=== PATIENT | male | born 1955 | race Caucasian/White ===

== ENCOUNTER → 2021-07-02 13:59 | Outpatient (CLI) | payer MEDICARE, OTHER, SELFPAY ==
[2021-07-02 14:41] LABS: Thyroid Stimulating Hormone 0.02 uIU/mL (0.465-4.68)
== END ==
PROVIDERS: Visit Provider Family Medicine
DX: E03.9 Hypothyroidism, unspecified (principal)
CPT/HCPCS: 84443

== ENCOUNTER → 2021-10-23 14:22 | Outpatient (CLI) | payer MEDICARE, OTHER, SELFPAY | PROVIDERS: Visit Provider Family Medicine | DX: Z89.412 Acquired absence of left great toe (principal); Z89.422 Acquired absence of other left toe(s) | CPT/HCPCS: 87070; 87077; 87186; 87205 ==

== ENCOUNTER → 2022-03-19 16:55 | Outpatient (CLI) | payer MEDICARE, OTHER, SELFPAY ==
[2022-03-19 15:14] LABS: Hemoglobin A1C 5.7 % (4.0-6.0)
== END ==
PROVIDERS: PCP Family Medicine; Visit Provider Family Medicine
DX: E11.9 Type 2 diabetes mellitus without complications (principal)
CPT/HCPCS: 83036

== ENCOUNTER → 2022-10-08 14:24 | Outpatient (CLI) | payer MEDICARE, SELFPAY ==
--- NOTE | 2022-10-08 14:43 | XR_ITS ---
FINAL REPORT CLINICAL HISTORY: hip pain COMPARISON: [place] FINDINGS: RIGHT HIP Two views of the right hip demonstrate no acute fracture or dislocation. Mild degenerative change of the right hip is present. Moderate degenerative change of the lower lumbar spine is seen as well. The visualized bony structures are well aligned. No soft tissue abnormality is seen. IMPRESSION: No acute bony abnormality. Reviewed, Interpreted and Dictated by Edward Cox III, MD Transcribed by Paulina Guardado Authenticated and [facility]
--- NOTE | 2022-10-08 14:43 | XR_ITS ---
FINAL REPORT CLINICAL HISTORY: dyspnea FINDINGS: 2 views of the chest were obtained. The heart size and pulmonary vascularity are within normal limits. There is a left subclavian pacer. No acute pulmonary abnormality is identified. The bony thorax is intact. IMPRESSION: No acute cardiopulmonary abnormality. Authenticated and [facility]
--- NOTE | 2022-10-08 14:43 | XR_ITS ---
FINAL REPORT CLINICAL HISTORY: hip pain COMPARISON: None FINDINGS: RIGHT HIP Two views of the right hip demonstrate no acute fracture or dislocation. Mild degenerative change of the right hip is identified. Moderate degenerative changes noted in the lower lumbar spine. The visualized bony structures are well aligned. No soft tissue abnormality is seen. IMPRESSION: No acute bony abnormality. Reviewed, Interpreted and Dictated by Edward Cox III, MD Transcribed by Paulina Guardado Authenticated and [facility]
[2022-10-08 15:22] LABS: Basophils # 0.2 K/mm3 (0-0.2); Basophils % 2.1 % (0.1-2.0); Eosinophils # 0.2 K/mm3 (0.0-0.4); Eosinophils % 2.3 % (0.1-12.0); Hematocrit 34.2 % (42.0-52.0); Lymphocytes # 1.1 K/mm3 (0.7-4.5); Lymphocytes % 12.6 % (10-50); Mean Corpuscular HGB Conc 32.2 g/dL (31.8-35.4); Mean Corpuscular Hemoglobin 30.4 pg (27.0-31.2); Mean Corpuscular Volume 94.6 fl (80-94); Mean Platelet Volume 8.9 fl (7.4-10.4); Monocytes # 0.5 K/mm3 (0.1-1.0); Monocytes % 5.8 % (1.7-9.3); Neutrophils # 6.6 K/mm3 (1.8-7.8); Neutrophils % 77.2 % (37.0-80.0); Platelet Count 302 K/mm3 (142-424); Red Blood Count 3.62 M/mm3 (4.60-6.20); Red Cell Distribution Width 20.1 % (11.5-17.5); White Blood Count 8.6 K/mm3 (4.8-10.8)
[2022-10-08 15:30] LABS: INR 2.76 (0.9-1.1); Prothrombin Time 28.1 seconds (10.1-12.5)
[2022-10-08 15:37] LABS: Hemoglobin A1C 5.6 % (4.0-6.0)
[2022-10-08 15:43] LABS: Alanine Aminotransferase 33 U/L (12-78); Albumin Level 4.2 g/dl (3.5-5.0); Albumin/Globulin Ratio 1.5 (1.1-1.8); Alkaline Phosphatase 126 U/L (38-126); Anion Gap 15.3 mEq/L (5-15); Aspartate Amino Transferase 35 U/L (17-59); Bilirubin,Total 0.4 mg/dl (0.2-1.3); Blood Urea Nitrogen 17 mg/dl (9-20); Calcium 8.9 mg/dl (8.4-10.2); Carbon Dioxide 26 mmol/L (22.0-30.0); Chloride 103 mmol/L (98-107); Chol/HDL Ratio 9.3 (1-3.5); Cholesterol 224 mg/dl (140-200); Estimated Glomerular Filt Rate 74 ml/min (>60); GFR (African American) 90 ML/MIN (>60); Globulin 2.8 g/dL (1.3-3.2); Glucose 111 mg/dl (74-100); HDL Cholesterol 24 mg/dl (40-60); Potassium 4.3 mmoL/L (3.5-5.1); Sodium 140 mmol/L (136-145)
[2022-10-08 15:52] LABS: Triglycerides 722 mg/dl (30-150)
[2022-10-08 15:54] LABS: Direct LDL Cholesterol 84.52 mg/dL (100-129)
[2022-10-08 16:14] LABS: Prostate Specific Ag Screen < 0.1 ng/ml (0.0-4.0)
[2022-10-08 16:16] LABS: Thyroid Stimulating Hormone 0.21 uIU/mL (0.465-4.68)
== END ==
PROVIDERS: PCP Family Medicine; Visit Provider Family Medicine
DX: R06.00 Dyspnea, unspecified (principal); E03.9 Hypothyroidism, unspecified; M25.551 Pain in right hip; M25.552 Pain in left hip; D45 Polycythemia vera; Z12.5 Encounter for screening for malignant neoplasm of prostate; Z51.81 Encounter for therapeutic drug level monitoring; Z79.01 Long term (current) use of anticoagulants; Z79.899 Other long term (current) drug therapy
CPT/HCPCS: 36415; 71046; 73502; 80053; 80061; 83036; 84443; 85025; 85610; G0103

== ENCOUNTER → 2023-02-28 23:41 | Outpatient (CLI) | payer MEDICARE, SELFPAY ==
[2023-02-28 18:27] LABS: Alanine Aminotransferase 36 U/L (12-78); Albumin Level 3.9 g/dl (3.5-5.0); Albumin/Globulin Ratio 1.4 (1.1-1.8); Alkaline Phosphatase 110 U/L (38-126); Anion Gap 12.2 mEq/L (5-15); Aspartate Amino Transferase 50 U/L (17-59); Bilirubin,Total 0.4 mg/dl (0.2-1.3); Blood Urea Nitrogen 15 mg/dl (9-20); Calcium 8.9 mg/dl (8.4-10.2); Carbon Dioxide 30 mmol/L (22.0-30.0); Chloride 99 mmol/L (98-107); Estimated Glomerular Filt Rate 96 ml/min (>60); GFR (African American) 116 ML/MIN (>60); Globulin 2.7 g/dL (1.3-3.2); Glucose 112 mg/dl (74-100); Potassium 4.2 mmoL/L (3.5-5.1); Sodium 137 mmol/L (136-145); Total Protein,Serum 6.6 g/dl (6.3-8.2)
[2023-02-28 18:39] LABS: Basophils # 0.2 K/mm3 (0-0.2); Basophils % 1.7 % (0.1-2.0); Eosinophils # 0.2 K/mm3 (0.0-0.4); Eosinophils % 2.5 % (0.1-12.0); Hematocrit 31.7 % (42.0-52.0); Hemoglobin 10.7 g/dL (14.1-18.0); Lymphocytes # 1.2 K/mm3 (0.7-4.5); Lymphocytes % 14.2 % (10-50); Mean Corpuscular HGB Conc 33.8 g/dL (31.8-35.4); Mean Corpuscular Hemoglobin 30.9 pg (27.0-31.2); Mean Corpuscular Volume 91.6 fl (80-94); Mean Platelet Volume 11.1 fl (7.4-10.4); Monocytes # 0.4 K/mm3 (0.1-1.0); Monocytes % 4.2 % (1.7-9.3); Neutrophils # 6.6 K/mm3 (1.8-7.8); Neutrophils % 77.3 % (37.0-80.0); Platelet Count 200 K/mm3 (142-424); Red Blood Count 3.46 M/mm3 (4.60-6.20); Red Cell Distribution Width 20.3 % (11.5-17.5); White Blood Count 8.6 K/mm3 (4.8-10.8)
[2023-02-28 18:57] LABS: Thyroid Stimulating Hormone 0.78 uIU/mL (0.465-4.68)
== END ==
PROVIDERS: PCP Family Medicine; Visit Provider Family Medicine
DX: D49.7 Neoplasm of unspecified behavior of endocrine glands and other parts of nervous system (principal); R53.83 Other fatigue
CPT/HCPCS: 80053; 84443; 85025

== ENCOUNTER 2023-06-24 16:20 | Outpatient (CLI) | payer MEDICARE, SELFPAY ==
[2023-06-24 17:29] LABS: Iron 76 ug/dL (49-181)
[2023-06-24 17:38] LABS: Total Iron Binding Capacity 299 ug/dL (261-462)
[2023-06-25 10:56] LABS: Testosterone,Total <3 ng/dL (264-916)
== END 2023-06-24 23:59 | disposition home or self-care (01) ==
LOC: LAB.DROPOF 16:21
PROVIDERS: PCP Family Medicine; Visit Provider Family Medicine
DX: R06.02 Shortness of breath (principal); D45 Polycythemia vera; R68.82 Decreased libido; R53.83 Other fatigue; E29.1 Testicular hypofunction; Z79.890 Hormone replacement therapy
CPT/HCPCS: 83540; 83550; 84403

== ENCOUNTER 2023-09-15 18:00 | Outpatient (CLI) | payer MEDICARE, SELFPAY ==
[2023-09-15 18:20] LABS: Anion Gap 12.5 mEq/L (5-15); Blood Urea Nitrogen 15 mg/dl (9-20); Calcium 9.2 mg/dl (8.4-10.2); Carbon Dioxide 25 mmol/L (22.0-30.0); Chloride 102 mmol/L (98-107); Chol/HDL Ratio 7.7 (1-3.5); Cholesterol 193 mg/dl (140-200); Estimated Glomerular Filt Rate 66 ml/min (>60); GFR (African American) 80 ML/MIN (>60); Glucose 126 mg/dl (74-100); HDL Cholesterol 25 mg/dl (40-60); Potassium 4.5 mmoL/L (3.5-5.1); Sodium 135 mmol/L (136-145); Triglycerides 394 mg/dl (30-150); VLDL Cholesterol 79 mg/dL (0-40)
[2023-09-15 18:31] LABS: Direct LDL Cholesterol 93.83 mg/dL (100-129)
[2023-09-17 08:16] LABS: Testosterone,Total 709 ng/dL (264-916)
== END 2023-09-15 23:59 | disposition home or self-care (01) ==
LOC: LAB.DROPOF 09-16 13:43
PROVIDERS: PCP Family Medicine; Visit Provider Family Medicine
DX: D47.1 Chronic myeloproliferative disease (principal); E78.5 Hyperlipidemia, unspecified; Z79.899 Other long term (current) drug therapy
CPT/HCPCS: 80048; 80061; 84403

== ENCOUNTER 2023-12-15 11:42 | Outpatient (CLI) | payer MEDICARE, SELFPAY ==
[2023-12-15 18:47] LABS: Anion Gap 12.7 mEq/L (5-15); Blood Urea Nitrogen 15 mg/dl (9-20); Calcium 8.4 mg/dl (8.4-10.2); Carbon Dioxide 26 mmol/L (22.0-30.0); Chloride 102 mmol/L (98-107); Estimated Glomerular Filt Rate 66 ml/min (>60); GFR (African American) 80 ML/MIN (>60); Glucose 114 mg/dl (74-100); Potassium 3.7 mmoL/L (3.5-5.1); Sodium 137 mmol/L (136-145)
[2023-12-15 19:19] LABS: Thyroid Stimulating Hormone 0.71 uIU/mL (0.465-4.68)
[2023-12-15 21:18] LABS: Microalbumin/Creatinine Ratio 44.5
[2023-12-15 21:24] LABS: Creatinine,Urine Random 131 mg/dL (Not Estab.)
[2023-12-17 12:12] LABS: Testosterone,Total 252 ng/dL (264-916)
== END 2023-12-15 23:59 | disposition home or self-care (01) ==
LOC: LAB.DROPOF 12-16 08:15
PROVIDERS: PCP Family Medicine; Visit Provider Family Medicine
DX: I10 Essential (primary) hypertension (principal); I25.10 Atherosclerotic heart disease of native coronary artery without angina pectoris; E03.9 Hypothyroidism, unspecified; G62.9 Polyneuropathy, unspecified; E07.9 Disorder of thyroid, unspecified; Z87.891 Personal history of nicotine dependence
CPT/HCPCS: 80048; 82043; 82570; 84403; 84443

== ENCOUNTER 2024-03-09 09:18 | Outpatient (CLI) | payer MEDICARE, SELFPAY ==
[2024-03-09 18:59] LABS: Prostate Specific Ag Screen 0.7 ng/ml (0.0-4.0)
[2024-03-11 08:22] LABS: Testosterone,Total 627 ng/dL (264-916)
== END 2024-03-09 23:59 | disposition home or self-care (01) ==
LOC: LAB.DROPOF 03-12 09:18
PROVIDERS: PCP Family Medicine; Visit Provider Family Medicine
DX: Z12.5 Encounter for screening for malignant neoplasm of prostate (principal); E03.9 Hypothyroidism, unspecified
CPT/HCPCS: 84403; G0103

== ENCOUNTER 2024-05-04 11:15 | Outpatient (CLI) | payer MEDICARE, SELFPAY ==
[2024-05-04 18:38] LABS: Albumin Level 4.1 g/dl (3.5-5.0); Chloride 107 mmol/L (98-107); Sodium 138 mmol/L (136-145)
[2024-05-04 18:41] LABS: Alanine Aminotransferase 22 U/L (12-78); Albumin/Globulin Ratio 1.4 (1.1-1.8); Alkaline Phosphatase 104 U/L (38-126); Aspartate Amino Transferase 39 U/L (17-59); Bilirubin,Total 0.9 mg/dl (0.2-1.3); Blood Urea Nitrogen 20 mg/dl (9-20); Calcium 8.4 mg/dl (8.4-10.2); Carbon Dioxide 28 mmol/L (22.0-30.0); Estimated Glomerular Filt Rate 37 ml/min (>60); GFR (African American) 45 ML/MIN (>60); Glucose 100 mg/dl (74-100); Total Protein,Serum 7.1 g/dl (6.3-8.2)
[2024-05-04 18:51] LABS: Basophils % 2.8 % (0.1-2.0); Eosinophils % 1.5 % (0.1-12.0); Hematocrit 31.4 % (42.0-52.0); Hemoglobin 9.9 g/dL (14.1-18.0); Lymphocytes # 1.5 K/mm3 (0.7-4.5); Lymphocytes % 11.8 % (10-50); Mean Corpuscular HGB Conc 31.5 g/dL (31.8-35.4); Mean Corpuscular Hemoglobin 29.6 pg (27.0-31.2); Mean Corpuscular Volume 93.7 fl (80-94); Mean Platelet Volume 11.1 fl (7.4-10.4); Neutrophils # 5.4 K/mm3 (1.8-7.8); Neutrophils % 43.2 % (37.0-80.0); Platelet Count 108 K/mm3 (142-424); Red Blood Count 3.35 M/mm3 (4.60-6.20); Red Cell Distribution Width 18.6 % (11.5-17.5); White Blood Count 12.5 K/mm3 (4.8-10.8)
[2024-05-04 18:52] LABS: Basophils # 0.4 K/mm3 (0-0.2); Eosinophils # 0.2 K/mm3 (0.0-0.4)
== END 2024-05-04 23:59 | disposition home or self-care (01) ==
LOC: LAB.DROPOF 05-07 12:03
PROVIDERS: PCP Family Medicine; Visit Provider Family Medicine
DX: E03.9 Hypothyroidism, unspecified (principal); N39.0 Urinary tract infection, site not specified
CPT/HCPCS: 80053; 85025; 87086

== ENCOUNTER 2024-07-27 10:10 | Outpatient (CLI) | payer MEDICARE, SELFPAY ==
[2024-07-27 20:35] LABS: Thyroid Stimulating Hormone 1.12 uIU/mL (0.465-4.68)
[2024-07-29 09:14] LABS: Testosterone,Total 485 ng/dL (264-916)
== END 2024-07-27 23:59 | disposition home or self-care (01) ==
LOC: LAB.DROPOF 07-30 12:15
PROVIDERS: PCP Family Medicine; Visit Provider Family Medicine
DX: R53.83 Other fatigue (principal); E03.9 Hypothyroidism, unspecified
CPT/HCPCS: 84403; 84443

== ENCOUNTER 2024-08-28 14:00 | Emergency (ER) | payer MEDICARE, SELFPAY ==
[2024-08-28 14:14] VITALS: BP 111/68; PULSE 84; RESP 16; TEMP 36.7; O2SAT 97; BMI 31.3
--- NOTE | 2024-08-28 14:21 | CT_ITS ---
FINAL REPORT TECHNIQUE: Thin section axial images were obtained from the thoracic inlet through the upper abdomen after intravenous contrast injection. Reconstruction images were obtained from the axial data. Exam was performed using dose reduction technique. CLINICAL HISTORY: Cough, shortness of air, hemoptysis hx of CA FINDINGS: There is no lymphadenopathy. Prominent coronary artery calcifications are seen. There is a small to moderate size hiatal hernia. Fluid is seen throughout the esophagus. There are several tiny, subpleural posterior right upper lobe nodules measuring less than 4 mm. Lungs are otherwise clear. There is no pleural or pericardial effusion. Limited imaging of the upper abdomen demonstrates fatty infiltration of the liver. Spleen is incompletely imaged but is enlarged up to 17.5 cm. The Lap-Band is noted near the GE junction. Diffuse increased density is seen throughout the bones which is nonspecific but can be seen with chronic renal disease. However, diffuse bone metastasis is not excluded. IMPRESSION: 1. Fluid in the esophagus with small hiatal hernia. 2. Fatty infiltration of the liver and splenomegaly. 3 increased density of the bones. Recommend clinical correlation. Reviewed, Interpreted and Dictated by Carlyn Roland MD Transcribed by Krystal Hannah Authenticated and [facility] [place] [place]
--- NOTE | 2024-08-28 14:22 | XR_ITS ---
PROCEDURE INFORMATION: Exam: XR Chest Exam date and time: 08/28/2024 2:43 PM Age: 69 years old Clinical indication: Cough and shortness of breath; Additional info: Shortness of air, cough TECHNIQUE: Imaging protocol: Radiologic exam of the chest. Views: 1 view. COMPARISON: CR XR CHEST 2V 10/08/2022 2:44 PM FINDINGS: Lungs: Lung volumes are significantly decreased likely due to poor inspiratory effort. No infiltrates or overt CHF. Pleural spaces: Unremarkable. No pleural effusion. No pneumothorax. Heart/Mediastinum: Cardiac silhouette not significantly enlarged. Pacemaker wires projecting within the right atrium and right ventricle. Bones/joints: No acute bony abnormalities detected. IMPRESSION: No active disease.
--- NOTE | 2024-08-28 14:23 | ED_ITS ---
<Statement entered by Giulia Camacho DO - 08/28/24 23:29> I was consulted by the LORI, and we discussed the complexity of the problems being addressed. I approved the treatment and management plan for this patient's care in the emergency department, thus performing a substantive portion of the medical decision making. Giulia Camacho DO Discharge Plan Disposition Patient Disposition: Home, Self-Care Condition: Good Prescriptions Prescriptions: New amoxicillin-pot clavulanate 875-125 mg tablet 1 tab PO BID 7 Days Qty: 14 0RF azithromycin [Zithromax Z-Phong] 250 mg tablet See Rx Instructions .ROUTE .COMPLEX Qty: 1 0RF Rx Instructions: For 250 mg dose pack: take 500 mg today (day 1), then 250 mg for 4 days (days 2-5) prednisone 20 mg tablet 20 mg PO DAILY Qty: 13 0RF Rx Instructions: Please take 60 mg (3 tablets) on the first day, then 40 mg (2 tablets) for days 2 through 5. No Action cholecalciferol (vitamin D3) 10 mcg (400 unit) capsule 10 mcg PO DAILY atenolol 25 mg tablet 25 mg PO DAILY saw palmetto 500 mg capsule 500 mg PO BID Rx Instructions: give with food (meal/snack) albuterol sulfate [ProAir HFA] 90 mcg/actuation HFA aerosol inhaler 2 puff inhalation QID PRN (Reason: shortness of breath or wheezing) 90 Days Qty: 8.5 3RF Eliquis 5 mg tablet 5 mg PO BID dabigatran etexilate 110 mg capsule PO BID hydrocortisone 5 mg tablet See Rx Instructions .ROUTE .COMPLEX Qty: 270 3RF Rx Instructions: 5 pills q am and 4 pills qpm or as directed Jakafi 5 mg tablet 5 mg PO DAILY ferrous sulfate [Fe-Brian] 15 mg iron (75 mg)/mL drops 1 ml PO DAILY mecobalamin (vitamin B12) 500 mcg tablet,chewable PO B-complex with vitamin C Tablet 1 tab PO DAILY oxycodone 5 mg tablet 5 mg PO Q4H PRN Patient Comments: TAKE ONE (1) -2 TABLETS EVERY FOUR (4) HOURS NEEDED FOR PAIN. Xyosted 100 mg/0.5 mL auto-injector 100 mg SQ WEEKLY Qty: 2 3RF sulfamethoxazole-trimethoprim [Bactrim DS] 800-160 mg tablet 1 tab PO BID Qty: 20 0RF levothyroxine [Synthroid] 125 mcg tablet 125 mcg PO DAILY Qty: 90 3RF gabapentin 800 mg tablet See Rx Instructions .ROUTE .COMPLEX Qty: 450 3RF Rx Instructions: two in am, one at noon, two in evening; tamsulosin [Flomax] 0.4 mg capsule 0.4 mg PO DAILY Qty: 90 3RF dapagliflozin propanediol [Farxiga] 10 mg tablet 10 mg PO DAILY Qty: 90 3RF testosterone cypionate [Depo-Testosterone] 200 mg/mL oil 200 mg IM WEEKLY Qty: 10 0RF duloxetine 60 mg capsule,delayed release(DR/EC) See Rx Instructions .ROUTE .COMPLEX Qty: 180 3RF Dose Instruction: TAKE 1 CAPSULE TWICE DAILY Rx Instructions: TAKE 1 CAPSULE TWICE DAILY pantoprazole 40 mg tablet,delayed release (DR/EC) 40 mg PO BID Qty: 60 1RF Referrals Follow up/Referrals: Etienne Evans MD [Primary Care Provider] - See instructions Activity Restrictions/Add. Instructions Additional Instructions/Restrictions: Please take all medications as prescribed, return to the emergency with any worsening signs or symptoms. Please follow-up with your other providers such as primary care doctor and hematology oncologist as directed. Clinical Impressions Clinical Impression: COPD exacerbation, Leukocytosis Instructions Patient Instructions: DI for Acute Bronchitis Print Language Print Language: [place]ican Discharge ED Provider: Giulia Camacho General Adult HPI General Chief complaint: Upper Respiratory Infection Stated complaint: Chest X-Ray, blood work Time Seen by Provider: 08/28/24 14:02 Mode of Arrival: Ambulatory Source of Information: Patient Description of Symptoms (Recalled from ER Triage Doc. by RN): Reports that he had a burning in his chest so he went to see Dr. Maloney. Dr. Maloney requested patient be sent to the ER for further evaluation. Patient states that he has been coughing up phelm that was streaked with blood. History of Present Illness HPI narrative: 69-year-old male presents emergency department requesting his primary care provider accompanied by his spouse. For cough, congestion, sore throat, subjective fever and chills that started last night, also endorses an episode of coughing up blood , admits to some shortness of breath, admits to pleuritic chest pain, denies any headache, lightheadedness dizziness, abdominal pain nausea vomiting constipation diarrhea, no urinary type symptomatology, no hematuria no melena, no hematemesis. With a past medical history consistent with COPD, peripheral vascular disease, atrial fibrillation on anticoagulation therapy with Eliquis, leukemia of the myeloproliferative type, currently on immune modulator therapy for this, sees hematology oncology in [facility], coronary artery disease status post 70 stent placements, unknown pituitary tumor, hypertension, polyneuropathy, patient denies any history of alcohol use, no drug use, is a former smoker, no distress vitals unremarkable. SpO2 within normal is, no tachycardia no tachypnea. Was sent from his primary care provider to obtain blood work and chest x-rays . Onset (ago): day(s) Related Data Home Medications ?Medication ?Instructions ?Recorded ?Confirmed atenolol 25 mg tablet 25 mg PO DAILY 07/02/21 08/28/24 cholecalciferol (vitamin D3) 10 10 mcg PO DAILY 07/02/21 08/28/24 mcg (400 unit) capsule saw palmetto 500 mg capsule 500 mg PO BID 07/22/22 08/28/24 apixaban 5 mg tablet (Eliquis) 5 mg PO BID 09/15/23 08/28/24 B-complex with vitamin C 1 tab PO DAILY 03/09/24 08/28/24 ferrous sulfate 15 mg iron (75 1 ml PO DAILY 03/09/24 08/28/24 mg)/mL oral drops (Fe-Brian) mecobalamin (vitamin B12) 500 mcg mcg PO 03/09/24 08/28/24 chewable tablet oxycodone 5 mg tablet 5 mg PO Q4H PRN 03/09/24 08/28/24 ruxolitinib 5 mg tablet (Jakafi) 5 mg PO DAILY 03/09/24 08/28/24 dabigatran etexilate 110 mg capsule mg PO BID 07/27/24 08/28/24 Previous Rx's ?Medication ?Instructions ?Recorded levothyroxine 125 mcg tablet 125 mcg PO DAILY #90 tabs 01/29/22 (Synthroid) hydrocortisone 5 mg tablet See Rx Instructions .Route 10/08/22 .COMPLEX #270 tabs albuterol sulfate 90 mcg/actuation 2 puff inhalation QID PRN 02/09/23 aerosol inhaler (ProAir HFA) shortness of breath or wheezing 90 days #8.5 grams gabapentin 800 mg tablet See Rx Instructions .Route 10/14/23 .COMPLEX #450 tabs testosterone enanthate 100 mg/0.5 100 mg (0.5 mL) SQ WEEKLY #2 mL 03/09/ mL subcutaneous auto-injector (Xyosted) tamsulosin 0.4 mg capsule (Flomax) 0.4 mg PO DAILY #90 caps 03/12/24 dapagliflozin propanediol 10 mg 10 mg PO DAILY #90 tabs 05/05/24 tablet (Farxiga) sulfamethoxazole 800 1 tab PO BID #20 tabs 05/05/24 mg-trimethoprim 160 mg tablet (Bactrim DS) testosterone cypionate 200 mg/mL 200 mg IM WEEKLY #10 mL 07/19/24 intramuscular oil (Depo-Testosterone) duloxetine 60 mg capsule,delayed See Rx Instructions .Route 07/30/24 release .COMPLEX #180 caps amoxicillin 875 mg-potassium 1 tab PO BID 7 days #14 tabs 08/28/24 clavulanate 125 mg tablet azithromycin 250 mg tablet See Rx Instructions PO .COMPLEX #1 08/28/24 (Zithromax Z-Phong) tab prednisone 20 mg tablet 20 mg PO DAILY #13 tabs 08/28/24 pantoprazole 40 mg tablet,delayed 40 mg PO BID #60 tabs 08/30/24 release Allergies Allergy/AdvReac Type Severity Reaction Status Date / Time hydromorphone (From Dilaudid) AdvReac Severe Confusion Verified 08/28/24 12:43 [facility] Disclaimer: The information contained in this section may have been updated after the patient was seen, as this information can be updated by other users. Medical History (Updated 08/28/24 @ 16:49 by SURESH Veronica) Pneumonia Amputation of one or more toes Amputation of right great toe Neuropathy Hypothyroidism Primary hypertension CAD (coronary artery disease), kiana coronary artery Pituitary tumor Myeloproliferative disease History of pacemaker Surgical History S/P ablation of atrial fibrillation History of surgery on lower extremity History of heart artery stent History of appendectomy Family History Other COPD (chronic obstructive pulmonary disease) Cancer Diabetes Heart attack Hypertension Stroke Social History Smoking Status: Never smoker alcohol intake: never current occupational status: retired Travel in the last 8 weeks: None household members: other housing: house Have you lived/traveled outside [place] in past 30 days?: No Contact w/someone who lives/traveled outside US past 30 days?: No Exposure to someone with infectious disease in past 14 days?: No Do you have a fever (greater than 100.4 F or 38 C)?: No Have you tested positive for COVID-19: No Exposed to someone with COVID-19 in past 14 days?: No Do you have a sore throat?: No Do you have a cough?: No Do you have any weakness?: No Do you have any diarrhea?: No Are you experiencing any unusual bleeding?: No Do you have any muscle aches/pain?: No Do you have any abdominal pain?: No Are you experiencing loss of taste or smell?: No Other Medical History Have you received the Pneumonia Vaccine: Yes ROS Obtained: Yes All systems reviewed & no additional complaints except as documented Physical Exam General General appearance: alert and in no apparent distress Head Head exam: atraumatic and normocephalic Eye Eye exam: Present PERRL and EOMI ENT ENT exam: Present mucous membranes moist Neck Neck exam: Present normal inspection Chest Chest inspection: Present normal inspection and symmetric chest wall rise Respiratory Respiratory exam: Present other (There are some mild crackles/Rales noted throughout the bilateral lung gilliam, negative for wheezing bilaterally, negative rhonchi negative stridor, no supracostal intercostal retractions, no tachypnea); Absent normal lung sounds bilaterally, respiratory distress or wheezes Cardiovascular Cardiovascular exam: Present regular rate and normal rhythm Abdominal Exam Abdominal exam: Present soft; Absent tenderness Extremities Exam Extremities exam: Present normal inspection Neurological Exam Neurological exam: Present alert and oriented X3 Psychiatric Psychiatric exam: Present normal affect Skin Skin exam: Present warm and dry Medical Decision Making Medical Records Medical records reviewed: Yes I reviewed the patient's medical records. Screening: Per USPSTF and CDC recommendations, given the prevalence of disease in our region, it is our hospital?s policy to screen for HIV and viral Hepatitis for all patients aged 18 and over and those with ongoing risk factors. Stephen Inquiry Pt receiving controlled substance: No Stephen was queried for this patient: No Vital Signs: 04/15/25 14:14 08/28/24 17:18 Temperature 98.0 F 98.0 F Temperature Source Oral Oral Pulse Rate 88 Pulse Rate [Radial] 84 Respiratory Rate 16 16 Blood Pressure 116/72 Blood Pressure [Right Arm] 111/68 Blood Pressure Mean [Right Arm] 82 Blood Pressure Source Automatic Cuff Blood Pressure Source [Right Arm] Automatic Cuff Blood Pressure Position Sitting Blood Pressure Position [Right Arm] Sitting 02 Sat by Pulse Oximetry 97 Oxygen Delivery Method Room Air Room Air Lab Data Lab results reviewed: Yes I reviewed the patient's lab results. Lab Results 08/28/24 14:30: WBC 24.7 H*, Corrected WBC 18.7 H, RBC 3.08 L, Hgb 9.6 L, Hct 29.6 L, MCV 96.1 H, MCH 31.2, MCHC 32.4, RDW 20.3 H, Plt Count 140 L, MPV 10.4, Neut % (Auto) 40.4, Lymph % (Auto) 13.9, Pepin % (Auto) 13.7 H, Eos % (Auto) 1.5, Baso % (Auto) 2.9 H, Neut # (Auto) 10.0 H, Lymph # (Auto) 3.4, Pepin # (Auto) 3.4 H, Eos # (Auto) 0.4, Baso # (Auto) 0.7 H, Total Counted 100, Neutrophils % (Manual) 54, Band Neutrophils % 4.0, Lymphocytes % (Manual) 11, Monocytes % (Manual) 15 H, Eosinophils % (Manual) 1, Basophils % (Manual) 1.0, M etamyelocytes % 5.0 H, Myelocytes % 4 H, Promyelocytes % 4, Blast Cells % 1.0, Nucleated RBCs 32, Platelet Estimate Normal, Polychromasia 1+, Poikilocytosis 1+, Anisocytosis 1+, Macrocytosis 1+, Ovalocytes 1+, PT 11.8, INR 1.06, Sodium 138, Potassium 3.8, Chloride 101, Carbon Dioxide 28, Anion Gap 12.8, BUN 13, C reatinine 1.40 H, Estimated Creat Clear 76, Estimated GFR 50 L, Est GFR ( Amer) 60, Glucose 93, Calcium 9.0, Magnesium 1.9, Total Bilirubin 1.1, AST 48, ALT 22, Alkaline Phosphatase 76, Troponin I < 0.01, NT-Pro-B Natriuret Pep 300 H , Total Protein 8.0, Albumin 4.4, Globulin 3.6 H, Albumin/Globulin Ratio 1.2, Chlamy pneumoniae PCR Not detected, Adenovirus (PCR) Not detected, B. pertussis DNA (PCR) Not detected, Coronavirus OC43 (PCR) Not detected, Coronavirus HKU1 (PCR) Not detected, Coronavirus 229E (PCR) Not detected, SARS-CoV-2 (PCR) Not detected, Coronavirus NL63 (PCR) Not detected, HCV Ab FLO w/Rflx PCR Qn Negative, HIV Ag/Ab Combo Qual Negative, Human Metapneumovir PCR Not detected, Influenza A (H1) PCR Not detected, Influ A (H1N1/09) PCR Not detected, Influenza A (H3) PCR Not detected, Influenza Type A (PCR) Not detected, Influenza Type B (PCR) Not detected, M. pneumoniae (PCR) Not detected, Parainfluenza 1 (PCR) Not detected, Parainfluenza 2 (PCR) Not detected, Parainfluenza 3 (PCR) Not detected, Parainfluenza 4 (PCR) Not detected, RSV (PCR) Not detected, Entero/Rhino (PCR) Not detected 08/28/24 14:30 08/28/24 14:30 Orders (Tests/Meds): ED MEDICATIONS Discontinued Medications Generic Name Dose Route Start Last Admin Trade Name Freq PRN Reason Stop Dose Admin Iopamidol 75 ml 08/28/24 15:48 08/28/24 15:49 Iopamidol-370 (76%);100ml Bottle IV 08/28/24 15:49 75 ml ONCE ONE Administration Sodium Chloride 10 ml 08/28/24 15:48 08/28/24 15:49 Sodium Chloride 0.9% 10ml Syr (Rad Only) IV 08/28/24 15:49 10 ml ONCE ONE Administration ORDERS Category Date Time Status CT chest w con Stat Cat Scan 08/28/24 14:21 Completed XR chest portable Stat Exams 08/28/24 14:22 Completed Complete Blood Count Auto Diff Stat Lab 08/28/24 14:30 Completed Comprehensive Metabolic Panel Stat Lab 08/28/24 14:30 Completed Full Resp Panel w/COVID ([facility]) Routine Lab 08/28/24 14:30 Completed HIV Combo Stat Lab 08/28/24 14:30 Completed Hepatitis C Ab Qual. W/ RFX Stat Lab 08/28/24 14:30 Completed Magnesium Stat Lab 08/28/24 14:30 Completed NT Pro Brain Natriuretic Pep. Stat Lab 08/28/24 14:30 Completed PT INR [Prothrombin Time INR] Stat Lab 08/28/24 14:30 Completed Peripheral Smear Review Stat Lab 08/28/24 14:30 Completed Troponin I Stat Lab 08/28/24 14:30 Completed Blood Culture Stat Micro 08/28/24 16:45 Results Medical Decision Narrative: 69-year-old male presents the emergency department with shortness of breath cough congestion, episode of hemoptysis last night, differential diagnosis includes but not limited to, acute bronchitis, viral URI, pulmonary fibrosis, pneumonia, opportunistic infection, cardiac arrhythmia, electrolyte disturbance, pneumothorax, pleural effusion, CHF saturation, COPD exacerbation. I discussed patient case with attending physician Will obtain basic laboratory studies, magnesium level PT/INR, troponin, full respiratory panel, proBNP, EKG, chest x-ray and CT chest with contrast, as patient is on anticoagulation therapy with Eliquis, thus PE is less likely, will obtain CT chest with contrast to better evaluate the lung parenchyma/tissue with the patient's history of myeloproliferative disease. CBC is notable for leukocytosis 24.7, erythrocyte pi?a at 3.08, hemoglobin and hematocrit decreased at 9.6/29.6, MCV is elevated at 96.6. As well as thrombocytopenia at 140, pancytopenia corresponds to patient's underlying myeloproliferative disease, however leukocytosis could be in the setting of viral/bacterial or ongoing infection. PT/INR within normal limits CMP is noted for elevated creatinine 1.4, troponin within normal limits. Reviewed and independently interpreted the patient's chest x-ray along with corresponding radiologic report, no active disease. proBNP is minimally elevated at 300. Obtain blood cultures. I reviewed the patient's CT chest with contrast on the corresponding radiologic report, fluid in esophagus with small hiatal hernia, fatty infiltration of the liver and splenomegaly, 3 increased density of the bones, recommend clinical correlation. I had a long discussion with the patient and family at the bedside, patient has remained hemodynamically stable at this time in the emergency department, SpO2 is remained within normal limits, will treat this as COPD exacerbation and send out blood cultures, will call the patient if blood cultures result and positive for any pathogen's, just out of the abundance of caution with the patient's history of myeloproliferative disease, will treat with Augmentin and azithromycin, patient will take these for 5 to 7 days, as well as prednisone taper. Patient family voiced understanding of the current treatment plan/discharge plan. This leukocytosis could be in relation to the patient's myeloproliferative disease or underlying viral versus bacterial infection that is arising. At this time, patient has no other vital sign abnormalities, patient not currently meeting sepsis or SIRS criteria. Strict ED return precaution given, patient will follow-up with PCP and hematology oncologist as directed. Critical Care Critical Care Time Critical Care Time: No
--- NOTE | 2024-08-28 14:35 | ECG_ITS ---
APPROVED REPORT Exam: Resting ECG HR:77 bpm ECG Measurements Heart Rate 77 AXES KS 338 P 115 QRSd 99 QRS 73 QT 385 T 45 QTc 417 Conclusion ELECTRONIC ATRIAL PACEMAKER LOW QRS VOLTAGE IN PRECORDIAL LEADS [QRS DEFLECTION < 1.0 mV IN CHEST LEADS] No STEMI Electronically signed by : NATASHA CARO, 08/29/2024 06:39:04
[2024-08-28 14:36] LABS: Adenovirus,PCR Not Detected (NotDetected); Bordetella Pertussis Not Detected (NotDetected); Chlamydophila Pneumoniae, PCR Not Detected (NotDetected); Coronavirus 19, PCR Not Detected (NotDetected); Coronavirus 229E Not Detected (NotDetected); Coronavirus NL63 Not Detected (NotDetected); Coronavirus OC43 Not Detected (NotDetected); Coronovirus HKU1,PCR Not Detected (NotDetected); Human Metapneumovirus Not Detected (NotDetected); Influenza A, PCR Not Detected (NotDetected); Influenza AH1, 2009 Not Detected (NotDetected); Influenza AH1, PCR Not Detected (NotDetected); Influenza AH3,PCR Not Detected (NotDetected); Influenza B, PCR Not Detected (NotDetected); Mycoplasma Pneumoniae, PCR Not Detected (NotDetected); Parainfluenza 1, PCR Not Detected (NotDetected); Parainfluenza 2, PCR Not Detected (NotDetected); Parainfluenza 3, PCR Not Detected (NotDetected); Parainfluenza 4, PCR Not Detected (NotDetected); Respiratory Syncytial Virus Not Detected (NotDetected); Rhinovirus/Enterovirus Not Detected (NotDetected)
[2024-08-28 14:43] LABS: Basophils # 0.7 K/mm3 (0-0.2); Basophils % 2.9 % (0.1-2.0); Eosinophils # 0.4 K/mm3 (0.0-0.4); Eosinophils % 1.5 % (0.1-12.0); Hematocrit 29.6 % (42.0-52.0); Hemoglobin 9.6 g/dL (14.1-18.0); Lymphocytes # 3.4 K/mm3 (0.7-4.5); Lymphocytes % 13.9 % (10-50); Mean Corpuscular HGB Conc 32.4 g/dL (31.8-35.4); Mean Corpuscular Hemoglobin 31.2 pg (27.0-31.2); Mean Corpuscular Volume 96.1 fl (80-94); Mean Platelet Volume 10.4 fl (7.4-10.4); Monocytes # 3.4 K/mm3 (0.1-1.0); Monocytes % 13.7 % (1.7-9.3); Neutrophils % 40.4 % (37.0-80.0); Nucleated Red Blood Cells % 37.3 %; Platelet Count 140 K/mm3 (142-424); Red Blood Count 3.08 M/mm3 (4.60-6.20); Red Cell Distribution Width 20.3 % (11.5-17.5); White Blood Count 24.7 K/mm3 (4.8-10.8)
[2024-08-28 14:46] LABS: MANUAL DIFFERENTIAL MANUAL DIFFERENTIAL (MANUAL DIFF)
[2024-08-28 14:47] LABS: INR 1.06 (0.9-1.1); Prothrombin Time 11.8 seconds (10.1-12.5)
[2024-08-28 14:50] LABS: Alanine Aminotransferase 22 U/L (12-78); Aspartate Amino Transferase 48 U/L (17-59); Blood Urea Nitrogen 13 mg/dl (9-20); Carbon Dioxide 28 mmol/L (22.0-30.0); Creatinine Clearance Estimated 76 mL/min (50-200); Estimated Glomerular Filt Rate 50 ml/min (>60); GFR (African American) 60 ML/MIN (>60); Glucose 93 mg/dl (74-100); Magnesium 1.9 mg/dl (1.6-2.3)
[2024-08-28 15:01] LABS: Corrected White Blood Count 18.7 K/mm3 (4.8-10.8); Eosinophils % 1 % (0-3); Lymphocytes % 11 % (10-50); Monocytes % 15 % (2-9); Myelocytes % 4 (0-1); Neutrophils % 54 % (42-76); Nucleated Red Blood Cells 32; Promyelocytes % 4 %; Total Cells Counted 100
[2024-08-28 15:02] LABS: Platelet Estimate Normal
[2024-08-28 15:04] LABS: Anisocytosis 1+; Macrocytosis 1+; Ovalocytes 1+; Poikilocytosis 1+; Polychromasia 1+
[2024-08-28 15:17] LABS: Troponin I < 0.01 ng/ml (0.00-0.034)
--- NOTE | 2024-08-28 15:17 | PC.NURSE ---
called Michelle in lab for status of chemistry
[2024-08-28 15:19] LABS: Anion Gap 12.8 mEq/L (5-15); Bilirubin,Total 1.1 mg/dl (0.2-1.3); Chloride 101 mmol/L (98-107); Potassium 3.8 mmoL/L (3.5-5.1); Sodium 138 mmol/L (136-145)
[2024-08-28 15:20] LABS: Albumin Level 4.4 g/dl (3.5-5.0); Albumin/Globulin Ratio 1.2 (1.1-1.8); Alkaline Phosphatase 76 U/L (38-126); Globulin 3.6 g/dL (1.3-3.2)
[2024-08-28 15:41] LABS: NT Pro Brain Natriuretic Pep. 300 pg/mL (0-125)
[2024-08-28] MEDS: SODIUM CHLORIDE 0.9% 10ML SYR (RAD ONLY) 10 ML IV (15:49)
[2024-08-28] MEDS: IOPAMIDOL-370 (76%);100ML BOTTLE 75 ML IV (15:49)
[2024-08-28 16:18] LABS: HIV Combo NEGATIVE (Negative)
[2024-08-28 16:25] LABS: Hepatitis C Ab Qual. W/ RFX NEGATIVE (Negative)
[2024-08-28 17:18] VITALS: BP 116/72; PULSE 88; RESP 16; TEMP 36.7; O2SAT 98
[2024-08-30 14:34] LABS: Peripheral Smear Review Scanned Result
== END 2024-08-28 17:19 | disposition home or self-care (01) ==
PROVIDERS: Emergency Medicine; Physician Assistant; Emergency Provider Emergency Medicine; PCP Family Medicine
DX: J44.1 Chronic obstructive pulmonary disease with (acute) exacerbation (principal); J44.0 Chronic obstructive pulmonary disease with (acute) lower respiratory infection; J20.9 Acute bronchitis, unspecified; D72.829 Elevated white blood cell count, unspecified; D47.1 Chronic myeloproliferative disease
CPT/HCPCS: 99285; 71045; 71260; 80053; 83735; 83880; 84484; 85007; 85025; 85027; 85060; 85610; 86803; 87040; 87389; 87633; 93005; Q9967

== ENCOUNTER 2024-12-06 12:58 | Outpatient (CLI) | payer MEDICARE, SELFPAY ==
--- OUTSIDE RECORDS SUMMARY | 2018-10-10 11:02 | XMS_ITS | Continuity of Care Document ---
Author Organization [facility] Address [address] [employer] [place] [address] Phone Care Team Providers Care Teacher Tutor Name Role Phone Douglas Perez MD Unavailable Unavailable Allergies, Adverse Reactions, Alerts Substance Reaction Status Criticality No Known allergies Medications Medication Instructions Dosage Effective Dates (start - stop) Status Comments Super B Complex-Vitamin C tablet - Active gabapentin 800 mg Tab take 1 tablet (800MG) by oral route 3 times every day 800 MG - Active simvastatin 40 mg Tab take 1 tablet (40MG) by oral route every day in the evening 40 MG - Active ramipril 1.25 mg Cap take 1 capsule (1.25MG) by oral route every day 1.25 MG - Active Norvasc 10 mg Tab take 1 tablet (10MG) by oral route every day 10 MG - Active Lexapro 20 mg Tab take 1 tablet (20MG) by oral route every day 20 MG - Active Chantix 1 mg Tab take 1 tablet (1MG) by oral route 2 times every day with a glass of water after meals 1 MG - Active Aspirin Low Dose 81 mg Tab, Delayed Release take 1 tablet (81MG) by oral route every day 81 MG - Active PLAVIX (unknown strength) take 1 tablet by oral route every day Not Available - Active LIPITOR (unknown strength) take 1 tablet by oral route every day Not Available - Active RANEXA (unknown strength) take 1 tablet by oral route 2 times every day Not Available - Active NITROSTAT (unknown strength) place 1 tablet by sublingual route at the 1st sign of attack; may repeat every 5 min until relief; if pain persists after 3 tablets in 15 min, prompt medical attention is recommended Not Available - Active PROTONIX IV (unknown strength) infuse by intravenous route every day Not Available - Active SYNTHROID (unknown strength) take 1 tablet by oral route every day Not Available - Active TYLENOL 8 HOUR (unknown strength) take 2 tablet by oral route every 8 hours as needed swallowing whole with water. Do not break, crush, dissolve and/or chew. Not Available - Active VITAMIN D3 (unknown strength) Not Available - Active FISH OIL (unknown strength) Not Available - Active Procedures Procedure Date OFFICE/OUTPATIENT VISIT, EST OFFICE/OUTPATIENT VISIT, EST Void Ticket OFFICE/OUTPATIENT VISIT, EST VISUAL FIELD EXAMINATION(S) OFFICE CONSULTATION VISUAL FIELD EXAMINATION(S) Advance Directives Directive Yes / No Effective Date File Name No Information Encounters Encounter Description Practice Location Reason(s) For Visit Diagnoses Date Provider Providers Copied on Encounter [facility], [address] [place], [address], [place] tel:[phone] [facility] No Information 9 Golnik Douglas. [address] [place], [place], [id number], [place]. tel:[phone] OFFICE/OUTPAT IENT VISIT, EST [facility], [address] [place], [address], [place] tel:[phone] [facility] No Information 4 Golnik Douglas. [facility] [place], [place], [id number], [place]. tel:[phone] OFFICE/OUTPAT IENT VISIT, EST [facility], [address] [place], [address], [place] tel:[phone] [employer] [facility] No Information 3 Golnik Douglas. [facility] [place], [place], [id number], [place]. tel:[phone] Other Provider: Etienne Evans, [address], [place], [address]. tel:[phone] [facility], [address] [place], [address], [place] tel:[phone] [facility] [employer] [facility] VOID OR NO SHOW 3 No Information OFFICE/OUTPAT IENT VISIT, EST [facility], [address] [place], [address], tel:[phone] [facility] No Information 2 Golnik Douglas. [address] [place], [place], [id number], . tel:[phone] Other Provider: Andres Burks, [address] [facility] [address], [place], [address]. tel:[phone] Provider: Etienne Evans [address], [place], [address]. tel:[phone] [facility], [address] [place], [address], tel:[phone] [facility] No Information 2 Golnik Douglas. [address] [place], [place], [id number], . tel:[phone] OFFICE CONSULTATION [facility], [address] [place], [address], tel:[phone] [facility] No Information 1 Golnik Douglas. [address] [place], [place], [id number], . tel:[phone] Referring Provider: Mingo Holliday V, [address] [facility] [address], [place], [address]. tel:[phone] Family History Family Member Type Diagnosis Age At Onset Problem (finding) Family history of HBP Problem (finding) Family history of Diabe gunnar mellitus Problem (finding) Family history of catar act Problem (finding) Family history of glauc timothy Payers Payer name Insurance type Covered alliance party ID Authoriza tion(s) [facility] [id number] Social History Type Description Quantity Date Captured Comments Sex Male Smoking Status No Information Chief Complaint And Reason For Visit No Information Reason For Referral Reason For Referral No Information History Of Present Illness Encounter Date Complaint History Of Prese nt Illness No Information Functional Status Date Functional Assessmen t No Information Instructions Date Instruction Additional Infor j luis - 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 will treat with prism 2 pd BD OS. Related to See impression: general plan - Return in PRN Related to See i mpression: general plan - BENIGN KELI PITUITA RY- DIPLOPIA - small nonspecific vertical misalignment causing symptoms. re-check pit kirk Related to See impression: general plan - Return in 6 week Related to Se e impression: general plan - Return in PRN Related to BENIG N KELI PITUITARY BENIGN KELI PITUITARY - resolved mild visual field defects. Related to BENIGN KELI PITUITARY Assessments Type Assessment Date No Information Patient Care Teams Name Effective Dates (start - stop) Status Members No Information
--- OUTSIDE RECORDS SUMMARY | 2024-10-15 08:58 | XMS_ITS | Encounter Summary ---
Author Organization [facility] [place] [address] Care Team Providers Care Fly Raiser Lockstitch Name Role Phone Etienne Evans MD Primary Care Provider Dallas Dominguez MD Unavailable [phone] Reason for Visit * Reason Comments Follow-up Myelofibrosis Encounter Details Date Type Department Care Team (Latest Contact Info) Description 10/15/2024 8:58 AM EDT - 10/15/2024 11:59 PM EDT Hospital Encounter [facility] [address] [place] [address] Dallas Dominguez MD [address] [place] [id number] Myelofibrosis (HCC) (Primary Dx); 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); Thrombocytopenia; Chemotherapy follow-up examination Discharge Disposition: Home or Self Care Social History Tobacco Use Types Packs/Day Years Used Date Smoking Tobacco: Former Cigarettes 1 40 0 05/16/1966 - 05/15/2000 Cigars Passive Smoke Exposure: Current Smokeless Tobacco: Never Tobacco Cessation:Counseling Given: Not Answered Alcohol Use Standard Drinks/Week Comments Not Currently 7 (1 standard drink = 0.6 oz pur e alcohol) [facility] Utilities Answer Date Recorded In the past 12 months has th e electric, gas, oil, or water company threatened to shut off services in your home? No 04/21/2024 Overall Financial Resource Strain (CARDIA) Answe r Date Recorded How hard is it for you to pa y for the very basics like food, housing, medical care, and heating? Somewhat hard 04/21/2024 PHQ-2 Answer Date Recorded PHQ-2 Total Score 2 04/21/2024 [facility] - Occupational Stress Questionnaire Answer Date Recorded Do you feel stress - tense, restless, nervous, or anxious, or unable to sleep at night because your mind is troubled all the time - these days? Only a little 04/21/2024 Exercise Vital Sign Answer Date Recorde d On average, how many days pe r week do you engage in moderate to strenuous exercise (like a brisk walk)? 0 days 04/21/2024 On average, how many minutes do you engage in exercise at this level? 0 min 04/21/2024 Hunger Vital Sign Answer Date Recorded Within the past 12 months, y ou worried that your food would run out before you got the money to buy more. Never true 04/21/20 24 Within the past 12 months, t he food you bought just didn't last and you didn't have money to get more. Never true 04/21/2024 PRAPARE - Transportation Answer Date Re corded In the past 12 months, has l ack of transportation kept you from medical appointments or from getting medications? No 02/13 In the past 12 months, has l ack of transportation kept you from meetings, work, or from getting things needed for daily living? No 02/24/2023 [facility] IP Transportation Answer D ate Recorded In the past 12 months, has l ack of reliable transportation kept you from medical appointments, meetings, work or from getting things needed for daily living? 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 Not on file Not on file Not o n file documented as of this encounter Last Filed Vital Signs Vital Sign Reading Time Taken Comments Blood Pressure 114/79 10/15/2024 9:11 AM EDT Pulse 91 10/15/2024 9:11 AM EDT Temperature 36.4 C (97.5 F) 10/15/2024 9:11 AM EDT Respiratory Rate 18 10/15/2024 9:11 AM EDT Oxygen Saturation 100% 10/15/2024 9:11 AM EDT Inhaled Oxygen Concentration - - Weight 109.3 kg (241 lb) 10/15/2024 9:11 AM EDT Height 188 cm (6' 2 ) 10/15/2024 9:11 AM EDT Body Mass Index 30.94 10/15/2024 9:11 AM EDT documented in this encounter Functional Status * Is the person deaf or does he/she have serious difficulty hearing? Answer Date of Assessment Author No 05/02/2024 12:25 PM Genoveva Jimenez RN * Is the person blind or does he/she have serious difficulty seeing even when wearing glasses? Answer Date of Assessment Author No 05/02/2024 12:25 PM Genoveva Jimenez RN * Does this person have serious difficulty walking or climbing stairs? Answer Date of Assessment Author No 05/02/2024 12:25 PM Genoveva Jimenez RN * Does this person have difficulty dressing or bathing? Answer Date of Assessment Author No 05/02/2024 12:25 PM Genoveva Jimenez RN * Because of a physical, mental or emotional condition, does this person have difficulty doing errands alone such as visiting a doctor's office or shopping? Answer Date of Assessment Author No 05/02/2024 12:25 PM Genoveva Jimenez RN documented as of this encounter Mental Status * Because of a physical, mental or emotional condition, does this person have serious difficulty concentrating, remembering or making decisions? Answer Entry Date Author No 05/02/2024 12:25 PM Genoveva Jimenez RN documented in this encounter Medications at Time of Discharge acetaminophen (TYLENOL) 500 mg Oral Tablet Take 500 mg by mouth 2 times daily. atenolol (TENORMIN) 25 mg Oral Tablet Take 25 mg by mouth nightly. B-complex with vitamin C (VITAMIN B COMPLEX-C ORAL) Take by mouth. Take one tab daily BD LUER-AISHA SYRINGE 3 mL 23 gauge x 1 1/2 Misc Syringe 10/12/2023 cholecalciferol, vitamin D3, 1,000 unit Oral Tablet Take 1 Tab by mouth daily. docusate sodium (COLACE) 100 mg Oral Capsule 100 mg. DULoxetine (CYMBALTA) 60 mg Oral Capsule, Delayed Release(E.C.) Take by mouth 2 times daily. FARXIGA 10 mg Oral Tablet Take 10 mg by mouth daily. 10/01/2024 ferrous sulfate 325 mg (65 mg iron) Oral Tablet Take 325 mg by mouth daily. [employer] fish oil omega-3 fatty acids 300-1,000 mg Oral Capsule Take 1,200 mg by mouth daily. gabapentin (NEURONTIN) 300 mg Oral Capsule Take 2 Capsules by mouth 2 times daily. 6 Capsule 05/02/2024 ketoconazole (NIZORAL) 2 % Top Cream 10/24/2023 ketoconazole (NIZORAL) 2 % Top Shampoo 10/24/2023 pantoprazole (PROTONIX) 40 mg Oral Tablet, Delayed Release (E.C.) TAKE 1 TABLET TWICE DAILY 30 MINUTES PRIOR TO EATING 180 Tablet 1 02/10/2023 Saccharomyces boulardii (FLORASTOR) 250 mg Oral Capsule Take 1 Capsule by mouth 2 times daily. 180 Capsule 02/25/2023 tamsulosin (FLOMAX) 0.4 mg Oral Capsule Take by mouth daily. testosterone cypionate (DEPOTESTOTERONE CYPIONATE) 200 mg/mL IM Oil 400 mg once a week. 09/20/2023 turmeric, bulk, 100 % Misc Powder Take by mouth daily. apixaban (ELIQUIS) 5 mg Oral Tablet Take 1 Tablet by mouth 2 times daily. 60 Tablet 05/02/2024 diphenhydrAMINE (BENADRYL) 50 mg Oral Capsule Take 50 mg by mouth nightly. hydrocortisone (CORTEF) 5 mg Oral TabletIndication s:Postsurgical hypothyroidism,H /O: pituitary tumor,Thyroid-re lated proptosis,Neurop athy associated with thyroid disease,Pituitar y adenoma (HCC) TAKE 3 TABLETS WITH BREAKFAST AND 2 TABLETS WITH DINNER. 450 Tablet 08/06/2024 5 documented as of this encounter Discharge Disposition Disposition Code Departure Means Destination Home or Self Care documented in this encounter Progress Notes * Dallas Dominguez MD - 10/15/2024 10:30 AM EDT Images from the original note were not included. 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, no increased blasts Also has CAD on plavix (now stopped plavix) Afib s/p PPM (now off apixaban) Pituitary tumor s/p radiation and surgery and on arimidex, testosterone, hydrocortisone VINI on CPAP CURRENT TREATMENT: Hydrea 06/20/23, stopped hydrea IV iron with venofer 1000mg, completed 08/26/23 Supportive Transfusion for the myelofibrosis Transfuse for hgb <8.0, given symptoms and vascular disease history Ruxolitinib 5mg BID (dose reduced due to thrombocytopenia) Started around mid-January Increase to 5mg morning 10mg nightly on 04/02/24 Decreased back to 5mg BID due to 2 admissions with weakness INTERVAL HISTORY: Luis Simmons is here for follow up. He is feeling okay. No recent fevers or infections. No bleeding issues at all. Energy is okay. Taking Jakafi as directed. MEDICATIONS: Current Outpatient Medications Medication acetaminophen (TYLENOL) 500 mg Oral Tablet apixaban (ELIQUIS) 5 mg Oral Tablet atenolol (TENORMIN) 25 mg Oral Tablet B-complex with vitamin C (VITAMIN B COMPLEX-C ORAL) BD LUER-AISHA SYRINGE 3 mL 23 gauge x 1 1/2 Misc Syringe cholecalciferol, vitamin D3, 1,000 unit Oral Tablet docusate sodium (COLACE) 100 mg Oral Capsule DULoxetine (CYMBALTA) 60 mg Oral Capsule, Delayed Release(E.C.) ferrous sulfate 325 mg (65 mg iron) Oral Tablet fish oil omega-3 fatty acids 300-1,000 mg Oral Capsule gabapentin (NEURONTIN) 300 mg Oral Capsule hydrocortisone (CORTEF) 5 mg Oral Tablet ketoconazole (NIZORAL) 2 % Top Cream ketoconazole (NIZORAL) 2 % Top Shampoo LEVOthyroxine (SYNTHROID) 125 mcg Oral Tablet oxyCODONE (ROXICODONE) 5 mg Oral Tablet pantoprazole (PROTONIX) 40 mg Oral Tablet, Delayed Release (E.C.) ruxolitinib (JAKAFI) 5 mg Oral Tablet Saccharomyces boulardii (FLORASTOR) 250 mg Oral Capsule tamsulosin (FLOMAX) 0.4 mg Oral Capsule testosterone cypionate (DEPOTESTOTERONE CYPIONATE) 200 mg/mL IM Oil turmeric, bulk, 100 % Misc Powder diphenhydrAMINE (BENADRYL) 50 mg Oral Capsule No current facility-administered medications for this encounter. PHYSICAL EXAM: ECOG Performance status: ~2 Vitals: 10/15/24 0911 BP: 114/79 Pulse: 91 Resp: 18 Temp: 97.5 ??F (36.4 ??C) SpO2: 100% Wt Readings from Last 3 Encounters: 10/15/24 241 lb (109.3 kg) 08/30/24 234 lb (106.1 kg) 08/20/24 234 lb 12.8 oz (106.5 kg) Physical Exam Constitutional: General: He is not in acute distress. Appearance: He is not toxic-appearing. HENT: Head: Normocephalic and atraumatic. Eyes: General: No scleral icterus. Right eye: No discharge. Left eye: No discharge. Cardiovascular: Comments: Irregularly irregular, rate controlled Pulmonary: Effort: Pulmonary effort is normal. No respiratory distress. Breath sounds: No wheezing. Skin: General: Skin is dry. Coloration: Skin is not jaundiced or pale. Neurological: Mental Status: He is alert. Psychiatric: Mood and Affect: Mood normal. Behavior: Behavior normal. LABS: Lab Results Component Value Date WBC 17.1 (H) 10/15/2024 HGB 11.0 (L) 10/15/2024 HCT 34.8 (L) 10/15/2024 MCV 98.6 10/15/2024 PLT 91 (L) 10/15/2024 , Lab Results Component Value Date NEUTROABS 11.3 (H) 09/17/2024 Lab Results Component Value Date ALT 16 08/20/2024 AST 27 08/20/2024 ALKPHOS 92 08/20/2024 BILITOT 0.5 01/05/2023 Lab Results Component Value Date CREATININE 1.29 08/20/2024 BUN 15 08/20/2024 NA 139 08/20/2024 K 3.7 08/20/2024 CL 102 08/20/2024 CO2 25 08/20/2024 GFRAFRAM 73 03/09/2021 GFRNONAFRAM 63 03/09/2021 Lab Results Component Value Date IRON 186 (H) 02/08/2024 TIBC 322 02/08/2024 FERRITIN 971 (H) 02/08/2024 Lab Results Component Value Date [id number] >1,600 (H) 07/29/2023 Lab Results Component Value Date FOLATE >16.00 07/29/2023 IMAGING: XR R foot, 02/23/23 IMPRESSION: Postoperative changes of transmetatarsal amputation of the right forefoot without radiographic evidence of complication. PATHOLOGY: BMBx, 08/31/23 Bone marrow, left iliac crest, touch imprint, and core biopsy: - Myelofibrotic marrow with osteosclerosis (MF-3) with atypical megakaryocytic proliferation and minimal residual trilineage hematopoietic elements present; see note. - No increase in blasts. - Results of cytogenetics studies will follow by addendum. Note: The patient has a reported JAK2 mutation. CBCs dating back several years show isolated thrombocytosis without significant leukocytosis or polycythemia and until recently no significant cytopenias. Given this history and the current biopsy findings, the differential diagnosis mainly includes fibrotic-stage primary myelofibrosis (fibrotic-stage PMF) and post-essential thrombocytopenia myelofibrosis(post-EF MF). The distribution and morphology of the atypical megakaryocytes favors fibrotic-stage PMF. 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 Established with Dr. Boswell [phone]. 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 - He established with [facility] in 2020, still elevated Hct but with recent finding then of new retinal hemorrhages. Phlebotomized that day, and hydrea was increased to 1000mg/500mg alternating dose. However, he forgot to do this after the first week, and went back to 1 pill daily. --Now, he has newly developed worsening anemia. Stopped hydrea in Jun 2023. Suspected some iron defwith low retic hgb and gave venofer --BMBx done 08/31/23 shows MF-3 grade myelofibrosis. No increased blasts. Not sure if primary or secondary, pathology favoring primary, but his clinical history would favor secondary -->He initially preferred supportive care with transfusion support, but ultimately opted to start Stacy therapy. Tried for pacritinib but not approved as plts were still a little over 50, so started Ruxolitinib (Jakafi) 5mg BID in mid-January -->he felt slightly better overall since starting Jakafi. Tried to increase to 5mg morning and 10mg nightly in March, but he then had 2 hospitalizations with weakness. -->went back to 5mg Bid ruxolitibinib. He feels pretty well still, CBC today shows still elevated WBC but lower than before at 17, hgb improved from last check up to 11, plts pretty stable 90s. Hehasn't needed transfusion for hgb <8 since May 2024. -->Cont Jakafi, RTC in 2mo with repeat labs ane exam #Chronic Leg Pain -has chronic pain in legs, likely related to PAD, but myelofibrosis may contribute some -have started him on oxycodone now, he had reported taking it on average 1-2x per day, total of 2-4pills (takes 2 pills at a time usually) -can continue this as needed Other co-morbidities #PAD with prior partial amputations from bilateral feet #CAD #Afib - resumed anticoagulation in Apr 2024 with plts remaining over 50 #VINI #Obesity RTC: Return in about 2 months (around 12/15/2024) for MD RAE, LAB APT - CBC, CMP, type and screen, possible transfusion. Dallas Dominguez MD Hematology/Oncology documented in this encounter Plan of Treatment Upcoming Encounters Date Type Department Care Team (Late st Contact Info) Description 12/14/2024 11:15 AM EDT Office Visit [facility] [address] [place], [place] [id number] Flaco Hamilton MD [address] [place] [address] 12/27/2024 2:00 PM EDT Office Visit [facility] [address] [place] [address] Flaco Daniel, DPM [address] [place] [address] 01/07/2025 9:30 AM EDT Appointment [facility] [address] [place] [id number] 01/07/2025 9:45 AM EDT Appointment [facility] [address] [place] [address] Destiny Flores, SHAFT MECHANIC [address] [place], [place] [id number] 05/21/2025 2:00 PM EST Office Visit [facility] [address] [place] [address] Pedrito Bray MD [address] [facility] [address] [place] [address] 06/07/2025 1:30 PM EST Office Visit [facility] [address] [facility] [address] [place] [address] 06/07/2025 2:00 PM EST Office Visit [facility] [address] [facility] [address] [place] [address] Imelda Albarado, SHAFT MECHANIC [address] [place], [place] [id number] 12/04/2025 1:45 PM EDT Office Visit [facility] [address] [place] [address] Edita Alford MD [address] [facility] [address], [place] [address] documented as of this encounter Visit Diagnoses Diagnosis Myelofibrosis (HCC)- Primary Myelofibrosis 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) Thrombocytopenia Thrombocytopenia, unspecified Chemotherapy follow-up examination documented in this encounter Additional Health Concerns Assessment Noted Time PHQ-9 Depression Total Score: 2 04/21/20 24 2:41 PM EST A fall risk assessment has been complete d for the patient 06/06/2024 2:03 PM EST PHQ-2 Depression Total Score: 2 04/21/20 24 2:41 PM EST documented as of this encounter Care Teams Fly Raiser Lockstitch Relationship Specialty Start Date End Date Etienne Evans MD PCP - General 12/08/10 Dallas Dominguez MD [address] [facility] [place] [address] Medical Oncologist Internal Medicine-Hematology and Oncology 07/09/21 documented as of this encounter
--- OUTSIDE RECORDS SUMMARY | 2024-10-15 08:58 | XMS_ITS | Encounter Summary ---
Author Organization [place] [address] Care Team Providers Care Gum Remover Name Role Phone Etienne Evans MD Primary Care Provider [phone] Dallas Dominguez MD Unavailable [phone] Encounter Details Date Type Department Care Team (Latest Contact Info) Description 10/15/2024 8:58 AM EDT - 10/15/2024 11:59 PM EDT Hospital Encounter [facility] [address] [place] [id number] Erythrocytosis (Primary Dx); Iron deficiency anemia due to chronic blood loss; Malabsorption in the elderly; MPN (myeloproliferative neoplasm) (HCC) Discharge Disposition: Home or Self Care Social History Tobacco Use Types Packs/Day Years Used Date Smoking Tobacco: Former Cigarettes 1 40 0 05/16/1966 - 05/15/2000 Cigars Passive Smoke Exposure: Current Smokeless Tobacco: Never Alcohol Use Standard Drinks/Week Comments Not Currently 7 (1 standard drink = 0.6 oz pur e alcohol) [facility] Utilities Answer Date Recorded In the past 12 months has [employer] gas, oil, or water [employer] threatened to shut off services in your home? No 04/21/2024 Overall Financial Resource Strain (CARDIA) Answe r Date Recorded How hard is it for you to pa y for the very basics like food, housing, medical care, and heating? Somewhat hard 04/21/2024 PHQ-2 Answer Date Recorded PHQ-2 Total Score 2 04/21/2024 [facility] [place] [facility] - Occupational Stress Questionnaire Answer Date [...] things needed for daily living? 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 60 Tablet 05/02/2024 5 diphenhydrAMINE (BENADRYL) 50 mg Oral Capsule Take 50 mg by mouth nightly. 5 hydrocortisone (CORTEF) 5 mg Oral TabletIndication s:Postsurgical hypothyroidism,H /O: pituitary tumor,Thyroid-re lated proptosis,Neurop athy associated with thyroid disease,Pituitar y adenoma (HCC) TAKE 3 TABLETS WITH BREAKFAST AND 2 TABLETS WITH DINNER. 450 Tablet 08/06/2024 5 documented as of this encounter Discharge Disposition Disposition Code Departure Means Destination Home or Self Care documented in this encounter Plan of Treatment Upcoming Encounters Date Type Department Care Team (Late st Contact Info) Description 12/14/2024 11:15 AM EDT Office Visit [facility] [address] [place] [address] Elmer Hamilton MD [address] [place] [address] 12/27/2024 2:00 PM EDT Office Visit [facility] [address] [address] Elmer Daniel, DPM [address] [place] [address] 01/07/2025 9:30 AM EDT Appointment [facility] [address] [facility] [place] [phone] 01/07/2025 9:45 AM EDT Appointment [facility] [address] [facility] [address] [place] [address] Destiny Flores, [employer] [address] [facility] [facility] [place], [place] [id number] 05/21/2025 2:00 PM EST Office Visit [facility] [address] [place] [address] Pedrito Bray MD [address] [facility] [address] [place] [phone] 06/07/2025 1:30 PM EST Office Visit [facility] [address] [facility] [address] [place] [phone] 06/07/2025 2:00 PM EST Office Visit [facility] [address] [facility] [address] [facility] [address] [place] [address] Imelda Albarado APRN [address] [place], [place] [id number] 12/04/2025 1:45 PM EDT Office Visit [facility] Neph[facility] [address] [facility] [address] [place], [place] [id number] Edita Alford MD [address] [facility] [address] [address] documented as of this encounter Procedures Procedure Name Priority Date/Time Associated Diagnosis Comments BLOOD BANK SPECIMEN HOLD KIM 10/15/2024 9:06 AM EDT Erythrocytosis Iron deficiency anemia due to chronic blood loss Malabsorption in the elderly MPN (myeloproliferative neoplasm) (HCC) PERIPHERAL SMEAR/PATH REVIEW STAT 10/15/2024 9:06 AM EDT Erythrocytosis Iron deficiency anemia due to chronic blood loss Malabsorption in the elderly MPN (myeloproliferative neoplasm) (HCC) CBC WITH DIFF STAT 10/15/2024 9:06 AM EDT Erythrocytosis Iron deficiency anemia due to chronic blood loss Malabsorption in the elderly MPN (myeloproliferative neoplasm) (HCC) documented in this encounter Results * PERIPHERAL SMEAR/PATH REVIEW (10/15/2024 9:06 AM EDT) Pathologist Review The peripheral blood smear is reviewed as requested. Numerous red blood cells are present. The red cells are normocytic and normochromic and decreased in number. There is moderate polychromasia and no significant schistocytes. The leukocytes are increased in number with a left shift including rare possible blast like cells. There are no lymphoma cells or dysplastic cells are seen. The platelets are decreased in number, and appear unremarkable. There is no clumping or satellitosis. Leukocytosis with left shift and rare possible blast and numerous nucleated red blood cells in a patient with known myeloproliferative neoplasm. Clinical correlation is recommended. Hermila Cota MD 10/15/2024 11:28 AM EDT [facility] Blood VENOUS BLOOD / Unknown Venipuncture / Unknown 10/15/2024 9:06 AM EDT 10/15/2024 9:08 AM EDT us Dallas Dominguez MD HEMATOLOGY ORDERABLES Final Res ult [facility] [address] [place] [address] * BLOOD BANK SPECIMEN HOLD (10/15/2024 9:06 AM EDT) Blood Bank Hold Specimen Received 10/15/2024 11:00 AM EDT [facility] Blood VENOUS BLOOD / Unknown Venipuncture / Unknown 10/15/2024 9:06 AM EDT 10/15/2024 9:08 AM EDT us Dallas Dominguez MD BLOOD BANK ORDERABLES Final Res ult [facility] [address] [facility] [place] [id number] * (ABNORMAL) CBC WITH DIFF (10/15/2024 9:06 AM EDT) WBC 17.1(H) 3.7 - 10.3 x10(3)/mc L 10/15/2024 11:51 AM EDT [facility] RBC 3.53(L) 4.60 - 6.10 x10(6)/mc L 10/15/2024 11:51 AM EDT [facility] Hgb 11.0(L) 13.7 - 17.5 g/dL 10/15/2024 11:51 AM EDT [facility] Hct 34.8(L) 40.0 - 51.0 % 10/15/2024 11:51 AM EDT [facility] MCV 98.6 80.0 - 100.0 fL 10/15/2024 11:51 AM EDT [facility] MCH 31.2 26.0 - 34.0 pg 10/15/2024 11:51 AM EDT [facility] MCHC 31.6 30.7 - 35.5 g/dL 10/15/2024 11:51 AM EDT [facility] RDW 20.2(H) <=14.9 % 10/15/2024 11:51 AM EDT [facility] Platelet 91(L) 155 - 369 x10(3)/mc L 10/15/2024 11:51 AM EDT [facility] MPV 10.4 8.8 - 12.5 fL 10/15/2024 11:51 AM EDT [facility] NRBC Auto % 48.2(H) <=0.0 % 10/15/2024 11:51 AM EDT [facility] NRBC# 8.2 x10(3)/mc L 10/15/2024 11:51 AM EDT [facility] Segs 54 % 10/15/2024 11:51 AM EDT [facility] Lymphs 9 % 10/15/2024 11:51 AM EDT [facility] Monos 14 % 10/15/2024 11:51 AM EDT [facility] Eos 2 % 10/15/2024 11:51 AM EDT [facility] Baso 1 % 10/15/2024 11:51 AM EDT [facility] Metamyelocyte 11 % 10/15/2024 11:51 AM EDT [facility] Myelo 8 % 10/15/2024 11:51 AM EDT [facility] Blast 1(H) <=0 % 10/15/2024 11:51 AM EDT [facility] Neut # 9.2(H) 1.6 - 6.1 x10(3)/mc L 10/15/2024 11:51 AM EDT [facility] Lymph # 1.5 1.2 - 3.9 x10(3)/mc L 10/15/2024 11:51 AM EDT [facility] Emery # 2.4(H) 0.3 - 0.9 x10(3)/mc L 10/15/2024 11:51 AM EDT [facility] Eos # Manual 0.3 0.0 - 0.5 x10(3)/mc L 10/15/2024 11:51 AM EDT [facility] Baso # Manual 0.2(H) 0.0 - 0.1 x10(3)/mc L 10/15/2024 11:51 AM EDT [facility] Metamyelo # 1.9 x10(3)/mc L 10/15/2024 11:51 AM EDT [facility] Myelo # 1.4 x10(3)/mc L 10/15/2024 11:51 AM EDT [facility] Blast # 0.2 x10(3)/mc L 10/15/2024 11:51 AM EDT [facility] Aniso Slight 10/15/2024 11:51 AM EDT [facility] Polychrom Slight 10/15/2024 11:51 AM EDT [facility] Ovalocyte Occasional 10/15/2024 11:51 AM EDT [facility] Stippled RBC Occasional 10/15/2024 11:51 AM EDT [facility] Giant PLTS Present 10/15/2024 11:51 AM EDT [facility] Blood VENOUS BLOOD / Unknown Venipuncture / Unknown 10/15/2024 9:06 AM EDT 10/15/2024 9:08 AM EDT us Dallas Dominguez MD HEMATOLOGY ORDERABLES Final Res ult 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
--- OUTSIDE RECORDS SUMMARY | 2024-11-01 10:45 | XMS_ITS | Encounter Summary ---
Author Organization [place] [address] Care Team Providers Care Department Editor Name Role Phone Etienne Evans MD Primary Care Provider [phone] Dallas Dominguez MD Unavailable [phone] Reason for Visit * Reason Comments Fall pt fell hurting both wrists and right elbow. denies hitting head. Encounter Details Date Type Department Care Team (Late st Contact Info) Description 11/01/2024 10:45 AM EDT - 11/01/2024 1:17 PM EDT Emergency [facility] Emergency [address] [place] [address] Debbie Self MD [address] [place] [address] Closed nondisplaced fracture of head of right radius, initial encounter (Primary Dx); Closed nondisplaced fracture of triquetrum, unspecified laterality, initial encounter Discharge Disposition: Home or Self Care Social History Tobacco Use Types Packs/Day Years Used Date Smoking Tobacco: Former Cigarettes 1 40 0 05/16/1966 - 05/15/2000 Cigars Passive Smoke Exposure: Current Smokeless Tobacco: Never Alcohol Use Standard Drinks/Week Comments Not Currently 7 (1 standard drink = 0.6 oz pur e alcohol) [facility] Utilities Answer Date Recorded In the [...] Date Recorded PHQ-2 Total Score 2 04/21/2024 [facility] [place] [facility] Occupat ional Health - Occupational Stress [...] things needed for daily living? 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 Not on file Not on file Not o n file documented as of this encounter Last Filed Vital Signs Vital Sign Reading Time Taken Comments Blood Pressure 136/80 11/01/2024 1:08 PM EDT Pulse 76 11/01/2024 10:39 AM EDT Temperature 36.7 C (98 F) 11/01/2024 10:40 AM EDT Respiratory Rate 16 11/01/2024 10:39 AM EDT Oxygen Saturation 99% 11/01/2024 10:39 AM EDT Inhaled Oxygen Concentration - - Weight 108.9 kg (240 lb) 11/01/2024 10:40 AM EDT Height 185.4 cm (6' 1 ) 11/01/2024 10:40 AM EDT Body Mass Index 31.66 11/01/2024 10:40 AM EDT documented in this encounter Functional [...] 05/02/2024 12:25 PM Genoveva Jimenez RN * Suicide Severity Rating Answer Date of Assessment Author No Risk 11/01/2024 10:37 AM EDT Camden Castro RN * [place]ake Suicide Severity Rating Scale (Q shift for moderate and high) Question Answer Date of Assessment Author 1. In the past month, have y ou wished you were or wished you could go to sleep and not wake up? 0 11/01/2024 10:37 AM EDT Félix Castro RN 2. In the past month, have y ou actually had any thoughts of killing yourself? (If no, skip to question 6) 0 11/01/2024 10:37 AM ED T Camden Castro, SRIDHAR 6. Have you ever done anythi ng, started to do anything, or prepared to do anything to end your life? 0 11/01/2024 10:37 AM EDT Camden Evans RN documented as of this encounter Mental Status * Because of a physical, mental or emotional condition, does this person have serious difficulty concentrating, remembering or making decisions? Answer Entry Date Author No 05/02/2024 12:25 PM Genoveva Jimenez RN documented in this encounter Discharge Instructions * Discharge Instructions* Griselda Varela PA - 11/01/2024 1:02 PM EDT Call orthopedics as soon as possible. Take your oxycodone for pain. Return to the emergency department with inability to care for yourself at home or worsening pain documented in this encounter Medications at Time of Discharge acetaminophen (TYLENOL) 500 mg Oral Tablet Take 500 mg by mouth 2 times daily. atenolol (TENORMIN) 25 mg Oral Tablet Take 25 mg by mouth nightly. B-complex with vitamin C (VITAMIN B COMPLEX-C ORAL) Take by mouth. Take one tab daily BD LUER-AISHA SYRINGE 3 mL 23 gauge x 1 /2 Misc Syringe 10/12/2023 cholecalciferol, vitamin D3, 1,000 [...] mouth 2 times daily. 6 Capsule 05/02/2024 hydrocortisone (CORTEF) 5 mg Oral TabletIndication s:Postsurgical hypothyroidism,H /O: pituitary tumor,Thyroid-re lated proptosis,Neurop athy associated with thyroid disease,Pituitar y adenoma (HCC) TAKE 3 TABLETS WITH BREAKFAST AND 2 TABLETS WITH DINNER. 450 Tablet 3 10/18/2024 ketoconazole (NIZORAL) 2 % Top Cream 10/24/2023 [...] Take 50 mg by mouth nightly. 5 documented as of this encounter Discharge Disposition Disposition Code Departure Means Destination Comment s Home or Self [facility]dc documented in this encounter ED Notes * Griselda Varela PA - 11/01/2024 10:36 AM EDT Chief Complaint Patient presents with Fall pt fell hurting both wrists and right elbow. denies hitting head. 69-year-old male with history of hypertension and diabetes presenting with fall. Patient states he tripped and fell last night catching himself on his bilateral outstretched hands. He is endorsing bilateral wrist pain and right elbow pain. He did not hit his head. No loss of consciousness. No headache, neck pain or back pain. He is not on blood thinners. He has been ambulatory since the fall. He took oxycodone prior to arrival for his pain. Fall Associated symptoms: no abdominal pain, no chest pain, no cough, no diarrhea, no fever, no nausea, no rash, no shortness of breath and no vomiting Patient History Allergies Allergen Reactions Hydromorphone Other (See Comments) Confusion, hallucinations Home Medications: Prior to Admission medications Medication Sig Start Date End Date Last Dose Authorizing Provider acetaminophen (TYLENOL) 500 mg Oral Tablet Take 500 mg by mouth 2 times daily. Provider, Historical apixaban (ELIQUIS) 5 mg Oral Tablet Take 1 Tablet by mouth 2 times daily. 05/02/24 Mira Whalen APRN atenolol (TENORMIN) 25 mg Oral Tablet Take 25 mg by mouth nightly. Provider, Historical B-complex with vitamin C (VITAMIN B COMPLEX-C ORAL) Take by mouth. Take one tab daily Provider, Historical BD LUER-AISHA SYRINGE 3 mL 23 gauge x 1 1/2 Misc Syringe 10/12/23 Provider, Historical cholecalciferol, vitamin D3, 1,000 unit Oral Tablet Take 1 Tab by mouth daily. Provider, Historical diphenhydrAMINE (BENADRYL) 50 mg Oral Capsule Take 50 mg by mouth nightly. Patient not taking: Reported on 10/15/2024 Provider, Historical docusate sodium (COLACE) 100 mg Oral Capsule 100 mg. Provider, Historical DULoxetine (CYMBALTA) 60 mg Oral Capsule, Delayed Release(E.C.) Take by mouth 2 times daily. Provider, Historical ferrous sulfate 325 mg (65 mg iron) Oral Tablet Take 325 mg by mouth daily. [employer] Provider, Historical fish oil omega-3 fatty acids 300-1,000 mg Oral Capsule Take 1,200 mg by mouth daily. Provider, Historical gabapentin (NEURONTIN) 300 mg Oral Capsule Take 2 Capsules by mouth 2 times daily. 05/02/24 Mira Whalen APRN hydrocortisone (CORTEF) 5 mg Oral Tablet TAKE 3 TABLETS WITH BREAKFAST AND 2 TABLETS WITH DINNER. 10/18/24 Pedrito Bray MD ketoconazole (NIZORAL) 2 % Top Cream 10/24/23 Provider, Historical ketoconazole (NIZORAL) 2 % Top Shampoo 10/24/23 Provider, Historical LEVOthyroxine (SYNTHROID) 125 mcg Oral Tablet Take one tab daily 02/06/24 Pedrito Bray MD oxyCODONE (ROXICODONE) 5 mg Oral Tablet Take 1-2 Tablets by mouth every 4 hours as needed for Chronic Pain (G89.29). 10/10/24 Dallas Dominguez MD pantoprazole (PROTONIX) 40 mg Oral Tablet, Delayed Release (E.C.) TAKE 1 TABLET TWICE DAILY 30 MINUTES PRIOR TO EATING 02/10/23 Alverto Acosta MD ruxolitinib (JAKAFI) 5 mg Oral Tablet Take 1 Tablet by mouth 2 times daily. 09/26/24 Dallas Dominguez MD Saccharomyces boulardii (FLORASTOR) 250 mg Oral Capsule Take 1 Capsule by mouth 2 times daily. 02/25/23 Mukesh Mckinley MD tamsulosin (FLOMAX) 0.4 mg Oral Capsule Take by mouth daily. Provider, Historical testosterone cypionate (DEPOTESTOTERONE CYPIONATE) 200 mg/mL IM Oil 400 mg once a week. 09/20/23 Provider, Historical turmeric, bulk, 100 % Misc Powder Take by mouth daily. Provider, Historical Past Medical History: Past Medical History: Diagnosis Date ACTH deficiency Arthritis hips CAD (coronary artery disease) MULTIPLE STENTS Cancer (HCC) PITUITARY TUMOR-TREATED WITH RADIATION & SURGERY benign neoplasm of pituitary gland and craniopharygeal duct Cardiac dysrhythmia Afib, 7 stents, ablation Diabetes mellitus (HCC) no meds Diverticulitis PARSONS (dyspnea on exertion) Encounter for blood transfusion 12/07/23 Heartburn Hiatal hernia SMALL, ABOVE GASTRIC BANDING Hypercholesteremia Hypertension Hypothyroidism Irritable bowel syndrome Melanoma (HCC) 2016 LEFT UPPER ARM Motion sickness MPN (myeloproliferative neoplasm) (HCC) GET[facility] Neuromuscular disorder (HCC) Pacemaker SICK SINUS SYNDROME Seizures (HCC) 2015 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 His smoking use included cigarettes and cigars. He started smoking about 58 years ago. He has a 40 pack-year smoking history. He has been exposed to tobacco smoke. He has never used smokeless tobacco. He reports that he does not currently use alcohol after a past usage of about 4.2 oz of alcohol per week. He reports that he is not cu rrently sexually active and has had partner(s) who are female. He reports using the following method of control/protection: Abstinence. He reports that he does not use drugs. E-Cigarettes (such as Vapes or Juul) E-Cigarette Use Never User Family History: Family History Problem Relation Age of Onset Kidney Disease Mother Kidney removed due to cancer Heart Disease Mother Diabetes Mother Hypertension Mother Kidney Cancer Mother Coronary Art Dis Mother Heart Attack Mother Stroke Mother Cancer Mother High Blood Pressure Mother Coronary Art Dis Father Heart Disease Father Prostate Cancer Father High Blood Pressure Father Breast Cancer Sister Heart Disease Brother Prostate Cancer Brother Coronary Art Dis Maternal Grandfather Heart Disease Maternal Grandfather Anesth Problems Neg Hx Surgical History: Past Surgical History: Procedure Laterality Date AMPUTATION APPENDECTOMY ARM SURGERY L. ARM ATRERY SEVERED WITH TOBACCO STICK WHEN YOUNGER CARDIAC CATHETERIZATION CARDIAC PACEMAKER PLACEMENT CARDIAC SURGERY MULTIPLE STENTS COLONOSCOPY N/A 10/28/2020 .Colonoscopy with biopsy ; Surgeon: Alverto Acosta MD; Location: ED ENDOSCOPY; Service: Endoscopy CT NEEDLE BIOPSY BONE 08/15/2023 CT NEEDLE BIOPSY BONE 08/15/2023 Augustus Chow MD FTT CT CT NEEDLE BIOPSY BONE 08/31/2023 CT NEEDLE BIOPSY BONE 08/31/2023 Hugo Mathew MD FTT CT FL MYELOGRAM LUMBAR 01/16/2021 FL MYELOGRAM LUMBAR 01/16/2021 Davida Willams, RT EDG XRAY FOOT OSTEOTOMY Left 09/07/2021 Left foot, osteotomy of left great toe with wound closure. ; Surgeon: Elmer Daniel DPM; Location: [facility] MAIN OR; Service: Podiatry FOOT SURGERY 05/30/2018 Surgeon: Elmer Daniel DPM; Location: [facility] MAIN OR; Service: Orthopedics FOOT SURGERY Left 05/31/2022 Left foot transmetatarsal amputation, ; Surgeon: Elmer Daniel DPM; Location: [facility] MAIN OR; Service: Orthopedics FOOT SURGERY Right 02/23/2023 Right foot transmetatarsal amputation.; Surgeon: Elmer Daniel DPM; Location: [facility] MAIN OR; Service: Orthopedics FOOT SURGERY Left 12/12/2023 .; Surgeon: Elmer Daniel DPM; Location: [facility] MA[facility] OR; Service: Podiatry GASTRIC RESTRICTION SURGERY 07/13/1997 Approximate date IR ABDOMINAL AORTOGRAM SERIALOGRAM 10/21/2021 IR ABDOMINAL AORTOGRAM SERIALOGRAM 10/21/2021 Wilber Peña MD EDG IR IR ANGIOGRAM EXTREMITY BILATERAL 10/21/2021 IR ANGIOGRAM EXTREMITY BILATERAL 10/21/2021 Wilber Peña MD [facility] IR IR ARTHROCENTESIS ASPIRATION LARGE JOINT 07/18/2024 IR ARTHROCENTESIS ASPIRATION LARGE JOINT 07/18/2024 Ross Wright MD [facility] IR ARTHROCENTESIS ASPIRATION LARGE JOINT 09/19/2024 IR ARTHROCENTESIS ASPIRATION LARGE JOINT 09/19/2024 Ross Wright MD [facility] IR ULTRASOUND GUIDED VASCULAR ACCESS 10/21/2021 IR ULTRASOUND GUIDED VASCULAR ACCESS 10/21/2021 Wilber Peña MD EDG IR LAYER WOUND CLOSURE Right 04/04/2023 Right foot wound closure; Surgeon: Elmer Daniel DPM; Location: [facility] MAIN OR; Service: Podiatry PACEMAKER PLACEMENT 4-5 years ago at [facility] PITUITARY SURGERY PARTIAL TUMOR REMOVED at [facility] -Radiation SKIN GRAFT Left 09/07/2021 .; Surgeon: Elmer Daniel DPM; Location: [facility] MA[facility] OR; Service: Podiatry SKIN GRAFT Left 12/12/2023 .; Surgeon: Elmer Daniel DPM; Location: [facility] MA[facility] OR; Service: Podiatry STOMACH SURGERY 2007 LAPAROSCOPIC GASTRIC BANDING THYROID SURGERY biopsy TOE AMPUTATION Right 05/30/2018 Amputation of great toe right foot and sesamoidectomy; Surgeon: Elmer Daniel DPM; [facility]; Service: Orthopedics TOE AMPUTATION Left 07/13/2021 Left Partial great toe amputation; Surgeon: Elmer Daniel DPM; Location: [facility]; Service: Orthopedics TOE SURGERY Left 12/12/2023 Left foot osteotomy of fifth metatarsal bone.Left foot wound debridement with application of skin graft substitute.; Surgeon: Elmer Daniel DPM; Location: [facility] MA[facility] OR; Service: Podiatry UPPER GASTROINTESTINAL ENDOSCOPY N/A 10/28/2020 Esophagogastroduodenoscopy with biopsy and colonoscopy with biopsy; Surgeon: Alverto Acosta MD; Location: [facility] ENDOSCOPY; Service: Endoscopy Review of Systems Review of Systems Constitutional: Negative for chills and fever. HENT: Negative. Eyes: Negative. Respiratory: Negative for cough and shortness of breath. Cardiovascular: Negative for chest pain, palpitations and leg swelling. Gastrointestinal: Negative for abdominal pain, diarrhea, nausea and vomiting. Genitourinary: Negative for dysuria and frequency. Musculoskeletal: Negative. Skin: Negative for rash. Neurological: Negative. Psychiatric/Behavioral: Negative. All other systems reviewed and are negative. Physical Exam Pulse 76, temperature 98 ??F (36.7 ??C), resp. rate 16, height 6' 1 (1.854 m), weight 240 lb (108.9 kg), SpO2 99%. Physical Exam Vitals and nursing note reviewed. Constitutional: General: He is not in acute distress. Appearance: He is well-developed. HENT: Head: Normocephalic and atraumatic. Eyes: Conjunctiva/sclera: Conjunctivae normal. Pupils: Pupils are equal, round, and reactive to light. Cardiovascular: Rate and Rhythm: Normal rate and regular rhythm. Heart sounds: No murmur heard. No friction rub. No gallop. Pulmonary: Effort: Pulmonary effort is normal. Breath sounds: Normal breath sounds. Musculoskeletal: Right elbow: Decreased range of motion. Tenderness present in radial head. Right wrist: No bony tenderness or snuff box tenderness. Decreased range of motion. Normal pulse. Left wrist: No bony tenderness or snuff box tenderness. Decreased range of motion. Normal pulse. Right hand: No bony tenderness. Normal range of motion. Left hand: Bony tenderness present. Normal range of motion. Cervical back: Normal range of motion and neck supple. No spinous process tenderness. Normal range of motion. Lymphadenopathy: Cervical: No cervical adenopathy. Skin: General: Skin is warm and dry. Findings: No rash. Neurological: Mental Status: He is alert and oriented to person, place, and time. Radiology/EKG/Labs: Results for orders placed or performed during the hospital encounter of 11/01/24 XR ELBOW RIGHT AP LATERAL AND OBLIQUES Narrative XR ELBOW RIGHT AP LATERAL AND OBLIQUES, 11/01/2024 11:15 AM CLINICAL HISTORY: -fall COMPARISON: None. PROCEDURE COMMENTS: XR ELBOW RIGHT AP LATERAL AND OBLIQUES FINDINGS: Joint effusion noted. Displacement of the anterior fat pad and visualization of the posterior fat pad noted. This likely is secondary to a radial head fracture which is present. The ulna is intact. Humerus intact. Joint spaces overall well-maintained for age. No periostitis. Impression Radial head fracture with hemarthrosis. - Note: Radiology results need to be interpreted within a comprehensive clinical context. If you have questions about the radiology report, please contact the office of the ordering clinician. XR WRIST BILATERAL PA AND LATERAL Narrative XR WRIST BILATERAL PA AND LATERAL, 11/01/2024 11:15 AM CLINICAL HISTORY: -fall COMPARISON: None. PROCEDURE COMMENTS: Bilateral imaging per the ordered protocol. FINDINGS: Right: A fracture of dorsal mid compartment or proximal row carpal bone noted probably the triquetrum. Associated soft tissue swelling. Radius and ulna are normal. Left: Fracture of a carpal bone noted probably triquetrum and best identified on the lateral radiograph positioned dorsally with associated soft tissue swelling. Some fragmentation noted. The scaphoid appears to be intact as does the lunate. CT could add further information. There is associated soft tissue swelling. Radius and ulna are normal. Impression Bilateral carpal fractures most likely triquetrum. Intact radius and normal. Maintained joint spaces. - Note: Radiology results need to be interpreted within a comprehensive clinical context. If you have questions about the radiology report, please contact the office of the ordering clinician. XR HAND LEFT PA LATERAL AND OBLIQUE Narrative XR HAND LEFT PA LATERAL AND OBLIQUE, 11/01/2024 11:16 AM CLINICAL HISTORY: -fall COMPARISON: None. PROCEDURE COMMENTS: XR HAND LEFT PA LATERAL AND OBLIQUE FINDINGS: Fracture of a carpal bone noted evident dorsally on the lateral radiograph. Findings compatible with a carpal fracture with comminution likely the triquetrum. Joint spaces overall well-maintained for age. No periostitis. Impression Fracture of a carpal bone, likely the triquetrum with comminution. - Note: Radiology results need to be interpreted within a comprehensive clinical context. If you have questions about the radiology report, please contact the office of the ordering clinician. ED Course: Appropriate laboratory and radiology studies reviewed ED Clinical Impression: Right radial head fracture. Bilateral triquetral fracture MDM Medical Decision Making 69-year-old male presenting with fall. Patient is endorsing pain in his bilateral wrist and right elbow. X-rays reveal a bilateral triquetrum fracture and fracture of his right radial head. Patient was placed in a right sugar-tong splint for a radial head fracture and a left volar splint. After splint placement, the splints are appropriately placed and he is neurovascularly intact. Patient is adamant he did not hit his head. I did offer a CT scan of his head but he declined. He is neurologically intact without a headache. I did offer placement for rehab given patient is in bilateral wrist splints but he declined stating his can help care for him at home. Recommend he follow-up with orthopedics as soon as possible. He should take his home oxycodone for pain. Return precautions were discussed. Condition at Discharge/Transfer from Department: Stable This chart was completed using voice recognition technology and may contain unintended errors Griselda Varela PA 11/01/24 1333 Cosigned by Debbie Self MD at 11/03/2024 6:13 PM EDT Associated attestation - Debbie Self MD - 11/03/2024 6:13 PM EDT I reviewed the HPI, exam, workup for this patient. I personally made/approved the management plan for this patient and take responsibility for the patient management. No orders to display This chart was completed using voice recognition technology and may contain unintended errors documented in this encounter Plan of Treatment Upcoming Encounters Date Type Department Care Team (Late st Contact Info) Description 12/14/2024 11:15 AM EDT [facility] [place] [address] Elmer Hamilton MD [address] [place] [address] 12/27/2024 2:00 PM EDT Office Visit [facility] Podiatry [address] [address] Elmer Daniel, DPSakina [address] [facility] [address] [place] [address] 01/07/2025 9:30 AM EDT Appointment [facility] [address] [facility] [place] [phone] 01/07/2025 9:45 AM EDT Appointment [facility] [address] [place] [address] [address] [place] [address] Destiny Flores, CASTING TESTER [address] [facility] [address] [place] [address] 05/21/2025 2:00 PM EST Office Visit [facility] [address] [facility] [address] [place] [phone] Pedrito Bray MD [address] [facility] [address] [place] [address] 06/07/2025 1:30 PM EST Office Visit [facility] [address] [facility] [address] [place] [phone] 06/07/2025 2:00 PM EST Office Visit [facility] [address] [facility] [address] [place] [address] Imelda Albarado APRN [address] [place], [place] [id number] 12/04/2025 1:45 PM EDT Office Visit [facility] Nephrology [facility] [address] [facility] [address] [place] [address] Edita Alford MD [address] [facility] [address] [address] documented as of this encounter Procedures Procedure Name Priority Date/Time Associated Diagnosis Comments XR HAND LEFT PA LATERAL AND OBLIQUE KIM 11/01/2024 11:16 AM EDT XR WRIST BILATERAL PA AND LATERAL KIM 11/01/2024 11:15 AM EDT XR ELBOW RIGHT AP LATERAL AND OBLIQUES KIM 11/01/2024 11:15 AM EDT documented in this encounter Results * XR HAND LEFT PA LATERAL AND OBLIQUE (11/01/2024 11:16 AM EDT) Anatomical Region Laterality Modality Hand Radiographic Renetta ging 11/01/2024 11:1 6 AM EDT Impressions 11/01/2024 12:15 PM EDT Fracture of a carpal bone, likely the triquetrum with comminution. - Note: Radiology results need to be interpreted within a comprehensive clinical context. If you have questions about the radiology report, please contact the office of the ordering clinician. Narrative 11/01/2024 12:15 PM EDT XR HAND LEFT PA LATERAL AND OBLIQUE, 11/01/2024 11:16 AM CLINICAL HISTORY: -fall COMPARISON: None. PROCEDURE COMMENTS: XR HAND LEFT PA LATERAL AND OBLIQUE FINDINGS: Fracture of a carpal bone noted evident dorsally on the lateral radiograph. Findings compatible with a carpal fracture with comminution likely the triquetrum. Joint spaces overall well-maintained for age. No periostitis. Procedure Note Yoav Henriquez MD - 11/01/2024 XR HAND LEFT PA LATERAL AND OBLIQUE, 11/01/2024 11:16 AM CLINICAL HISTORY: -fall COMPARISON: None. PROCEDURE COMMENTS: XR HAND LEFT PA LATERAL AND OBLIQUE FINDINGS: Fracture of a carpal bone noted evident dorsally on thelateral radiograph. Findings compatible with a carpal fracture with comminutionlikely the triquetrum. Joint spaces overall well-maintained for age. No periostitis. IMPRESSION: Fracture of a carpal bone, likely the triquetrum with comminution. - Note: Radiology results need to be interpreted within a comprehensiveclinical context. If you have questions about the radiology report, please contactthe office of the ordering clinician. us Griselda [facility] ORDERAB LES Final Result * XR WRIST BILATERAL PA AND LATERAL (11/01/2024 11:15 AM EDT) Anatomical Region Laterality Modality Wrist Radiographic Renetta ging 11/01/2024 11:1 5 AM EDT Impressions 11/01/2024 12:04 PM EDT Bilateral carpal fractures most likely triquetrum. Intact radius and normal. Maintained joint spaces. - Note: Radiology results need to be interpreted within a comprehensive clinical context. If you have questions about the radiology report, please contact the office of the ordering clinician. Narrative 11/01/2024 12:04 PM EDT XR WRIST BILATERAL PA AND LATERAL, 11/01/2024 11:15 AM CLINICAL HISTORY: -fall COMPARISON: None. PROCEDURE COMMENTS: Bilateral imaging per the ordered protocol. FINDINGS: Right: A fracture of dorsal mid compartment or proximal row carpal bone noted probably the triquetrum. Associated soft tissue swelling. Radius and ulna are normal. Left: Fracture of a carpal bone noted probably triquetrum and best identified on the lateral radiograph positioned dorsally with associated soft tissue swelling. Some fragmentation noted. The scaphoid appears to be intact as does the lunate. CT could add further information. There is associated soft tissue swelling. Radius and ulna are normal. Procedure Note Yoav Henriquez MD - 11/01/2024 XR WRIST BILATERAL PA AND LATERAL, 11/01/2024 11:15 AM CLINICAL HISTORY: -fall COMPARISON: None. PROCEDURE COMMENTS: Bilateral imaging per the ordered protocol. FINDINGS: Right: A fracture of dorsal mid compartment or proximal row carpal bonenoted probably the triquetrum. Associated soft tissue swelling. Radius and ulna are normal. Left: Fracture of a carpal bone noted probably triquetrum and bestidentified on the lateral radiograph positioned dorsally with associated soft tissueswelling. Some fragmentation noted. The scaphoid appears to be intact as does thelunate. CT could add further information. There is associated soft tissue swelling. Radius and ulna are normal. IMPRESSION: Bilateral carpal fractures most likely triquetrum. Intact radius and normal. Maintained joint spaces. - Note: Radiology results need to be interpreted within a comprehensiveclinical context. If you have questions about the radiology report, please contactthe office of the ordering clinician. Griselda [facility] DIAGNOSTIC IMAGING ORDERAB LES Final Result * XR ELBOW RIGHT AP LATERAL AND OBLIQUES (11/01/2024 11:15 AM EDT) Anatomical Region Laterality Modality Elbow Radiographic Renetta ging 11/01/2024 11:1 5 AM EDT Impressions 11/01/2024 12:18 PM EDT Radial head fracture with hemarthrosis. - Note: Radiology results need to be interpreted within a comprehensive clinical context. If you have questions about the radiology report, please contact the office of the ordering clinician. Narrative 11/01/2024 12:18 PM EDT XR ELBOW RIGHT AP LATERAL AND OBLIQUES, 11/01/2024 11:15 AM CLINICAL HISTORY: -fall COMPARISON: None. PROCEDURE COMMENTS: XR ELBOW RIGHT AP LATERAL AND OBLIQUES FINDINGS: Joint effusion noted. Displacement of the anterior fat pad and visualization of the posterior fat pad noted. This likely is secondary to a radial head fracture which is present. The ulna is intact. Humerus intact. Joint spaces overall well-maintained for age. No periostitis. Procedure Note Yoav Henriquez MD - 11/01/2024 XR ELBOW RIGHT AP LATERAL AND OBLIQUES, 11/01/2024 11:15 AM CLINICAL HISTORY: -fall COMPARISON: None. PROCEDURE COMMENTS: XR ELBOW RIGHT AP LATERAL AND OBLIQUES FINDINGS: Joint effusion noted. Displacement of the anterior fat pad and visualization of the posterior fat pad noted. This likely is secondary toa radial head fracture which is present. The ulna is intact. Humerusintact. Joint spaces overall well-maintained for age. No periostitis. IMPRESSION: Radial head fracture with hemarthrosis. - Note: Radiology results need to be interpreted within a comprehensiveclinical context. If you have questions about the radiology report, please contactthe office of the ordering clinician. Griselda [facility] DIAGNOSTIC IMAGING ORDERAB LES Final Result documented in this encounter Visit Diagnoses Diagnosis Closed nondisplaced fracture of head of right radius, initial encounter- Primary Closed nondisplaced fracture of triquetrum, unspecified laterality, initial encounter documented in this encounter Administered Medications Inactive Administered Medications - up to 1 most recent administrations Medication Order MAR Action Action Date Dose Rate Site HYDROcodone-acetaminophen (NORCO) 5-325 mg per tablet 1 Tablet 1 Tablet, Oral, ONCE, 1 dose, On Margarita 11/01/24 at 1100, Maximum adult dose of acetaminophen is 4000 mg from all sources in 24 hours. Given 11/01/2024 11:28 AM EDT 1 Tablet documented in this encounter Active and Recently Administered Medications Times are shown in EDT. Scheduled Medication Order 10/30/2024 10/31/2024 11/01/2024 HYDROcodone-acetaminophen (NORCO) 5-325 mg per tablet 1 Tablet (COMPLETED) 1 Tablet, Oral, ONCE, 1 dose, On Margarita 11/01/24 at 1100, Maximum adult dose of acetaminophen is 4000 mg from all sources in 24 hours. 1128 (Given - Provid er: Kourtney Payne RN) documented in this encounter Orders Medications Ordered That Yossi ht Not Have Been Administered Count Last Ordered Date First Ordered Date HYDROcodone-acetaminophen (N ORCO) 5-325 mg per tablet 1 Tablet 1 11/01/2024 Nursing Count Last Ordered Date First Orde red Date ED [facility] 1 11/01/2024 SPLINT, CUSTOM 1 11/01/2024 documented in this encounter Additional Health Concerns Assessment Noted Time PHQ-9 Depression Total Score: 2 04/21/20 24 2:41 PM EST A fall risk assessment has been complete d for the patient 06/06/2024 2:03 PM EST PHQ-2 Depression Total Score: 2 04/21/20 24 2:41 PM EST documented as of this encounter Care Teams Department Editor Relationship Specialty Start Date End Date Etienne Evans MD PCP - General 12/08/10 Dallas Dominguez MD [address] [place] [address] [place] [address] Medical Oncologist Internal Medicine-Hematology and Oncology 07/09/21 documented as of this encounter
--- OUTSIDE RECORDS SUMMARY | 2024-11-05 09:00 | XMS_ITS | Encounter Summary ---
Author Organization [facility] Address [address] [place] [address] Care Team Providers Care Spray I Painter Name Role Phone Etienne Evans MD Primary Care Provider [phone] Dallas Dominguez MD Unavailable [phone] Reason for Referral * MRI/CAT Scan (Routine) - Closed Specialty Diagnoses / Procedures Referred By Contac t Referred To Contact Radiology Diagnoses Bilateral hand pain Procedures CT UPPER EXTREMITY LEFT WO CONTRAST Flaco Hamilton MD [address] [place] [phone] Phone: tel: fax: [facility] [address] [place] [address] Phone: tel: Referral ID Status Reason Start Date Expiration Date Visits Re quested Visits Authorized [id number] Closed 11/05/2024 11/05/2025 1 1 Reason for Visit * Reason Comments Injury Injury Encounter Details Date Type Department Care Team (Late st Contact Info) Description 11/05/2024 9:00 AM EDT Office Visit [address] [place] [address] Flaco Hamilton MD [address] [place] [address] Bilateral hand pain (Primary Dx); Closed nondisplaced fracture of neck of right radius, initial encounter Social History Tobacco Use Types Packs/Day Years Used Date Smoking Tobacco: Former Cigarettes 1 40 0 05/16/1966 - 05/15/2000 Cigars Passive Smoke Exposure: Current Smokeless Tobacco: Never Alcohol Use Standard Drinks/Week Comments Not Currently 7 (1 standard drink = 0.6 oz pur e alcohol) [facility] Utilities Answer Date Recorded In the [...] Date Recorded PHQ-2 Total Score 2 04/21/2024 [facility] of Occupat ional Health - Occupational Stress [...] things needed for daily living? No 02/24/[address] 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 10 Tablet 11/05/2024 documented in this encounter Progress Notes * Flaco Hamilton MD - 11/05/2024 9:00 AM EDT Images from the original note were not included. Chief complaint/diagnosis: painful right elbow, bilateral wrist pain History: 69 y.o. male presents with pain and swelling of the elbow. Patient localizes the pain to the lateral aspect, worse with range of motion with distal radiation. Denies numbness and tingling. Denies anyother pain associated with this injury. Date of Injury: 10/31/2024 Mechanism of Injury: fell up concrete step, missed step Previous Injury: None Previous Treatment: Seen in the ER/Urgent Care, XR taken and splinted. Tobacco/Nicotine use: reports that he quit smoking about 24 years ago. His smoking use included cigarettes and cigars. He started smoking about 58 years ago. He has a 40 pack-year smoking history. Hehas been exposed to tobacco smoke. He has never used smokeless tobacco. right Upper Extremity Physical Exam: Elbow Tender to palpation over the radial head and neck Nontender to palpation over the MCL, LCL, midforearm and DRUJ No gross instability of DRUJ noted Elbow range of motion limited and associated with pain. No gross crepitus or mechanical block to pronation/supination Neurologically intact distally motor & sensory to median, radial and ulnar nerves. Capillary refill brisk throughout, no lymphadenopathy Wrist, Hand and Shoulder are unremarkable with full painless active range of motion, no deformity, tenderness or edema. Wrist Point tender overlying triquetrum Nontender overlying the remaining proximal row Minimal overlying edema Moving all digits freely Neurologically intact to gross motor and sensory to median, radial, and ulnar nerves Left Upper Extremity Physical Exam: Wrist Significant diffuse edema Significant diffuse tenderness about the dorsal aspect of the wrist including the entire proximal row Range of motion extremely guarded Neurologically intact to gross motor and sensory to median, radial, and ulnar nerves Radiology: Right ELBOW, 3V AP, Lateral, Radial Head:[facility] on 11/01/2024 Radial neck fracture, nondisplaced right wrist, 3V AP, Lateral, Oblique; [facility] on 11/01/2024 dorsal avulsion consistent with triquetral avulsion left wrist, 3V AP, Lateral, Oblique; [facility] on 11/01/2024 dorsal avulsion large and extensive more so than typically seen with triquetral avulsion Impression: right Radial neck fracture, nondisplaced right wrist dorsal avulsion fracture, origin unknown left wrist probable triquetral fracture Date of Injury: 10/31/2024 Plan: Reviewed the x-rays and discussed the above diagnosis, natural history and treatment plan - closed treatment without manipulation. Placed into bilateral velcro braces CT scan to evaluate Left wrist Called in Oxcodone Follow up after above test complete documented in this encounter Plan of Treatment Upcoming Encounters Date Type Department Care Team (Late st Contact Info) Description 12/14/2024 11:15 AM EDT Office Visit [facility] [address] [place] [address] Flaco Hamilton MD [address] [place] [address] 12/27/2024 2:00 PM EDT Office Visit [facility] [place] [address] [place] [address] Flaco Daniel, DPM [address] [facility] [address] [place], [place] [id number] 01/07/2025 9:30 AM EDT Appointment [facility] [address] [facility] [place] [phone] 01/07/2025 9:45 AM EDT Appointment [facility] [address] [facility] [place] [address] Destiny Flores, ENGINEER OF SYSTEM DEVELOPMENT [address] [facility] [address] [place], [place] [id number] 05/21/2025 2:00 PM EST Office Visit [facility] [address] [place] [phone] Pedrito Bray MD [address] [facility] [address] [place] [address] 06/07/2025 1:30 PM EST Office Visit [facility] [address] [facility] [address] [place] [address] 06/07/2025 2:00 PM EST Office Visit [facility] [address] [facility] [address] [place] [address] Imelda Albarado, ENGINEER OF SYSTEM DEVELOPMENT [address] [place] [address] 12/04/2025 1:45 PM EDT Office Visit [facility] Nephrology [address] [address] Edita Alford MD [address] [facility] [address], [place] [id number] Scheduled Orders Name Type Priority Associated Diagnoses Orde r Schedule AZ WHO WRIST EXTENSION CONTROL NON MOLDED AZ Charge Routine Bilateral hand pain Ordered: 11/05/2024 AZ CLOSED TX RADIAL HEAD/NECK FX W/O MANIPULATION AZ Charge Routine Closed nondisplaced fracture of neck of right radius, initial encounter Ordered: 11/05/2024 documented as of this encounter Results * CT UPPER EXTREMITY LEFT WO CONTRAST (11/12/2024 5:38 PM EDT) Anatomical Region Laterality Modality Arm Computed Tomogra phy 11/12/2024 5:38 PM EDT Impressions 11/13/2024 7:55 AM EDT Acute mildly displaced fracture of the dorsal margin of the triquetrum. Narrative 11/13/2024 7:[address] UPPER EXTREMITY LEFT WO CONTRAST, 11/12/2024 5:38 PM CLINICAL HISTORY: M79.641-Pain in right [id number]-HBD-04-CM M79.642-Pain in left [id number]-ILA-93-CM COMPARISON: Left hand and wrist radiographs 11/01/2024. PROCEDURE COMMENTS: Multidetector noncontrast left wrist CT performed with multiplanar reconstructions. Dose 1 : CT DLP Total : 135.45 mGycm DLP Spiral Max : 133.59 mGycm Maximum CTDI Vol : 7.15 mGy FINDINGS: BONES/JOINTS: There is an acute comminuted mildly displaced fracture involving the dorsal margin of the triquetrum. Maximal dorsal displacement measures 2 mm of the most distal fragment. The remaining bones are intact. Carpal alignment is maintained. There is minimal degenerative spurring of the thumb carpometacarpal joint. SOFT TISSUES: No soft tissue mass or fluid collection. Procedure Note Rakan Lewis MD - 11/13/2024 CT UPPER EXTREMITY LEFT WO CONTRAST, 11/12/2024 5:38 PM CLINICAL HISTORY: M79.641-Pain in right atni-HFS-11-CM M79.642-Pain in left [id number]-CFR-33-CM COMPARISON: Left hand and wrist radiographs 11/01/2024. PROCEDURE COMMENTS: Multidetector noncontrast left wrist CT performedwith multiplanar reconstructions. Dose 1 : CT DLP Total : 135.45 mGycm DLP Spiral Max : 133.59 mGycm Maximum CTDI Vol : 7.15 mGy FINDINGS: BONES/JOINTS: There is an acute comminuted mildly displaced fractureinvolving the dorsal margin of the triquetrum. Maximal dorsal displacement measures2 mm of the most distal fragment. The remaining bones are intact. Carpalalignment is maintained. There is minimal degenerative spurring of the thumbcarpometacarpal joint. SOFT TISSUES: No soft tissue mass or fluid collection. IMPRESSION: Acute mildly displaced fracture of the dorsal margin of the triquetrum. Flaco Hamilton MD IMG CT ORDERABLES Final Result documented in this encounter Visit Diagnoses Diagnosis Bilateral hand pain- Primary Pain in limb Closed nondisplaced fracture of neck of right radius, initial encounter Bilateral hand pain Pain in limb documented in this encounter Historical Medications * This list may reflect changes made after this encounter. dabigatran etexilate (PRADAXA) 75 mg Oral Capsule Take 110 mg by mouth 2 times daily. added in this encounter Additional Health Concerns Assessment Noted Time PHQ-9 Depression Total Score: 2 04/21/20 2:41 PM EST A fall risk assessment has been complete d for the patient 06/06/2024 2:03 PM EST PHQ-2 Depression Total Score: 2 04/21/20 24 2:41 PM EST documented as of this encounter Care Teams Spray I Painter Relationship Specialty Start Date End Date Etienne Evans MD PCP - General 12/08/10 Dallas Dominguez MD [address] [place] [address] Medical Oncologist Internal Medicine-Hematology and Oncology 07/09/21 documented as of this encounter
--- OUTSIDE RECORDS SUMMARY | 2024-11-12 17:14 | XMS_ITS | Encounter Summary ---
Author Organization [place] [address] Care Team Providers Care Manager Business Management Name Role Phone Etienne Evans MD Primary Care Provider [phone] Dallas Dominguez MD Unavailable [phone] Reason for Referral * MRI/CAT Scan (Routine) - Closed Specialty Diagnoses / Procedures Referred By Contac t Referred To Contact Radiology Diagnoses Bilateral hand pain Procedures CT UPPER EXTREMITY LEFT WO CONTRAST Elmer Hamilton MD [address] [place] [address] Phone: tel: fax: [facility] [address] [place] [address] Phone: tel: Referral ID Status Reason Start Date Expiration Date Visits Re quested Visits Authorized [id number] Closed 11/05/2024 11/05/2025 1 1 Reason for Visit * MRI/CAT Scan (Routine) - Closed Specialty Diagnoses / Procedures Referred By Contac t Referred To Contact Radiology Diagnoses Bilateral hand pain Procedures CT UPPER EXTREMITY LEFT WO CONTRAST Elmer Hamilton MD [address] [place] [address] Phone: tel: fax: [facility] [address] [place] [address] Phone: tel: Referral ID Status Reason Start Date Expiration Date Visits Re quested Visits Authorized [id number] Closed 11/05/2024 11/05/2025 1 1 Encounter Details Date Type Department Care Team (Latest Contact Info) Description 11/12/2024 5:14 PM EDT - 11/12/2024 11:59 PM EDT Hospital Encounter [facility] [address] [place] [address] Elmer Hamilton MD [address] [place] [address] Bilateral hand pain Discharge Disposition: Home or Self Care Social History Tobacco Use Types Packs/Day Years Used Date Smoking Tobacco: Former Cigarettes 1 40 0 05/16/1966 - 05/15/2000 Cigars Passive Smoke Exposure: Current Smokeless Tobacco: Never Alcohol Use Standard Drinks/Week Comments Not Currently 7 (1 standard drink = 0.6 oz pur e alcohol) [facility] Utilities Answer Date Recorded In the past 12 months has e electric, gas, oil, or water sofatronic threatened to shut off services in your home? No 04/21/2024 Overall Financial Resource Strain (CARDIA) Answe r Date Recorded How hard is it for you to pa y for the very basics like food, housing, medical care, and heating? Somewhat hard 04/21/2024 PHQ-2 Answer Date Recorded PHQ-2 Total Score 2 04/21/2024 [facility] [place] of Occupat ional Health - Occupational Stress [...] things needed for daily living? 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 dabigatran etexilate (PRADAXA) 75 mg Oral Capsule Take 110 mg by mouth 2 times daily. docusate sodium (COLACE) 100 mg Oral [...] % Misc Powder Take by mouth daily. oxyCODONE (ROXICODONE) 5 mg Oral TabletIndication s:Bilateral hand pain Take 1 Tablet by mouth every 6 hours as needed for Acute Pain (R52) for up to 30 days. 10 Tablet 11/05/2024 apixaban (ELIQUIS) 5 mg Oral Tablet Take [...] Description 12/14/2024 11:15 AM EDT Office Visit [facility] [address] [place] [address] Elmer Hamilton MD [address] [place] [address] 12/27/2024 2:00 PM EDT Office Visit [facility] Podiatry [address] [address] Elmer Daniel, CHARLY [address] [place] [address] 01/07/2025 9:30 AM EDT Appointment [facility] [address] [facility] [place] [address] 01/07/2025 9:45 AM EDT Appointment [facility] [address] [place] [address] Destiny Flores, DIRECTOR OF NURSES REGISTRY [address] [facility] [address] [place] [address] 05/21/2025 2:00 PM EST Office Visit [facility] [address] [facility] [address] [place] [phone] Pedrito Bray MD [address] [facility] [address] [place] [address] 06/07/2025 1:30 PM EST Office Visit [facility] [address] [facility] [address] [place] [phone] 06/07/2025 2:00 PM EST Office Visit [facility] [address] [facility] [address] [place] [phone] Imelda Albarado, JOHANN [address] [place] [address] 12/04/2025 1:45 PM EDT Office Visit [facility] Nephrology [address] [place], [place] [id number] Edita Alford MD [address] [address] documented as of this encounter Procedures Procedure Name Priority Date/Time Associated Diagnosis Comments CT UPPER EXTREMITY LEFT WO CONTRAST Routine 11/12/2024 5:38 PM EDT Bilateral hand pain documented in this encounter Results * CT UPPER EXTREMITY LEFT WO CONTRAST (11/12/2024 5:38 PM EDT) Anatomical Region Laterality Modality Arm Computed Tomogra phy 11/12/2024 5:38 PM EDT Impressions 11/13/2024 7:55 AM EDT Acute mildly displaced fracture of the dorsal margin of the triquetrum. Narrative 11/13/2024 7:[address] UPPER EXTREMITY LEFT WO CONTRAST, 11/12/2024 5:38 PM CLINICAL HISTORY: M79.641-Pain in right [id number]-WUU-88-CM M79.642-Pain in left [id number]-TKP-98-CM COMPARISON: Left hand and wrist radiographs 11/01/2024. [...] 5:38 PM CLINICAL HISTORY: M79.641-Pain in right kisc-OVN-51-CM M79.642-Pain in left qzec-FCW-03-CM COMPARISON: Left hand and wrist radiographs 11/01/2024. [...] of the dorsal margin of the triquetrum. Elmer Hamilton MD IMG CT ORDERABLES Final Result documented in this encounter Visit Diagnoses Diagnosis Bilateral hand pain Pain in limb documented in this encounter Additional Health Concerns Assessment Noted Time PHQ-9 Depression Total Score: 2 04/21/20 2:41 PM EST A fall risk assessment has been complete d for the patient 06/06/2024 2:03 PM EST PHQ-2 Depression Total Score: 2 04/21/20 2:41 PM EST documented as of this encounter Care Teams Manager Business Management Relationship Specialty Start Date End Date Etienne Evans MD PCP - General 12/08/10 Dallas Dominguez MD [address] [facility] [place] [address] Medical Oncologist Internal Medicine-Hematology and Oncology 07/09/21 documented as of this encounter
--- OUTSIDE RECORDS SUMMARY | 2024-11-13 09:02 | XMS_ITS | Encounter Summary ---
Author Organization [place] [address] Care Team Providers Care Leather Dresser Name Role Phone Etienne Evans MD Primary Care Provider [phone] Dallas Dominguez MD Unavailable [phone] Encounter Details Date Type Department Care Team (Latest Contact Info) Description 11/13/2024 9:02 AM EDT - 11/13/2024 11:59 PM EDT Hospital Encounter [facility] [address] [phone] Postsurgical hypothyroidism Discharge Disposition: Home or Self Care Social History Tobacco Use Types Packs/Day Years Used Date Smoking Tobacco: Former Cigarettes 1 40 0 05/16/1966 - 05/15/2000 Passive Smoke Exposure: Current Smokeless Tobacco: Never Comments:I no longer smoke. Alcohol Use Standard Drinks/Week Comments Not Currently 7 (1 standard drink = 0.6 oz pur e alcohol) [facility] Utilities Answer Date Recorded In the [...] Date Recorded PHQ-2 Total Score 2 04/21/2024 [facility] [place] of Occupat ional Health - Occupational Stress [...] things needed for daily living? 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 [address] [place] [address] 01/07/2025 9:30 AM EDT Appointment [facility] [address] [facility] [place] [address] 01/07/2025 9:45 AM EDT Appointment [facility] [address] [facility] [address] [place] [address] Destiny Flores, RECYCLE DRIVER [address] [facility] [address] [place], [place] [id number] 05/21/2025 2:00 PM EST Office Visit [facility] [address] [facility] [address] [place] [phone] Pedrito Bray MD [address] [facility] [address] [place] [phone] 06/07/2025 1:30 PM EST Office Visit [facility] [address] [facility] [address] [place] [address] 06/07/2025 2:00 PM EST Office Visit [facility] [address] [facility] [address] [place] [address] Imelda Albarado, RECYCLE DRIVER [address] [place], [place] [phone] 12/04/2025 1:45 PM EDT Office Visit [facility] [address] [place] [address] Edita Alford MD [address] [address] documented as of this encounter Procedures Procedure Name Priority Date/Time Associated Diagnosis Comments T4, FREE (THYROXINE) Routine 11/13/2024 9:07 AM EDT Postsurgical hypothyroidism COMPREHENSIVE METABOLIC PANEL Routine 11/13/2024 9:07 AM EDT Postsurgical hypothyroidism documented in this encounter Results * (ABNORMAL) T4, FREE (THYROXINE) (11/13/2024 9:07 AM EDT) Free T4 0.76(L) 0.80 - 1.80 ng/dL 11/13/2024 4:57 PM EDT [facility] Blood VENOUS BLOOD / Unknown Venipuncture / Unknown 11/13/2024 9:07 AM EDT 11/13/2024 9:07 AM EDT Narrative [facility] - 11/13/2024 4:57 PM EDT Ingestion of maico doses of biotin (>5 mg/day) taken within 8 hours of drawing blood sample can interfere with this immunoassay test. Pedrito Bray MD CHEMISTRY ORDERABLES [facility] al Result [facility] [address] [facility] , [place] [address] * (ABNORMAL) COMPREHENSIVE METABOLIC PANEL (11/13/2024 9:07 AM EDT) Sodium 141 136 - 145 mmol/L 11/13/2024 4:57 PM EDT [facility] Potassium 3.5 3.5 - 5.0 mmol/L 11/13/2024 4:57 PM EDT [facility] Chloride 102 98 - 107 mmol/L 11/13/2024 4:57 PM EDT [facility] Total CO2 25 22 - 29 mmol/L 11/13/2024 4:57 PM EDT [facility] Anion Gap 14 7 - 16 mmol/L 11/13/2024 4:57 PM EDT [facility] Calcium 9.5 8.8 - 10.4 mg/dL 11/13/2024 4:57 PM EDT [facility] Glucose Lvl 71 70 - 99 mg/dL 11/13/2024 4:57 PM EDT [facility] BUN 11 8 - 23 mg/dL 11/13/2024 4:57 PM EDT [facility] Creatinine 1.33(H) 0.67 - 1.30 mg/dL 11/13/2024 4:57 PM EDT [facility] Albumin 4.3 3.2 - 4.6 gm/dL 11/13/2024 4:57 PM EDT [facility] Total Protein 7.4 6.4 - 8.3 gm/dL 11/13/2024 4:57 PM EDT [facility] Bili Total 0.6 0.2 - 1.4 mg/dL 11/13/2024 4:57 PM EDT [facility] ALT 21 <=41 U/L 11/13/2024 4:57 PM EDT [facility] AST 42(H) <=40 U/L 11/13/2024 4:57 PM EDT [facility] Alk Phos 88 40 - 129 U/L 11/13/2024 4:57 PM EDT [facility] eGFR (CKD-EPIcr 2020) 57(L) >=60 mL/min/1.7 3 m2 11/13/2024 4:57 PM EDT [facility] Comment:Estimated GFR was ca lculated using the CKD-EPIcr (2020) equation refit without race. The equation is recommended by the National Kidney Foundation - [place] [employer] of Nephrology Task Force. Blood VENOUS BLOOD / Unknown Venipuncture / Unknown 11/13/2024 9:07 AM EDT 11/13/2024 9:07 AM EDT Pedrito Bray MD CHEMISTRY ORDERABLES Fin al Result [facility] [address] [facility] , [address] [place] [address] documented in this encounter Visit Diagnoses Diagnosis Postsurgical hypothyroidism documented in this encounter Additional Health Concerns Assessment Noted Time PHQ-9 Depression Total Score: 2 12/07/20 24 2:41 PM EST A fall risk assessment has been complete d for the patient 06/06/2024 2:03 PM EST PHQ-2 Depression Total Score: 2 04/21/20 2:41 PM EST documented as of this encounter Care Teams Leather Dresser Relationship Specialty Start Date End Date Etienne Evans MD PCP - General 12/08/10 Dallas Dominguez MD [address] [facility] [place] [address] Medical Oncologist Internal Medicine-Hematology and Oncology 07/09/21 documented as of this encounter
--- OUTSIDE RECORDS SUMMARY | 2024-11-13 10:40 | XMS_ITS | Encounter Summary ---
Author Organization [place] [address] Care Team Providers Care Local Driver Name Role Phone Etienne Evans MD Primary Care Provider [phone] Dallas Dominguez MD Unavailable [phone] Reason for Referral * DEXA (Routine) - Pending Review Specialty Diagnoses / Procedures Referred By Contac t Referred To Contact Radiology Diagnoses Panhypopituitarism Procedures DX BONE DENSITY AXIAL SKELETON Pedrito Bray MD [address] [address] Phone: tel: fax: Referral ID Status Reason Start Date Expiration Date V isits Requested Visits Authorized [id number] Pending Review 11/13/2024 11/13/2025 1 1 Reason for Visit * Reason Comments Other Encounter Details Date Type Department Care Team (Late st Contact Info) Description 11/13/2024 10:40 AM EDT Office Visit [facility] [address] [facility] [address] [place] [phone] Pedrito Bray MD [address] [address] Postsurgical hypothyroidism (Primary Dx); Pituitary adenoma (HCC); Panhypopituitarism Social History Tobacco Use Types Packs/Day Years Used Date Smoking Tobacco: Former Cigarettes 1 40 0 05/16/1966 - 05/15/2000 Passive Smoke Exposure: Current Smokeless Tobacco: Never Tobacco Cessation:Counseling Given: Not Answered Comments:I no longer smoke. Alcohol Use Standard Drinks/Week Comments Not Currently 7 (1 standard drink = 0.6 oz pur e alcohol) [facility] Utilities Answer Date Recorded In the [...] Date Recorded PHQ-2 Total Score 2 04/21/2024 [facility] [place] of Occupat ional Health - Occupational Stress [...] things needed for daily living? 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 on file Not o n file documented as of this encounter Last Filed Vital Signs Vital Sign Reading Time Taken Comments Blood Pressure 99/66 11/13/2024 10:33 AM EDT Pulse 68 11/13/2024 10:33 AM EDT Temperature - - Respiratory Rate 18 11/13/2024 10:33 AM EDT Oxygen Saturation - - Inhaled Oxygen Concentration - - Weight 109.8 kg (242 lb) 11/13/2024 10:33 AM EDT Height 185.4 cm (6' 1 ) 11/13/2024 10:33 AM EDT Body Mass Index 31.93 11/13/2024 10:33 AM EDT documented in this encounter Functional [...] Refills Last Filled Start Date End Date LEVOthyroxine (SYNTHROID) 125 mcg Oral Tablet Take one tab daily 90 Tablet 3 11/13/2024 11/20/2024 documented in this encounter Progress Notes * Pedrito Bray MD - 11/13/2024 10:40 AM EDT Subjective Endocrinology Note Subjective: Patient ID: Luis Simmons is a 69 y.o. male. Other Associated symptoms include arthralgias, fatigue and weakness. Luis Simmons is a 69 y.o. male who is here for management of pituitary adenoma s/p surgery andRadiation treatment. Reports he was found to have pituitary adenoma as a work up of feeling hot and passing out episode.Pathology reports 12/02/2010 showed pituitary Adenoma, [id number]. 07/2023 CT scan did show stable parasellar mass. Denies any headache, nausea or vomiting. Sees ophthalmology regularly. Recently had a fall and had fracture of the arm. Activity is restricted. Since the pituitary surgery he has been on Hydrocortisone and is taking 20 mg at breakfast- 10 mg with dinner and Levothyroxine 125 mcg daily. He is diagnosed with Myeloproliferative neoplasm and following with Heme-oncology. He has had bilateral transmetatarsal amputations of both feet. Follows with Podiatry Patients past medical, family and social histories were reviewed and updated. There were no changesexcept as noted. Review of Systems Constitutional: Positive for activity change and fatigue. HENT: Positive for dental problem. Respiratory: Positive for apnea and shortness of breath. Musculoskeletal: Positive for arthralgias. Neurological: Positive for weakness. Hematological: Bruises/bleeds easily. All other systems reviewed and are negative. Wt Readings from Last 3 Encounters: 11/13/24 242 lb (109.8 kg) 11/01/24 240 lb (108.9 kg) 10/15/24 241 lb (109.3 kg) Temp Readings from Last 3 Encounters: 11/01/24 98 ??F (36.7 ??C) 10/15/24 97.5 ??F (36.4 ??C) (Oral) 09/19/24 97 ??F (36.1 ??C) (Forehead) BP Readings from Last 3 Encounters: 11/13/24 99/66 11/01/24 136/80 10/15/24 114/79 Pulse Readings from Last 3 Encounters: 11/13/24 68 11/01/24 76 10/15/24 91 Body mass index is 31.93 kg/m??. Objective Objective: Physical Exam HENT: Head: Normocephalic and atraumatic. Neck: Thyroid: No thyromegaly. Vascular: No JVD. Trachea: No tracheal deviation. Cardiovascular: Rate and Rhythm: Normal rate and regular rhythm. Heart sounds: Normal heart sounds. Pulmonary: Effort: Pulmonary effort is normal. No respiratory distress. Breath sounds: Normal breath sounds. No wheezing. Skin: General: Skin is warm and dry. Neurological: Mental Status: He is alert and oriented to person, place, and time. Psychiatric: Behavior: Behavior normal. Thought Content: Thought content normal. Judgment: Judgment normal. Pathology Report Pituitary tumor. Note: The tumor consists of monotonous, endocrine cells with round nuclei and moderate cytoplasm. No mitoses are seen, and nuclear pleomorphism is not prominent. Immunostain for synaptophysin confirms the diagnosis; immunostain for FSH is positive. Immunostains for ACTH, LH, TSH, prolactin and GH are all negative.Immunostains for keratin cam5.2 is positive. There is no evidence of malignancy. Correlation with laboratory data is recommended. Assessment and Plan: Luis was seen today for pituitary adenoma The primary encounter diagnosis was Postsurgical hypothyroidism. A diagnosis of Pituitary adenoma (HCC) was also pertinent to this visit. Pituitary adenoma (HCC) s/p surgery 11/2010, Radiation: Currently on replacement with hydrocortisone, levothyroxine. Testosterone was discontinued when he was diagnosed with Myeloproliferative Neoplasm. Plan - Hydrocortisone to 15 mg with breakfast and 10 mg at 4 pm. Reports he is not having any dizziness episodes - Continue levothyroxine, FT4 good in . CT scan of the pituitary 08/05 showed stable findings Had fracture recently Plan DXA scan Follow up in 6 months documented in this encounter Plan of Treatment Upcoming Encounters Date Type Department Care Team (Late st Contact Info) Description 12/14/2024 11:15 AM EDT Office Visit [facility] [address] [place], [place] [phone] Flaco Hamilton MD [address] [place] [phone] 12/27/2024 2:00 PM EDT Office Visit [facility] [place] [address] [place] [address] Flaco Daniel, DPM [address] [facility] [address] [place], [place] [phone] 01/07/2025 9:30 AM EDT Appointment [facility] [address] [facility] [place] [address] 01/07/2025 9:45 AM EDT Appointment [facility] [address] [facility] [address] [place], [place] [phone] Destiny Flores, ELECTRONIC SECURITY SPECIALIST [address] [facility] [address] [place], [place] [phone] 05/21/2025 2:00 PM EST Office Visit [facility] [address] [facility] [address] [place] [address] Pedrito Bray MD [address] [facility] [address] [place] [address] 06/07/2025 1:30 PM EST Office Visit [facility] [address] [facility] [address] [place] [address] 06/07/2025 2:00 PM EST Office Visit [facility] [address] [facility] [address] [place] [address] Imelda Albarado APRN [address] [place] [address] 12/04/2025 1:45 PM EDT Office Visit [facility] Nephrology [address] [place] [address] Edita Alford MD [address] [facility] [address], [place] [address] Scheduled Orders Name Type Priority Associated Diagnoses Orde r Schedule DX BONE DENSITY AXIAL SKELETON Imaging Routine Panhypopituitarism 1 Occurrences starting 11/13/2024 until 11/13/2025 documented as of this encounter Visit Diagnoses Diagnosis Postsurgical hypothyroidism- Primary Pituitary adenoma (HCC) Benign neoplasm of pituitary gland and craniopharyngeal duct (pouch) Panhypopituitarism documented in this encounter Discontinued Medications Medication Sig Discontinue Reason Start Date End Da te LEVOthyroxine (SYNTHROID) 125 mcg Oral Tablet Take one tab daily Reorder 02/06/2024 documented as of this encounter Historical Medications * This list may reflect changes made after this encounter. FARXIGA 10 mg Oral Tablet Take 10 mg by mouth daily. 10/01/2024 added in this encounter Additional Health Concerns Assessment Noted Time PHQ-9 Depression Total Score: 2 04/21/20 2:41 PM EST A fall risk assessment has been complete d for the patient 06/06/2024 2:03 PM EST PHQ-2 Depression Total Score: 2 04/21/20 24 2:41 PM EST documented as of this encounter Care Teams Local Driver Relationship Specialty Start Date End Date Etienne Evans MD PCP - General 12/08/10 Dallas Dominguez MD [address] [place] [place] [address] [place] [address] Medical Oncologist Internal Medicine-Hematology and Oncology 07/09/21 documented as of this encounter
--- OUTSIDE RECORDS SUMMARY | 2024-12-03 11:24 | XMS_ITS | Encounter Summary ---
Author Organization [place] [address] Care Team Providers Care Pan Helper Name Role Phone Etienne Evans MD Primary Care Provider [phone] Dallas Dominguez MD Unavailable [phone] Encounter Details Date Type Department Care Team (Latest Contact Info) Description 12/03/2024 11:24 AM EDT - 12/03/2024 11:59 PM EDT [facility] [address] [place] [address] Stage 3a chronic kidney disease (HCC) Discharge Disposition: Home or Self Care Social History Tobacco Use Types Packs/Day Years Used Date Smoking Tobacco: Former Cigarettes 1 40 0 05/16/1966 - 05/15/2000 Passive Smoke Exposure: Current Smokeless Tobacco: Never Comments:I no longer smoke. Alcohol Use Standard Drinks/Week Comments Not Currently 7 (1 standard drink = 0.6 oz pur e alcohol) [facility] Utilities Answer Date Recorded In the past 12 months has [employer] electric, gas, oil, or water company threatened to shut off services in your home? No 04/21/2024 Overall Financial Resource Strain (CARDIA) Answe r Date Recorded How hard is it for you to pa y for the very basics like food, housing, medical care, and heating? Somewhat hard 04/21/2024 PHQ-2 Answer Date Recorded PHQ-2 Total Score 2 04/21/2024 [facility] Occupat ional Health - Occupational Stress [...] things needed for daily living? 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 [employer] fish oil omega-3 fatty acids [...] ketoconazole (NIZORAL) 2 % Top Shampoo 10/24/2023 LEVOthyroxine (SYNTHROID) 137 mcg Oral Tablet Take 1 Tablet by mouth daily. 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 60 Tablet 2 11/30/2024 Saccharomyces boulardii (FLORASTOR) 250 mg Oral Capsule [...] Description 12/14/2024 11:15 AM EDT Office Visit [facility] [address] [place], [place] [id number] Flaco Hamilton MD [address] [place] [address] 12/27/2024 2:00 PM EDT Office Visit [facility] [place] [address] [place] [address] Flaco Daniel, DPM [address] [place] [address] 01/07/2025 9:30 AM EDT Appointment [facility] [address] [place] [address]. [address] [place] [phone] 01/07/2025 9:45 AM EDT Appointment [facility] [address] [place] [address] [address] [place] [address] Destiny Flores, CURATOR OF MANUSCRIPTS [address] [facility] [address] [place], [place] [id number] 05/21/2025 2:00 PM EST [facility] [address] [facility] [address] [place] [address] Pedrito Bray MD [address] [facility] [address] [place] [phone] 06/07/2025 1:30 PM EST Office Visit [facility] [address] [facility] [address] [place] [address] 06/07/2025 2:00 PM EST Office Visit [facility] [address] [facility] [address] [place] [address] Imelda Albarado APRN [address] [place], [place] [id number] 12/04/2025 1:45 PM EDT Office Visit [facility] Nephrology FT [address] [place] [address] Edita Alford MD [address] [facility] [address], [place] [address] documented as of this encounter Procedures Procedure Name Priority Date/Time Associated Diagnosis Comments PROTEIN/CREATININE RATIO URINE Routine 12/03/2024 11:23 AM EDT Stage 3a chronic kidney disease (HCC) CBC Routine 12/03/2024 11:23 AM EDT Stage 3a chronic kidney disease (HCC) VITAMIN D 25 HYDROXY Routine 12/03/2024 11:23 AM EDT Stage 3a chronic kidney disease (HCC) PARATHYROID HORMONE INTACT Routine 12/03/2024 11:23 AM EDT Stage 3a chronic kidney disease (HCC) RENAL FUNCTION PANEL Routine 12/03/2024 11:23 AM EDT Stage 3a chronic kidney disease (HCC) documented in this encounter Results * PROTEIN/CREATININE RATIO URINE (12/03/2024 11:23 AM EDT) Urine Protein 23.8 mg/dL 12/03/2024 4:07 PM EDT [facility] Urine Creatinine 110.0 mg/dL 12/03/2024 4:07 PM EDT [facility] Ur Protein/Creat 0.22 mg/mg 12/03/2024 4:07 PM EDT [facility] Urine STRUCTURE OF URINARY TRACT PROPER / Unknown 12/03/2024 11:23 AM EDT 12/03/2024 11:23 AM EDT us Edita Alford MD URINE ORDERABLES Final Result [facility] [address] [facility] [address], [place] [address] [facility] [address] [place] [id number] * VITAMIN D 25 HYDROXY (12/03/2024 11:23 AM EDT) Pathologist [facility] Vit D 25 OH 47.8 30.0 - 150.0 ng/mL 12/03/2024 5:57 PM EDT [facility] Comment: Preferred: >= 30 ng/mL Insufficient: 21-29 ng/mL Deficient <= 20 ng/mL Possible Toxicity: >150 ng/mL Samples should not be taken from patients receiving therapy with high biotin doses (i.e. > 5 mg/day) until at least 8 hours following the last biotin administration. Blood VENOUS BLOOD / Unknown Venipuncture / Unknown 12/03/2024 11:23 AM EDT 12/03/2024 11:23 AM EDT Edita Alford MD CHEMISTRY ORDERABLES nal Result [facility], [address] , [place] [address] * (ABNORMAL) RENAL FUNCTION PANEL (12/03/2024 11:23 AM EDT) [facility] Sodium 140 136 - 145 mmol/L 12/03/2024 5:40 PM EDT [facility] Potassium 4.8 3.5 - 5.0 mmol/L 12/03/2024 5:40 PM EDT [facility] Chloride 101 98 - 107 mmol/L 12/03/2024 5:40 PM EDT [facility] Total CO2 26 22 - 29 mmol/L 12/03/2024 5:40 PM EDT [facility] Anion Gap 13 7 - 16 mmol/L 12/03/2024 5:40 PM EDT [facility] Calcium 10.2 8.8 - 10.4 mg/dL 12/03/2024 5:40 PM EDT [facility] Glucose Lvl 97 70 - 99 mg/dL 12/03/2024 5:40 PM EDT [facility] BUN 15 8 - 23 mg/dL 12/03/2024 5:40 PM EDT [facility] Creatinine 1.36(H) 0.67 - 1.30 mg/dL 12/03/2024 5:40 PM EDT [facility] Albumin 4.5 3.2 - 4.6 gm/dL 12/03/2024 5:40 PM EDT [facility] Phosphorus 3.6 2.5 - 4.5 mg/dL 12/03/2024 5:40 PM EDT [facility] eGFR (CKD-EPIcr 2020) 56(L) >=60 mL/min/1.7 3 m2 12/03/2024 5:40 PM EDT [facility] Comment:Estimated GFR was ca lculated using the CKD-EPIcr (2020) equation refit without race. The equation is recommended by the National Kidney Foundation - [place] Society of Nephrology Task Force. Blood VENOUS BLOOD / Unknown Venipuncture / Unknown 12/03/2024 11:23 AM EDT 12/03/2024 11:23 AM EDT us Edita Alford MD CHEMISTRY ORDERABLES nal Result [facility] [address] [facility] , [place] [address] * PARATHYROID HORMONE INTACT (12/03/2024 11:23 AM EDT) Pathologist [facility] PTH Intact 47.00 15.00 - 65.00 pg/mL 12/03/2024 4:28 PM EDT [facility] Blood VENOUS BLOOD / Unknown Venipuncture / Unknown 12/03/2024 11:23 AM EDT 12/03/2024 11:23 AM EDT Narrative [facility] - 12/03/2024 4:28 PM EDT Intact PTH Calcium Interpretation ------- 15 - 65 8.6 - 10.2 Normal > 65 > 10.2 Primary Hyperparathyroidism < 20 > 10.2 Non-Parathyroid hypercalcemia < 15 < 8.6 Hypoparathyroidism Consider the above as guidelines only. PTH results should be interpreted in conjunction with the total or ionized calcium level. The finding of a persistently high-normal calcium accompanied by a high-normal PTH (or a low-normal calcium accompanied by a low-normal PTH) warrants further investigation. Although the PTH may itself be within normal limits, it may be inappropriately high (or low) relative to the circulating calcium level. Ingestion of caty doses of biotin (>5 mg/day) taken within 8 hours of drawing blood sample can interfere with this immunoassay test. us dEita Alford MD CHEMISTRY ORDERABLES nal Result [facility] [address] [facility], [place] [address] * (ABNORMAL) CBC (12/03/2024 11:23 AM EDT) WBC 30.5(H) 3.7 - 10.3 x10(3)/mcL 12/03/2024 4:26 PM EDT [facility] RBC 4.60 4.60 - 6.10 x10(6)/mcL 12/03/2024 4:26 PM EDT [facility] Hgb 13.7 13.7 - 17.5 g/dL 12/03/2024 4:26 PM EDT [facility] Hct 46.3 40.0 - 51.0 % 12/03/2024 4:26 PM EDT [facility] MCV 100.7(H) 80.0 - 100.0 fL 12/03/2024 4:26 PM EDT [facility] MCH 29.8 26.0 - 34.0 pg 12/03/2024 4:26 PM EDT [facility] MCHC 29.6(L) 30.7 - 35.5 g/dL 12/03/2024 4:26 PM EDT [facility] RDW 20.0(H) <=14.9 % 12/03/2024 4:26 PM EDT [facility] Platelet 108(L) 155 - 369 x10(3)/mcL 12/03/2024 4:26 PM EDT [facility] MPV 11.9 8.8 - 12.5 fL 12/03/2024 4:26 PM EDT [facility] NRBC Auto % 30.8(H) <=0.0 % 12/03/2024 4:26 PM EDT [facility] NRBC# 9.4 x10(3)/mcL 12/03/2024 4:26 PM EDT [facility] Blood VENOUS BLOOD / Unknown Venipuncture / Unknown 12/03/2024 11:23 AM EDT 12/03/2024 11:23 AM EDT us Edita Alford MD HEMATOLOGY ORDERABLES F inal Result [facility] [address] [facility] , [place] [address] documented in this encounter Visit Diagnoses Diagnosis Stage 3a chronic kidney disease (HCC) documented in this encounter Additional Health Concerns Assessment Noted Time PHQ-9 Depression Total Score: 2 04/21/20 24 2:41 PM EST A fall risk assessment has been complete d for the patient 06/06/2024 2:03 PM EST PHQ-2 Depression Total Score: 2 04/21/20 24 2:41 PM EST documented as of this encounter Care Teams Pan Helper Relationship Specialty Start Date End Date Etienne Evans MD PCP - General 12/08/10 Dallas Dominguez MD [address] [facility] [place] [address] Medical Oncologist Internal Medicine-Hematology and Oncology 07/09/21 documented as of this encounter
--- OUTSIDE RECORDS SUMMARY | 2024-12-05 14:15 | XMS_ITS | Encounter Summary ---
Author Organization [facility] Address [address] [facility] [address] [place] [address] Care Team Providers Care Bootmaker Name Role Phone Etienne Evans MD Primary Care Provider [phone] Dallas Dominguez MD Unavailable [phone] Reason for Visit * Reason Comments Acute Kidney Injury Encounter Details Date Type Department Care Team (Late st Contact Info) Description 12/05/2024 2:15 PM EDT Office Visit [facility] Nephrology [address] [place] [address] Edita Alford MD [address] [facility] [address], [place] [address] Stage 3a chronic kidney disease (HCC) (Primary Dx); Renal osteodystrophy Social History Tobacco Use Types Packs/Day Years Used Date Smoking Tobacco: Former Cigarettes 1 40 0 05/16/1966 - 05/15/2000 Passive Smoke Exposure: Current Smokeless Tobacco: Never Tobacco Cessation:Counseling Given: Yes Comments:I no longer smoke. Alcohol Use Standard Drinks/Week Comments Not Currently 7 (1 standard drink = 0.6 oz pur e alcohol) [facility] Utilities Answer Date Recorded In the [...] Date Recorded PHQ-2 Total Score 2 04/21/2024 [employer] [facility]at ional Health - Occupational Stress [...] things needed for daily living? 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 Not on file Not o n file documented as of this encounter Last Filed Vital Signs Vital Sign Reading Time Taken Comments Blood Pressure 113/64 12/05/2024 2:41 PM EDT Pulse 69 12/05/2024 2:41 PM EDT Temperature - - Respiratory Rate - - Oxygen Saturation - - Inhaled Oxygen Concentration - - Weight 109.8 kg (242 lb) 12/05/2024 2:41 PM EDT Height 185.4 cm (6' 1 ) 12/05/2024 2:41 PM EDT Body Mass Index 31.93 12/05/2024 2:41 PM EDT documented in this encounter Functional Status [...] Genoveva Jimenez RN documented in this encounter Progress Notes * Edita Alford MD - 12/05/2024 2:15 PM EDT Images from the original note were not included. Subjective: Patient ID: Luis Simmons is a 69 y.o. male. HPI: Here for follow up of CKD. Fell and broke his wrists. Back on SGLT2i but no episode of UTI since. Background Story: PMHx of MDS. Admitted in the hospital on 04/25-05/02/24 for PARADISE and UTI. Peak serum creatinine of 1.84mg/dL. Patients past medical, family and social histories were reviewed and updated. There were no changesexcept as noted. Review of Systems Constitutional: Negative. HENT: Negative. Respiratory: Negative. Cardiovascular: Negative. Gastrointestinal: Negative. Genitourinary: Negative. Musculoskeletal: Negative. Neurological: Negative. Psychiatric/Behavioral: Negative. Objective: There were no vitals filed for this visit. There is no height or weight on file to calculate BMI. Physical Exam Vitals reviewed. Constitutional: General: He is not in acute distress. Appearance: Normal appearance. HENT: Head: Normocephalic and atraumatic. Eyes: General: No scleral icterus. Conjunctiva/sclera: Conjunctivae normal. Cardiovascular: Rate and Rhythm: Normal rate and regular rhythm. Heart sounds: No friction rub. Pulmonary: Effort: Pulmonary effort is normal. No respiratory distress. Breath sounds: No wheezing or rales. Abdominal: General: Bowel sounds are normal. There is no distension. Tenderness: There is no abdominal tenderness. Musculoskeletal: Right lower leg: No edema. Left lower leg: No edema. Neurological: Mental Status: He is alert. Assessment and Plan: CKD stage 3a. - Baseline serum creatnine of 1.3-1.4mg/dL with hx of PARADISE from [facility]N. - UA with no blood or protein. - Renal US on 04/27/24 showed no evidence of obstruction. There is a 1 cm left renal cortical lesion stable in size with out internal vascularity, radiology did not recommend further evaluation - K/L ratio 2.38, SPEP with IF with small peak in the gamma region. - On SGLT2i. Monitor for UTI episodes. - Advised to avoid NSAIDs. MDS. - On Jakafi. Needs recurrent PRBC transfusions CKD-MBD. - iPTH 47 pg/mL, at goal for his level of kidney function. - Sufficient vitamin D. - Calcium and phos ok. Please do not hesitate to call me at [phone] if with questions or concerns. Thank you! Edita Alford MD [facility] Nephrology [facility] documented in this encounter Plan of Treatment Upcoming Encounters Date Type Department Care Team (Late st Contact Info) Description 12/14/2024 11:15 AM EDT Office Visit [facility] [address] [place], [place] [id number] Flaco Hamilton MD [address] [place] [address] 12/27/2024 2:00 PM EDT Office Visit [facility] [place] [address] [place] [address] Flaco Daniel, DPM [address] [place] [address] 01/07/2025 9:30 AM EDT Appointment [facility] [address] [facility] [place] [address] 01/07/2025 9:45 AM EDT Appointment [facility] [address] [facility] [address] [place] [address] Destiny Flores, UNDERWRITING ASSISTANT [address] [facility] [address] [place], [place] [id number] 05/21/2025 2:00 PM EST Office Visit [facility] [address] [facility] [address] [place] [address] Pedrito Bray MD [address] [facility] [address] [place] [address] 06/07/2025 1:30 PM EST Office Visit [facility] [address] [facility] [address] [place] [address] 06/07/2025 2:00 PM EST Office Visit [facility] [address] [facility] [address] [place] [address] AlvinImelda thompson UNDERWRITING ASSISTANT [address] [place] [address] 12/04/2025 1:45 PM EDT Office Visit [facility] Nephrology [address] [place] [address] Edita Alford MD [address] [facility] [address], [place] [id number] Scheduled Orders Name Type Priority Associated Diagnoses Orde r Schedule PARATHYROID HORMONE INTACT Lab Routine Stage 3a chronic kidney disease (HCC) 1 Occurrences starting 12/05/2024 until 12/05/2025 RENAL FUNCTION PANEL Lab Routine Stage 3a chronic kidney disease (HCC) 1 Occurrences starting 12/05/2024 until 12/05/2025 VITAMIN D 25 HYDROXY Lab Routine Stage 3a chronic kidney disease (HCC) 1 Occurrences starting 12/05/2024 until 12/05/2025 PROTEIN/CREATININE RATIO URINE Lab Routine Stage 3a chronic kidney disease (HCC) 1 Occurrences starting 12/05/2024 until 12/05/2025 documented as of this encounter Visit Diagnoses Diagnosis Stage 3a chronic kidney disease (HCC)- Primary Renal osteodystrophy documented in this encounter Discontinued Medications Medication Sig Discontinue Reason Start Date End Da te diphenhydrAMINE (BENADRYL) 50 mg Oral Capsule Take 50 mg by mouth nightly. Patient Reported not taking medication 12/05/2024 apixaban (ELIQUIS) 5 mg Oral Tablet Take 1 Tablet by mouth 2 times daily. Patient Reported not taking medication 05/02/2024 12/05/2024 documented as of this encounter Additional Health Concerns Assessment Noted Time PHQ-9 Depression Total Score: 2 04/21/20 2:41 PM EST A fall risk assessment has been complete d for the patient 06/06/2024 2:03 PM EST PHQ-2 Depression Total Score: 2 04/21/20 2:41 PM EST documented as of this encounter Care Teams Bootmaker Relationship Specialty Start Date End Date Etienne Evans MD PCP - General 12/08/10 Dallas Dominguez MD [address] [facility] [address] [place], [place] [address] Medical Oncologist Internal Medicine-Hematology and Oncology 07/09/21 documented as of this encounter
[2024-12-06 16:02] LABS: Chloride 101 mmol/L (98-107)
[2024-12-06 16:03] LABS: Albumin Level 4.5 g/dl (3.5-5.0); Potassium 3.7 mmoL/L (3.5-5.1); Sodium 137 mmol/L (136-145)
[2024-12-06 16:05] LABS: Blood Urea Nitrogen 15 mg/dl (9-20); Creatinine,Serum 1.20 mg/dl (0.66-1.25); Estimated Glomerular Filt Rate 60 ml/min (>60); GFR (African American) 72 ML/MIN (>60)
[2024-12-06 16:06] LABS: Alanine Aminotransferase 23 U/L (12-78); Albumin/Globulin Ratio 1.6 (1.1-1.8); Alkaline Phosphatase 82 U/L (38-126); Anion Gap 12.7 mEq/L (5-15); Aspartate Amino Transferase 41 U/L (17-59); Bilirubin,Total 0.9 mg/dl (0.2-1.3); Calcium 9.3 mg/dl (8.4-10.2); Carbon Dioxide 27 mmol/L (22.0-30.0); Globulin 2.9 g/dL (1.3-3.2); Glucose 99 mg/dl (74-100); Total Protein,Serum 7.4 g/dl (6.3-8.2)
[2024-12-07 08:14] LABS: Testosterone,Total 887 ng/dL (264-916)
--- OUTSIDE RECORDS SUMMARY | 2024-12-10 09:45 | XMS_ITS | Encounter Summary ---
Author Organization [place] [address] Care Team Providers Care Steamboat Pilot Name Role Phone Etienne Evans MD Primary Care Provider [phone] Dallas Dominguez MD Unavailable [phone] Encounter Details Date Type Department Care Team (Latest Contact Info) Description 12/10/2024 9:45 AM EDT Hospital Encounter [facility] [address] [place] [address] Erythrocytosis (Primary Dx); Iron deficiency anemia due to chronic blood loss; Malabsorption in the elderly; MPN (myeloproliferative neoplasm) (HCC) Social History Tobacco Use Types Packs/Day Years Used Date Smoking Tobacco: Former Cigarettes 1 40 0 05/16/1966 - 05/15/2000 Passive Smoke Exposure: Current Smokeless Tobacco: Never Comments:I no longer smoke. Alcohol Use Standard Drinks/Week Comments Not Currently 7 (1 standard drink = 0.6 oz pur e alcohol) [facility] Utilities Answer Date Recorded In the past 12 months has [employer] electric, gas, oil, or water company threatened to shut off services in your home? No 04/21/2024 Overall Financial Resource Strain (CARDIA) Answe r Date Recorded How hard is it for you to pa y for the very basics like food, housing, medical care, and heating? Somewhat hard 04/21/2024 PHQ-2 Answer Date Recorded PHQ-2 Total Score 2 04/21/2024 [facility] [place] of Occupat ional Health - Occupational Stress [...] things needed for daily living? 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 on file Not [...] Genoveva Jimenez RN documented in this encounter Plan of Treatment Upcoming Encounters Date Type Department Care Team (Late st Contact Info) Description 12/14/2024 11:15 AM EDT Office Visit [facility] Machine [facility]eder [facility] [place] [address] Elmer Hamilton MD [address] [place] [address] 12/27/2024 2:00 PM EDT Office Visit [facility] Podiatry [address] [address] Elmer Daniel, DPM [address] [facility] [address] [place] [address] 01/07/2025 9:30 AM EDT Appointment [facility] [address] [facility] [place] [address] 01/07/2025 9:45 AM EDT Appointment [facility] [address] [place] [address] Destiny Flores, DIRT SHOVELER [address] [facility] [address] [place], [place] [id number] 05/21/2025 2:00 PM EST Office Visit [facility] [address] [facility] [address] [place] [address] Pedrito Bray MD [address] [facility] [address] [place] [address] 06/07/2025 1:30 PM EST Office Visit [facility] [address] [facility] [address] [place] [address] 06/07/2025 2:00 PM EST Office Visit [facility] [address] [facility] [address] [place] [address] Imelda Albarado, JOHANN [address] [place], [place] [id number] 12/04/2025 1:45 PM EDT Office Visit [facility] Nephrology [address] [place] [address] Edita Alford MD [address] [address] documented as of this encounter Procedures Procedure Name Priority Date/Time Associated Diagnosis Comments BLOOD BANK SPECIMEN HOLD KIM 12/10/2024 10:00 AM EDT Erythrocytosis Iron deficiency anemia due to chronic blood loss Malabsorption in the elderly MPN (myeloproliferative neoplasm) (HCC) CBC WITH DIFF STAT 12/10/2024 10:00 AM EDT Erythrocytosis Iron deficiency anemia due to chronic blood loss 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 Blood VENOUS BLOOD / Unknown Venipuncture / Unknown 12/10/2024 10:00 AM EDT 12/10/2024 10:03 AM EDT Dallas Dominguez MD BLOOD BANK ORDERABLES Final Res ult [facility] [address] [place] [address] * (ABNORMAL) CBC WITH DIFF (12/10/2024 10:00 AM EDT) [facility] WBC 28.8(H) 3.7 - 10.3 x10(3)/mcL 12/10/2024 11:09 AM EDT [facility] RBC 4.39(L) 4.60 - 6.10 x10(6)/mcL 12/10/2024 11:09 AM EDT [facility] Hgb 13.3(L) 13.7 - 17.5 g/dL 12/10/2024 11:09 AM EDT [facility] Hct 42.3 40.0 - 51.0 % 12/10/2024 11:09 AM EDT [facility] MCV 96.4 80.0 - 100.0 fL 12/10/2024 11:09 AM EDT [facility] MCH 30.3 26.0 - 34.0 pg 12/10/2024 11:09 AM EDT [facility] MCHC 31.4 30.7 - 35.5 g/dL 12/10/2024 11:09 AM EDT [facility] RDW 19.8(H) <=14.9 % 12/10/2024 11:09 AM EDT [facility] Platelet 123(L) 155 - 369 x10(3)/mcL 12/10/2024 11:09 AM EDT [facility] MPV 10.7 8.8 - 12.5 fL 12/10/2024 11:[address] [facility] NRBC Auto % 38.2(H) <=0.0 % 12/10/2024 11:[address] [facility] NRBC# 11.0 x10(3)/mcL 12/10/2024 11:[address] [facility] Segs 55 % 12/10/2024 11:[address] [facility] Lymphs 10 % 12/10/2024 11:[address] [facility] Monos 8 % 12/10/2024 11:[address] [facility] Eos 3 % 12/10/2024 11:[address] [facility] Baso 3 % 12/10/2024 11:[address] [facility] Metamyelocyte 7 % 12/10/2024 11:[address] [facility] Myelo 14 % 12/10/2024 11:[address] [facility] Neut # 15.8(H) 1.6 - 6.1 x10(3)/[facility] 12/10/2024 11:[address] [facility] Lymph # 2.9 1.2 - 3.9 x10(3)/[facility] 12/10/2024 11:[address] [facility] Lyman # 2.3(H) 0.3 - 0.9 x10(3)/[facility] 12/10/2024 11:[address] [facility] Eos # Manual 0.9(H) 0.0 - 0.5 x10(3)/[facility] 12/10/2024 11:[address] [facility] Baso # Manual 0.9(H) 0.0 - 0.1 x10(3)/[facility] 12/10/2024 11:[address] [facility] Metamyelo # 2.0 x10(3)/[facility] 12/10/2024 11:[address] [facility] Myelo # 4.0 x10(3)/[facility] 12/10/2024 11:[address] [facility] Aniso Marked 12/10/2024 11:09 AM EDT [facility] Polychrom Marked 12/10/2024 11:09 AM EDT [facility] Blood VENOUS BLOOD / Unknown Venipuncture / Unknown 12/10/2024 10:00 AM EDT 12/10/2024 10:03 AM EDT Dallas Dominguez MD HEMATOLOGY ORDERABLES Final Res ult [facility] [address] [facility] [place] [address] documented in this encounter Visit Diagnoses [...] documented as of this encounter Care Teams Steamboat Pilot Relationship Specialty Start Date End Date Etienne Evans MD PCP - General 12/08/10 Dallas Dominguez MD [address] [place] [address] [place], [place] [id number] Medical Oncologist Internal Medicine-Hematology and Oncology 07/09/21 documented as of this encounter
--- OUTSIDE RECORDS SUMMARY | 2024-12-10 09:55 | XMS_ITS | Encounter Summary ---
Author Organization [place] [address] Care Team Providers Care Labor Economist Name Role Phone Etienne Evans MD Primary Care Provider [phone] Dallas Dominguez MD Unavailable [phone] Reason for Visit * Reason Comments Follow-up Erythrocytosis, iron deficiency due to chronic blood loss Encounter Details Date Type Department Care Team (Latest Contact Info) Description 12/10/2024 9:55 AM EDT Hospital Encounter [facility] [address] [facility] [address] [place] [address] Destiny Flores, INDEPENDENT LIVING SPECIALIST [address] [facility] [address] [place] [address] 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 Alcohol Use Standard Drinks/Week Comments Not Currently 7 (1 standard drink = 0.6 oz pur e alcohol) [place] Utilities Answer Date Recorded In the past [...] Date Recorded PHQ-2 Total Score 2 04/21/2024 [facility] of Occupat ional Health - Occupational Stress [...] things needed for daily living? 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 on file Not o n file documented as of this encounter Last Filed Vital Signs Vital Sign Reading Time Taken Comments Blood Pressure 119/72 12/10/2024 10:05 AM EDT Pulse 87 12/10/2024 10:05 AM EDT Temperature 36.4 C (97.5 F) 12/10/2024 10:05 AM EDT Respiratory Rate 16 12/10/2024 10:05 AM EDT Oxygen Saturation 99% 12/10/2024 10:05 AM EDT Inhaled Oxygen Concentration - - Weight 110 kg (242 lb 8 oz) 12/10/2024 10:05 AM EDT Height 185.4 cm (6' 1 ) 12/10/2024 10:05 AM EDT Body Mass Index 31.99 12/10/2024 10:05 AM EDT documented in this encounter Functional [...] documented in this encounter Progress Notes * Destiny Flores, JOHANN - 12/10/2024 10:00 AM EDT Images from the original note [...] Energy is okay. Taking Jakafi as directed. He did trip and fracture bilateral wrists. MEDICATIONS: Current Outpatient Medications Medication acetaminophen (TYLENOL) 500 mg Oral Tablet atenolol (TENORMIN) 25 mg Oral Tablet B-complex with vitamin C (VITAMIN B COMPLEX-C ORAL) BD LUER-AISHA SYRINGE 3 mL 23 gauge x 1 1/2 Misc Syringe cholecalciferol, vitamin D3, 1,000 unit Oral Tablet dabigatran etexilate (PRADAXA) 75 mg Oral Capsule docusate sodium (COLACE) 100 mg Oral Capsule DULoxetine (CYMBALTA) 60 mg Oral Capsule, Delayed Release(E.C.) FARXIGA 10 mg Oral Tablet ferrous sulfate 325 mg (65 mg iron) Oral Tablet fish oil omega-3 fatty acids 300-1,000 mg Oral Capsule gabapentin (NEURONTIN) 300 mg Oral Capsule hydrocortisone (CORTEF) 5 mg Oral Tablet ketoconazole (NIZORAL) 2 % Top Cream ketoconazole (NIZORAL) 2 % Top Shampoo LEVOthyroxine (SYNTHROID) 137 mcg Oral Tablet oxyCODONE (ROXICODONE) 5 mg Oral Tablet pantoprazole (PROTONIX) 40 mg Oral Tablet, Delayed Release (E.C.) ruxolitinib (JAKAFI) 5 mg Oral Tablet Saccharomyces boulardii (FLORASTOR) 250 mg Oral Capsule tamsulosin (FLOMAX) 0.4 mg Oral Capsule testosterone cypionate (DEPOTESTOTERONE CYPIONATE) 200 mg/mL IM Oil turmeric, bulk, 100 % Misc Powder No current facility-administered medications for this encounter. PHYSICAL EXAM: ECOG Performance status: ~2 There were no vitals filed for this visit. Wt Readings from Last 3 Encounters: 12/05/24 242 lb (109.8 kg) 11/13/24 242 lb (109.8 kg) 11/01/24 240 lb (108.9 kg) Physical Exam Constitutional: General: He is not in acute distress. Appearance: He is not toxic-appearing. HENT: Head: Normocephalic and atraumatic. Eyes: General: No scleral icterus. Right eye: No discharge. Left eye: No discharge. Cardiovascular: Comments: Irregularly irregular, rate controlled Pulmonary: Effort: Pulmonary effort is normal. No respiratory distress. Breath sounds: No wheezing. Musculoskeletal: Comments: Splints on bilateral wrists. Skin: General: Skin is dry. Coloration: Skin is not jaundiced or pale. Neurological: Mental Status: He is alert. Psychiatric: Mood and Affect: Mood normal. Behavior: Behavior normal. LABS: Lab Results Component Value Date WBC 30.5 (H) 12/03/2024 HGB 13.7 12/03/2024 HCT 46.3 12/03/2024 MCV 100.7 (H) 12/03/2024 PLT 108 (L) 12/03/2024 , Lab Results Component Value Date NEUTROABS 9.2 (H) 10/15/2024 Lab Results Component Value Date ALT 21 11/13/2024 AST 42 (H) 11/13/2024 ALKPHOS 88 11/13/2024 BILITOT 0.5 01/05/2023 Lab Results Component Value Date CREATININE 1.36 (H) 12/03/2024 BUN 15 12/03/2024 NA 140 12/03/2024 K 4.8 12/03/2024 CL 101 12/03/2024 CO2 26 12/03/2024 GFRAFRAM 73 03/09/2021 GFRNONAFRAM 63 03/09/2021 Lab Results Component Value Date IRON 186 (H) 02/08/2024 TIBC 322 02/08/2024 FERRITIN 971 (H) 02/08/2024 Lab Results Component Value Date GTUOGQPS77 >1,600 (H) 07/29/2023 Lab Results Component Value [...] up - Has had elevated Hct since 2014, and elevated plts since 2018. Established with Dr. Boswell [id number]. 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 - He established with [facility] in 2020, still elevated Hct but with [...] elevated WBC but lower than before at 23, hgb stable at 13.3, plts stable at 123. He hasn't needed transfusion for hgb <8 since May [...] plts remaining over 50 #VINI #Obesity RTC: No follow-ups on file. Destiny Flores APRN Hematology/Oncology documented in this encounter Plan of Treatment Upcoming Encounters Date Type Department Care Team (Late st Contact Info) Description 12/14/2024 11:15 AM EDT Office Visit [facility] [address] [place] [address] Elmer Hamilton MD [address] [place] [address] 12/27/2024 2:00 PM EDT Office Visit [facility] [place] [address] [place] [address] Elmer Daniel, DPM [address] [facility] [address] [place] [address] 01/07/2025 9:30 AM EDT Appointment [facility] [address] [facility] [place] [address] 01/07/2025 9:45 AM EDT Appointment [facility] [address] [facility] [address] [place], [place] [phone] Destiny Flores, INDEPENDENT LIVING SPECIALIST [address] [facility] [address] [place], [place] [id number] 05/21/2025 2:00 PM EST Office Visit [facility] [address] [facility] [address] [place] [address] Pedrito Bray MD [address] [facility] [address] [place] [address] 06/07/2025 1:30 PM EST Office Visit [facility] [address] [facility] [address] [place] [address] 06/07/2025 2:00 PM EST Office Visit [facility] [address] [facility] [address] [place] [address] Imelda Albarado, INDEPENDENT LIVING SPECIALIST [address] [place], [place] [id number] 12/04/2025 1:45 PM EDT Office Visit [facility] Nephrology [facility] [address] [facility] [address] [place] [address] Edita Alford MD [address] [facility] [address], [place] [address] documented as of this encounter Visit Diagnoses Diagnosis Benign neoplasm of pituitary gland and craniopharyngeal duct (pouch) (HCC)- Primary Benign neoplasm of pituitary gland and craniopharyngeal duct (pouch) documented in this encounter Additional Health Concerns Assessment Noted Time PHQ-9 Depression Total Score: 2 04/21/20 2:41 PM EST A fall risk assessment has been complete d for the patient 06/06/2024 2:03 PM EST PHQ-2 Depression Total Score: 2 04/21/20 2:41 PM EST documented as of this encounter Care Teams Labor Economist Relationship Specialty Start Date End Date Etienne Evans MD PCP - General 12/08/10 Dallas Dominguez MD [address] [place] [address] [place] [address] Medical Oncologist Internal Medicine-Hematology and Oncology 07/09/21 documented as of this encounter
--- OUTSIDE RECORDS SUMMARY | 2024-12-10 10:30 | XMS_ITS | Encounter Summary ---
Author Organization [place] [address] Care Team Providers Care Certified Financial Planner Name Role Phone Etienne Evans MD Primary Care Provider [phone] Dallas Dominguez MD Unavailable [phone] Encounter Details Date Type Department Care Team (Late st Contact Info) Description 12/10/2024 10:30 AM EDT Hospital Encounter [facility] [address] [facility] [place] [address] Social History Tobacco Use Types Packs/Day Years Used Date Smoking Tobacco: Former Cigarettes 1 40 0 05/16/1966 - 05/15/2000 Passive Smoke Exposure: Current Smokeless Tobacco: Never Comments:I no longer smoke. Alcohol Use Standard Drinks/Week Comments Not Currently 7 (1 standard drink = 0.6 oz pur e alcohol) [facility] Utilities Answer Date Recorded In the [...] Date Recorded PHQ-2 Total Score 2 04/21/2024 [facility] of Occupat ional Health - Occupational Stress [...] things needed for daily living? 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 [address] [place] [address] 01/07/2025 9:30 AM EDT Appointment [facility] [address] [facility] [place] [address] 01/07/2025 9:45 AM EDT Appointment [facility] [address] [facility] [address] [place] [address] Destiny Flores, STERILE TECHNICIAN [address] [facility] [address] [place], [place] [id number] 05/21/2025 2:00 PM EST Office Visit [facility] [address] [facility] [address] [place] [address] Pedrito Bray MD [address] [facility] [address] [place] [address] 06/07/2025 1:30 PM EST Office Visit [facility] [address] [facility] [address] [place] [address] 06/07/2025 2:00 PM EST Office Visit [facility] [address] [facility] [address] [place] [address] Imelda Albarado APRN [address] [place], [place] [phone] 12/04/2025 1:45 PM EDT Office Visit [facility] Nephrology [address] [address] Edita Alford MD [address] [address] documented as of this encounter Visit Diagnoses Not on filedocumented in this encounter Additional Health Concerns Assessment Noted Time PHQ-9 Depression Total Score: 2 04/21/20 24 2:41 PM EST A fall risk assessment has been complete d for the patient 06/06/2024 2:03 PM EST PHQ-2 Depression Total Score: 2 04/21/20 24 2:41 PM EST documented as of this encounter Care Teams Certified Financial Planner Relationship Specialty Start Date End Date Etienne Evans MD PCP - General 12/08/10 Dallas Dominguez MD [address] [facility] [place] [address] Medical Oncologist Internal Medicine-Hematology and Oncology 07/09/21 documented as of this encounter
--- OUTSIDE RECORDS SUMMARY | 2024-12-10 13:05 | XMS_ITS | Clinical Summary ---
Author Organization [facility] Address [address] [place] [address] Phone Care Team Providers Care Color Tester Name Role Phone Elana Chicas MA [phone] Conditions or Problems Problem Name Problem Code Onset Date Status Entry Date Provider Comment Standard Description Annotate SLEEP APNEA, CHRONIC 78157419 (SNOMED CT) 05/30 Active 05/30 Virginia Hesham Sleep apnea OVERWEIGHT 189308570 (SNOMED CT) 05/30 Active 05/30 Virginia Hesham Overweight Take Note of SLEEP APNEA 94377891 (SNOMED CT) 09/02 Resolved 09/14 Maile Conner MA Sleep apnea PITUITARY ADENOMA D35.2 (ICD-10-CM ) 11/18 Active 09/02 Maile Conner MA Benign neoplasm of pituitary gland Take Note of DECREASED HEARING 88801715 (SNOMED CT) 09/02 Resolved 09/14 Maile Conner MA Hearing loss CORONARY ARTERY DISEASE I25.10 (ICD-10-CM ) 11/18 Active 09/14 Maile Conner MA Atherosclerotic heart disease of [place] coronary artery without angina pectoris (Take note of) HYPERCHOLEST EROLEMIA E78.0 (ICD-10-CM ) 11/18 Active 09/14 Maile Conner MA Pure hypercholestero lemia (Take note of) HYPERTENSION I10 (ICD-10-CM ) 11/18 Active 09/14 Maile Conner MA Essential (primary) hypertension (Take note of) Take Note of MILD COGNITIVE IMPAIRMENT SO STATED G31.84 (ICD-10-CM ) 11/08 Resolved 11/10 Maile Conner MA Mild cognitive impairment of uncertain or unknown etiology Take Note of MILD COGNITIVE IMPAIRMENT SO STATED G31.84 (ICD-10-CM ) 11/08 Removed 11/10 Mary Maritza Mild cognitive impairment of uncertain or unknown etiology PITUITARY ADENOMA 232477872 (SNOMED CT) 11/09 Inactive 09/02 Maile Conner NINOSKA Pituitary adenoma Take Note of TOBACCO USER 467127057 (SNOMED CT) 09/02 Resolved 09/14 Maile Conner MA Tobacco user Take Note of ANXIETY 302502045 (SNOMED CT) 09/02 Resolved 09/14 Maile Conner MA Anxiety disorder Take Note of TINNITUS 41981815 (SNOMED CT) 09/02 Resolved 09/14 Maile Conner MA Tinnitus Take Note of VISUAL ACUITY, DECREASED 17571254 (SNOMED CT) 09/02 Resolved 09/14 Maile Conner MA Reduced visual acuity Take Note of DEPRESSION 36407287 (SNOMED CT) 09/02 Resolved 09/14 Maile Conner MA Depressive disorder Take Note of SEIZURES, HX OF 746098398 (SNOMED CT) 09/02 Resolved 09/14 Maile Conner MA H/O: epilepsy Take Note of VERTIGO 260179540 (SNOMED CT) 09/02 Resolved 09/14 Maile Conner MA Vertigo Take Note of NUMBNESS 84473670 (SNOMED CT) 09/02 Resolved 09/14 Maile Conner MA Numbness Take Note of NAUSEA 518258855 (SNOMED CT) 09/02 Resolved 09/14 Maile Conner MA Nausea Take Note of VOMITING 701012835 (SNOMED CT) 09/02 Resolved 09/14 Maile Conner MA Vomiting Take Note of HEADACHE 48932462 (SNOMED CT) 09/02 Resolved 09/14 Maile Conner MA Headache Take Note of SLEEP APNEA 24317761 (SNOMED CT) 09/02 Removed 09/14 Mary Salas Sleep apnea Take Note of HYPERTENSION 18080659 (SNOMED CT) 09/02 Inactive 09/14 Mary Salas Hypertensive disorder Take Note of HYPERCHOLEST EROLEMIA 56232072 (SNOMED CT) 09/02 Inactive 09/14 Mary Ramona Hypercholestero lemia Take Note of CORONARY ARTERY DISEASE 13647233 (SNOMED CT) 09/02 Inactive 09/14 Mary Ramona Coronary arteriosclerosi s Take Note of TOBACCO USER 438348140 (SNOMED CT) 09/02 Removed 09/14 Mary Maritza Tobacco user Take Note of ANXIETY 088806807 (SNOMED CT) 09/02 Removed 09/14 Mary Ramona Anxiety disorder Take Note of VOMITING 345088388 (SNOMED CT) 09/02 Removed 09/14 Mary Ramona Vomiting Take Note of NAUSEA 386920806 (SNOMED CT) 09/02 Removed 09/14 Mary Maritza Nausea Take Note of NUMBNESS 20050167 (SNOMED CT) 09/02 Removed 09/14 Mary Maritza Numbness Take Note of VERTIGO 914774572 (SNOMED CT) 09/02 Removed 09/14 Mary Maritza Vertigo Take Note of SEIZURES, HX OF 981201451 (SNOMED CT) 09/02 Removed 09/14 Mary Ramona H/O: epilepsy Take Note of DEPRESSION 53033337 (SNOMED CT) 09/02 Removed 09/14 Mary Maritza Depressive disorder Take Note of DECREASED HEARING 61557359 (SNOMED CT) 09/02 Removed 09/14 Mary Maritza Hearing loss Take Note of VISUAL ACUITY, DECREASED 51922924 (SNOMED CT) 09/02 Removed 09/14 Mary Maritza Reduced visual acuity Take Note of HEADACHE 21770429 (SNOMED CT) 09/02 Removed 09/14 Mary Ramona Headache Take Note of TINNITUS 25611832 (SNOMED CT) 09/02 Removed 09/14 Mary Ramona Tinnitus PITUITARY ADENOMA 702852792 (SNOMED CT) 09/02 Correction 09/02 Mary Maritza Pituitary adenoma Medications Medication Instructions Start Date Stop Date Generic Name NDC Provider ATORVASTATIN CALCIUM [address] [facility] ATORVASTATIN CALCIUM 14524845537 Virginia Bruce XARELTO 20 MG TABS Mg RIVAROXABAN 12648736229 Virginia Bruce LYRICA 100 MG CAPS Mg PREGABALIN 30507070973 Virginia Hesham PROTONIX TBEC Historical Medication po daily 05/30 PANTOPRAZOLE SODIUM TBEC 31205153400 Virginia Bruce [facility] LEVOTHYROXINE SODIUM 48990066502 Virginia Bruce TYLENOL PM EXTRA STRENGTH 500-25 MG TABS 1 tab daily 05/30 DIPHENHYDRAMINE- APAP (SLEEP) 94365679609 Virginia Bruce ADULT ASPIRIN EC LOW STRENGTH 81 MG ORAL TABLET DELAYED RELE 1 tab daily 05/30 ASPIRIN 96927196037 Virginia Hesham LEXAPRO [facility] ESCITALOPRAM OXALATE 15383685102 Virginia Bruce SYNTHROID 125 MCG [facility]S [facility] 05/[facility] LEVOTHYROXINE SODIUM 37620412688 Maile Conner MA VITAMIN E TABLET Historical Medication po daily 03/10 VITAMIN E TABS 76382363454 Maile Conner MA XARELTO TABLET Historical Medication po daily 03/10 RIVAROXABAN TABS 60887774537 Maile Conner MA LIPITOR 40 MG TABS Historical Medication po daily 03/10 ATORVASTATIN CALCIUM 50957640505 Maile Conner MA ALTACE 10 MG CAPS 1 cap daily 03/10 RAMIPRIL 09064401999 Maile Conner MA PROTONIX TBEC Historical Medication po daily 05/30 PANTOPRAZOLE SODIUM TBEC 38036309673 Maile Conner MA B-12 TABLET Historical Medication po daily CYANOCOBALAMIN TABS 71520412017 Maile Conner MA VITAMIN E TABLET Historical Medication po daily 03/10 VITAMIN E TABS 42840265041 Maile Conner MA VITAMIN D3 25 MCG (1000 UT) CAPS Historical Medication po daily CHOLECALCIFEROL 15380476939 Maile Ubaldo XIAO FISH OIL 1000 MG CAPS Historical Medication po daily OMEGA-3 FATTY ACIDS 09197787848 Maile Ubaldo XIAO XARELTO TABLET Historical Medication po daily 03/10 RIVAROXABAN TABS 52551770601 Maile Conner NINOSKA LIPITOR 40 MG TABS Historical Medication po daily 03/10 ATORVASTATIN CALCIUM 61222021882 Maile Conner NINOSKA SYNTHROID 137 MCG TABS Historical Medication every other day 03/10 LEVOTHYROXINE SODIUM 92204148858 Mailehannah Conner MA TYLENOL PM EXTRA STRENGTH 500-25 MG TABS 1 tab daily 05/30 DIPHENHYDRAMINE- APAP (SLEEP) 54283819129 Mailehannah Conner MA GABAPENTIN 800 MG TABS 1 tab three times daily GABAPENTIN 79576331175 Maile Conner MA ADULT ASPIRIN EC LOW STRENGTH 81 MG ORAL TABLET DELAYED RELEASE 1 tab daily 05/30 ASPIRIN 49198480850 Maile Conner NINOSKA LEXAPRO 20 MG TABS 1 tab daily 05/30 ESCITALOPRAM OXALATE 67429278647 Maile Conner MA ALTACE 10 MG CAPS 1 cap daily 03/10 RAMIPRIL 41847432064 Maile Conner NINOSKA TESTIM 50 MG/5GM (1%) GEL once weekly 11/18 TESTOSTERONE 19464990258 Maile Conner MA RITALIN 5 MG TABS 1 tab daily 11/18 METHYLPHENIDATE HCL 67887019987 Maile Conner MA SIMVASTATIN 40 MG TABS 1 tab daily 11/18 SIMVASTATIN 80843994902 Maile Conner MA PLAVIX 75 MG TABS 1 tab daily 11/18 CLOPIDOGREL BISULFATE 41916440474 Maile Conner MA TESTIM 50 MG/5GM (1%) GEL once weekly 11/18 TESTOSTERONE 53240062754 Mingo Hloliday MD RITALIN 5 MG TABS 1 tab daily 11/18 METHYLPHENIDATE HCL 10911815257 Mingo Holliday MD TYLENOL PM EXTRA STRENGTH 500-25 MG TABS 1 tab daily 03/26 DIPHENHYDRAMINE- APAP (SLEEP) 47957324812 Mingo Holliday MD GABAPENTIN 800 MG TABS 1 tab three times daily 11/18 GABAPENTIN 50015967521 Mingo Holliday MD ADULT ASPIRIN EC LOW STRENGTH 81 MG ORAL TABLET DELAYED RELEASE 1 tab daily 11/18 ASPIRIN 34659767611 Mingo Holliday MD LEXAPRO 20 MG TABS 1 tab daily 11/18 ESCITALOPRAM OXALATE 25098603099 Mingo Holliday MD ALTACE 10 MG CAPS 1 cap daily 11/18 RAMIPRIL 91068112978 Mingo Holliday MD SIMVASTATIN 40 MG TABS 1 tab daily 04/30 SIMVASTATIN 19168263923 Mingo Holliday MD PLAVIX 75 MG TABS 1 tab daily 11/18 CLOPIDOGREL BISULFATE 95108462214 Mingo Holliday MD TESTIM 50 MG/5GM (1%) GEL Non[place] weekly 05/25 TESTOSTERONE 67278327202 Mingo Holliday MD RITALIN 5 MG TABS Non[place] qd 11/08 METHYLPHENIDATE HCL 61889616799 Mingo Holliday MD TYLENOL PM EXTRA STRENGTH 500-25 MG TABS Non[place] qhs 03/26 DIPHENHYDRAMINE- APAP (SLEEP) 93264711555 Mingo Holliday MD GABAPENTIN 800 MG TABS Non[place] tid 11/08 GABAPENTIN 35674343872 Mingo Holliday MD HYDROCORTISONE 5 MG TABS 1 daily 11/09 HYDROCORTISONE 55023265288 Mingo Holliday MD ADULT ASPIRIN EC LOW STRENGTH 81 MG ORAL TABLET DELAYED RELEASE Non[place] qd 11/08 ASPIRIN 65967009453 Mingo Holliday MD LEXAPRO 20 MG TABS Non[place] qd 11/08 ESCITALOPRAM OXALATE 63796586779 Mingo Holliday MD ALTACE 10 MG CAPS Non[place] qd 05/25 RAMIPRIL 41906449595 Mingo Holliday MD NORVASC TABS 1 daily 11/09 AMLODIPINE BESYLATE TABS 09412148152 Mingo Holliday MD SIMVASTATIN 40 MG TABS Non[place] qd 04/30 SIMVASTATIN 10846951484 Mingo Holliday MD PLAVIX 75 MG TABS Non[place] qd 11/08 CLOPIDOGREL BISULFATE 03113318994 Mingo Holliday MD TYLENOL PM EXTRA STRENGTH 500-25 MG TABS Non[place] qhs 03/26 DIPHENHYDRAMINE- APAP (SLEEP) 52694723764 Maile Conner MA PLAVIX 75 MG TABS 1 daily 11/09 CLOPIDOGREL BISULFATE 51843442240 Yin Chicas MA ADULT ASPIRIN EC LOW STRENGTH 81 MG ORAL TABLET DELAYED RELEASE 1 daily 11/09 ASPIRIN 51891995498 Yin Chicas MA GABAPENTIN 800 MG TABS 3 tabs daily 11/09 GABAPENTIN 88713404017 Yin Chicas MA KEPPRA 500 MG TABS bid 06/15 LEVETIRACETAM 96516411753 Yin Chicas MA GABAPENTIN 800 MG TABS 2 tabs daily 06/15 GABAPENTIN 42671979634 Mary Salas HYDROCORTISONE 5 MG TABS 1 daily 02/14 HYDROCORTISONE 55909853130 Mary Ramona NORVASC TABS 1 daily 11/09 AMLODIPINE BESYLATE TABS 01932759085 Mary Ramona KEPPRA 500 MG TABS bid 06/15 LEVETIRACETAM 59146794743 Mary Salas ADULT ASPIRIN EC LOW STRENGTH 81 MG ORAL TABLET DELAYED RELEASE 1 daily 06/15 ASPIRIN 62700395156 Mary Salas LEXAPRO 20 MG TABS 1 daily 11/09 Escitalopram Oxalate 59051156378 Mary Salas ALTACE 10 MG CAPS 1 daily 05/25 RAMIPRIL 77925460884 Mary Salas COREG TABS bid 02/17 CARVEDILOL TABS 97875315368 Mary Salas SIMVASTATIN 40 MG TABS 1 daily 04/30 Simvastatin 98134852738 Mary Salas PLAVIX 75 MG TABS 1 daily 06/15 Clopidogrel Bisulfate 47094056361 Mary Salas Medications Administered No information available. Allergies, Adverse Reactions, Alerts Observed No Known Drug Allergies at Results Date Name Value Unit Range Flag Description Clinical Lists Update: DI dwyer GFR 56 mL/min Glomerular filtration rate/1.73 sq M.predicted among non-blacks [Volume Rate/Area] in Serum, Plasma or Blood by Creatinine-based formula (MDRD) Lab Report: Renal Panel (10) , Raj Collins RP10 Default ALBUMIN 4.4 g/dL 3.6-4.8 Albumin [Mass/volume] in Serum or Plasma CO2 TOTAL 22 mmol/L 18-29 carbon diox breonna, serum, total CHLORIDE 102 mmol/L 97-108 Chloride [Moles/volume] in Serum or Plasma POTASSIUM 4.7 mmol/L 3.5-5.2 Potassium [Moles/volume] in Serum or Plasma SODIUM 140 mmol/L 134-144 Sodium [Moles/volume] in Serum or Plasma BUN/CREAT 12 10-22 Urea nitrogen/Creatinine [Mass Ratio] in Serum or Plasma EGFR IF AFA 105 mL/min/1.73m2 >59 [place] merular filtration rate/1.73 sq M.predicted among blacks [Volume Rate/Area] in Serum, Plasma or Blood by Creatinine-based formula (MDRD) EGFR NOT AFA 91 mL/min/1.73m2 >59 Gl omerular filtration rate/1.73 sq M.predicted among non-blacks [Volume Rate/Area] in Serum, Plasma or Blood by Creatinine-based formula (MDRD) CREATININE 0.91 mg/dL 0.76-1.27 Creatini ne [Mass/volume] in Serum or Plasma BUN 11 mg/dL 8-27 Urea nitrogen [Mass/volume] in Serum or Plasma GLUCOSE SER 80 mg/dL 65-99 Glucose [Mass/volume] in Serum or Plasma Plan of Care Type Date Detail Referral Neuropsych Evalu ation Referral Neuropsych Evalu ation Referral Radiation Oncolo gy Referral Radiation Oncolo gy Referral Neurology Consul t Referral Ophthalmology Co erik Perez MD, [address], [address], [place], [address] Referral Ophthalmology Co erik Perez MD, [address], [address], [place], [address] Head with and without Contrast Pending order CT Head with and without Contrast Pending order Testosterone Pending order Growth Hormone Pending order TSH Free T4 Pending order TSH Free T3 Pending order Prolactin Pending order IGF-1 Pending order ACTH Pending order LH Pending order Cortisol 8AM Pending order FSH Pending order CT Head with and without Contrast Pending order CT Head with and without Contrast Pending order CT Head w & w/o contrast Pending order CT Head w & w/o contrast Pending order Visual Field Shanna ting Pending order BUN/Creatinine Pending order CT Head w & w/o contrast Pending order CT Head w & w/o contrast Pending Order exclud ed from report: Pending order CT Head w & w/o contrast Pending order CT Head w & w/o contrast Pending order Renal Panel Pending order Renal Panel Pending Order exclud ed from report: Pending order BUN/Creatinine Pending order CT Head w & w/o contrast Pending order BUN/Creatinine Pending order BUN/Creatinine Pending order CT Head w & w/o contrast Pending order CT Head w & w/o contrast Pending order CT Head w & w/o contrast Pending order BUN/Creatinine Pending order CT Head w & w/o contrast Pending order CT Head w & w/o contrast Pending order Renal Pending order Renal Pending order CT Head w & w/o contrast Pending order Renal Pending order Renal Pending order CT Head w & w/o contrast Pending order MRI Pituitary Pr otocol w/ & w/o Contrast Pending order MRI Pituitary Pr otocol w/ & w/o Contrast Pending order MRI Pituitary Pr otocol w/ & w/o Contrast Pending order MRI Pituitary Pr otocol w/ & w/o Contrast Pending order MRI Pituitary Pr otocol w/ & w/o Contrast Pending order MRI Pituitary Pr otocol w/ & w/o Contrast Pending order MRI Pituitary Pr otocol w/ & w/o Contrast Pending order MRI Pituitary Pr otocol w/ & w/o Contrast Pending order LH Pending order MRI Pituitary Pr otocol w/ & w/o Contrast Pending order MRI Pituitary Pr otocol w/ & w/o Contrast Pending order ACTH Pending order IGF-1 Pending order Prolactin level Pending order Cortisol 8 AM Pending order FSH Pending order Testosterone, fr ee & total Pending order TSH Pending order Growth Hormone Pending order Free T4 Patient education pituitary%20ad [place] Patient education pituitary%20ad [place] Patient education pituitary%20ad [place] Patient education pituitary%20[place] Patient education pituitary%20[place] Patient education pituitary%20ad [place] Patient education pituitary%20ad [place] Patient education pituitary%20ad [place] Patient education pituitary%20ad [place] Procedures Code Procedure Name Date Entry Date 26[address] CT Head w & w/o contrast 201 12/14/14 39136 Renal Panel [id number] Medications Documented G8427 Medication Reconcili ation Completed CPT-G8427 G8731 Pain assessment negative 201 10/23/25 G8417 BMI above normal, f/u plan documented 201 10/23/25 1036F No tobacco use currently 201 10/23/25 7533L2E No pneumococcal vaccine received; no reas on G8483 No flu shot received; allergy etc. 1123F ACP/POA documented 6 [id number] Tobacco Cessation Counseling Performed 2 G8427 Medication Reconcili ation Completed CPT-G8427 G8730 Pain Assessment posi tive with follow up plan G8417 BMI above normal, f/u plan documented 201 09/19/05 1036F No tobacco use currently 201 09/19/05 8039O5R No pneumococcal vaccine received; no reas on G8483 No flu shot received; allergy etc. 11/18 1123F ACP/POA documented 6 [facility]-[id number] Medications Documented 42546 MRI Brain (with and without) A9585 [facility] 01863 MRI Brain (with and without) A9585 [facility] Vital Signs Date Name Value Unit Description BMI (Body Mass Index) 32.98 kg/m2 Bod y Mass Index (Ratio) BP Diastolic 78 mm[Hg] blood pressu re, diastolic BP Systolic 143 mm[Hg] blood pressur e, systolic Heart Rate 81 /min pulse rate Height 73 [in_us] height E&M Weight Measured 250 [lb_av] weight E& M Weight Measured 250 [lb_av] weight E& M Body Temperature 97.5 [degF] temperat ure E&M Immunizations No information available. Advance Directives No information available.
--- OUTSIDE RECORDS SUMMARY | 2024-12-10 13:05 | XMS_ITS | Clinical Summary ---
Author Organization [facility] Address [address] [place] [address] Care Team Providers Care Natural Resources Professor Name Role Phone Etienne Evans MD Primary Care Provider [phone] Octavio Smith RN Unavailable Jamaal Chow MD Unavailable Jamil Krause LEGUILLON DEBEADER Unavailable Isabelle Vines NP Unavailable Wilber Delaney MD Unavailable Allergies No known active allergies Medications nitroglycerin (NITROSTAT) 0.[address] under tongue every 5 minutes as needed. Active pantoprazole (PROTONIX) 40 mg Tablet, Delayed Release (E.C.) Take 40 mg by mouth daily. Active gabapentin (NEURONTIN) 800 mg tablet Take 800 mg by mouth 3 times daily. Active levothyroxine (SYNTHROID) 125 mcg tablet Take by mouth daily. Active Diphenhydramine -Acetaminophen 25-500 mg Tablet Take by mouth nightly at bedtime. Active ACETAMINOPHEN PO Take 500 mg by mouth 2 times daily. Active DULoxetine (Cymbalta) 60 mg Capsule, Delayed Release(E.C.) Take 20 mg by mouth 2 times daily. Active atenolol (TENORMIN) 25 mg tablet Take 1 Tab by mouth daily. 30 Tab 11 8 Active Additional Information Patient taking differently:25 mg Oral DAILY,Pt, Reported on 12/23/2017 clopidogrel (PLAVIX) 75 mg tablet Take 75 mg by mouth daily. Active cyanocobalamin 100 mcg Tablet Take 100 mcg by mouth daily. Active docosahexaenoic acid/epa (FISH OIL PO) Take by mouth daily. Active TURMERIC PO Take by mouth daily. Active saw palmetto 160 mg Capsule Take 160 mg by mouth daily. Active hydrocortisone (CORTEF) 5 mg Tablet Take 1 Tab (5 mg total) by mouth every evening. 60 Tab 1 Active Cholecalciferol , Vitamin D3, 25 mcg (1,000 unit) Tablet Take 1 Tablet by mouth. Active omega-3 fatty acids/fish oil (Fish Oil-[place]-3 Fatty Acids) 300-1,000 mg Capsule Take 1,200 mg by mouth. Active Eliquis 5 mg Tablet Take 5 mg by mouth in the morning and at bedtime. Active apixaban (ELIQUIS) 5 mg Tablet Take 1 Tablet (5 mg) by mouth 2 times daily. 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 Nunez 2015 Overview (12/31/2015): Dual-chamber, [employer] pacemaker implanted by Dr. Sean Nunez on March 28, 2014 for sick sinus syndrome Coronary artery disease invo lving chilkoot coronary artery of chilkoot heart with angina pectoris 12/31/2015 Stented coronary artery 12/31/2015 Obstructive sleep apnea 12/31/2015 Family History Medical History Relation Name Comments Cancer Brother prostate Heart Disease Brother Cancer Father prostate Heart Disease Father Pacemaker Father Heart Attack Maternal Grandfather Heart Disease Mother Breast Cancer Sister Relation Name Status Comments Brother Father Alive Maternal Grandfather Mother Sister Social History Tobacco Use Types Packs/Day Years Used Date Smoking Tobacco: Former Cigarettes 1 3 Smokeless Tobacco: Former Tobacco Cessation:Counseling Given: Yes Comments:quit 4 years ago Alcohol Use Standard Drinks/Week Comments No 0 (1 standard drink = 0.6 oz pur e alcohol) Sex and Gender Information Value Date Recorded Sex Assigned at Male 08/23/2023 8:50 AM EDT Legal Sex Male 9:41 AM EDT Gender Identity Male 08/23/2023 8:50 AM EDT Sexual Orientation Straight 08/23/2023 8: 50 AM EDT Last Filed Vital Signs Vital Sign Reading Time Taken Comments Blood Pressure 140/90 09/07/2022 10:56 AM EDT Pulse 81 09/07/2022 10:56 AM EDT Temperature 36.4 C (97.6 F) 09/02/2020 9:30 AM EDT Respiratory Rate 16 09/02/2020 8:25 AM EDT Oxygen Saturation 99% 09/02/2020 8:25 AM EDT Inhaled Oxygen Concentration - - Weight 115.2 kg (254 lb) 09/09/2023 10:07 AM EDT Height 185.4 cm (6' 1 ) 09/09/2023 10:07 AM EDT Body Mass Index 33.51 09/09/2023 10:07 AM EDT Plan of Treatment Health Maintenance Due Date Last Done Comments Cologuard 1955 Colonoscopy 1953 Colorectal Cancer Screening 1953 FIT 1953 Lipid Monitoring 1970 Hepatitis C Virus (HCV) Screening 1974 Pneumococcal Vaccine: 50+ Ye ars (1 of 1 - PCV) 2003 Zoster-RZV(Shingrix) (1 of 2) 2003 Tetanus Vaccination (Every 10 Years) 07/20/200611/1996 Fall Risk Assessment 2018 COVID-19 Vaccine ( - 2023- season) 2024, 02/06/2021 Advance Care Planning 05/16/2024 Depression Screening 05/16/2024 Influenza Vaccination (#1) 2025 RSV Vaccines (1 - 1-dose 75+ series) 2028 Insurance Advance Directives For more information, please contact: [phone] * Full Code (Latest Code Status on File) Date Activated Date Inactivated Comments 08/30/2020 7:14 PM No automated c hest compression devices for VAD Patients * Full Code Date Activated Date Inactivated Comments 01/22/2016 3:22 PM 01/23/2016 4:09 PM * Full Code Date Activated Date Inactivated Comments 01/22/2016 9:32 AM 01/22/2016 3:22 PM Care Teams Natural Resources Professor Relationship Specialty Start Date End Date Etienne Evans MD PCP - General Family Medicine 12/29/15 Octavio Smith RN [address] [place] [address] Registered Nurse 07/13/20 Jamaal Chow MD [address] [place] [address]. Room 6162 [place] [address] Internal Medicine 08/30/20 Jamil Krause NP [address] [place] [address] [address] [place] [address] Nurse Practitioner Cardiology 02/26/21 Isabelle Vines NP [address] [place] [address] [address] [place] [address] Nurse Practitioner Cardiology 09/07/22 Wilber Delaney MD [address] [place] [address] [place] [address] Oncologist Hematology and Oncology 09/20/23
--- OUTSIDE RECORDS SUMMARY | 2024-12-10 13:05 | XMS_ITS | Clinical Summary ---
Author Organization [facility] Address [address] [place] [address] Care Team Providers Care [employer] Weaver Name Role Phone Etienne Evans MD Primary Care Provider [phone] Allergies No known active allergies Medications aspirin 81 MG EC tablet Take 81 mg by mouth daily. Active [place]-3 Fatty Acids (FISH OIL) 1000 MG capsule capsule Take by mouth daily with breakfast. Active levothyroxine (SYNTHROID, LEVOTHROID) 125 MCG tablet Take 125 mcg by mouth daily. Active escitalopram (LEXAPRO) 20 MG tablet Take 20 mg by mouth daily. Active atorvastatin (LIPITOR) 40 MG tablet Take 40 mg by mouth daily. Active gabapentin (NEURONTIN) 800 MG tablet Take 800 mg by mouth 3 (three) times a day. Active pantoprazole (PROTONIX) 40 MG EC tablet Take 40 mg by mouth daily. Active apixaban (ELIQUIS) 5 MG tablet tablet Take 5 mg by mouth 2 (two) times a day. Active sotalol (BETAPACE) 120 MG tablet Take 180 mg by mouth 2 (two) times a day. 1 and 1/2 tablets BID Active Active Problems Problem Noted Date Diagnosed Date Tachy-loan syndrome 10/23/2015 Overview (10/23/2015): 1. Atrial fibrillation, tachybrady syndrome. a. Paroxysmal atrial fibrillation, long standing. b. Holter monitor, 03/19/2014 with paroxysmal atrial fibrillation and bradycardia as low as 37 beats per minute and as high as 200 beats per minute. c. Recurrent episodes of atrial fibrillation with RVR, 03/26/2014, converted to normal sinus rhythm after IV Diltiazem and Digoxin. d. Implantation of dual-chamber permanent pacemaker, 03/28/2014 ([employer] device). e. Initiation of sotalol therapy. CAD (coronary artery disease) 10/23/2015 Overview (10/23/2015): 1. Coronary artery disease. a. PTCA and stentings in the past. b. Left heart catheterization, 10/30/2012 showing 20% to 30% LAD, 20% to 30% proximal left circumflex, 30% to 40% mid left circumflex stenosis, 100% RCA occluded with [id number] collaterals, ejection fraction normal HLD (hyperlipidemia) 10/23/2015 HTN (hypertension) 10/23/2015 Hypothyroid 10/23/2015 Social History Tobacco Use Types Packs/Day Years Used Date Smoking Tobacco: Former Alcohol Use Standard Drinks/Week Comments Defer 0 (1 standard drink = 0.6 oz pur e alcohol) Abuse Screen Answer Date Recorded Unsafe at Home or Work/School Not on file Feels Threatened by Someone? Not on file 02/2023 Does Anyone Keep You from Co ntacting Others or Doint Things Outside the Home? Not on file 02/22/2023 Physical Sign of Abuse Present Not on file 1 Housing Stability Answer Date Recorded Current Living Arrangements Not on file 02/13 Potentially Unsafe Housing Conditions Not on karan e 02/22/2023 Family and Community Support Answer Domo e Recorded Help with Day-to-Day Activities Not on file 02/22/2023 Lonely or Isolated Not on file 02/22/2023 Employment Answer Date Recorded Do you want help finding or keeping work or a mignon b? Not on file 02/22/2023 Disabilities Answer Date Recorded Concentrating, Remembering, or Making Decisions Difficulty Not on file 02/22/2023 Doing Errands Independently Difficulty Not on fi le 02/22/2023 Education Answer Date Recorded Help with school or training? Not on file Preferred Language Not on file 02/22/2023 Sex and Gender Information Value Date Recorded Sex Assigned at Not on file Legal Sex Male 1:46 PM EDT Gender Identity Not on file Sexual Orientation Not on file Last Filed Vital Signs Vital Sign Reading Time Taken Comments Blood Pressure 122/64 10/30/2015 10:42 AM EDT Pulse 60 10/30/2015 10:42 AM EDT Temperature - - Respiratory Rate - - Oxygen Saturation - - Inhaled Oxygen Concentration - - Weight 118 kg (260 lb) 10/30/2015 10:42 AM EDT Height 185.4 cm (6' 1 ) 10/30/2015 10:42 AM EDT Body Mass Index 34.3 10/30/2015 10:42 AM EDT Plan of Treatment Health Maintenance Due Date Last Done Comments ANNUAL PHYSICAL 1955 HEPATITIS C SCREENING 1955 LIPID PANEL 1953 TDAP/TD VACCINES (1 - Tdap) 1972 COLOGUARD 1998 COLON CANCER SCREENING 5 YEAR SIGMOIDOSCOPY 1998 COLONOSCOPY 1998 [address] CANCER SCREENING 1998 CT COLONOGRAPHY 1998 FECAL OCCULT BLOOD TEST 1998 FIT Testing (1 year) 1998 Pneumococcal Vaccine 50+ (1 of 1 - PCV) 2003 ZOSTER VACCINE (1 of 2) 2003 AAA SCREEN ONCE 2018 COVID-19 Vaccine ( - 2023- season) 2024 INFLUENZA VACCINE 02/13/2025 Medical Devices Implanted Type Area Pipe Covering Molder Device Identifier Shelf Expiration Date Model / Serial / Lot Pacemaker Pacemaker [employer] [facility] Insurance MEDICARE A & B [facility] Care Teams Indian [employer] Weaver Relationship Specialty Start Date End Date Etienne Evans MD [address] [place] [id number] PCP - General 01/01/15
--- OUTSIDE RECORDS SUMMARY | 2024-12-10 13:06 | XMS_ITS | Clinical Summary ---
Author Organization [facility] Address [address] [place] [address] Care Team Providers Care Folding Machine Feeder Name Role Phone Etienne Evans MD Primary Care Provider [phone] Dallas Dominguez MD Unavailable [phone] Allergies Active Allergy Reactions Criticality Noted Date Comments Hydromorphone Other (See Comments) High 02/21/2023 Confusion, hallucinations Medications cholecalciferol , vitamin D3, 1,000 unit Oral Tablet Take 1 Tab by mouth daily. Active fish oil omega-3 fatty acids 300-1,000 mg Oral Capsule Take 1,200 mg by mouth daily. Active DULoxetine (CYMBALTA) 60 mg Oral Capsule, Delayed Release(E.C.) Take by mouth 2 times daily. Active atenolol (TENORMIN) 25 mg Oral Tablet Take 25 mg by mouth nightly. Active turmeric, bulk, 100 % Misc Powder Take by mouth daily. Active B-complex with vitamin C (VITAMIN B COMPLEX-C ORAL) Take by mouth. Take one tab daily Active acetaminophen (TYLENOL) 500 mg Oral Tablet Take 500 mg by mouth 2 times daily. Active pantoprazole (PROTONIX) 40 mg Oral Tablet, Delayed Release (E.C.) TAKE 1 TABLET TWICE DAILY 30 MINUTES PRIOR TO EATING 180 Tablet 1 3 Active ferrous sulfate 325 mg (65 mg iron) Oral Tablet Take 325 mg by mouth daily. [employer] Food Builder Active Saccharomyces boulardii (FLORASTOR) 250 mg Oral Capsule Take 1 Capsule by mouth 2 times daily. 180 Capsule 3 Active docusate sodium (COLACE) 100 mg Oral Capsule 100 mg. Active testosterone cypionate (DEPOTESTOTERON E CYPIONATE) 200 mg/mL IM Oil 400 mg once a week. 4 Active ketoconazole (NIZORAL) 2 % Top Shampoo 4 Active ketoconazole (NIZORAL) 2 % Top Cream 4 Active BD LUER-AISHA SYRINGE 3 mL 23 gauge x 1 1/2 Misc Syringe 4 Active tamsulosin (FLOMAX) 0.4 mg Oral Capsule Take by mouth daily. Active gabapentin (NEURONTIN) 300 mg Oral Capsule Take 2 Capsules by mouth 2 times daily. 6 Capsule 4 Active hydrocortisone (CORTEF) 5 mg Oral TabletIndicatio ns:Postsurgical hypothyroidism, H/O: pituitary tumor,Thyroid-r elated proptosis,Neuro priscilla associated with thyroid disease,Pituita ry adenoma (HCC) TAKE 3 TABLETS WITH BREAKFAST AND 2 TABLETS WITH DINNER. 450 Tablet 3 5 Active dabigatran etexilate (PRADAXA) 75 mg Oral Capsule Take 110 mg by mouth 2 times daily. Active oxyCODONE (ROXICODONE) 5 mg Oral TabletIndicatio ns:Bilateral hand pain Take 1 Tablet by mouth every 6 hours as needed for Acute Pain (R52) for up to 30 days. 10 Tablet 5 Active FARXIGA 10 mg Oral Tablet Take 10 mg by mouth daily. 5 Active LEVOthyroxine (SYNTHROID) 137 mcg Oral Tablet Take 1 Tablet by mouth daily. 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 60 Tablet 2 5 Active oxyCODONE (ROXICODONE) 5 mg Oral TabletIndicatio ns:Pain in both lower extremities Take 1-2 Tablets by mouth every 4 hours as needed for Chronic Pain (G89.29). 60 Tablet 5 Active diphenhydrAMINE (BENADRYL) 50 mg Oral Capsule Take 50 mg by mouth nightly. 025 Discontinue d(Patient Reported not taking medication) apixaban (ELIQUIS) 5 mg Oral Tablet Take 1 Tablet by mouth 2 times daily. 60 Tablet 4 025 Discontinue d(Patient Reported not taking medication) Active Problems Patient Care Coordination No te Formatting of this note migh t be different from the original. 09/29/21 [facility] #[id number] (as expected) Wilber Peña MD Problem Noted Date Diagnosed Date Bilateral hand pain 11/05/2024 Amputation of right great toe 06/06/2024 LAP-BAND surgery status 06/06/2024 Pituitary tumor 06/06/2024 Polycythemia vera 06/06/2024 Anticoagulation adequate with anticoagulant ther apy 06/06/2024 Pacemaker battery depletion 06/06/2024 Diplopia 05/31/2024 Assessment & Plan (06/12/2024 11:57 AM EST): pt s/p resection of ? pit adenoma >10 yrs ago, recent CT reviewed(pt has stents and pacemaker, cannot obtain mri) with R parasellar mass likely etiology of V pattern pt with recent dx of Myelofibrosis and guarded prognosis can consider NS consult, but with recent medical hx would refrain pt will obtain the new Rx with prisms return if any change in diplopia/vision Assessment & Plan (05/31/2024 3:07 PM EST): Patient noticed diplopia that is worse at distance after doing near tasks. I was able to observe diplopia at D and N in office today. He liked 2 BD OS (more than 1 BD OS or 3 BD OS) when testing over his habitual glasses he obtained last year. Also accepted 2 BU OD as well. 2 BD OS was evaluated at distance and near- pt was happy with result in office. Checked refraction but was overall pretty stable. Per Dr. Abad's last note, if diplopia continue to progress/need more prism power Dr. Abad and Dr. Kyle recommended oculoplastics evaluation due result of previous CT scan. Due to more prism power required today and Dr. Abad's recommendation, I recommended referral/consult w/Dr. Kyle. RTC if new glasses are not working/helping. Acute kidney injury superimposed on CKD 05/01/20 24 Assessment & Plan (05/01/2024 1:48 PM EST): Creatinine up to 1.82. Did not improve with IVF. FENa 1.3%. No obstruction per US. - Follow BMP - Repeat UA - SFLC and SPEP with IF - Maintain normotension - Nephrology consult Generalized weakness 04/25/2024 Assessment & Plan (05/01/2024 1:48 PM EST): Multifactorial. Improving. Treated for UTI. - PT SSS (sick sinus syndrome) 04/25/2024 Assessment & Plan (05/01/2024 1:48 PM EST): - Atenolol Thrombocytopenia 04/25/2024 Assessment & Plan (05/01/2024 1:48 PM EST): - Monitor CBC CKD (chronic kidney disease) stage 3, GFR 30-59 ml/min 04/25/2024 BPH (benign prostatic hyperplasia) 04/25/2024 Assessment & Plan (05/01/2024 1:48 PM EST): - Flomax Acute blood loss anemia (ABLA) 04/22/2024 Urinary tract infection with hematuria, site uns pecified 04/21/2024 Assessment & Plan (05/01/2024 1:48 PM EST): Culture 04/20 grew Klebsiella oxytoca which was resistent to cefazolin. Sensitive to cefoxitin. Repeat culture 04/25 no growth. Still with some urgency. Completed antibiotics. - Repeat UA Pacemaker at end of battery life 03/27/2024 Prominent metatarsal head, left 12/07/2023 History of transmetatarsal amputation of left fo ot 09/19/2023 Iron deficiency anemia due to chronic blood loss 07/22/2023 Malabsorption in the elderly 07/22/2023 Angina pectoris 07/20/2023 Former heavy tobacco smoker 06/14/2023 Heavy tobacco smoker 04/19/2023 Aortic valve regurgitation 04/14/2023 Chronic obstructive pulmonary disease 04/14/2023 Dyspnea 04/14/2023 Foot ulceration, right, with fat layer exposed 1 05/28/2022 Dehiscence of wound 03/28/2023 Acquired absence of right foot 02/23/2023 Assessment & Plan (05/01/2024 1:48 PM EST): Stable H/O: pituitary tumor 02/23/2023 Peripheral neuropathy 02/23/2023 Coronary artery disease invo lving wrangell coronary artery of wrangell heart without angina pectoris 02/23/2023 Assessment & Plan (05/01/2024 1:48 PM EST): No angina Primary hypertension 02/23/2023 Normocytic anemia 02/23/2023 Hammer toe of right foot 10/20/2022 Overview (10/20/2022): Added automatically from request for surgery [id number] Carotid artery stenosis 07/29/2022 Tobacco dependence syndrome 07/29/2022 Diaphragmatic hernia without obstruction or gang marguerite 06/08/2022 Dependence on other enabling machines and device s 06/08/2022 Diverticulitis of intestine, part unspecified, without perforation or abscess without bleeding 06/08/2022 Encounter for orthopedic aft ercare following surgical amputation 06/08/2022 Irritable bowel syndrome, unspecified 06/08/2022 Other specified injuries of right ankle, subsequent encounter 06/08/2022 Other transient cerebral isc hemic attacks and related syndromes 06/08/2022 Pure hypercholesterolemia, unspecified Other seizures 06/08/2022 Type 2 diabetes mellitus without complications 0 06/08/2022 Foot ulceration, left, with fat layer exposed Overview (05/28/2022): Added automatically from request for surgery [id number] Hyperglycemia 04/27/2022 Intermittent claudication 04/12/2022 Atherosclerosis of wrangell ar boaz of both lower extremities with intermittent claudication 09/29/2021 Small vessel coronary artery disease 09/29/2021 Diabetic polyneuropathy asso ciated with type 2 diabetes mellitus 09/04/2021 Overview (09/04/2021): Added automatically from request for surgery [id number] Skin ulcer of left great toe, limited to breakdo wn of skin 07/08/2021 Overview (07/08/2021): Added automatically from request for surgery [id number] Raynaud's disease with gangrene 07/08/2021 Overview (07/08/2021): Added automatically from request for surgery [id number] Olson's esophagus without dysplasia 10/02/2020 Overview (10/02/2020): Added automatically from request for surgery [id number] Dysphagia 10/02/2020 Overview (10/02/2020): Added automatically from request for surgery [id number] Gastroesophageal reflux disease 10/02/2020 Overview (10/02/2020): Added automatically from request for surgery [id number] Assessment & Plan (05/01/2024 1:48 PM EST): - PPI Personal history of colonic polyps 10/02/2020 Overview (10/02/2020): Added automatically from request for surgery [id number] Medication management 06/20/2019 MPN (myeloproliferative neoplasm) 05/02/2019 Assessment & Plan (05/01/2024 1:48 PM EST): - Continue Jakafi. Dose increased per heme/onc. - Transfuse to maintain hgb >7 Iron deficiency 05/02/2019 Encounter to discuss test results 05/02/2019 RBC microcytosis 04/16/2019 Erythrocytosis 04/16/2019 Thrombocytosis 04/16/2019 Leukocytosis 04/16/2019 History of transient ischemic attack 12/22/2018 Acquired absence of right great toe 06/22/2018 Pain in toes of both feet 05/23/2018 Overview (05/23/2018): Added automatically from request for surgery [id number] Gangrene of toe of right foot 05/23/2018 Overview (05/23/2018): Added automatically from request for surgery [id number] Raynaud's phenomenon without gangrene 04/05/2018 Ischemic toe 04/03/2018 PAD (peripheral artery disease) 04/03/2018 Assessment & Plan (05/01/2024 1:48 PM EST): No AC or antiplatelets EEO OFFICER due to hematological disorder Small vessel disease 04/03/2018 S/P ablation of atrial fibrillation 04/12/2016 Pacemaker 12/31/2015 Overview (06/25/2024): MDT Dual Chamber PPM generator change 06/22/[address] Davis Tweetwall Dual PPM implanted by Dr. Sean Nunez on March 28, 2014 Presence of stent in coronary artery 12/31/2015 Vitamin B12 deficiency 10/14/2015 Vitamin D deficiency 10/14/2015 Obesity, Class I, BMI 30-34.9 04/18/2015 Assessment & Plan (05/01/2024 1:48 PM EST): Body mass index is 31.33 kg/m . Snoring 01/22/2015 Chronic fatigue 01/22/2015 A-fib 01/22/2015 Assessment & Plan (05/01/2024 1:48 PM EST): Rate controlled. Ok for eliquis if platelets >50k per hematology. - Resume eliquis - Continue atenolol VINI (obstructive sleep apnea) 01/22/2015 Overview (04/18/2015): 2015 , RDI 39 cpap 12. 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 03/04/2011 Overview (06/06/2024): ICD-10 Transition Glucocorticoid deficiency 12/18/2010 Hyperlipidemia 12/07/2010 Status post bariatric surgery 12/07/2010 Benign neoplasm of pituitary gland and craniopharyngeal duct (pouch) 10/13/2010 Neuropathy associated with thyroid disease Paresthesia of skin Pituitary adenoma Assessment & Plan (05/01/2024 1:48 PM EST): - EEO OFFICER cortef Pain in right foot Open wound of left foot Atherosclerosis of artery of extremity with ulce ration Pain in left toe(s) Resolved Problems Problem Noted Date Diagnosed Date Resolved Date Cardiac arrhythmia, unspecified 06/08/2022 06/25/2024 Atrial premature complexes 11/30/2017 0 06/25/2024 Encounters Date Type Department Care Team Description 12/10/2024 10:30 AM EDT Hospital Encounter [facility] [address] [place] [phone] 12/10/2024 9:55 AM EDT Hospital Encounter [facility] [address] [place] [address] Destiny Flores, JOHANN Benign neoplasm of pituitary gland and craniopharyngeal duct (pouch) (HCC) (Primary Dx) 12/10/2024 9:45 AM EDT Hospital Encounter [facility] [address] [place] [phone] Erythrocytosis (Primary Dx); Iron deficiency anemia due to chronic blood loss; Malabsorption in the elderly; MPN (myeloproliferative neoplasm) (HCC) 12/10/2024 Travel 12/06/2024 Refill [facility] [address] [place] [address] Dallas Dominguez MD Medication Refill 12/05/2024 2:15 PM EDT Office Visit [facility] Nephrology [facility] [address] [place] [address] Edita Alford MD Stage 3a chronic kidney disease (HCC) (Primary Dx); Renal osteodystrophy 12/03/2024 11:24 AM EDT - 12/03/2024 11:59 PM EDT Hospital Encounter [facility] [address] [place] [address] Stage 3a chronic kidney disease (HCC) Discharge Disposition: Home or Self Care 12/03/2024 Specialty [facility]acy [facility] [address] [place], [place] [id number] Anju Escamilla, [facility] Oncology Management (Ruxolitinib) 11/30/2024 Orders Only [facility] Cancer Care [facility] [place], [place] [id number] Doris Garcia, [facility] Myelofibrosis (HCC); Thrombocytopenia; 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) 11/30/2024 Specialty Pharmacy [facility] [address] [place], [place] [id number] Maile Kaiser, [facility] Oncology Management (Ruxolitinib) 11/28/2024 Specialty Pharmacy [facility] [address] [place], [place] [id number] Ning Weinberg, [facility] Oncology Management (Ruxolitinib) 11/20/2024 Telephone [facility] [address] [place], [place] [id number] Corrina Louis ATC Follow-up 11/19/2024 Refill [facility] [address] [facility] [address] [place] [address] Dallas Dominguez MD Medication Refill 11/15/2024 Results Follow-Up [facility] [address] [phone] Pedrito Bray MD COMPREHENSIVE METABOLIC PANEL, T4, FREE (THYROXINE) 11/13/2024 10:40 AM EDT Office Visit [facility] [address] [facility] [facility] [address] [place] [phone] Pedrito Bray MD Postsurgical hypothyroidism (Primary Dx); Pituitary adenoma (HCC); Panhypopituitarism 11/13/2024 9:02 AM EDT - 11/13/2024 11:59 PM EDT Hospital Encounter [facility] [address] [place] [phone] Postsurgical hypothyroidism Discharge Disposition: Home or Self Care 11/13/2024 Telephone [place] [phone] Elmer Hamilton MD Other 11/12/2024 5:14 PM EDT - 11/12/2024 11:59 PM EDT Hospital Encounter [facility] [address] [place] [address] Elmer Hamilton MD Bilateral hand pain Discharge Disposition: Home or Self Care 11/09/2024 Refill [facility] [address] [place] [phone] Dallas Dominguez MD Medication Refill 11/08/2024 Travel 11/06/2024 Telephone [facility] [address] [facility] [address] [place] [phone] Pedrito Bray MD Other (Lab reminder) 11/05/2024 9:00 AM EDT Office Visit [address] [address] Elmer Hamilton MD Bilateral hand pain (Primary Dx); Closed nondisplaced fracture of neck of right radius, initial encounter 11/05/2024 Orders Only [facility] [address] [phone] Pedrito Bray MD Postsurgical hypothyroidism (Primary Dx) 11/02/2024 Refill [facility] [address] [place] [address] Dallas Dominguez MD Medication Refill 11/01/2024 10:45 AM EDT - 11/01/2024 1:17 PM EDT Emergency [facility] [address] [place] [address] Debbie Self MD Closed nondisplaced fracture of head of right radius, initial encounter (Primary Dx); Closed nondisplaced fracture of triquetrum, unspecified laterality, initial encounter Discharge Disposition: Home or Self Care 10/31/2024 Travel 10/26/2024 Specialty Pharmacy [facility] [address] [place] [address] Maile Kaiser CPhT Pharmacy Oncology Management (Ruxolitinib) 10/18/2024 Refill [facility] [address] [phone] Pedrito Bray MD Medication Refill 10/15/2024 8:58 AM EDT - 10/15/2024 11:59 PM EDT Hospital Encounter [facility] [address] [facility] [address] [place] [address] Dallas Dominguez MD Myelofibrosis (HCC) (Primary Dx); 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 [facility] [address] [place] [phone] Erythrocytosis (Primary Dx); Iron deficiency anemia due to chronic blood loss; Malabsorption in the elderly; MPN (myeloproliferative neoplasm) (HCC) Discharge Disposition: Home or Self Care 10/10/2024 Refill [facility] [address] [facility] [address] [place] [address] Dallas Dominguez MD Medication Refill 09/26/2024 Refill [facility] [address] [facility] [address] [place] [address] Dallas Dominguez MD Medication Refill 09/26/2024 Specialty Pharmacy [facility] [address] [place] [address] Ning Devries time broker Pharmacy Oncology Management (Ruxolitinib) 09/21/2024 Orders Only [facility] [address] [place] [address] Alyson Davis MD [employer] 09/19/2024 11:05 AM EDT - 09/19/2024 11:59 PM EDT Hospital Encounter [facility] [address] [place] [address] Nancy Marie APRN Greater trochanteric bursitis of both hips Discharge Disposition: Home or Self Care 09/17/2024 9:57 AM EDT - 09/17/2024 11:59 PM EDT Hospital Encounter [facility] [address] [place] [address] Discharge Disposition: Home or Self Care 09/17/2024 9:45 AM EDT - 09/17/2024 9:56 AM EDT Hospital Encounter [facility] [address] [place] [address] Erythrocytosis (Primary Dx); Iron deficiency anemia due to chronic blood loss; Malabsorption in the elderly; MPN (myeloproliferative neoplasm) (HCC) Discharge Disposition: Home or Self Care 09/12/2024 Refill [facility] [address] [place] [address] Dallas Dominguez MD Medication Refill from Last 3 Months Immunizations Immunization Administration Dates Next Due Pneumococcal Polysaccharide 23 Valent 04/03/2018 Surgical History Surgery Date Site/Laterality Comments APPENDECTOMY CARDIAC SURGERY MULTIPLE STENTS PITUITARY SURGERY PARTIAL TUMOR REMOVED at [facility] -Radiation ARM SURGERY L. ARM ATRERY SEVERED WITH TOBACCO STICK WHEN YOUNGER CARDIAC PACEMAKER PLACEMENT CARDIAC CATHETERIZATION TOE AMPUTATION 05/30/2018 Right Amputation of great toe right foot and sesamoidectomy; Surgeon: Elmer Daniel DPM; Location: [facility]; Service: Orthopedics FOOT SURGERY 05/30/2018 Surgeon: Elmer Daniel DPM; Location: [facility]; Service: Orthopedics AMPUTATION UPPER GASTROINTESTINAL ENDOSCOPY 10/28/2020 N/A Esophagogastroduodenos copy with biopsy and colonoscopy with biopsy; Surgeon: Alverto Acosta MD; Location: [facility]; Service: Endoscopy COLONOSCOPY 10/28/2020 N/A .Colonoscopy with biopsy ; Surgeon: Alverto Acosta MD; Location: [facility]; Service: Endoscopy FL MYELOGRAM LUMBAR 01/16/2021 FL MYELOGRAM LUMBAR 01/16/2021 Екатерина Davida Christine, RT [facility] XRAY STOMACH SURGERY 05/16/2007 - 05/15/2008 LAPAROSCOPIC GASTRIC BANDING TOE AMPUTATION 07/13/2021 Toe/Left Left Partial great toe amputation; Surgeon: Elmer Daniel DPM; Location: [facility]; Service: Orthopedics FOOT OSTEOTOMY 09/07/2021 Foot/Ankle/Left Left foot, osteotomy of left great toe with wound closure. ; Surgeon: Elmer Daniel DPM; Location: [facility]; Service: Podiatry SKIN GRAFT 09/07/2021 Left .; Surgeon: Elmer Daniel DPM; Location: [facility]; Service: Podiatry IR ABDOMINAL AORTOGRAM SERIALOGRAM 10/21/2021 IR ABDOMINAL AORTOGRAM SERIALOGRAM 10/21/2021 Wilber Peña MD [facility] IR ANGIOGRAM EXTREMITY BILATERAL 10/21/2021 IR ANGIOGRAM EXTREMITY BILATERAL 10/21/2021 Wilber Peña MD [facility] IR ULTRASOUND GUIDED VASCULA R ACCESS 10/21/2021 IR ULTRASOUND GUIDED VASCULAR ACCESS 10/21/2021 Wilber Peña MD [facility] FOOT SURGERY 05/31/2022 Foot/Ankle/Left Left foot transmetatarsal amputation, ; Surgeon: Elmer Daniel DPM; Location: [facility]; Service: Orthopedics PACEMAKER PLACEMENT 4-5 years ago at [facility] GASTRIC RESTRICTION SURGERY 07/13/1997 Approximate date THYROID SURGERY biopsy FOOT SURGERY 02/23/2023 Foot/Ankle/Right Right foot transmetatarsal amputation.; Surgeon: Elmer Danile DPM; Location: [facility]; Service: Orthopedics LAYER WOUND CLOSURE 04/04/2023 Right Right foot wound closure; Surgeon: Elmer Daniel DPM; Location: [facility]; Service: Podiatry CT NEEDLE BIOPSY BONE 08/15/2023 CT NEEDLE BIOPSY BONE 08/15/2023 Augustus Chow MD [facility] CT NEEDLE BIOPSY BONE 08/31/2023 CT NEEDLE BIOPSY BONE 08/31/2023 Hugo Mathew MD [facility] CT TOE SURGERY 12/12/2023 Foot/Ankle/Left Left foot osteotomy of fifth metatarsal bone.Left foot wound debridement with application of skin graft substitute.; Surgeon: Elmer Daniel DPM; Location: [facility]; Service: Podiatry Medical devices from this surgery are in the Medical Devices section. FOOT SURGERY 12/12/2023 Foot/Ankle/Left .; Surgeon: Elmer Daniel DPM; Location: [facility]; Service: Podiatry Medical devices from this surgery are in the Medical Devices section. SKIN GRAFT 12/12/2023 Left .; Surgeon: Elmer Daniel DPM; Location: [facility]; Service: Podiatry Medical devices from this surgery are in the Medical Devices section. IR ARTHROCENTESIS ASPIRATION LARGE JOINT 07/18/2024 IR ARTHROCENTESIS ASPIRATION LARGE JOINT 07/18/2024 Ross Wright MD [facility] IR ARTHROCENTESIS ASPIRATION LARGE JOINT 09/19/2024 IR ARTHROCENTESIS ASPIRATION LARGE JOINT 09/19/2024 Ross Wright MD [facility] UVULOPALATOPHARYGOPLASTY SPINE SURGERY 1999 Pituitary tumor CORONARY ANGIOPLASTY ABDOMEN SURGERY 2011 Lap band placement SINUS SURGERY CHOLECYSTECTOMY CORONARY ANGIOPLASTY WITH ST ENT PLACEMENT Various 7 stents ANGIOPLASTY Various Medical History Medical History Date Comments Irritable bowel syndrome Thyroid disease Neuromuscular disorder (HCC) ACTH deficiency Diverticulitis Hiatal hernia SMALL, ABOVE GAS TRIC BANDING Hypertension Hypercholesteremia Pacemaker SICK SINUS SYNDR OME Cardiac dysrhythmia Afib, 7 sten ts, ablation CAD (coronary artery disease) MU LTIPLE STENTS Subclavian steal syndrome MPN (myeloproliferative neoplasm) (HCC) GETS THEREPEUTIC PHLEBOTMIES IN CTC Sleep apnea USES CPAP @ HS s etting is 12 Heartburn Diabetes mellitus (HCC) no meds Cancer (HCC) PITUITARY TUMOR- TREATED WITH RADIATION & SURGERY benign neoplasm of pituitary gland and craniopharygeal duct Melanoma (HCC) 2016 LEFT UPPER ARM Motion sickness Seizures (HCC) 2015 LOCALIZATIO-RELA LILIANA FOCAL EPILEPSY WITH SIMPLE PARTIAL SEIZURES- Related to Pituitary tumor Hypothyroidism PARSONS (dyspnea on exertion) Arthritis hips Encounter for blood transfusion 12/07/23 Blood circulation, collateral Arrhythmia Hammer toe Disease of blood and blood forming organ Ingrown toenail Skin cancer Hormone replacement therapy, postmenopausal High arches Afib (HCC) Irregular heart beat Difficulty walking Foot ulcer (HCC) High cholesterol Anemia GERD (gastroesophageal reflux disease) Family History Medical History Relation Name Comments Cancer Brother Andres Simmons Coronary Art Dis Brother Andres Simmons d Heart Disease Brother Andres Simmons High Blood Pressure Brother Andres Simmons Kidney Disease Brother Andres Simmons Prostate Cancer Brother Andres Simmons Cancer Father audra simmons Coronary Art Dis Father audra simmons Hearing Loss Father audra simmons Heart Disease Father audra simmons High Blood Pressure Father audra simmons High Cholesterol Father audra simmons Prostate Cancer Father audra simmons Vision Loss Father audra simmons Coronary Art Dis Maternal Grandfather Elmer Ness De ceased to Heart Disease Maternal Grandfather Elmer Ness Arthritis Maternal Grandmother Lisseth Ness Blindness Mother jesus simmons Nearly blind ed Cancer Mother jesus simmons Coronary Art Dis Mother jesus simmons Diabetes Mother jesus simmons Heart Attack Mother jesus simmons Heart Disease Mother jesus simmons High Blood Pressure Mother jesus simmons High Cholesterol Mother jesus simmons Hypertension Mother jesus simmons Kidney Cancer Mother jesus simmons Kidney Disease Mother jesus simmons Kidney rem nehal due to cancer Pacemaker Mother jesus simmons Stroke Mother jesus simmons Had several mini strokes Vision Loss Mother jesus simmons Rectal Cancer Paternal Grandmother Tatianna Porras(daught er) Breast Cancer Sister 1 Lucia [place] Cancer Sister 1 Lucia [place] Ovarian Cancer Sister 1 Lucia [place] Cancer Sister 2 Lucia depressed Breast Cancer Sister 3 Lucia [place] Marcelo Cancer Sister 3 Lucia [place] Marcelo High Blood Pressure Sister 3 Lucia [place] High Cholesterol Sister 3 Lucia [place] Marcelo Cancer Sister 4 Mirta [place] High Blood Pressure Sister 4 Mirta [place] High Cholesterol Sister 4 Mirta [place]aga Anesth Problems Neg Hx Relation Name Status Comments Brother Andres Simmons Father audra simmons Alive Maternal Grandfather Elmer Ness Maternal Grandmother Lisseth Ness Alive Mother jesus simmons Paternal Grandfather None Alive Paternal Grandmother Tatianna Porras(daughter) Alive Sister 1 Lucia Ull[place] Alive Sister 2 Lucia depressed Alive Sister 3 Lucia Ulloa [place] Alive Sister 4 Mirta Lizarraga Alive Social History Tobacco Use Types Packs/Day Years Used Date Smoking Tobacco: Former Cigarettes 1 40 0 05/16/1966 - 05/15/2000 Passive Smoke Exposure: Current Smokeless Tobacco: Never Tobacco Cessation:Counseling Given: Not Answered Comments:I no longer smoke. Alcohol Use Standard Drinks/Week Comments Not Currently 7 (1 standard drink = 0.6 oz pur e alcohol) [facility] Utilities Answer Date Recorded In the past [...] Date Recorded PHQ-2 Total Score 2 04/21/2024 [facility] - Occupational Stress [...] things needed for daily living? 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 Not on file Not on file Not o n file Obstetrics History Last Filed Vital Signs Vital Sign Reading [...] Mass Index 31.99 12/10/2024 10:05 AM EDT Plan of Treatment Upcoming Encounters Date Type Department Care Team (Late st Contact Info) Description 12/14/2024 11:15 AM EDT Office Visit [facility] Geothermal System Installer [facility] [place] [address] Elmer Hamilton MD [address] [place] [address] 12/27/2024 2:00 PM EDT Office Visit [facility] [address] [place] [address] Elmer Daniel DPM [address] [place] [address] 01/07/2025 9:30 AM EDT Appointment [facility] [address] [place] [id number] 01/07/2025 9:45 AM EDT Appointment [facility] [address] [place] [address] Destiny Flores, TEA TREE FARMER [address] [facility] [address] [place] [address] 05/21/2025 2:00 PM EST Office Visit [facility] [address] [place] [id number] Pedrito Bray MD [address] [facility] [address] [place] [address] 06/07/2025 1:30 PM EST Office Visit [facility] [address] [facility] [address] [place] [address] 06/07/2025 2:00 PM EST Office Visit [facility] [address] [facility] [address] [place] [address] Imelda Albarado, TEA TREE FARMER [address] [place], [place] [id number] 12/04/2025 1:45 PM EDT Office Visit [facility] Ne[facility] [address] [facility] [address] [place] [address] Edita Alford MD [address] [address] Health Maintenance Due Date Last Done Comments Wellness Exam Medicare 1958 Hepatitis C Screening 1971 DTaP/TDaP/Td (1 - Tdap) 07/21/1996 07/20/1996 Cologuard 1998 FIT 1998 Sigmoidoscopy 1998 Virtual Colonography 1998 Zoster (1 of 2) 2003 RSV or 60+ (1 - Risk 60-74 years 1-dose series) 2013 Lipids 04/03/2016 04/03/2015 AAA Screening 2018 Pneumococcal Vaccine 50+ (2 of 2 - PCV) 04/03/2019 04/03/2018 Kidney Health: uACR 06/03/2023 06/03/2022 COVID-19 Vaccine (3 - season) 2024 03/06/2021, 02/06/2021 Hemoglobin A1c 01/19/2024 07/19/2023, 05/16, 08/30/2020, Additional history exists Influenza Vaccine (#1) 2025 02/18/2015 (Postpo mary ann) Diabetic Eye Exam 09/01/2025 09/02/2023 Colon Cancer Screening 10/28/2025 Colonoscopy 10/28/2025 10/28/2020 Kidney Health: eGFR 12/03/2025 12/03/2024, 11/13/2024, 08/20/2024, Additional history exists Hepatitis B Vaccine Aged Out No longe r eligible based on patient's age to complete this topic Meningococcal B Vaccine Aged Out No l onger eligible based on patient's age to complete this topic Medical Devices Implanted Type Area Senior Technical Manager Device Identifier Shelf Expiration Date Model / Serial / Lot Pacemaker [place] Overlook Xt Dr Thu Forte 2chmbr 46.6x50.8x7.4 mm - [id number] Implanted:Qty : 1 on 06/22/2024 by Alyson Davis MD at [facility] Pacemaker [employer]:PACIN Damon SYS [id number] 10/10/2025 [id number] / [id number] / 7 Cardiac Stents Lap Band Graft Tissue Myriad Thin 5 X 5cm - [id number] Implanted:Qty : 1 on 12/12/2023 by Elmer Daniel DPM at [facility] Left: Foot [employer] [id number] 08/13/2025 [id number] / / [id number] Graft Ovine Tissue 500mg Ekaterina Stark - [id number] Implanted:Qty : 1 on 12/12/2023 by Elemr Daniel DPM at [facility] Left: Foot [employer] [id number] 12/13/2024 [id number] / / [id number] Explanted Type Area Senior Technical Manager Device Identifier Shelf Expiration Date Model / Serial / Lot Pacemaker Explanted:Qty: 1 on 06/22/2024 by Alyson Davis MD at [facility] Procedures Procedure Name Priority Date/Time Associated Diagnosis Comments BLOOD BANK SPECIMEN HOLD KIM 12/10/2024 10:00 AM EDT Erythrocytosis Iron deficiency anemia due to chronic blood loss Malabsorption in the elderly MPN (myeloproliferative neoplasm) (HCC) CBC WITH DIFF STAT 12/10/2024 10:00 AM EDT Erythrocytosis Iron deficiency anemia due to chronic blood loss Malabsorption in the elderly MPN (myeloproliferative neoplasm) (HCC) PROTEIN/CREATININE RATIO URINE Routine 12/03/2024 11:23 AM [...] EDT Stage 3a chronic kidney disease (HCC) T4, FREE (THYROXINE) Routine 11/13/2024 9:07 AM EDT Postsurgical hypothyroidism COMPREHENSIVE METABOLIC PANEL Routine 11/13/2024 9:07 AM EDT Postsurgical hypothyroidism CT UPPER EXTREMITY LEFT WO CONTRAST Routine 11/12/2024 5:38 PM EDT Bilateral hand pain XR HAND LEFT PA LATERAL AND OBLIQUE KIM 11/01/2024 11:16 AM EDT XR WRIST BILATERAL PA AND LATERAL KIM 11/01/2024 11:15 AM EDT XR ELBOW RIGHT AP LATERAL AND OBLIQUES KIM 11/01/2024 11:15 AM EDT BLOOD BANK SPECIMEN HOLD [facility] 10/15/2024 9:06 AM EDT Erythrocytosis Iron deficiency [...] in the elderly MPN (myeloproliferative neoplasm) (HCC) NE REM INTERROG PM/LDLS PM <90 D PHYS/QHP Routine 09/21/2024 12:00 AM EDT Vector Remote Device IR ARTHROCENTESIS ASPIRATION LARGE JOINT Routine 09/19/2024 11:30 AM EDT Greater trochanteric bursitis of both hips BLOOD BANK SPECIMEN HOLD [facility] 09/17/2024 10:08 AM EDT Erythrocytosis Iron deficiency anemia due to chronic blood loss Malabsorption in the elderly MPN (myeloproliferative neoplasm) (HCC) CBC WITH DIFF STAT 09/17/2024 10:08 AM EDT Erythrocytosis Iron deficiency anemia due to chronic blood loss Malabsorption in the elderly MPN (myeloproliferative neoplasm) (HCC) HEMOGLOBIN A1C Routine 07/19/2023 12:04 PM EST MPN (myeloproliferative neoplasm) (HCC) Encounter for monitoring of hydroxyurea therapy Normocytic anemia Abnormal finding of blood chemistry, unspecified MICROALBUMIN/CREATININ E RATIO URINE Routine 06/03/2022 5:07 AM EST GMED EGD-COLONOSCOPY Routine 10/28/2020 2:15 PM EDT from Last 3 Months or Most Recently Relevant to Health Maintenance Results * BLOOD BANK SPECIMEN HOLD (12/10/2024 10:00 AM EDT) Only the most recent of3 resultswithin the time period is included. [facility] Blood Bank Hold Specimen Received 12/10/2024 12:00 PM EDT [facility] Blood VENOUS BLOOD / Unknown Venipuncture / Unknown 12/10/2024 10:00 AM EDT 12/10/2024 10:03 AM EDT us Dallas Dominguez MD BLOOD BANK ORDERABLES Final Res ult [facility] [address] [place] [address] * (ABNORMAL) CBC WITH DIFF (12/10/2024 10:00 AM EDT) Only the most recent of3 resultswithin the time period is included. [facility] WBC 28.8(H) 3.7 - 10.3 x10(3)/mcL 12/10/2024 11:09 AM EDT [facility] RBC 4.39(L) 4.60 - 6.10 x10(6)/mcL 12/10/2024 11:09 AM EDT [facility] Hgb 13.3(L) 13.7 - 17.5 g/dL 12/10/2024 11:09 AM EDT [facility] Hct 42.3 40.0 - 51.0 % 12/10/2024 11:09 AM EDT [facility] MCV 96.4 80.0 - 100.0 fL 12/10/2024 11:09 AM EDT [facility] MCH 30.3 26.0 - 34.0 pg 12/10/2024 11:09 AM EDT [facility] MCHC 31.4 30.7 - 35.5 g/dL 12/10/2024 11:09 AM EDT [facility] RDW 19.8(H) <=14.9 % 12/10/2024 11:09 AM EDT [facility] Platelet 123(L) 155 - 369 x10(3)/[facility] 12/10/2024 11:09 AM EDT [facility] MPV 10.7 8.8 - 12.5 fL 12/10/2024 11:09 AM EDT [facility] NRBC Auto % 38.2(H) <=0.0 % 12/10/2024 11:09 AM EDT [facility] NRBC# 11.0 x10(3)/[facility] 12/10/2024 11:09 AM EDT [facility] Segs 55 % 12/10/2024 11:09 AM EDT [facility] Lymphs 10 % 12/10/2024 11:09 AM EDT [facility] Monos 8 % 12/10/2024 11:09 AM EDT [facility] Eos 3 % 12/10/2024 11:09 AM EDT [facility] Baso 3 % 12/10/2024 11:09 AM EDT [facility] Metamyelocyte 7 % 12/10/2024 11:09 AM EDT [facility] Myelo 14 % 12/10/2024 11:09 AM EDT [facility] Neut # 15.8(H) 1.6 - 6.1 x10(3)/[facility] 12/10/2024 11:09 AM EDT [facility] Lymph # 2.9 1.2 - 3.9 x10(3)/[facility] 12/10/2024 11:09 AM EDT [facility] [place] # 2.3(H) 0.3 - 0.9 x10(3)/mcL 12/10/2024 11:09 AM EDT [facility] Eos # Manual 0.9(H) 0.0 - 0.5 x10(3)/mcL 12/10/2024 11:09 AM EDT [facility] Baso # Manual 0.9(H) 0.0 - 0.1 x10(3)/mcL 12/10/2024 11:09 AM EDT [facility] Metamyelo # 2.0 x10(3)/mcL 12/10/2024 11:09 AM EDT [facility] Myelo # 4.0 x10(3)/mcL 12/10/2024 11:09 AM EDT [facility] Aniso Marked 12/10/2024 11:09 AM EDT [facility] Polychrom Marked 12/10/2024 11:09 AM EDT [facility] Blood VENOUS BLOOD / Unknown Venipuncture / Unknown 12/10/2024 10:00 AM EDT 12/10/2024 10:03 AM EDT us Dallas Dominguez MD HEMATOLOGY ORDERABLES Final Res ult Performing Organization Address City/[facility] [address]/ZIP Co de Phone Number [address] [address] * PROTEIN/CREATININE RATIO URINE (12/03/2024 11:23 AM EDT) Urine Protein 23.8 mg/dL 12/03/2024 4:07 PM EDT [facility] Urine Creatinine 110.0 mg/dL 12/03/2024 4:07 PM EDT [facility] Ur Protein/Creat 0.22 mg/mg 12/03/2024 4:07 PM EDT [facility] Urine STRUCTURE OF URINARY TRACT PROPER / Unknown 12/03/2024 11:23 AM EDT 12/03/2024 11:23 AM EDT us Edita Alford MD URINE ORDERABLES Final Result Performing Organization Address City/[facility] [address]/ZIP Co de Phone Number [facility] [employer], [address], [place] [address] [facility] [address] [place] [address] * (ABNORMAL) CBC (12/03/2024 11:23 AM EDT) [facility] Signature WBC 30.5(H) 3.7 - 10.3 x10(3)/[facility] 12/03/2024 4:26 PM EDT [facility] RBC 4.60 4.60 - 6.10 x10(6)/[facility] 12/03/2024 4:26 PM EDT [facility] Hgb 13.7 13.7 - 17.5 g/dL 12/03/2024 4:26 PM EDT [facility] Hct 46.3 40.0 - 51.0 % 12/03/2024 4:26 PM EDT [facility] MCV 100.7(H) 80.0 - 100.0 fL 12/03/2024 4:26 PM EDT [facility] MCH 29.8 26.0 - 34.0 pg 12/03/2024 4:26 PM EDT [facility] MCHC 29.6(L) 30.7 - 35.5 g/dL 12/03/2024 4:26 PM EDT [facility] RDW 20.0(H) <=14.9 % 12/03/2024 4:26 PM EDT [facility] Platelet 108(L) 155 - 369 x10(3)/[facility] 12/03/2024 4:26 PM EDT [facility] MPV 11.9 8.8 - 12.5 fL 12/03/2024 4:26 PM EDT [facility] NRBC Auto % 30.8(H) <=0.0 % 12/03/2024 4:26 PM EDT [facility] NRBC# 9.4 x10(3)/[facility] 12/03/2024 4:26 PM EDT [facility] Blood VENOUS BLOOD / Unknown Venipuncture / Unknown 12/03/2024 11:23 AM EDT 12/03/2024 11:23 AM EDT us Edita Alford MD HEMATOLOGY ORDERABLES F inal Result [facility], [address] , [place] [address] * VITAMIN D 25 HYDROXY (12/03/2024 11:23 AM EDT) Pathologist [facility] Vit D 25 OH 47.8 30.0 - 150.0 ng/mL 12/03/2024 5:57 PM EDT [facility] [employer] [facility] Comment: Preferred: >= 30 ng/mL Insufficient: 21-29 [...] EDT us Edita Alford MD CHEMISTRY ORDERABLES [facility] Result [facility] [employer] [address] , [address] [place], [place] [id number] * PARATHYROID HORMONE INTACT (12/03/2024 11:23 AM EDT) Pathologist [facility] PTH Intact 47.00 15.00 - 65.00 pg/mL 12/03/2024 4:28 PM EDT [facility] [employer] [facility] Blood VENOUS BLOOD / Unknown Venipuncture / Unknown 12/03/2024 11:23 AM EDT 12/03/2024 11:23 AM EDT Narrative [facility] [employer] [facility] - 12/03/2024 4:28 PM EDT Intact PTH [...] to the circulating calcium level. Ingestion of maico doses of biotin (>5 mg/day) taken within 8 hours of drawing blood sample can interfere with this immunoassay test. us Edita Alford MD CHEMISTRY ORDERABLES nal Result [facility] [address] [facility] , [address] [place] [id number] * (ABNORMAL) RENAL FUNCTION PANEL (12/03/2024 11:23 AM EDT) Sodium 140 136 - 145 mmol/L 12/03/2024 [...] - 99 mg/dL 12/03/2024 5:40 PM EDT [facility] BUN 15 8 - 23 mg/dL 12/03/2024 5:40 PM EDT [facility] Creatinine 1.36(H) 0.67 - 1.30 mg/dL 12/03/2024 5:40 PM EDT [facility] Albumin 4.5 3.2 - 4.6 gm/dL 12/03/2024 5:40 PM EDT [facility] Phosphorus 3.6 2.5 - 4.5 mg/dL 12/03/2024 5:40 PM EDT [facility] eGFR (CKD-EPIcr 2020) 56(L) >=60 mL/min/1.7 3 m2 12/03/2024 5:40 PM EDT [employer] Comment:Estimated GFR was ca lculated using the CKD-EPIcr (2020) equation refit without race. The equation is recommended by the National Kidney Foundation - [place] [employer] of Nephrology Task Force. Blood VENOUS BLOOD / Unknown Venipuncture / Unknown 12/03/2024 11:23 AM EDT 12/03/2024 11:23 AM EDT Edita Alford MD CHEMISTRY ORDERABLES Fi nal Result Performing Organization Address [facility]/ZIP Co de Phone Number [facility] [employer] [address] [place] [address] , [place] [address] * (ABNORMAL) T4, FREE (THYROXINE) (11/13/2024 9:07 AM EDT) Free T4 0.76(L) 0.80 - 1.80 ng/dL 11/13/2024 4:57 PM EDT [facility] [employer] Blood VENOUS BLOOD / Unknown Venipuncture / Unknown 11/13/2024 9:07 AM EDT 11/13/2024 9:07 AM EDT Narrative [facility] [employer] - 11/13/2024 4:57 PM EDT Ingestion of maico doses of biotin (>5 mg/day) taken within 8 hours of drawing blood sample can interfere with this immunoassay test. Pedrito Bray MD CHEMISTRY ORDERABLES Fin al Result Performing Organization Address City/[facility] [address] [facility]/ZIP Co de Phone Number [employer] [address] , [place] [address] * (ABNORMAL) COMPREHENSIVE METABOLIC PANEL (11/13/2024 9:07 AM EDT) Sodium 141 136 - 145 mmol/L 11/13/2024 4:57 PM EDT [employer] Potassium 3.5 3.5 - 5.0 mmol/L 11/13/2024 4:57 PM EDT [facility] Chloride 102 98 - [...] recommended by the National Kidney Foundation - [place] [employer] of Nephrology Task Force. Blood VENOUS BLOOD / Unknown Venipuncture / Unknown 11/13/2024 9:07 AM EDT 11/13/2024 9:07 AM EDT Pedrito Bray MD CHEMISTRY ORDERABLES Fin al Result [facility] [employer] [address] [place] [address], [place] [address] * CT UPPER EXTREMITY LEFT WO CONTRAST (11/12/2024 5:38 PM EDT) Anatomical Region Laterality Modality Arm Computed Tomogra phy 11/12/2024 5:38 PM EDT Impressions 11/13/2024 7:55 AM EDT Acute mildly displaced fracture of the dorsal margin of the triquetrum. Narrative 11/13/2024 7:[address] UPPER EXTREMITY LEFT WO CONTRAST, 11/12/2024 5:38 PM CLINICAL HISTORY: M79.641-Pain in right [id number] M79.642-Pain in left [id number] COMPARISON: Left hand and wrist radiographs 11/01/2024. [...] 5:38 PM CLINICAL HISTORY: M79.641-Pain in right [id number]-CM M79.642-Pain in left [id number] COMPARISON: Left hand and wrist radiographs 11/01/2024. [...] of the dorsal margin of the triquetrum. us Elmer Hamilton MD IMG CT ORDERABLES Final Result * XR HAND LEFT PA LATERAL AND [...] office of the ordering clinician. us Griselda Spencer Varela [facility] DIAGNOSTIC IMAGING ORDERAB LES Final Result [...] office of the ordering clinician. Griselda [facility] DIAGNOSTIC IMAGING ORDERAB LES Final Result * XR ELBOW RIGHT AP LATERAL AND OBLIQUES (11/01/2024 11:15 AM EDT) Anatomical Region Laterality Modality Elbow Radiographic Reentta ging 11/01/2024 11:1 5 AM EDT Impressions [...] office of the ordering clinician. Griselda [facility] DIAGNOSTIC IMAGING ORDERAB LES Final Result * PERIPHERAL SMEAR/PATH REVIEW (10/15/2024 9:06 AM [...] Hermila Cota MD 10/15/2024 11:28 AM EDT [facility] Blood VENOUS BLOOD / Unknown Venipuncture / Unknown 10/15/2024 9:06 AM EDT 10/15/2024 9:08 AM EDT Dallas Dominguez MD HEMATOLOGY ORDERABLES Final Res ult Performing Organization Address [facility]/ZIP Co de Phone Number [facility] [address] [place] [address] * VECTOR REMOTE DEVICE (09/21/2024 12:00 AM EDT) 09/21/2024 Narrative [facility] - 09/21/2024 12:00 AM EDT No episodes. Patient on AC. Mode: AAIR<=>DDDR. AP: 62%. STRAIGHTEDGE MAN: 1%. Normal device function. Alyson Davis MD [facility] CARDIAC CATH ORDERAB LES Final Result Performing Organization Address [facility]/ZIP Co de Phone Number [facility] [address] [place] [address] * IR ARTHROCENTESIS ASPIRATION LARGE JOINT (09/19/2024 11:30 AM EDT) Anatomical Region Laterality Modality Radio Fluoroscop y Narrative 09/19/2024 11:35 AM EDT Table formatting from the original result was not included. [facility] PROCEDURE NOTE Luis Simmons September 19, 2024 SURGEON(S): Ross Wright MD PRE-OP DIAGNOSIS: 1. Greater trochanteric bursitis of both hips POST-OP DIAGNOSIS: 1. Greater trochanteric bursitis of both hips IMAGING: Fluoroscopy PROCEDURE: bilateral Greater Trochanteric Bursa injection under fluoro This patient was seen earlier for a comprehensive evaluation of their painful condition. After discussing treatment options, the patient elected to proceed with a greater trochanter bursa injection. Written, informed consent was obtained before the start of the procedure. The patient s history of present illness, past medical history (including current medications and allergies), and physical examination were reviewed with the patient immediately before the procedure, and it was confirmed directly with the patient that they desired to proceed. The patient ambulated to the operating room and was placed in the supine position with pressure points padded. A time out was performed, confirming the patient s identification, allergy status, the side(s) of the procedure, and the procedure(s) to be performed. All operators were wearing hats, masks and sterile gloves. The patient underwent ChloraPrep skin prep followed by sterile drape. The needle insertion site for the greater trochanter bursa injection was identified by fluoroscopy and marked. The patient received 1% lidocaine for local anesthesia. Under fluoroscopic guidance, a 22 gauge 3.5 inch was advanced until the needle tip was immediately adjacent to the greater trochanter. Appropriate positioning of the needle tip was confirmed by fluoroscopy in the anterior-posterior view. After negative aspiration, under live fluoroscopy in the anterior-posterior view, 0.5 mL of contrast solution was injected. This demonstrated appropriate bursal flow without evidence of intravascular uptake. After confirming appropriate placement of the needle and proper spread of the contrast solution, 80 mg of Triamcinolone was injected with 3 mL of 0.25% bupivacaine. The stylette was replaced and the needle was removed. Sterile bandage was applied over the puncture site. Following completion of the procedure, the patient was transported to the PACU, then was later discharged in stable condition. EBL: approx 0-1cc Images of procedure found under images tab dated: 09/19/2024 DISPOSITION/POST PROC COURSE: The patient was monitored for any adverse hemodynamic, allergic, or neurological symptoms. The patient tolerated the procedure well with no apparent complications. Vital signs remained stable throughout the procedure. The patient was taken to the recovery area where written discharge instructions for the procedure were given. The patient was discharged home. @VITALS@ Ross Wright MD Interventional Pain Management [facility] Date: 09/19/2024 Nancy Monserrat sybil [employer] IMG IR ORDERABLES Final Result * HEMOGLOBIN A1C (07/19/2023 12:04 PM EST) Pathologist [facility] Hgb A1C 5.0 4.2 - 5.6 % 07/19/2023 5:02 PM EST [facility] [employer] Est. Avg Glucose 97 mg/dL 07/19/2023 5:02 PM EST PREFERRED [employer] [facility] VENOUS BLOOD / Unknown Venipuncture / Unknown 07/19/2023 12:04 PM EST 07/19/2023 12:46 PM EST Narrative PREFERRED [employer] [facility] - 07/19/2023 5:02 PM EST REFERENCE RANGE: Normal: 4.0-5.6% Pre-diabetes: 5.7-6.4% Provisional diagnosis of diabetes: >6.4% Hgb F>10% and anything which shortens red cell survival, such as hemolytic anemia, or unstable hemoglobin variants such as HbSS, HbSC, or HbCC, will lower the HbA1c value associated with a given level of glycemic control. Destiny Flores TEA TREE FARMER CHEMISTRY ORDERABLES Final Result [facility]REFERRED [facility] [employer] [address] [facility] , [place] [address] * (ABNORMAL) MICROALBUMIN/CREATININE RATIO URINE (06/03/2022 5:07 AM EST) Urine Microalb 114.5 mg/L 06/03/2022 6:34 AM EST [facility] Creatinine 157.2 mg/dL 06/03/2022 6:34 AM EST [facility] Ur Microalb/Creat 73(H) 0 - 30 mg/g 06/03/2022 6:34 AM EST [facility]rine URINE SPECIMEN COLLECTION / Unknown 06/03/2022 5:07 AM EST 06/03/2022 5:13 AM EST Mary Ann Daniel MD URINE ORDERABLES Final Result Performing Organization Address [facility] Co de Phone Number [facility] [employer] [facility] [address] [facility], [place] [address] * GMED EGD-COLONOSCOPY (10/28/2020 2:15 PM EDT) 10/28/2020 2:15 PM EDT Impressions [facility] - 10/28/2020 2:57 PM EDT Plan: 1) f/u with biopsies, if no results received in 4 weeks, please call office, 2) repeat EGD in 3 years, 3) continue lowest effective dose of PPI, 4) recall colonoscopy 5 yrs. This section is an excerpt of the full report. Alverto Acosta MD GI PROCEDURE ORDERABLES Fin al Result Performing Organization Address [facility] de Phone Number [facility] 1 [place] [address] from Last 3 Months or Most Recently Relevant to Health Maintenance Insurance [facility] MEDICARE PPO MR [employer] MEDICARE PPO MR [employer] MEDICARE PPO MR [employer] MEDICARE PPO MR Advance Directives For more information, please contact: [phone] * Full Code (Latest Code Status on File) Date Activated Date Inactivated Comments 04/25/2024 9:44 PM 05/02/2024 6:28 PM * Full Code Date Activated Date Inactivated Comments 04/22/2024 7:02 AM 04/24/2024 7:16 PM * Full Code Date Activated Date Inactivated Comments 02/23/2023 2:40 PM 02/25/2023 3:37 PM * Full Code Date Activated Date Inactivated Comments 05/31/2022 4:24 PM 06/08/2022 8:28 PM * Full Code Date Activated Date Inactivated Comments 04/04/2018 12:33 PM 04/05/2018 4:47 PM Care Teams Folding Machine Feeder Relationship Specialty Start Date End Date Etienne Evans MD PCP - General 12/08/10 Dallas Dominguez MD [address] [place] [address] [place] [address] Medical Oncologist Internal Medicine-Hematology and Oncology 07/09/21
--- OUTSIDE RECORDS SUMMARY | 2024-12-10 13:06 | XMS_ITS | Encounter Summary ---
Author Organization [place] [address] Care Team Providers Care Chorus Dancer Name Role Phone Etienne Evans MD Primary Care Provider Dallas Dominguez MD Unavailable [phone] Reason for Visit * Reason Onset Date Comments Medication Refill 11/26/2024 Encounter Details Date Type Department Care Team (Late st Contact Info) Description 11/02/2024 Refill [facility] [address] [facility] [address] [place] [address] Dallas Dominguez MD 1 [place] [address] Medication Refill Social History Tobacco Use Types Packs/Day Years Used Date Smoking Tobacco: Former Cigarettes 1 40 0 05/16/1966 - 05/15/2000 Cigars Passive Smoke Exposure: Current Smokeless Tobacco: Never Alcohol Use Standard Drinks/Week Comments Not Currently 7 (1 standard drink = 0.6 oz pur e alcohol) [facility] Utilities Answer Date Recorded In the past 12 months has [employer], gas, oil, or water company threatened to shut off services in your home? No 04/21/2024 Overall Financial Resource Strain (CARDIA) Answe r Date Recorded How hard is it for you to pa y for the very basics like food, housing, medical care, and heating? Somewhat hard 04/21/2024 PHQ-2 Answer Date Recorded PHQ-2 Total Score 2 04/21/2024 [facility] of Occupat ional Health - Occupational Stress [...] things needed for daily living? 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 60 Tablet 11/02/2024 documented in this encounter Miscellaneous Notes * Telephone Encounter - Michaela Raza RN - 11/02/2024 10:34 AM EDT Refill for Roxicodone noted, last filled 10/10/2024. Reviewed chart, last appt with Dr. Dominguez 10/15/2024, next appt with Destiny COHEN 12/10/2024 . Refill appropriate. * Telephone Encounter - Aga Mullen, Clerical Staff - 11/02/2024 10:21 AM EDT Luis fell and broke several bones in his hands. He was in the ER and was not given any more pain pills. He is going to need more. His pharmacy, [facility], is not open on the weekends. So he will need a refill today. documented in this encounter Plan of Treatment Upcoming Encounters Date Type Department Care Team (Late st Contact Info) Description 12/14/2024 11:15 AM EDT Office Visit [facility] [address] [place] [address] Flaco Hamilton MD [address] [place] [address] 12/27/2024 2:00 PM EDT Office Visit [facility] [address] [address] Flaco Daniel, DPM [address] [facility] [address] [place] [address] 01/07/2025 9:30 AM EDT Appointment [facility] [address] [place] [address]. [address] [place] [address] 01/07/2025 9:45 AM EDT Appointment [facility] [address] [place] [address] [address] [place] [address] Destiny Flores, GRINDER GEAR [address] [place] [address] [address] [place], [place] [id number] 05/21/2025 2:00 PM EST [facility] [address] [place] [address] Pedrito Bray MD [address] [place] [address] 06/07/2025 1:30 PM EST Office Visit [facility] [address] [facility] [address] [place] [address] 06/07/2025 2:00 PM EST Office Visit [facility] [address] [facility] [address] [place] [address] Imelda Albarado, GRINDER GEAR [address] [place] [address] 12/04/2025 1:45 PM EDT Office Visit [facility] Nephrology [address] [place] [address] Edita Alford MD [address] [facility] [address], [place] [address] documented as of this encounter Visit Diagnoses Diagnosis Pain in both lower extremities documented in this encounter Discontinued Medications Medication Sig Discontinue Reason Start Date End Da te oxyCODONE (ROXICODONE) 5 mg Oral TabletIndications:Pain in both lower extremities Take 1-2 Tablets by mouth every 4 hours as needed for Chronic Pain (G89.29). Reorder 10/10/2024 11/02/2024 documented as of this encounter Additional Health Concerns Assessment Noted Time PHQ-9 Depression Total Score: 2 04/21/20 24 2:41 PM EST A fall risk assessment has been complete d for the patient 06/06/2024 2:03 PM EST PHQ-2 Depression Total Score: 2 04/21/20 24 2:41 PM EST documented as of this encounter Care Teams Chorus Dancer Relationship Specialty Start Date End Date Etienne Evans MD PCP - General 12/08/10 Dallas Dominguez MD [address] [place], [place] [id number] Medical Oncologist Internal Medicine-Hematology and Oncology 07/09/21 documented as of this encounter
--- OUTSIDE RECORDS SUMMARY | 2024-12-10 13:06 | XMS_ITS ---
Author Organization [place] Care Team Providers Care Pillow Filler Name Role Phone Rehana Garcias Unavailable Unavailable Allergies and adverse reactions No Known Allergies Care Team Name Role Address Phone Organization Dates Rehana Garcias PCP [address] [place] [address], [facility] (Office): [place] 06/08/2022 - 06/15/2022 Goals Section Goals Description Status Target Date Advanced Directives will be honored. Active 09/07/2022 Maintain stable weight. Active 09/08/19 23 Medication benefits with no adverse effects. Act ambrose 09/07/2022 Needs will be communicated/met. Active 09/07/2022 Optimal cognition will be maintained with no martha idable decline. Active 09/07/2022 Pain will be managed with goal range. Active 09/07/2022 Prevent/heal wounds and prevent avoidable skin b reakdown. Active 09/07/2022 Resident will be clean warm and odor free through adequate toileting and Perineal Care Active 09/07/2022 Resident will have adequate bowel elimination AEB: r egular bowel movements at least every 3rd day Active 09/08/19 Surgical incision to left fo ot will be well approximated by next review. Active 09/07/2022 The resident will be able to return to the commu nity. Active 09/07/2022 The resident will be free fr om s/sx of hypothyroidism through the review date. Active 09/07/2022 The resident will be free of any discomfort or adverse side effects of hypnotic use through the review date. Active 09/07 The resident will have no in dications of psychosocial well being problem by/through review date. Active 09/07/2022 Will achieve/maintain maximum functional mobilit y. Active 09/07/2022 Will attend/participate in activities of choice. Active 09/07/2022 Will continue to remain free from falls. Active 09/07/2022 Will have decreased signs an d/or symptoms of pain and discomfort as evidence by:[specify]. Active 09/07/2022 Will have needs met by assistance of staff as ne eded. Active 09/07/2022 Will have no cardiac complications. Active 09/07/2022 Will have reduction of behavioral episodes. Acti ve 09/07/2022 Immunizations Immunization Status Vaccine Details Vaccine Code CodeSystem Date Notes Tetanus completed Td(adult) unspecified formulation 139 CVX created date: 06/10/2022 administere d date: 07/20/1996 Pneumococcal PPSV23 completed pneumococcal polysaccharide vaccine, 23 valent 33 CVX created date: 06/10/2022 administere d date: 04/03/2018 SARS-COV-2 (COVID-19) completed SARS-COV-2 (COVID-19) vaccine, mRNA, spike protein, LNP, preservative free, 100 mcg/0.5mL dose or 50 mcg/0.25mL dose Step 2 of Multi-step with next step required 207 CVX created date: 06/10/2022 administere d date: 03/06/2021 SARS-COV-2 (COVID-19) completed SARS-COV-2 (COVID-19) vaccine, mRNA, spike protein, LNP, preservative free, 100 mcg/0.5mL dose or 50 mcg/0.25mL dose Step 1 of Multi-step with next step required 207 CVX created date: 06/10/2022 administere d date: 02/06/2021 Mental Status Section Date Assessment Total Score Description 06/15/2022 BIMS 15 cognitively int act CAM 0 No delirium ind icated PHQ-9 10 moderate depres fady 06/10/2022 BIMS 15 cognitively int act CAM 0 No delirium ind icated PHQ-9 10 moderate depres fady Problems Problem # Description Date of onset Resolved Date Code CodeSystem Concern Status 1 PERIPHERAL VASCULAR DISEASE, UNSPECIFIED 06/09/[address] active 2 ACQUIRED ABSENCE OF OTHER LEFT TOE(S) 06/08/[address] active 3 ANEMIA, UNSPECIFIED 06/08/[address] active 4 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 OF OTHER PART OF LOWER LEG 06/08/[address] active 5 ATHEROSCLEROTIC HEAR T DISEASE OF [place] CORONARY ARTERY WITHOUT ANGINA PECTORIS 06/08/[address] active 6 MAKI'S ESOPHAGUS WITHOUT DYSPLASIA 06/08/[address] active 7 BENIGN NEOPLASM OF PITUITARY GLAND 06/08/[address] active 8 CARDIAC ARRHYTHMIA, UNSPECIFIED 06/08/[address] active 9 CHRONIC MYELOPROLIFERATIVE DISEASE 06/08/[address] active 10 DEPENDENCE ON OTHER ENABLING MACHINES AND DEVICES 06/08/[address] active 11 DIAPHRAGMATIC HERNIA WITHOUT OBSTRUCTION OR GANGRENE 06/08/[address] active 12 DIVERTICULITIS OF INTESTINE, PART UNSPECIFIED, WITHOUT PERFORATION OR ABSCESS WITHOUT BLEEDING 06/08/[address] active 13 DYSPHAGIA, UNSPECIFIED 06/08/[address] active 14 ENCOUNTER FOR ORTHOPEDIC AFTERCARE FOLLOWING SURGICAL AMPUTATION 06/08/[address] active 15 ESSENTIAL (PRIMARY) HYPERTENSION 06/08/[address] active 16 GASTRO-ESOPHAGEAL REFLUX DISEASE WITHOUT ESOPHAGITIS 06/08/[address] active 17 HYPERLIPIDEMIA, UNSPECIFIED 06/08/[address] active 18 HYPOTHYROIDISM, UNSPECIFIED 06/08/[address] active 19 IRRITABLE BOWEL SYNDROME, UNSPECIFIED 06/08/[address] active 20 LOCALIZATION-RELATED (FOCAL) (PARTIAL) SYMPTOMATIC EPILEPSY AND EPILEPTIC SYNDROMES WITH SIMPLE PARTIAL SEIZURES, NOT INTRACTABLE, WITHOUT STATUS EPILEPTICUS 06/08/[address] active 21 MYONEURAL DISORDER, UNSPECIFIED 06/08/[address] active 22 OBESITY, UNSPECIFIED 06/08/[address] active 23 OBSTRUCTIVE SLEEP APNEA (ADULT) (PEDIATRIC) 06/08/[address] active 24 OTHER SEIZURES 06/08/[address] active 25 OTHER SPECIFIED INJURIES OF RIGHT ANKLE, SUBSEQUENT ENCOUNTER 06/08/[address] active 26 OTHER TRANSIENT CEREBRAL ISCHEMIC ATTACKS AND RELATED SYNDROMES 06/08/[address] active 27 POLYNEUROPATHY, UNSPECIFIED 06/08/[address] active 28 PRESENCE OF CARDIAC PACEMAKER 06/08/[address] active 29 PRESENCE OF CORONARY ANGIOPLASTY IMPLANT AND GRAFT 06/08/[address] active 30 PRIMARY ADRENOCORTICAL INSUFFICIENCY 06/08/[address] active 31 PURE HYPERCHOLESTEROLEMIA, UNSPECIFIED 06/08/[address] active 32 TYPE 2 DIABETES MELLITUS WITHOUT COMPLICATIONS 06/08/[address] active 33 UNSPECIFIED ATHEROSCLEROSIS OF [place] ARTERIES OF EXTREMITIES, BILATERAL LEGS 06/08/[address] active 34 UNSPECIFIED ATRIAL FIBRILLATION 06/08/[address] active Reason for Referral No Reasons for Referral Entered Social History Social History Observation Description Start Date End Date Code Code System Current Smoking Status Tobacco smoking consumption unknown 965028267 SNOMED CT Sex Assigned At Male 1955 30097-[address] [facility] Gender Identity Vital Signs Code Code System Vitals Name Values and Units Timing Information 41139-[address] [facility] Pain Level Value=0.0 06/15/2022 45195-5 [facility] Weight Volui=574.2 Units=Lbs 9279-1 INC Respiratory Rate Value=18.0 Units=/m in 06/12/2022 8462-[address] [facility] Blood Pressure-Diastolic Value=78 Un its=mmHg 06/12/2022 8480-6 [facility] Blood Pressure-Systolic [place]=917 Un its=mmHg 06/12/2022 8310-[address] [facility] Body Temperature Value=97.9 Units= F 06/12/2022 8867-4 [facility] Heart rate Value=70.0 Units=/min 90383-[address] [facility] O2 % BldC Oximetry Value=98.0 Units= % 06/12/2022 8302-2 [facility] Height Value=74.0 Units=Inches 06/09/2022
--- OUTSIDE RECORDS SUMMARY | 2024-12-10 13:06 | XMS_ITS | Encounter Summary ---
Author Organization [facility] [place] [address] Care Team Providers Care Factory Assembler Name Role Phone Etienne Evans MD Primary Care Provider [phone] Dallas Dominguez MD Unavailable [phone] Encounter Details Date Type Department Care Team (Latest Contact Info) Description 11/08/2024 Travel Social History Tobacco Use Types Packs/Day Years Used Date Smoking Tobacco: Former Cigarettes 1 40 0 05/16/1966 - 05/15/2000 Cigars Passive Smoke Exposure: Current Smokeless Tobacco: Never Alcohol Use Standard Drinks/Week Comments Not Currently 7 (1 standard drink = 0.6 oz pur e alcohol) [facility] Utilities Answer Date Recorded In the past 12 months has e electric, gas, oil, or water company threatened to shut off services in your home? No 04/21/2024 Overall Financial Resource Strain (CARDIA) Answe r Date Recorded How hard is it for you to pa y for the very basics like food, housing, medical care, and heating? Somewhat hard 04/21/2024 PHQ-2 Answer Date Recorded PHQ-2 Total Score 2 04/21/2024 [facility] [place] of Occupat ional Health - Occupational Stress [...] things needed for daily living? 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 Answer Date of Assessment Author No 05/02/2024 12:25 PM Genoveva Jimenez, SRIDHAR * Is the person blind or does he/she have serious difficulty seeing even when wearing glasses? Answer Date of Assessment Author No 05/02/2024 12:25 PM Genoveva Jimenez, SRIDHAR * Does this person have serious difficulty [...] Description 12/14/2024 11:15 AM EDT Office Visit [facility] [place] [address] [place] [address] Flaco Hamilton MD [address] [place] [address] 12/27/2024 2:00 PM EDT Office Visit [facility] Podiatry [place] [address] [place] [address] Flaco Daniel, DPSakina [address] [facility] [address] [place] [address] 01/07/2025 9:30 AM EDT Appointment [facility] [address] [facility] [place] [address] 01/07/2025 9:45 AM EDT Appointment [facility] [address] [facility] [address] [place] [address] Destiny Flores, PROGRAM DIRECTOR SCOUTING [address] [facility] [address] [place] [address] 05/21/2025 2:00 PM EST Office Visit [facility] [address] [facility] [address] [place] [address] Pedrito Bray MD [address] [facility] [address] [place] [address] 06/07/2025 1:30 PM EST Office Visit [facility] [address] [facility] [address] [place] [address] 06/07/2025 2:00 PM EST Office Visit [facility] [address] [facility] [address] [place] [address] Imelda Albarado, JOHANN [address] [place] [address] 12/04/2025 1:45 PM EDT Office Visit [facility] Nephrology [address] [place] [address] Edita Alford MD [address] [facility] [address], [place] [address] documented as of this encounter Visit Diagnoses Not on filedocumented in this encounter Additional Health Concerns Assessment Noted Time PHQ-9 Depression Total Score: 2 04/21/20 24 2:41 PM EST A fall risk assessment has been complete d for the patient 06/06/2024 2:03 PM EST PHQ-2 Depression Total Score: 2 04/21/20 24 2:41 PM EST documented as of this encounter Care Teams Factory Assembler Relationship Specialty Start Date End Date Etienne Evans MD PCP - General 12/08/10 Dallas Dominguez MD 1 [place], [place] [id number] Medical Oncologist Internal Medicine-Hematology and Oncology 07/09/21 documented as of this encounter
--- OUTSIDE RECORDS SUMMARY | 2024-12-10 13:06 | XMS_ITS | Encounter Summary ---
Author Organization [place] [address] Care Team Providers Care Auto Self Service Station Attendant Name Role Phone Etienne Evans MD Primary Care Provider Dallas Dominguez MD Unavailable [phone] Reason for Visit * Reason Onset Date Comments Other 11/06/2024 Lab reminder Encounter Details Date Type Department Care Team (Late st Contact Info) Description 11/06/2024 Telephone [facility] [address] [facility] [address] [place] [address] Pedrito Bray MD [address] [facility] [address] [place] [address] Other (Lab reminder) Social History Tobacco Use Types Packs/Day Years Used Date Smoking Tobacco: Former Cigarettes 1 40 0 05/16/1966 - 05/15/2000 Cigars Passive Smoke Exposure: Current Smokeless Tobacco: Never Alcohol Use Standard Drinks/Week Comments Not Currently 7 (1 standard drink = 0.6 oz pur e alcohol) [facility] Utilities Answer Date Recorded In the past [...] Date Recorded PHQ-2 Total Score 2 04/21/2024 [facility] of Occupat ional [facility] - Occupational Stress Questionnaire Answer Date Recorded [...] things needed for daily living? 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 documented in this encounter Plan of Treatment Upcoming Encounters Date Type Department Care Team (Late st Contact Info) Description 12/14/2024 11:15 AM EDT Office Visit [facility] Agency Service Representative [facility] [place] [address] Flaco Hamilton MD [address] [place] [address] 12/27/2024 2:00 PM EDT Office Visit [facility] Podiatry [address] [address] Flaco Daniel, DPSakina [address] [facility] [address] [place] [address] 01/07/2025 9:30 AM EDT Appointment [facility] [address] [facility] [place] [address] 01/07/2025 9:45 AM EDT Appointment [facility] [address] [place] [address] [address] [place] [address] Destiny Flores, SOFA COVER INSPECTOR [address] [facility] [address] [place] [address] 05/21/2025 2:00 PM EST Office Visit [facility] [address] [facility] [address] [place] [address] Pedrito Bray MD [address] [facility] [address] [place] [address] 06/07/2025 1:30 PM EST Office Visit [facility] [address] [facility] [address] [place] [address] 06/07/2025 2:00 PM EST Office Visit [facility] [address] [facility] [address] [place] [address] Imelda Albarado SOFA COVER INSPECTOR [address] [place] [address] 12/04/2025 1:45 PM EDT Office [facility] Nephrology [facility] [address] [facility] [address] [place], [place] [phone] Edita Alford MD [address] [facility] [address], [place] [address] documented as of this encounter Visit Diagnoses Not on filedocumented in this encounter Additional Health Concerns Assessment Noted Time PHQ-9 Depression Total Score: 2 04/21/20 2:41 PM EST A fall risk assessment has been complete d for the patient 06/06/2024 2:03 PM EST PHQ-2 Depression Total Score: 2 04/21/20 2:41 PM EST documented as of this encounter Care Teams Auto Self Service Station Attendant Relationship Specialty Start Date End Date Etienne Evans MD PCP - General 12/08/10 Dallas Dominguez MD [address] [place] [address] Medical Oncologist Internal Medicine-Hematology and Oncology 07/09/21 documented as of this encounter
--- OUTSIDE RECORDS SUMMARY | 2024-12-10 13:06 | XMS_ITS | Clinical Summary ---
Author Organization [facility] Address [address] [place] [address] Care Team Providers Care Python Django Developer Name Role Phone Etienne Evans MD Primary Care Provider [phone] Source Comments This information has been disclosed to you from confidential records protectedfrom disclosure by state law. You shall make no further disclosure of thisinformation without the specific, written, and informed release of theindividual to whom it pertains, or as otherwise permitted by law. A generalauthorization for the release of medical or other information is not sufficientfor the purposes of therelease of HIV test results or diagnoses. [id number] Allergies Active Allergy Reactions Criticality Noted Date Comments No Known Allergies Medications escitalopram (LEXAPRO) 20 MG tablet daily. Active ramipril (ALTACE) 10 MG capsule daily. Active simvastatin (ZOCOR) 20 MG tablet daily. Active clopidogrel (PLAVIX) 75 mg tablet daily. Active aspirin (ASPIRIN LOW-STRENGTH) 81 MG chewable tablet Chew by mouth daily. Active levothyroxine (SYNTHROID, LEVOTHROID) 100 MCG tablet Take 100 mcg by mouth daily. Active diphenhydramine -acetaminophen (TYLENOL PM EXTRA STRENGTH) 25-500 mg Tab Take 1 tablet by mouth daily. Active gabapentin (NEURONTIN) 800 MG tablet Take 800 mg by mouth 2 (two) times daily. 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 03/04/2011 Overview (02/13/2015): ICD-10 Transition Acute osteomyelitis, other specified site 2010 Disturbances of sensation of smell and taste 09/2010 Other diseases of nasal cavity and sinuses(478.1 9) 12/23/2010 Glucocorticoid deficiency 12/18/2010 Other and unspecified hyperlipidemia 12/07/2010 Other anterior pituitary disorders 12/07/2010 Bariatric surgery status 12/07/2010 Benign neoplasm of pituitary gland and craniopharyngeal duct (pouch) 10/13/2010 Family History Medical History Relation Comments Heart disease Brother CABG in his mid 50s Coronary artery disease Father Cancer Mother kidney Coronary artery disease Mother since he r 50s Diabetes Mother beverly 2 Hypertension Mother Deep vein thrombosis Neg Hx or Pituitar y Tumor Relation Status Comments Brother Father Alive 94 y/o Mother Alive 87 y/o Social History Tobacco Use Types Packs/Day Years Used Date Smoking Tobacco: Former Cigarettes Q uit: 06/20/2010 Comments:prior smoker, 11/18;cigarette use, 1, 11/18/2010;#years smoking, 40, 11/18/2010 Alcohol Use Standard Drinks/Week Comments No 0 (1 standard drink = 0.6 oz pur e alcohol) 11/18/2010 Sex and Gender Information Value Date Recorded Sex Assigned at Not on file Legal Sex Male 4:14 PM EST Gender Identity Not on file Sexual Orientation Not on file Last Filed Vital Signs Vital Sign Reading Time Taken Comments Blood Pressure 166/87 03/20/2012 5:24 PM EST Pulse 63 03/20/2012 5:24 PM EST Temperature 36.6 C (97.8 F) 03/20/2012 5:24 PM EST Respiratory Rate 18 03/20/2012 5:24 PM EST Oxygen Saturation 93% 03/20/2012 5:24 PM EST Inhaled Oxygen Concentration 93% 03/20/2012 5 :24 PM EST Weight 119.3 kg (262 lb 15.8 oz) 09/15/2011 5:59 PM EDT Height 188 cm (6' 2 ) 11/18/2010 5:58 PM EDT Body Mass Index 33.77 11/18/2010 5:58 PM EDT Plan of Treatment Not on file Insurance [employer] [employer] Care Teams Python Django Developer Relationship Specialty Start Date End Date Etienne Evans MD [address] [place] [address] PCP - General 11/24/10
--- OUTSIDE RECORDS SUMMARY | 2024-12-10 13:06 | XMS_ITS | Encounter Summary ---
Author Organization [facility] [place] [address] Care Team Providers Care Police Communications Operator Name Role Phone Etienne Evans MD Primary Care Provider [phone] Dallas Dominguez MD Unavailable [phone] Encounter Details Date Type Department Care Team (Latest Contact Info) Description 10/31/2024 Travel Social History Tobacco Use Types Packs/Day Years Used Date Smoking Tobacco: Former Cigarettes 1 40 0 05/16/1966 - 05/15/2000 Cigars Passive Smoke Exposure: Current Smokeless Tobacco: Never Alcohol Use Standard Drinks/Week Comments Not Currently 7 (1 standard drink = 0.6 oz pur e alcohol) [facility] Utilities Answer Date Recorded In the [...] Date Recorded PHQ-2 Total Score 2 04/21/2024 [facility] [place] of Occupat ional Health - Occupational Stress [...] things needed for daily living? 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 [facility] [place] [address] 01/07/2025 9:45 AM EDT Appointment [facility] [address] [facility] [address] [place] [address] Destiny Flores, SADDLE TREE STITCHER [address] [facility] [address] [place] [address] 05/21/2025 2:00 PM EST Office Visit [facility] [address] [facility] [address] [place] [phone] Pedrito Bray MD [address] [facility] [address] [place] [address] 06/07/2025 1:30 PM EST Office Visit [facility] [address] [facility] [address] [place] [address] 06/07/2025 2:00 PM EST Office Visit [facility] [address] [facility] [address] [place] [address] Imelda Albarado, JOHANN [address] [place] [address] 12/04/2025 1:45 PM EDT Office Visit [facility] Nephrology [address] [place] [address] Edita Alford MD [address] [facility] [address], [place] [address] documented as of this encounter Visit Diagnoses Not on filedocumented in this encounter Additional Health Concerns Assessment Noted Time PHQ-9 Depression Total Score: 2 04/21/20 24 2:41 PM EST A fall risk assessment has been complete d for the patient 06/06/2024 2:03 PM EST PHQ-2 Depression Total Score: 2 04/21/20 24 2:41 PM EST documented as of this encounter Care Teams Police Communications Operator Relationship Specialty Start Date End Date Etienne Evans MD PCP - General 12/08/10 Dallas Dominguez MD 1 [place], [place] [id number] Medical Oncologist Internal Medicine-Hematology and Oncology 07/09/21 documented as of this encounter
--- OUTSIDE RECORDS SUMMARY | 2024-12-10 13:06 | XMS_ITS | Encounter Summary ---
Author Organization [facility] [place] [address] Care Team Providers Care Power Plant Technician Name Role Phone Etienne Evans MD Primary Care Provider [phone] Dallas Dominguez MD Unavailable [phone] Reason for Visit * Reason Comments Pharmacy Oncology Management Ruxolitinib Encounter Details Date Type Department Care Team (Latest Contact Info) Description 10/26/2024 Specialty Pharmacy [facility] [address] [place], [place] [id number] Maile Kaiser, paint sprayer sandblaster Pharmacy Oncology Management (Ruxolitinib) Social History Tobacco Use Types Packs/Day Years Used Date Smoking Tobacco: Former Cigarettes 1 40 0 05/16/1966 - 05/15/2000 Cigars Passive Smoke Exposure: Current Smokeless Tobacco: Never Alcohol Use Standard Drinks/Week Comments Not Currently 7 (1 standard drink = 0.6 oz pur e alcohol) [facility] Utilities Answer Date Recorded In the [...] Recorded PHQ-2 Total Score 2 04/21/2024 [facility] of Occupat ional [facility] - Occupational Stress Questionnaire Answer Date [...] things needed for daily living? 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 In the past month, have y ou wished you were or wished you could go to sleep and not wake up? 0 11/01/2024 10:37 AM Félix Landrum RN 2. In the past month, have y ou actually had any thoughts of killing yourself? (If no, skip to question 6) 0 11/01/2024 10:37 AM Camden Rangel RN 6. Have you ever done anythi ng, started to do anything, or prepared to do anything to end your life? 0 11/01/2024 10:37 AM Camden Earl RN documented as of this encounter Mental Status * Because of a physical, mental or emotional condition, does this person have serious difficulty concentrating, remembering or making decisions? Answer Entry Date Author No 05/02/2024 12:25 PM Genoveva Jimenez RN documented in this encounter Progress Notes * Maile Kaiser [place] - 10/26/2024 11:05 AM EDT Specialty Pharmacy Refill Coordination Note Contacted Luis Simmons today regarding refills of Ruxolitinib. Copay amount: $0 No answer, left voicemail to call [phone], option 4. * Ning Weinberg CPhT - 10/26/2024 11:05 AM EDT Specialty Pharmacy Refill Coordination Note Contacted Luis Simmons today regarding refills of Ruxolitinib. Copay amount: $0.00 No answer, unable to leave voicemail. Mailbox full Patient informed of copay. * Ning Weinberg CPhT - 10/26/2024 11:05 AM EDT Specialty Pharmacy Refill Coordination Note Contacted Luis Simmons today regarding refills of Ruxolitinib. Copay amount: $0.00 Sent I Had Cancer message. Patient informed of copay. * Braeden Rivera RPH - 10/26/2024 11:05 AM EDT [facility] - Care Plan and Refill Review Refill questions and refill history verified. Last assessment 04/16/24. No reassessment needed at this time. Braeden Rivera PharmD Specialty Pharmacist documented in this encounter Plan of Treatment Upcoming Encounters Date Type Department Care Team (Late st Contact Info) Description 12/14/2024 11:15 AM EDT Office Visit [facility] Skiver Uppers Or Linings [facility] [place] [address] Elmer Hamilton MD [address] [place] [address] 12/27/2024 2:00 PM EDT Office Visit [facility] [address] [phone] Elmer Daniel, DPM [address] [facility] [address] [place] [address] 01/07/2025 9:30 AM EDT Appointment [facility] [address] [facility] [place] [address] 01/07/2025 9:45 AM EDT Appointment [facility] [address] [facility] [address] [place], [place] [phone] Destiny Flores, DRUG SAFETY SPECIALIST [address] [facility] [address] [place], [place] [address] 05/21/2025 2:00 PM EST Office Visit [facility] [address] [facility] [address] [place] [phone] Pedrito Bray MD 1500 [facility] [address] [place] [phone] 06/07/2025 1:30 PM EST Office Visit [facility] [address] [facility] [address] [place] [phone] 06/07/2025 2:00 PM EST Office Visit [facility] [address] [facility] [address] [place] [address] Imelda Albarado, DRUG SAFETY SPECIALIST [address] [place], [place] [phone] 12/04/2025 1:45 PM EDT Office Visit [facility] Nephrology [facility] [address] [facility] [address] [place] [address] Edita Alford MD [address] [facility] [address], [place] [address] documented as of this encounter Visit Diagnoses Not on filedocumented in this encounter Additional Health Concerns Assessment Noted Time PHQ-9 Depression Total Score: 2 04/21/20 24 2:41 PM EST A fall risk assessment has been complete d for the patient 06/06/2024 2:03 PM EST PHQ-2 Depression Total Score: 2 04/21/20 24 2:41 PM EST documented as of this encounter Care Teams Power Plant Technician Relationship Specialty Start Date End Date Etienne Evans MD PCP - General 12/08/10 Dallas Dominguez MD [address] [place] [address] Medical Oncologist Internal Medicine-Hematology and Oncology 07/09/21 documented as of this encounter
--- OUTSIDE RECORDS SUMMARY | 2024-12-10 13:06 | XMS_ITS | Encounter Summary ---
Author Organization [facility] [place] [address] Care Team Providers Care Customer Support Representative Name Role Phone Etienne Evans MD Primary Care Provider Dallas Dominguez MD Unavailable [phone] Encounter Details Date Type Department Care Team (Late st Contact Info) Description 11/05/2024 Orders Only [facility] [address] [address] Pedrito Bray MD [address] [address] Postsurgical hypothyroidism (Primary Dx) Social History Tobacco Use Types Packs/Day Years Used Date Smoking Tobacco: Former Cigarettes 1 40 0 05/16/1966 - 05/15/2000 Cigars Passive Smoke Exposure: Current Smokeless Tobacco: Never Alcohol Use Standard Drinks/Week Comments Not Currently 7 (1 standard drink = 0.6 oz pur e alcohol) [facility] Utilities Answer Date Recorded In the past 12 months has [employer], gas, oil, or water company threatened to shut off services in your home? No 04/21/2024 Overall Financial Resource Strain (CARDIA) Answe r Date Recorded How hard is it for you to pa y for the very basics like food, housing, medical care, and heating? Somewhat hard 04/21/2024 PHQ-2 Answer Date Recorded PHQ-2 Total Score 2 04/21/2024 [facility] [place] of Occupat ional Health - Occupational Stress [...] things needed for daily living? No 02/24/2023 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 [place] [address] [place] [address] Elmer Daniel DPM [address] [facility] [address] [place] [address] 01/07/2025 9:30 AM EDT Appointment [facility] [address] [place] [address] 01/07/2025 9:45 AM EDT Appointment [facility] [address] [facility] [address] [place] [address] Destiny Flores, TEST MAN [address] [facility] [address] [place], [place] [phone] 05/21/2025 2:00 PM EST [facility] [address] [facility] [address] [place] [phone] Pedrito Bray MD [address] [facility] [address] [place] [address] 06/07/2025 1:30 PM EST Office Visit [facility] [address] [facility] [address] [place] [phone] 06/07/2025 2:00 PM EST Office Visit [facility] [address] [facility] [address] [place] [phone] Imelda Albarado APRN [address] [place], [place] [phone] 12/04/2025 1:45 PM EDT Office Visit [facility] Nephrology [facility] [address] [facility] 204 [place] [address] Edita Alford MD [address] [address] documented as of this encounter Results * (ABNORMAL) T4, FREE (THYROXINE) (11/13/2024 9:07 AM EDT) Free T4 0.76(L) 0.80 - 1.80 ng/dL 11/13/2024 4:57 PM EDT [facility] Blood VENOUS BLOOD / Unknown Venipuncture / Unknown 11/13/2024 9:07 AM EDT 11/13/2024 9:07 AM EDT Narrative [facility] - 11/13/2024 4:57 PM EDT Ingestion of caty doses of biotin (>5 mg/day) taken within 8 hours of drawing blood sample can interfere with this immunoassay test. Pedrito Bray MD CHEMISTRY ORDERABLES [facility] Result [facility] 1 [facility] , [place] [address] * (ABNORMAL) COMPREHENSIVE METABOLIC PANEL (11/13/2024 9:07 [...] 21 <=41 U/L 11/13/2024 4:57 PM EDT [facility], [facility] AST 42(H) <=40 U/L 11/13/2024 4:57 PM EDT [facility] Alk Phos 88 40 - 129 U/L 11/13/2024 4:57 PM EDT [facility] eGFR (CKD-EPIcr 2020) 57(L) >=60 mL/min/1.7 3 m2 11/13/2024 4:57 PM EDT [facility] Comment:Estimated GFR was ca lculated using the CKD-EPIcr (2020) equation refit without race. The equation is recommended by the National Kidney Foundation - [place] [employer] of Nephrology Task Force. Blood VENOUS BLOOD / Unknown Venipuncture / Unknown 11/13/2024 9:07 AM EDT 11/13/2024 9:07 AM EDT Pedrito Bray MD CHEMISTRY ORDERABLES Fin al Result [facility] 1 [facility] , [place] [address] documented in this encounter Visit Diagnoses Diagnosis Postsurgical hypothyroidism- Primary documented in this encounter Additional Health Concerns Assessment Noted Time PHQ-9 Depression Total Score: 2 04/21/20 24 2:41 PM EST A fall risk assessment has been complete d for the patient 06/06/2024 2:03 PM EST PHQ-2 Depression Total Score: 2 04/21/20 24 2:41 PM EST documented as of this encounter Care Teams Customer Support Representative Relationship Specialty Start Date End Date Etienne Evans MD PCP - General 12/08/10 Dallas Dominguez MD 1 [facility] [place] [address] Medical Oncologist Internal Medicine-Hematology and Oncology 07/09/21 documented as of this encounter
--- OUTSIDE RECORDS SUMMARY | 2024-12-10 13:06 | XMS_ITS | Encounter Summary ---
Author Organization [place] [address] Care Team Providers Care It Operations Specialist Name Role Phone Etienne Evans MD Primary Care Provider [phone] Dallas Dominguez MD Unavailable [phone] Reason for Visit * Reason Comments Medication Refill Encounter Details Date Type Department Care Team (Late st Contact Info) Description 10/18/2024 Refill [facility] [address] [address] Pedrito Bray MD [address] [address] Medication Refill Social History Tobacco Use Types Packs/Day Years Used Date Smoking Tobacco: Former Cigarettes 1 40 0 05/16/1966 - 05/15/2000 Cigars Passive Smoke Exposure: Current Smokeless Tobacco: Never Alcohol Use Standard Drinks/Week Comments Not Currently 7 (1 standard drink = 0.6 oz pur e alcohol) [facility] Utilities Answer Date Recorded In the past 12 months has [employer], gas, oil, or water company threatened to shut off services in your home? No 04/21/2024 Overall Financial Resource Strain (CARDIA) Answe r Date Recorded How hard is it for you to pa y for the very basics like food, housing, medical care, and heating? Somewhat hard 04/21/2024 PHQ-2 Answer Date Recorded PHQ-2 Total Score 2 04/21/2024 [facility] of Occupat ional [facility] - Occupational Stress Questionnaire Answer Date [...] things needed for daily living? 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 450 Tablet 3 10/18/2024 documented in this encounter Plan of Treatment Upcoming Encounters Date Type Department Care Team (Late st Contact Info) Description 12/14/2024 11:15 AM EDT Office Visit [facility] Traffic Recorder [address] [place] [address] Elmer Hamilton MD [address] [place] [address] 12/27/2024 2:00 PM EDT Office Visit [facility] [address] [address] Elmer Daniel, DPSakina [address] [facility] [address] [place] [address] 01/07/2025 9:30 AM EDT Appointment [facility] [address] [facility] [place] [address] 01/07/2025 9:45 AM EDT Appointment [facility] [address] [facility] [address] [place] [address] Destiny Flores, SUPERVISOR DUMPING 20 [facility] [address] [place] [address] 05/21/2025 2:00 PM EST Office Visit [facility] [address] [facility] [address] [place] [address] Pedrito Bray MD 1500 [facility] [address] [place] [phone] 06/07/2025 1:30 PM EST Office Visit [facility] [address] [facility] [address] [place] [phone] 06/07/2025 2:00 PM EST Office Visit [facility] [address] [facility] [address] [place] [address] Imelda Albarado, SUPERVISOR DUMPING [address] [place] [address] 12/04/2025 1:45 PM EDT Office Visit [facility] Nephrology [facility] 40 [facility] 204 [place] [address] Edita Alford MD [address] [address] documented as of this encounter Visit Diagnoses Diagnosis Postsurgical hypothyroidism H/O: pituitary tumor Personal history of other endocrine, metabolic, and immunity disorders 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 08/06/2024 10/18/2024 documented as of this encounter Additional Health Concerns Assessment Noted Time PHQ-9 Depression Total Score: 2 04/21/20 2:41 PM EST A fall risk assessment has been complete d for the patient 06/06/2024 2:03 PM EST PHQ-2 Depression Total Score: 2 04/21/20 2:41 PM EST documented as of this encounter Care Teams It Operations Specialist Relationship Specialty Start Date End Date Etienne Evans MD PCP - General 12/08/10 [place] Dominguez MD [address] [facility] [place] [address] Medical Oncologist Internal Medicine-Hematology and Oncology 07/09/21 documented as of this encounter
--- OUTSIDE RECORDS SUMMARY | 2024-12-10 13:06 | XMS_ITS | Encounter Summary ---
Author [place] [address] Care Team Providers Care Fine Arts Teacher Name Role Phone Etienne Evans MD Primary Care Provider [phone] Dallas Dominguez MD Unavailable [phone] Encounter Details Date Type Department Care Team (Late st Contact Info) Description 08/31/2023 Orders Only [facility] One [facility] [place] [address] Dipika Day MD 1 [facility] [place] [address] Social History Tobacco Use Types Packs/Day Years Used Date Smoking Tobacco: Former Cigarettes 1 40 0 05/16/1966 - 05/15/2000 Cigars Passive Smoke Exposure: Current Smokeless Tobacco: Never Alcohol Use Standard Drinks/Week Comments Not Currently 0 (1 standard drink = 0.6 oz pur e alcohol) rare Overall Financial Resource Strain (CARDIA) Answe r Date Recorded How hard is it for you to pa y for the very basics like food, housing, medical care, and heating? Not hard at all 02/24/2023 PHQ-2 Answer Date Recorded PHQ-2 Total Score 0 02/24/2023 Exercise Vital Sign Answer Date Recorde d On average, how many days pe r week do you engage in moderate to strenuous exercise (like a brisk walk)? 0 days 02/24/2023 On average, how many minutes do you engage in exercise at this level? 0 min 02/24/2023 Hunger Vital Sign Answer Date Recorded Within the past 12 months, y ou worried that your food would run out before you got the money to buy more. Never true 02/25/20 23 Within the past 12 months, t he food you bought just didn't last and you didn't have money to get more. Never true 02/24/2023 PRAPARE - Transportation Answer Date Re corded In the past 12 months, has l ack of transportation kept you from medical appointments or from getting medications? No 02/13 In the past 12 months, has l ack of transportation kept you from meetings, work, or from getting things needed for daily living? 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 Not on file Not o n file documented as of this encounter Plan of Treatment Upcoming Encounters Date Type Department Care Team (Late st Contact Info) Description 12/14/2024 11:15 AM EDT Office Visit [id number] [place] [address] Elmer Hamilton MD [address] [place] [address] 12/27/2024 2:00 PM EDT Office Visit [facility] Podiatry [place] [address] [place] [address] Elmer Daniel, DPSakina [address] [facility] [address] [place] [address] 01/07/2025 9:30 AM EDT Appointment [facility] [address] [facility] [place] [address] 01/07/2025 9:45 AM EDT Appointment [facility] 85 [facility] [address] [place] [address] Destiny Flores, NURSING HOME PHYSICIAN 20 [facility] [address] [place], [place] [address] 05/21/2025 2:00 PM EST Office Visit [facility] 1500 [facility] [address] [place] [address] Pedrito Bray MD 1500 [facility] [address] [place] [address] 06/07/2025 1:30 PM EST Office Visit [facility] [address] [facility] [address] [place] [address] 06/07/2025 2:00 PM EST Office Visit [facility] [address] [facility] [address] [place] [address] Imelda Albarado, JOHANN 711 [place], [place] [address] 12/04/2025 1:45 PM EDT Office Visit [facility] Nephrology [facility] 40 [facility] 204 [place] [address] Edita Alford MD [address] [address] documented as of this encounter Procedures Procedure Name Priority Date/Time Associated Diagnosis Comments NEOGENOMICS ONCOLOGY CHROMOSOME ANALYSIS Routine 08/31/2023 10:15 AM EDT documented in this encounter Results * NEOGENOMICS ONCOLOGY CHROMOSOME ANALYSIS (08/31/2023 10:15 AM EDT) 08/31/2023 10:1 5 AM EDT Narrative [facility] - 09/07/2023 6:12 PM EDT Requesting Provider: DALLAS Ayon Specimen = [id number] us Dipika Day MD PATHOLOGY ORDERABLES Final Res ult [facility] 1 [place] [address] documented in this encounter Visit Diagnoses Not on filedocumented in this encounter Additional Health Concerns Infection Onset Date Last Indicated Resolved Time R/O COVID-19 04/21/2024 04/21/2024 04/21/2024 8:06 AM EST Assessment Noted Time A fall risk assessment has been complete d for the patient 03/08/2023 3:00 PM EDT documented as of this encounter Care Teams Fine Arts Teacher Relationship Specialty Start Date End Date Etienne Evans MD PCP - General 12/08/10 Dallas Dominguez MD 1 [place] [address] Medical Oncologist Internal Medicine-Hematology and Oncology 07/09/21 documented as of this encounter
--- OUTSIDE RECORDS SUMMARY | 2024-12-10 13:06 | XMS_ITS | Encounter Summary ---
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 [place] [address] 01/07/2025 9:45 AM EDT Appointment [facility] [address] [facility] [address] [place] [address] Destiny Flores, LEATHER BELT LOOP CUTTER 20 [facility] [address] [place], [place] [address] 05/21/2025 2:00 PM EST Office Visit [facility] [address] [facility] [address] [place] [address] Pedrito Bray MD 1500 [facility] [address] [place] [address] 06/07/2025 1:30 PM EST Office Visit [facility] [address] [facility] [address] [place] [address] 06/07/2025 2:00 PM EST Office Visit [facility] 711 [facility] [address] [place] [address] Imelda Albarado, JOHANN 711 [place], [place] [address] 12/04/2025 1:45 PM EDT Office Visit [facility] Nephrology [facility] 40 [facility] 204 [place] [address] Edita Alford MD [address] [address] documented as of this encounter Procedures Procedure Name Priority Date/Time Associated Diagnosis Comments NEOGENOMICS CD13 Routine 08/31/2023 10:1 5 AM EDT documented in this encounter Results * NEOGENOMICS CD13 (08/31/2023 10:15 AM EDT) 08/31/2023 10:1 5 AM EDT Narrative [facility] - 09/01/2023 5:12 PM EDT Requesting Provider: DALLAS Ayon Specimen = [id number] us Dipika Day MD PATHOLOGY ORDERABLES Final Res ult [facility] 1 [place] [address] documented in this encounter Visit Diagnoses Not on filedocumented in this encounter Additional Health Concerns Infection Onset Date Last Indicated Resolved Time R/O COVID-19 04/21/2024 04/21/2024 04/21/2024 8:06 AM EST Assessment Noted Time A fall risk assessment has been complete d for the patient 03/08/2023 3:00 PM EDT documented as of this encounter Care Teams Defect Repairer Glassware Relationship Specialty Start Date End Date Etienne Evans MD PCP - General 12/08/10 Dallas Dominguez MD 1 [place] [address] Medical Oncologist Internal Medicine-Hematology and Oncology 07/09/21 documented as of this encounter
--- OUTSIDE RECORDS SUMMARY | 2024-12-10 13:07 | XMS_ITS | Encounter Summary ---
Author Organization [place] [address] Care Team Providers Care Vocational Trainer Name Role Phone Etienne Evans MD Primary Care Provider [phone] Dallas Dominguez MD Unavailable [phone] Encounter Details Date Type Department Care Team (Late st Contact Info) Description 08/15/2023 Orders Only [facility] One [facility] 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 [place] [address] 01/07/2025 9:45 AM EDT Appointment [facility] [address] [place] [address] Esther lFores, POULTRY SEXER 20 [facility] [address] [place], [place] [id number] 05/21/2025 2:00 PM EST Office Visit [facility] 1500 [facility] [address] [place] [address] Pedrito Bray MD [address] [facility] [address] [place] [address] 06/07/2025 1:30 PM EST Office Visit [facility] [address] [facility] [address] [place] [address] 06/07/2025 2:00 PM EST Office Visit [facility] [address] [facility] [address] [place] [address] Imelda Albarado, POULTRY SEXER 711 [place], [place] [address] 12/04/2025 1:45 PM EDT Office Visit [facility] Nephrology [facility] 40 [facility] 204 [place] [address] Edita Alford MD 4435 [facility] [address], [place] [address] documented as of this encounter Procedures Procedure Name Priority Date/Time Associated Diagnosis Comments NEOGENOMICS ONCOLOGY CHROMOSOME ANALYSIS Routine 08/15/2023 9:52 AM EDT documented in this encounter Results * NEOGENOMICS ONCOLOGY CHROMOSOME ANALYSIS (08/15/2023 9:52 AM EDT) 08/15/2023 9:52 AM EDT Narrative [facility] - 08/24/2023 9:02 AM EDT Requesting Provider: ESTHER Ayon Specimen = [id number] us Tatianna Siegel MD PATHOLOGY ORDERABLES Final Result [facility] 1 [place] [address] documented in this encounter Visit Diagnoses Not on filedocumented in this encounter Additional Health Concerns Infection Onset Date Last Indicated Resolved Time R/O COVID-19 04/21/2024 04/21/2024 04/21/2024 8:06 AM EST Assessment Noted Time A fall risk assessment has been complete d for the patient 03/08/2023 3:00 PM EDT documented as of this encounter Care Teams Vocational Trainer Relationship Specialty Start Date End Date Etienne Evans MD PCP - General 12/08/10 Dallas Dominguez MD 1 [place] [address] Medical Oncologist Internal Medicine-Hematology and Oncology 07/09/21 documented as of this encounter
--- OUTSIDE RECORDS SUMMARY | 2024-12-10 13:07 | XMS_ITS | Encounter Summary ---
Author Organization [place] [address] Care Team Providers Care Drapery And Upholstery Measurer Name Role Phone Etienne Evans MD Primary Care Provider [phone] Dallas Dominguez MD Unavailable [phone] Reason for Visit * Reason Onset Date Comments Results 11/15/2024 Encounter Details Date Type Department Care Team (Late st Contact Info) Description 11/15/2024 Results Follow-Up [facility] [address] [address] Pedrito Bray MD [address] [address] COMPREHENSIVE METABOLIC PANEL, T4, FREE (THYROXINE) Social History Tobacco Use Types Packs/Day Years Used Date Smoking Tobacco: Former Cigarettes 1 40 0 05/16/1966 - 05/15/2000 Passive Smoke Exposure: Current Smokeless Tobacco: Never Comments:I no longer smoke. Alcohol Use Standard Drinks/Week Comments Not Currently 7 (1 standard drink = 0.6 oz pur e alcohol) [facility] Utilities Answer Date Recorded In [...] Date Recorded PHQ-2 Total Score 2 04/21/2024 [facility] of Occupat ional Health - [...] things needed for daily living? No 02/24/2023 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 90 Tablet 3 11/20/2024 documented in this encounter Miscellaneous Notes * Telephone Encounter - Pippa Perry RN - 11/20/2024 8:47 AM EDT Spoke to patient regarding results and recommendations. Patient verbalized that he has not missed any doses. Updated script sent to [facility], 90 day supply per patient request * Telephone Encounter - Pippa Perry RN - 11/20/2024 8:43 AM EDT ----- Message from Pedrito Bray MD sent at 11/15/2024 12:43 PM EDT ----- Free t4 is lower than normal. Please ask patient if he has missed any levothyroxine recently. If not increase levothyroxine to 137 mcg a day. Creatinine is slightly higher than normal range. Advise to keep hydrated ----- Message ----- From: Lab, Background User Sent: 11/13/2024 4:57 PM EDT To: Pedrito Bray MD documented in this encounter Plan of Treatment Upcoming Encounters Date Type Department Care Team (Late st Contact Info) Description 12/14/2024 11:15 AM EDT Office Visit [facility] Compotype Operator [address] [address] Flaco Hamilton MD [address] [place] [address] 12/27/2024 2:00 PM EDT Office Visit [facility] Podiatry [address] [address] Flaco Daniel, DPM [address] [facility] [address] [place], [place] [address] 01/07/2025 9:30 AM EDT Appointment [facility] [address] [facility] [place] [address] 01/07/2025 9:45 AM EDT Appointment [facility] [address] [facility] [address] [place] [address] Destiny Flores, LIME FILTER OPERATOR [address] [facility] [address] [place], [place] [address] 05/21/2025 2:00 PM EST Office Visit [facility] [address] [place] [phone] Pedrito Bray MD [address] [place] [address] 06/07/2025 1:30 PM EST Office Visit [facility] [address] [facility] [address] [place] [address] 06/07/2025 2:00 PM EST Office Visit [facility] 711 [facility] 210 [place] [address] Imelda Albarado, LIME FILTER OPERATOR 711 [place] [address] 12/04/2025 1:45 PM EDT Office Visit [facility] Nephrology [address] [address] Edita Alford MD [address] [facility] [address], [place] [address] documented as of this encounter Visit Diagnoses Not on filedocumented in this encounter Discontinued Medications Medication Sig Discontinue Reason Start Date End Da te LEVOthyroxine (SYNTHROID) 125 mcg Oral Tablet Take one tab daily Dose adjustment 11/13/2024 documented as of this encounter Additional Health Concerns Assessment Noted Time PHQ-9 Depression Total Score: 2 04/21/20 2:41 PM EST A fall risk assessment has been complete d for the patient 06/06/2024 2:03 PM EST PHQ-2 Depression Total Score: 2 04/21/20 2:41 PM EST documented as of this encounter Care Teams Drapery And Upholstery Measurer Relationship Specialty Start Date End Date Etienne Evans MD PCP - General 12/08/10 Dallas Dominguez MD 1 [place] [address] Medical Oncologist Internal Medicine-Hematology and Oncology 07/09/21 documented as of this encounter
--- OUTSIDE RECORDS SUMMARY | 2024-12-10 13:07 | XMS_ITS | Encounter Summary ---
Author Organization [facility] Address [address] [place] [address] Care Team Providers Care Cattery Operator Name Role Phone Etienne Evans MD Primary Care Provider [phone] Dallas Dominguez MD Unavailable [phone] Reason for Visit * Reason Onset Date Comments Follow-up 11/20/2024 Encounter Details Date Type Department Care Team (Late st Contact Info) Description 11/20/[address] [facility] [address] [place] [address] Corrina Louis ATC Follow-up Social History Tobacco Use Types Packs/Day Years Used Date Smoking Tobacco: Former Cigarettes 1 40 0 05/16/1966 - 05/15/2000 Passive Smoke Exposure: Current Smokeless Tobacco: Never Comments:I no longer smoke. Alcohol Use Standard Drinks/Week Comments Not Currently 7 (1 standard drink = 0.6 oz pur e alcohol) [facility] Utilities Answer Date Recorded In [...] Date Recorded PHQ-2 Total Score 2 04/21/2024 [facility] [place] of Occupat ional Health - Occupational Stress [...] things needed for daily living? 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 Hamilton for elbow f/u documented in this encounter Plan of Treatment Upcoming Encounters Date Type Department Care Team (Late st Contact Info) Description 12/14/2024 11:15 AM EDT [facility]5 [place] [address] Elmer Hamilton MD [address] [place] [address] 12/27/2024 2:00 PM EDT Office Visit [facility] [address] [address] Elmer Daniel, DPM [address] [facility] [address] [place] [address] 01/07/2025 9:30 AM EDT Appointment [facility] [address] [facility] [place] [address] 01/07/2025 9:45 AM EDT Appointment [facility] [address] [facility] [address] [place] [address] Destiny Flores, OUTSIDE SALES MANAGER [address] [facility] [address] [place], [place] [address] 05/21/2025 2:00 PM EST Office Visit [facility] [address] [facility] [address] [place] [address] Pedrito Bray MD 1500 [facility] [address] [place] [address] 06/07/2025 1:30 PM EST Office Visit [facility] 7[address] [facility] [address] [place] [address] 06/07/2025 2:00 PM EST Office Visit [facility] 7[address] [facility] [address] [place] [address] Imelda Albarado, OUTSIDE SALES MANAGER 711 [place] [address] 12/04/2025 1:45 PM EDT Office Visit [facility] 204 [place] [address] Edita Alford MD [address] [address] documented as of this encounter Visit Diagnoses Not on filedocumented in this encounter Additional Health Concerns Assessment Noted Time PHQ-9 Depression Total Score: 2 04/21/20 24 2:41 PM EST A fall risk assessment has been complete d for the patient 06/06/2024 2:03 PM EST PHQ-2 Depression Total Score: 2 04/21/20 24 2:41 PM EST documented as of this encounter Care Teams Cattery Operator Relationship Specialty Start Date End Date Etienne Evans MD PCP - General 12/08/10 Dallas Dominguez MD [address] [place] [address] Medical Oncologist Internal Medicine-Hematology and Oncology 07/09/21 documented as of this encounter
--- OUTSIDE RECORDS SUMMARY | 2024-12-10 13:07 | XMS_ITS | Encounter Summary ---
Author Organization [place] [address] Care Team Providers Care Rooms Director Name Role Phone Etienne Evans MD Primary Care Provider [phone] Dallas Dominguez MD Unavailable [phone] Encounter Details Date Type Department Care Team (Late st Contact Info) Description 08/15/2023 Orders Only [facility] 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 The core is most important, will wait for those results documented in this encounter Plan of Treatment Upcoming Encounters Date Type Department Care Team (Late st Contact Info) Description 12/14/2024 11:15 AM EDT Office Visit [facility] [place] [address] Elmer [place] MD [address] [place] [address] 12/27/2024 2:00 PM EDT Office Visit [facility] [address] [place] [phone] Elmer Daniel, DPM [address] [facility] [address] [place] [address] 01/07/2025 9:30 AM EDT Appointment [facility] [address] [facility] [place] [address] 01/07/2025 9:45 AM EDT Appointment [facility] [address] [facility] [address] [place] [address] Esther Flores, CLINICAL LABORATORY SCIENTIST [address] [facility] [address] [place], [place] [id number] 05/21/2025 2:00 PM EST Office Visit [facility] [address] [facility] [address] [place] [phone] Pedrito Bray MD [address] [facility] [address] [place] [phone] 06/07/2025 1:30 PM EST Office Visit [facility] [address] [facility] [address] [place] [address] 06/07/2025 2:00 PM EST Office Visit [facility] [address] [facility] [address] [place] [address] Imelda Albarado, CLINICAL LABORATORY SCIENTIST [address] [place], [place] [id number] 12/04/2025 1:45 PM EDT Office Visit [facility] Ne[facility]rology [facility] [address] [facility] [address] [place] [address] Edita Alford MD [address] [facility] [address], [place] [address] documented as of this encounter Procedures Procedure Name Priority Date/Time Associated Diagnosis Comments NEOGENOMICS STANDARD LEUKEMIA/LYMPHOMA PANEL Routine 08/15/2023 9:52 AM EDT documented in this encounter Results * NEOGENOMICS STANDARD LEUKEMIA/LYMPHOMA PANEL (08/15/2023 9:52 AM EDT) 08/15/2023 9:[address] [facility] - 08/18/2023 1:52 PM EDT Requesting Provider: ESTHER DEVON Ayon Specimen = [id number] Tatianna Siegel MD PATHOLOGY ORDERABLES Final Result [facility] 1 [place] [address] documented in this encounter Visit Diagnoses Not on filedocumented in this encounter Additional Health Concerns Infection Onset Date Last Indicated Resolved Time R/O COVID-19 04/21/2024 04/21/2024 04/21/2024 8:06 AM EST Assessment Noted Time A fall risk assessment has been complete d for the patient 03/08/2023 3:00 PM EDT documented as of this encounter Care Teams Rooms Director Relationship Specialty Start Date End Date Etienne Evans MD PCP - General 12/08/10 [place] Dominguez MD 1 [place] [address] Medical Oncologist Internal Medicine-Hematology and Oncology 07/09/21 documented as of this encounter
--- OUTSIDE RECORDS SUMMARY | 2024-12-10 13:07 | XMS_ITS | Encounter Summary ---
Author Organization [place] [address] Care Team Providers Care Systems Designer Name Role Phone Etienne Evans MD Primary Care Provider Dallas Dominguez MD Unavailable [phone] Reason for Visit * Reason Comments Pharmacy Oncology Management Ruxolitinib Encounter Details Date Type Department Care Team (Latest Contact Info) Description 11/30/2024 Specialty Pharmacy [facility] [address] [place], [place] [id number] Maile Kaiser, [facility] Oncology Management (Ruxolitinib) Social History Tobacco Use Types Packs/Day Years Used Date Smoking Tobacco: Former Cigarettes 1 40 0 05/16/1966 - 05/15/2000 Passive Smoke Exposure: Current Smokeless Tobacco: Never Comments:I no longer smoke. Alcohol Use Standard Drinks/Week Comments Not Currently 7 (1 standard drink = 0.6 oz pur e alcohol) [facility] Utilities Answer Date Recorded In the past [...] Date Recorded PHQ-2 Total Score 2 04/21/2024 [facility] [place] [facility] Occupat ional [facility] - Occupational Stress [...] needed for daily living? 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 Spoke with patient. * Doris Garcia RPH - 11/30/2024 1:54 PM EDT [facility] Prescription for ruxolitinib was transferred to [id number] due to specialty transfer reason. Will contact patient for one time follow-up to confirm receipt of medication from outside pharmacy. Doris Garcia RPH Specialty Pharmacist documented in this encounter Plan of Treatment Upcoming Encounters Date Type Department Care Team (Late st Contact Info) Description 12/14/2024 11:15 [place] [address] Elmer [place]ilt[place] MD [address] [place] [phone] 12/27/2024 2:00 PM EDT Office Visit [facility] [place] [address] [place] [address] [place] Daniel, DPM [address] [place] [address] 01/07/2025 9:30 AM EDT Appointment [facility] [address] [facility] [place] [address] 01/07/2025 9:45 AM EDT Appointment [facility] [address] [place] [address] [address] [place] [address] Destiny Flores, HUMANITIES AND LANGUAGES PROFESSOR [address] [facility] [address] [place], [place] [phone] 05/21/2025 2:00 PM EST Office Visit [facility] [address] [facility] [address] [place] [phone] Pedrito Bray MD [address] [facility] [address] [place] [phone] 06/07/2025 1:30 PM EST Office Visit [facility] [address] [facility] [address] [place] [address] 06/07/2025 2:00 PM EST Office Visit [facility] [address] [facility] [address] [place] [address] mIelda Albarado APRN [address] [place], [place] [id number] 12/04/2025 1:45 PM EDT Office Visit [facility] Nephrology [address] [place] [address] Edita Alford MD [address] [facility] [address], [place] [address] documented as of this encounter Visit Diagnoses Not on filedocumented in this encounter Additional Health Concerns Assessment Noted Time PHQ-9 Depression Total Score: 2 04/21/20 24 2:41 PM EST A fall risk assessment has been complete d for the patient 06/06/2024 2:03 PM EST PHQ-2 Depression Total Score: 2 04/21/20 24 2:41 PM EST documented as of this encounter Care Teams Systems Designer Relationship Specialty Start Date End Date Etienne Evans MD PCP - General 12/08/10 [place] Dominguez MD [address] [place] [address] [place] [address] Medical Oncologist Internal Medicine-Hematology and Oncology 07/09/21 documented as of this encounter
--- OUTSIDE RECORDS SUMMARY | 2024-12-10 13:07 | XMS_ITS | Encounter Summary ---
Author Organization [place] [address] Care Team Providers Care Gaming Floor Supervisor Name Role Phone Etienne Evans MD Primary Care Provider Dallas Dominguez MD Unavailable [phone] Reason for Visit * Reason Onset Date Comments Medication Refill 12/06/2024 Encounter Details Date Type Department Care Team (Late st Contact Info) Description 12/06/2024 Refill [facility] [address] [facility] [address] [place] [address] Dallas Dominguez MD 1 [place] [address] Medication Refill Social History Tobacco Use Types Packs/Day Years Used Date Smoking Tobacco: Former Cigarettes 1 40 0 05/16/1966 - 05/15/2000 Passive Smoke Exposure: Current Smokeless Tobacco: Never Comments:I no longer smoke. Alcohol Use Standard Drinks/Week Comments Not Currently 7 (1 standard drink = 0.6 oz pur e alcohol) [facility] Utilities Answer Date Recorded In the past 12 months has [employer], gas, oil, or water [employer] threatened to shut off services in your home? No 04/21/2024 Overall Financial Resource Strain (CARDIA) Answe r Date Recorded How hard is it for you to pa y for the very basics like food, housing, medical care, and heating? Somewhat hard 04/21/2024 PHQ-2 Answer Date Recorded PHQ-2 Total Score 2 04/21/2024 [facility] Occupat ional [facility] - Occupational Stress Questionnaire Answer Date [...] things needed for daily living? 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 60 Tablet 12/06/2024 documented in this encounter Miscellaneous Notes * Telephone Encounter - Ana Rosa Milton RN - 12/06/2024 12:32 PM EDT Chart reviewed for refill of Oxycodone 5 mg, last fille don 11/19/24, appropriate. Seen by Dr Dominguez on 10/15/24 and will return on for f/u. Script sent to Dr Dominguez for signature and review. * Telephone Encounter - Jessica Ahuja RMA - 12/06/2024 11:07 AM EDT Who is requesting the Refill:Patient Medication Name:Oxycodone 5 mg Are there refills remaining:No (If YES, inform patient to contact their pharmacy. Offer to transfer the caller to their pharmacy) Did patient contact the pharmacy first?: No How many days left on hand: Confirm request is prescribed by a Cancer Care Provider Only:Yes Provider MD Name (be sure to route to this pool):Dr. Dominguez Preferred call back number:[phone] Confirm Pharmacy:[facility] (Do not route refill requests to Speciality Pharmacy) If patients are calling in reporting symptoms from medications, this flips to a SYMPTOM call. Explained to the caller all prescription refills require a 24 hour notice. The prescriptions will be sent directly to your pharmacy, you do not need to pick-up a prescription in the office. If you have questions regarding a pickler helper time, please contact your pharmacy. documented in this encounter Plan of Treatment Upcoming Encounters Date Type Department Care Team (Late st Contact Info) Description 12/14/2024 11:15 AM EDT Office Visit [facility] [place] [address] [place] [address] Flaco [place] MD [address] [place] [address] 12/27/2024 2:00 PM EDT Office Visit [facility] [address] [address] Flaco Daniel, DPM [address] [facility] [address] [place] [address] 01/07/2025 9:30 AM EDT Appointment [facility] [address] [facility] [place] [phone] 01/07/2025 9:45 AM EDT Appointment [facility] [address] [facility] [address] [place] [address] Destiny Flores, LEAD SOFTWARE DEVELOPER [address] [place] [address] [address] [place] [address] 05/21/2025 2:00 PM EST Office Visit [facility] [address] [facility] [address] [place] [phone] Pedrito Bray MD [address] [facility] [address] [place] [address] 06/07/2025 1:30 PM EST Office Visit [facility] [address] [facility] [address] [place] [address] 06/07/2025 2:00 PM EST Office Visit [facility] [address] [facility] [address] [place] [address] Imelda Albarado APRN [address] [place], [place] [id number] 12/04/2025 1:45 PM EDT Office Visit [facility] Nephrology [address] [address] Edita Alford MD [address] [address] documented as of this encounter Visit Diagnoses Diagnosis Pain in both lower extremities documented in this encounter Discontinued Medications Medication Sig Discontinue Reason Start Date End Da te oxyCODONE (ROXICODONE) 5 mg Oral TabletIndications:Pain in both lower extremities Take 1-2 Tablets by mouth every 4 hours as needed for Chronic Pain (G89.29). Reorder 11/19/2024 12/06/2024 documented as of this encounter Additional Health Concerns Assessment Noted Time PHQ-9 Depression Total Score: 2 04/21/20 2:41 PM EST A fall risk assessment has been complete d for the patient 06/06/2024 2:03 PM EST PHQ-2 Depression Total Score: 2 04/21/20 2:41 PM EST documented as of this encounter Care Teams Gaming Floor Supervisor Relationship Specialty Start Date End Date Etienne Evans MD PCP - General 12/08/10 [place] Dominguez MD [address] [place] [address] [place] [address] Medical Oncologist Internal Medicine-Hematology and Oncology 07/09/21 documented as of this encounter
--- OUTSIDE RECORDS SUMMARY | 2024-12-10 13:07 | XMS_ITS | Encounter Summary ---
Author Organization [facility] Address [address] [place] [address] Care Team Providers Care Geothermal Installer Name Role Phone Etienne Evans MD Primary Care Provider Octavio Smith RN Unavailable [phone] Jamaal Chow MD Unavailable Jamil Krause VEGETABLE FARM MANAGER Unavailable [phone] Isabelle Vines NP Unavailable Wilber Delaney MD Unavailable Encounter Details Date Type Department Care Team (Late st Contact Info) Description 01/05/2016 Orders Only Community Physician Ordering Department [address] [place] [address] [place] [address] [place], [place] [id number] Pituitary tumor (Primary Dx); Secondary hypopituitarism (HCC); Other specified acquired hypothyroidism; Vitamin D deficiency Social History Tobacco Use Types Packs/Day Years Used Date Smoking Tobacco: Former Smokeless Tobacco: Never Comments:quit 4 years ago Alcohol Use Standard Drinks/Week Comments No 0 (1 standard drink = 0.6 oz pur e alcohol) Sex and Gender Information Value Date Recorded Sex Assigned at Male 08/23/2023 8:50 AM EDT Legal Sex Male 9:41 AM EDT Gender Identity Male 08/23/2023 8:50 AM EDT Sexual Orientation Straight 08/23/2023 8: 50 AM EDT documented as of this encounter Plan of Treatment Not on file documented as of this encounter Results * ADRENOCORTICOTROPIC HORMONE (01/05/2016 1:17 PM EDT) ACTH 33 6 - 50 pg/mL [facility] Comment: Reference range applies only to specimens collected between 7am-10am Test performed at [facility] [address] [address] JOSHUA SHIELDS MD Plasma 01/05/2016 1:17 PM EDT 01/08/2016 4:16 PM EDT us Referring Nonstaff MD CHEMISTRY ORDERABLES Final Result Performing Organization Address City/[facility] Co de Phone Number [facility] [address] * (ABNORMAL) DHEA-SULFATE (01/05/2016 11:17 AM EDT) DHEA-SO4 12.6(L) 48.6 - 361.8 ug/dL [facility] Serum 01/05/2016 11:1 7 AM EDT 01/05/2016 1:10 PM EDT us Referring Nonstaff MD CHEMISTRY ORDERABLES Final Result Performing Organization Address [facility] de Phone Number [facility] [address] * (ABNORMAL) INSULIN, QUANTITATIVE (01/05/2016 11:17 AM EDT) Insulin 21.2(H) 4.0 - 13.1 uIU/mL [facility] Comment: Effective 04/28/2015, please note that the immunoassay method for this assay has been changed to the [employer]. Values determined from different manufacturers can vary and cannot be used interchangeably. Reference ranges were adjusted according to a negative bias (~20%). Please contact the laboratory if a baseline confirmation is needed for those patients being serially monitored. Serum 01/05/2016 11:1 7 AM EDT 01/05/2016 1:06 PM EDT Narrative [facility] - 01/05/2016 1:59 PM EDT ordered insulin like growth factor us Referring Nonstaff MD CHEMISTRY ORDERABLES Final Result Performing Organization Address [facility] Co de Phone Number [facility] [address] * CORTISOL (01/05/2016 11:17 AM EDT) Cortisol 2.8 ug/dL [facility] Comment: Reference range for 8AM (7-9AM) Specimen: 4.0-22.0 ug/dL Reference range for 4PM (3-5PM) Specimen: 3.0-17.0 ug/dL Plasma 01/05/2016 11:1 7 AM EDT 01/05/2016 1:06 PM EDT Narrative [facility] - 01/05/2016 3:18 PM EDT ordered cortisol total us Referring Nonstaff MD CHEMISTRY ORDERABLES Final Result Performing Organization Address [facility] de Phone Number [facility] [address] * PROLACTIN (01/05/2016 11:17 AM EDT) Prolactin 13.0 3.5 - 19.4 ng/mL [facility] Serum 01/05/2016 11:1 7 AM EDT 01/05/2016 1:06 PM EDT us Referring Nonstaff MD CHEMISTRY ORDERABLES Final Result Performing Organization Address [facility] Co de Phone Number [facility] [address] * T3, REVERSE (01/05/2016 11:17 AM EDT) T3, Reverse 12 8 - 25 ng/dL [facility] Comment: This test was developed and its analytical performance characteristics have been determined by [facility]. It has not been cleared or approved by FDA. This assay has been validated pursuant to the CLIA regulations and is used for clinical purposes. Test performed at [facility] [address] [place] [address] CHRISTY KELLY MD PHD Serum 01/05/2016 11:1 7 AM EDT 01/09/2016 8:32 PM EDT us Referring Nonstaff MD CHEMISTRY ORDERABLES Final Result Performing Organization Address [facility] Co de Phone Number [facility] [address] [place] [address] * T3, FREE (01/05/2016 11:17 AM EDT) T3, Free 3.17 1.71 - 3.71 pg/mL [facility] Serum 01/05/2016 11:1 7 AM EDT 01/05/2016 1:06 PM EDT us Referring Nonstaff MD CHEMISTRY ORDERABLES Final Result Performing Organization Address [facility] Co de Phone Number [facility] [address] [place] [address] * T4, FREE (01/05/2016 11:17 AM EDT) Free T4 0.9 0.8 - 1.8 ng/dL [facility] Serum 01/05/2016 11:1 7 AM EDT 01/05/2016 1:06 PM EDT us Referring Nonstaff MD CHEMISTRY ORDERABLES Final Result Performing Organization Address [facility] Co de Phone Number [facility] [address] [place] [address] * (ABNORMAL) TSH 3RD GEN, REFLEX FT4 (01/05/2016 11:17 AM EDT) TSH REFLEX 0.04(L) 0.35 - 4.94 MIU/mL [facility] Serum 01/05/2016 11:1 7 AM EDT 01/05/2016 1:06 PM EDT us Referring Nonstaff MD CHEMISTRY ORDERABLES Final Result Performing Organization Address [facility] Co de Phone Number [facility] [address] * FOLIC ACID (01/05/2016 11:17 AM EDT) Pathologist [facility] Folate 12.6 7.0 - 31.4 ng/mL [facility] Comment: Folate deficiency is typically associated with serum levels less than 3.5 ng/mL. Values between 3.5 and 7.0 ng/mL are considered borderline. Occasionally, the diagnosis of folate deficiency cannot be based solely on serum levels and further testing may be considered. Serum 01/05/2016 11:1 7 AM EDT 01/05/2016 1:06 PM EDT us Referring Nonstaff MD CHEMISTRY ORDERABLES Final Result Performing Organization Address [facility] de Phone Number [facility] [address] * (ABNORMAL) VITAMIN B12 (CYANOCOBALAMIN) (01/05/2016 11:17 AM EDT) Pathologist [facility] Vitamin B-12 1,317(H) 213 - 816 pg/mL [facility] Serum 01/05/2016 11:1 7 AM EDT 01/05/2016 1:06 PM EDT us Referring Nonstaff MD CHEMISTRY ORDERABLES Final Result Performing Organization Address [facility] Co de Phone Number [facility] [address] * ESTRADIOL (E2) (01/05/2016 11:17 AM EDT) Pathologist [facility] Estradiol <10 pg/mL [facility] Comment: ESTRADIOL REFERENCE RANGES pg/mL Normal Menstruating Females: Follicular Phase: 21 - 251 Mid-Cycle Phase: 38 - 649 Luteal Phase: 21 - 312 Post Menopausal no HRT: 0 - 28 Post Menopausal on HRT: 0 - 144 Males: 11 - 44 Serum 01/05/2016 11:1 7 AM EDT 01/05/2016 1:10 PM EDT us Referring Nonstaff CHEMISTRY ORDERABLES Final Result Performing Organization Address [facility] de Phone Number [facility] [address] * TESTOSTERONE, TOTAL WITH REFLEX TO FREE (DIALYSIS) (01/05/2016 11:17 AM EDT) [facility] Testosterone Total(rfx) Specimen sent to referral lab for reflex testing 221 - 716 ng/dL [facility] Comment: This Total Testosterone test is a screening method for Free Testosterone and is performed in-house using an immunoassay method. Values less than 300ng/dL will be sent to the reference laboratory for reflexive testing of both Total and Free Testosterone by LC/MS/MS and Equilibrium Dialysis methods with an additional charge. Values > 300 ng/dL will be reported without further testing. Please note updated reference range for the in-house Total Testosterone method. Serum 01/05/2016 11:1 7 AM EDT 01/05/2016 12:35 PM EDT us Referring Nonstaff CHEMISTRY ORDERABLES Final Result Performing Organization Address [facility] de Phone Number [facility] [address] documented in this encounter Visit Diagnoses Diagnosis Pituitary tumor- Primary Neoplasm of unspecified nature of endocrine glands and other parts of nervous system Secondary hypopituitarism ([facility]) Panhypopituitarism Other specified acquired hypothyroidism Vitamin D deficiency Pituitary tumor Neoplasm of unspecified nature of endocrine glands and other parts of nervous system Secondary hypopituitarism ([facility]) Panhypopituitarism Other specified acquired hypothyroidism Vitamin D deficiency documented in this encounter Care Teams Geothermal Installer Relationship Specialty Start Date End Date Etienne Evans MD PCP - General Family Medicine 12/29/15 Octavio Smith, SRIDHAR [address] [place] [address] Registered Nurse 07/13/20 Jamaal Chow MD [address] [place] [address]. Room [address] [place] [address] Internal Medicine 08/30/20 Jamil Krause NP [address] [place] [address] [address] [place] [address] Nurse Practitioner Cardiology 02/26/21 Isabelle Vines NP [address] [place] [address] [address] [place] [address] Nurse Practitioner Cardiology 09/07/22 Wilber Delaney MD [address] [place] [address]. [place] [address] Oncologist Hematology and Oncology 09/20/23 documented as of this encounter
--- OUTSIDE RECORDS SUMMARY | 2024-12-10 13:07 | XMS_ITS | Encounter Summary ---
Author Organization [facility] [place] [address] Care Team Providers Care Configuration Analyst Name Role Phone Etienne Evans MD Primary Care Provider Dallas Dominguez MD Unavailable [phone] Reason for Visit * Reason Onset Date Comments Medication Refill 11/09/2024 Encounter Details Date Type Department Care Team (Late st Contact Info) Description 11/09/2024 Refill [facility] [address] [place] [address] Dallas Dominguez MD [address] [place] [address] Medication Refill Social History Tobacco Use Types Packs/Day Years Used Date Smoking Tobacco: Former Cigarettes 1 40 0 05/16/1966 - 05/15/2000 Cigars Passive Smoke Exposure: Current Smokeless Tobacco: Never Alcohol Use Standard Drinks/Week Comments Not Currently 7 (1 standard drink = 0.6 oz pur e alcohol) [facility] Utilities Answer Date Recorded In the past 12 months has [employer], gas, oil, or water company threatened to shut off services in your home? No 04/21/2024 Overall Financial Resource Strain (CARDIA) Answe r Date Recorded How hard is it for you to pa y for the very basics like food, housing, medical care, and heating? Somewhat hard 04/21/2024 PHQ-2 Answer Date Recorded PHQ-2 Total Score 2 04/21/2024 [facility] - Occupational Stress [...] things needed for daily living? 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 60 Tablet 11/09/2024 documented in this encounter Miscellaneous Notes * Telephone Encounter - Constance Damon RN - 11/09/2024 3:40 PM EDT Ok to refill per Dr. Peñaloza last progress note. Patient has follow-up appointment on 12/10/2024 * Telephone Encounter - Aga Mullen, Clerical Staff - 11/09/2024 2:04 PM EDT Who is requesting the Refill:Luis Medication Name: Oxycodone Are there refills remaining: (If YES, inform patient to contact their pharmacy. Offer to transfer the caller to their pharmacy) Did patient contact the pharmacy first?: How many days left on hand: Confirm request is prescribed by a Cancer Care Provider Only: [facility] Provider Name (be sure to route to this pool): Preferred call back number: Confirm Pharmacy:[facility] (Do not route refill requests to Speciality Pharmacy) If patients are calling in reporting symptoms from medications, this flips to a SYMPTOM call. Explained to the caller all prescription refills require a 24 hour notice. The prescriptions will be sent directly to your pharmacy, you do not need to pick-up a prescription in the office. If you have questions regarding a supervisor opening and picking time, please contact your pharmacy. documented in this encounter Plan of Treatment Upcoming Encounters Date Type Department Care Team (Late st Contact Info) Description 12/14/2024 11:15 AM EDT Office Visit [facility] [address] [place] [address] Flaco Hamilton MD [address] [place] [address] 12/27/2024 2:00 PM EDT Office Visit [facility] Podiatry [place] [address] [place] [address] Flaco Daniel, DPM [address] [facility] [address] [place] [address] 01/07/2025 9:30 AM EDT Appointment [facility] [address] [facility] [place] [address] 01/07/2025 9:45 AM EDT Appointment [facility] [address] [facility] [address] [place] [address] Destiny Flores, BUSINESS ENTERPRISE OFFICER [address] [facility] [address] [place], [place] [id number] 05/21/2025 2:00 PM EST Office Visit [facility] Diabetes [place] [address] [facility] [address] [place] [address] Pedrito Bray MD [address] [facility] [address] [place] [phone] 06/07/2025 1:30 PM EST Office Visit [facility] [address] [facility] [address] [place] [address] 06/07/2025 2:00 PM EST Office Visit [facility] [address] [facility] [address] [place] [address] Imelda Albarado, JOHANN [address] [place], [place] [phone] 12/04/2025 1:45 PM EDT Office Visit [facility] Nephrology [address] [id number] Edita Alford MD [address] [facility] [address], [place] [address] documented as of this encounter Visit Diagnoses Diagnosis Pain in both lower extremities documented in this encounter Discontinued Medications Medication Sig Discontinue Reason Start Date End Da te oxyCODONE (ROXICODONE) 5 mg Oral TabletIndications:Pain in both lower extremities Take 1-2 Tablets by mouth every 4 hours as needed for Chronic Pain (G89.29). Reorder 11/02/2024 11/09/2024 documented as of this encounter Additional Health Concerns Assessment Noted Time PHQ-9 Depression Total Score: 2 04/21/20 2:41 PM EST A fall risk assessment has been complete d for the patient 06/06/2024 2:03 PM EST PHQ-2 Depression Total Score: 2 04/21/20 24 2:41 PM EST documented as of this encounter Care Teams Configuration Analyst Relationship Specialty Start Date End Date Etienne Evans MD PCP - General 12/08/10 Dallas Dominguez MD [address] [facility] [address] [place], [place] [address] Medical Oncologist Internal Medicine-Hematology and Oncology 07/09/21 documented as of this encounter
--- OUTSIDE RECORDS SUMMARY | 2024-12-10 13:07 | XMS_ITS | Encounter Summary ---
Author Organization [facility] Address [address] [place] [address] Care Team Providers Care Charge Manager Name Role Phone Etienne Evans MD Primary Care Provider [phone] Dallas Dominguez MD Unavailable [phone] Reason for Visit * Reason Onset Date Comments Other 11/13/2024 Encounter Details Date Type Department Care Team (Late st Contact Info) Description 11/13/2024 Telephone [place] [id number] Elmer Hamilton MD [address] [place] [phone] Other Social History Tobacco Use Types Packs/Day Years Used Date Smoking Tobacco: Former Cigarettes 1 40 0 05/16/1966 - 05/15/2000 Passive Smoke Exposure: Current Smokeless Tobacco: Never Comments:I no longer smoke. Alcohol Use Standard Drinks/Week Comments Not Currently 7 (1 standard drink = 0.6 oz pur e alcohol) [facility] Utilities Answer Date Recorded In the past 12 months has [employer] electric, gas, oil, or water company threatened to shut off services in your home? No 04/21/2024 Overall Financial Resource Strain (CARDIA) Answe r Date Recorded How hard is it for you to pa y for the very basics like food, housing, medical care, and heating? Somewhat hard 04/21/2024 PHQ-2 Answer Date Recorded PHQ-2 Total Score 2 04/21/2024 [facility] - Occupational Stress Questionnaire Answer Date Recorded [...] things needed for daily living? 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 Per Dr. Hamilton the patient needs to follow up around 12/14. I will try again tomorrow if needed. * Telephone Encounter - Maxime Sofia Athletic Trainer - 11/15/2024 4:18 PM EDT The called back and I spoke with him stating that Dr. Hamilton wanted him to continue wearing the wrist braces I was unsure of follow up when I got off the phone with the patient. Per Dr. Hamilton's last note, he wants the patient to be seen in office following the CT scan. I called the patient back and left a message to schedule an appointment next week with Dr. Hamilton. Iwill try again on Tuesday if he doesn't call back. * Telephone Encounter - Maxime Sofia Athletic Trainer - 11/15/2024 4:10 PM EDT I called and left a second voicemail for the patient to call back and discuss CT results. * Telephone Encounter - Maxime Sofia Athletic Trainer - 11/14/2024 5:16 PM EDT LVM for patient to call back regarding his CT results. * Telephone Encounter - Gina Vera, Clerical Staff - 11/13/2024 4:22 PM EDTSummary: Phone Call Pt called in asking if Dr. Hamilton received his CT Scan results? What's the next step? Please contactpatient documented in this encounter Plan of Treatment Upcoming Encounters Date Type Department Care Team (Late st Contact Info) Description 12/14/2024 11:15 AM EDT Office Visit [facility] [place] [address] Elmer Hamilton MD [address] [place] [address] 12/27/2024 2:00 PM EDT Office Visit [facility] Podiatry [address] [address] Elmer Daniel, DPM [address] [facility] [address] [place] [address] 01/07/2025 9:30 AM EDT Appointment [facility] [address] [facility] [place] [address] 01/07/2025 9:45 AM EDT Appointment [facility] [address] [facility] [address] [place], [place] [phone] Destiny Flores, MEDIA THEORIST AND AUTHOR OF [address] [facility] [address] [place], [place] [id number] 05/21/2025 2:00 PM EST Office [facility] [address] [facility] [address] [place] [phone] Pedrito Bray MD [address] [facility] [address] [place] [phone] 06/07/2025 1:30 PM EST Office Visit [facility] [address] [facility] [address] [place] [address] 06/07/2025 2:00 PM EST Office Visit [facility] [address] [facility] [address] [place] [address] Imelda Albarado, MEDIA THEORIST AND AUTHOR OF [address] [place], [place] [id number] 12/04/2025 1:45 PM EDT Office Visit [facility] Nephrology [facility] [address] [facility] [address] [place] [address] Edita Alford MD [address] [facility] [address], [place] [address] documented as of this encounter Visit Diagnoses Not on filedocumented in this encounter Additional Health Concerns Assessment Noted Time PHQ-9 Depression Total Score: 2 04/21/20 24 2:41 PM EST A fall risk assessment has been complete d for the patient 06/06/2024 2:03 PM EST PHQ-2 Depression Total Score: 2 04/21/20 2:41 PM EST documented as of this encounter Care Teams Charge Manager Relationship Specialty Start Date End Date Etienne Evans MD PCP - General 12/08/10 Dallas Dominguez MD [address] [place] [address] [place] [address] Medical Oncologist Internal Medicine-Hematology and Oncology 07/09/21 documented as of this encounter
--- OUTSIDE RECORDS SUMMARY | 2024-12-10 13:07 | XMS_ITS | Encounter Summary ---
Author Organization [place] [address] Care Team Providers Care Orthodontist Assistant Name Role Phone Etienne Evans MD Primary Care Provider [phone] Dallas Dominguez MD Unavailable [phone] Reason for Visit * Reason Comments Pharmacy Oncology Management Ruxolitinib Encounter Details Date Type Department Care Team (Latest Contact Info) Description 12/03/2024 Specialty Pharmacy [facility] [address] [place], [place] [id number] Anju Escamilla CPhT Pharmacy Oncology Management (Ruxolitinib) Social History Tobacco Use Types Packs/Day Years Used Date Smoking Tobacco: Former Cigarettes 1 40 0 05/16/1966 - 05/15/2000 Passive Smoke Exposure: Current Smokeless Tobacco: Never Comments:I no longer smoke. Alcohol Use Standard Drinks/Week Comments Not Currently 7 (1 standard drink = 0.6 oz pur e alcohol) [facility] Utilities Answer Date Recorded In the [...] Date Recorded PHQ-2 Total Score 2 04/21/2024 [facility] [place] of Occupat ional Health - Occupational Stress [...] things needed for daily living? 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 * Ning Weinberg CPhT - 12/03/2024 12:20 PM EDT [facility] Called [id number] back. They were getting RTS rejection and wanted to see if they were going to be filling moving forward. Told her yes we will no longer be filling it. documented in this encounter Plan of Treatment Upcoming Encounters Date Type Department Care Team (Late st Contact Info) Description 12/14/2024 11:15 AM EDT Office Visit [place] [address] [place], [place] [id number] Elmer Hamilton MD [address] [place] [address] 12/27/2024 2:00 PM EDT Office Visit [facility] [address] [place] [address] Elmer Daniel, DPM [address] [place] [address] 01/07/2025 9:30 AM EDT Appointment [facility] [address] [facility] [place] [phone] 01/07/2025 9:45 AM EDT Appointment [facility] [address] [facility] [address] [place] [address] Destiny Flores, GAGE DESIGNER [address] [facility] [address] [place], [place] [id number] 05/21/2025 2:00 PM EST Office Visit [facility] [address] [facility] [address] [place] [phone] Pedrito Bray MD 1500 [facility] [address] [place] [address] 06/07/2025 1:30 PM EST Office Visit [facility] [address] [facility] [address] [place] [phone] 06/07/2025 2:00 PM EST Office Visit [facility] [address] [facility] [address] [place] [address] Imelda Albarado APRN [address] [place] [address] 12/04/2025 1:45 PM EDT Office Visit [facility] Nephrology [address] [place] [address] Edita Alford MD [address] [facility] [address] [address] documented as of this encounter Visit Diagnoses Not on filedocumented in this encounter Additional Health Concerns Assessment Noted Time PHQ-9 Depression Total Score: 2 04/21/20 24 2:41 PM EST A fall risk assessment has been complete d for the patient 06/06/2024 2:03 PM EST PHQ-2 Depression Total Score: 2 04/21/20 24 2:41 PM EST documented as of this encounter Care Teams Orthodontist Assistant Relationship Specialty Start Date End Date Etienne Evans MD PCP - General 12/08/10 Dallas Dominguez MD [address] [place] [address] [place] [address] Medical Oncologist Internal Medicine-Hematology and Oncology 07/09/21 documented as of this encounter
--- OUTSIDE RECORDS SUMMARY | 2024-12-10 13:07 | XMS_ITS | Encounter Summary ---
Author Organization [place] [address] Care Team Providers Care Health Consultant Name Role Phone Etienne Evans MD Primary Care Provider [phone] Dallas Dominguez MD Unavailable [phone] Encounter Details Date Type Department Care Team (Late st Contact Info) Description 11/30/2024 Orders Only [facility] Cancer Care [facility] 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 60 Tablet 2 11/30/2024 documented in this encounter Plan of Treatment Upcoming Encounters Date Type Department Care Team (Late st Contact Info) Description 12/14/2024 11:15 AM EDT Office Visit [facility] [address] [place] [address] Elmer Hamilton MD [address] [place] [address] 12/27/2024 2:00 PM EDT Office Visit [facility] Podiatry [address] [address] Elmer Daniel DPM [address] [facility] [address] [place] [address] 01/07/2025 9:30 AM EDT Appointment [facility] [address] [facility] [place] [phone] 01/07/2025 9:45 AM EDT Appointment [facility] [address] [facility] [address] [place] [address] Destiny Flores, WIRE BENDER [address] [facility] [address] [place], [place] [phone] 05/21/2025 2:00 PM EST Office Visit [facility] 1500 [facility] [address] [place] [phone] Pedrito Bray MD [address] [facility] [address] [place] [phone] 06/07/2025 1:30 PM EST Office Visit [facility] [address] [facility] [address] [place] [phone] 06/07/2025 2:00 PM EST Office Visit [facility] [address] [facility] [address] [place] [address] Imelda Albarado, WIRE BENDER [address] [place], [place] [address] 12/04/2025 1:45 PM EDT Office Visit [facility] Nephrology [facility] 40 [facility] 204 [place] [address] Edita Alford MD [address] [place] [address] [phone] documented as of this encounter Visit Diagnoses Diagnosis Myelofibrosis (HCC) Myelofibrosis Thrombocytopenia Thrombocytopenia, unspecified 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 Reorder 09/26/2024 11/30/2024 documented as of this encounter Additional Health Concerns Assessment Noted Time PHQ-9 Depression Total Score: 2 04/21/20 2:41 PM EST A fall risk assessment has been complete d for the patient 06/06/2024 2:03 PM EST PHQ-2 Depression Total Score: 2 04/21/20 2:41 PM EST documented as of this encounter Care Teams Health Consultant Relationship Specialty Start Date End Date Etienne Evans MD PCP - General 12/08/10 Dallas Dominguez MD [address] [place] [address] [place] [address] Medical Oncologist Internal Medicine-Hematology and Oncology 07/09/21 documented as of this encounter
--- OUTSIDE RECORDS SUMMARY | 2024-12-10 13:07 | XMS_ITS | Encounter Summary ---
Author Organization [facility] [place] [address] Care Team Providers Care Rotary Swaging Machine Operator Name Role Phone Etienne Evans MD Primary Care Provider [phone] Dallas Dominguez MD Unavailable [phone] Encounter Details Date Type Department Care Team (Late st Contact Info) Description 08/15/2023 Orders Only [facility] [address] [facility] 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 on file Not o n file documented as of this encounter Plan of Treatment Upcoming Encounters Date Type Department Care Team (Late st Contact Info) Description 12/14/2024 11:15 AM EDT [facility] [place] [address] Elmer Hamilton MD [address] [place] [address] 12/27/2024 2:00 PM EDT Office Visit [facility] Podiatry [address] [address] Elmer Daniel, DPSakina 14[address] [facility] [address] [place] [address] 01/07/2025 9:30 AM EDT Appointment [facility] [address] [place] [phone] 01/07/2025 9:45 AM EDT Appointment [facility] [address] [place] [address] Esther Flores, TAGMAN [address] [facility] [address] [place], [place] [phone] 05/21/2025 2:00 PM EST Office Visit [facility] 1500 [facility] [address] [place] [phone] Pedrito Bray MD 1500 [facility] [address] [place] [phone] 06/07/2025 1:30 PM EST Office Visit [facility] [address] [facility] [address] [place] [phone] 06/07/2025 2:00 PM EST Office Visit [facility] [address] [facility] [address] [place] [address] Imelda Albarado, TAGMAN [address] [place], [place] [address] 12/04/2025 1:45 PM EDT Office Visit [facility] Nephrology [facility] 40 [facility] 204 [place] [address] Edita Alford MD [address] [facility] [address] [address] documented as of this encounter Procedures Procedure Name Priority Date/Time Associated Diagnosis Comments NEOGENOMICS MPN JAK2 V617F WITH SEQUENTIAL REFLEX TO JACK2 EXON 12-13 Routine 08/15/2023 9:52 AM EDT documented in this encounter Results * NEOGENOMICS MPN JAK2 V617F WITH SEQUENTIAL REFLEX TO JACK2 EXON 12-13 (08/15/2023 9:52 AM EDT) 08/15/2023 9:52 AM EDT Narrative [facility] - 08/31/2023 3:42 PM EDT Requesting Provider: ESTHER DEVON Ayon Specimen = [id number] us Tatianna Siegel MD PATHOLOGY ORDERABLES Final Result [facility] 1 [place] [address] documented in this encounter Visit Diagnoses Not on filedocumented in this encounter Additional Health Concerns Infection Onset Date Last Indicated Resolved Time R/O COVID-19 04/21/2024 04/21/2024 04/21/2024 8:06 AM EST Assessment Noted Time A fall risk assessment has been complete d for the patient 03/08/2023 3:00 PM EDT documented as of this encounter Care Teams Rotary Swaging Machine Operator Relationship Specialty Start Date End Date Etienne Evans MD PCP - General 12/08/10 Dallas Dominguez MD 1 [place] [address] Medical Oncologist Internal Medicine-Hematology and Oncology 07/09/21 documented as of this encounter
--- OUTSIDE RECORDS SUMMARY | 2024-12-10 13:07 | XMS_ITS | Encounter Summary ---
Author Organization [place] [address] Care Team Providers Care Email Campaign Specialist Name Role Phone Etienne Evans MD Primary Care Provider [phone] Dallas Dominguez MD Unavailable [phone] Reason for Visit * Reason Comments Pharmacy Oncology Management Ruxolitinib Encounter Details Date Type Department Care Team (Latest Contact Info) Description 11/28/2024 Specialty Pharmacy [facility] [address] [place], [place] [phone] Ning Weinberg CPhT Pharmacy Oncology Management (Ruxolitinib) Social History Tobacco Use Types Packs/Day Years Used Date Smoking Tobacco: Former Cigarettes 1 40 0 05/16/1966 - 05/15/2000 Passive Smoke Exposure: Current Smokeless Tobacco: Never Comments:I no longer smoke. Alcohol Use Standard Drinks/Week Comments Not Currently 7 (1 standard drink = 0.6 oz pur e alcohol) [facility] Utilities Answer Date Recorded In the [...] Date Recorded PHQ-2 Total Score 2 04/21/2024 [facility] of Occupat ional Health - Occupational Stress [...] for daily living? 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 Medication to be delivered by [facility] on 11/30. Copay amount: $0.00 Spoke with patient. Patient informed of copay. * Rolanda Meneses RPH - 11/28/2024 10:30 AM EDT [facility] - Care Plan and Refill Review Refill questions and refill history verified. Last assessment 04/16/24. No reassessment needed at this time. Rolanda Meneses RPH Specialty Pharmacist documented in this encounter Plan of Treatment Upcoming Encounters Date Type Department Care Team (Late st [facility]) Description 12/14/2024 11:15 AM EDT Office Visit [facility] [address] [place], [place] [phone] Elmer Hamilton MD [address] [place] [phone] 12/27/2024 2:00 PM EDT Office Visit [facility] [place] [address] [place] [address] Elmer Daniel, DPM [address] [facility] [address] [place] [address] 01/07/2025 9:30 AM EDT Appointment [facility] [address] [place] [address]. [address] [place] [address] 01/07/2025 9:45 AM EDT Appointment [facility] [address] [place] [address] [address] [place] [address] Destiny Flores, RN PICU [address] [facility] [address] [place], [place] [phone] 05/21/2025 2:00 PM EST Office Visit [facility] 1500 [facility] [address] [place] [phone] Pedrito Bray MD [address] [facility] [address] [place] [address] 06/07/2025 1:30 PM EST Office Visit [facility] [address] [facility] [address] [place] [address] 06/07/2025 2:00 PM EST Office Visit [facility] [address] [facility] [address] [place] [phone] Imelda Albarado APRN 711 [place], [place] [phone] 12/04/2025 1:45 PM EDT Office Visit [facility] Nephrology [facility] 40 [facility] 204 [place] [address] Edita Alford MD 4[address] [facility] [address], [place] [address] documented as of this encounter Visit Diagnoses Not on filedocumented in this encounter Additional Health Concerns Assessment Noted Time PHQ-9 Depression Total Score: 2 04/21/20 24 2:41 PM EST A fall risk assessment has been complete d for the patient 06/06/2024 2:03 PM EST PHQ-2 Depression Total Score: 2 04/21/20 24 2:41 PM EST documented as of this encounter Care Teams Email Campaign Specialist Relationship Specialty Start Date End Date Etienne Evans MD PCP - General 12/08/10 Dallas Dominguez MD [address] [facility] [address] Medical Oncologist Internal Medicine-Hematology and Oncology 07/09/21 documented as of this encounter
--- OUTSIDE RECORDS SUMMARY | 2024-12-10 13:07 | XMS_ITS | Encounter Summary ---
Author Organization [place] [address] Care Team Providers Care Clerk Name Role Phone Etienne Evans MD Primary Care Provider Dallas Dominguez MD Unavailable [phone] Reason for Visit * Reason Onset Date Comments Medication Refill 11/19/2024 Encounter Details Date Type Department Care Team (Late st Contact Info) Description 11/19/2024 Refill [facility] [address] [facility] [address] [place] [address] Dallas Dominguez MD 1 [place] [address] Medication Refill Social History Tobacco Use Types Packs/Day Years Used Date Smoking Tobacco: Former Cigarettes 1 40 0 05/16/1966 - 05/15/2000 Passive Smoke Exposure: Current Smokeless Tobacco: Never Comments:I no longer smoke. Alcohol Use Standard Drinks/Week Comments Not Currently 7 (1 standard drink = 0.6 oz pur e alcohol) [facility] Utilities Answer Date Recorded In the past 12 months has [employer], gas, oil, or water [employer] threatened to shut off services in your home? No 04/21/2024 Overall Financial Resource Strain (CARDIA) Answe r Date Recorded How hard is it for you to pa y for the very basics like food, housing, medical care, and heating? Somewhat hard 04/21/2024 PHQ-2 Answer Date Recorded PHQ-2 Total Score 2 04/21/2024 [facility] of Occupat ional [facility] - Occupational Stress Questionnaire Answer Date [...] things needed for daily living? 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 60 Tablet 11/19/2024 5 documented in this encounter Miscellaneous Notes * Telephone Encounter - Ana Rosa Milton RN - 11/19/2024 1:00 PM EDT Chart reviewed for refill of Oxycodone 5 mg, last filled on 11/09/[address]. [address] Dominguez on 10/15/24 and per PN: -have started him on oxycodone now, he had reported taking it on average 1-2x per day, total of 2-4pills (takes 2 pills at a time usually) -can continue this as needed Will return on 12/10/24 for f/u. Script sent to Dr Dominguez for signature and review. * Telephone Encounter - Aga Mullen, Clerical Staff - 11/19/2024 9:48 AM EDT Who is requesting the Refill:Luis Medication Name: Oxycodone Are there refills remaining: (If YES, inform patient to contact their pharmacy. Offer to transfer the caller to their pharmacy) Did patient contact the pharmacy first?: [facility], Mónica How many days left on hand: Confirm request is prescribed by a Cancer Care Provider Only:[facility] Provider MD Name (be sure to route to this pool): [facility] Preferred call back number: [phone] Confirm Pharmacy: (Do not route refill requests to Speciality Pharmacy) If patients are calling in reporting symptoms from medications, this flips to a SYMPTOM call. Explained to the caller all prescription refills require a 24 hour notice. The prescriptions will be sent directly to your pharmacy, you do not need to pick-up a prescription in the office. If you have questions regarding a clam picker time, please contact your pharmacy. documented in this encounter Plan of Treatment Upcoming Encounters Date Type Department Care Team (Late st Contact Info) Description 12/14/2024 11:15 AM EDT Office Visit [place] [address] [place] [address] Elmer Hamilton MD [address] [place] [address] 12/27/2024 2:00 PM EDT Office Visit [facility] [place] [address] [place] [address] Elmer Daniel, DPSakina [address] [facility] [address] [place] [address] 01/07/2025 9:30 AM EDT Appointment [facility] [address] [place] [address] 01/07/2025 9:45 AM EDT Appointment [facility] [address] [facility] [address] [place] [address] Destiny Flores, LINK TRAINER TEACHER 20 [facility] [address] [place] [address] 05/21/2025 2:00 PM EST Office Visit [facility] [address] [facility] [address] [place] [phone] Pedrito Bray MD 1500 [facility] [address] [place] [address] 06/07/2025 1:30 PM EST Office Visit [facility] 7[address] [facility] [address] [place] [phone] 06/07/2025 2:00 PM EST Office Visit [facility] [address] [facility] [address] [place] [address] Imelda Albarado APRN 7[address] [place], [place] [address] 12/04/2025 1:45 PM EDT Office Visit [facility]rology [facility] [address] [facility] 204 [place] [address] Edita Alford MD [address] [phone] documented as of this encounter Visit Diagnoses Diagnosis Pain in both lower extremities documented in this encounter Discontinued Medications Medication Sig Discontinue Reason Start Date End Da te oxyCODONE (ROXICODONE) 5 mg Oral TabletIndications:Pain in both lower extremities Take 1-2 Tablets by mouth every 4 hours as needed for Chronic Pain (G89.29). Reorder 11/09/2024 11/19/2024 documented as of this encounter Additional Health Concerns Assessment Noted Time PHQ-9 Depression Total Score: 2 04/21/20 2:41 PM EST A fall risk assessment has been complete d for the patient 06/06/2024 2:03 PM EST PHQ-2 Depression Total Score: 2 04/21/20 2:41 PM EST documented as of this encounter Care Teams Clerk Relationship Specialty Start Date End Date Etienne Evans MD PCP - General 12/08/10 Dallas Dominguez MD [address] [place] [address] [place] [address] Medical Oncologist Internal Medicine-Hematology and Oncology 07/09/21 documented as of this encounter
--- OUTSIDE RECORDS SUMMARY | 2024-12-10 13:07 | XMS_ITS | Encounter Summary ---
Author Organization [facility] [place] [address] Care Team Providers Care [employer] Supervisor Name Role Phone Etienne Evans MD Primary Care Provider [phone] Dallas Dominguez MD Unavailable [phone] Encounter Details Date Type Department Care Team (Latest Contact Info) Description 12/10/2024 Travel Social History Tobacco Use Types Packs/Day Years Used Date Smoking Tobacco: Former Cigarettes 1 40 0 05/16/1966 - 05/15/2000 Passive Smoke Exposure: Current Smokeless Tobacco: Never Comments:I no longer smoke. Alcohol Use Standard Drinks/Week Comments Not Currently 7 (1 standard drink = 0.6 oz pur e alcohol) [facility] Utilities Answer Date Recorded In the [...] Date Recorded PHQ-2 Total Score 2 04/21/2024 [facility] - Occupational Stress [...] things needed for daily living? 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 [place] [id number] 01/07/2025 9:45 AM EDT Appointment [facility] [address] [facility] [address] [place] [address] Destiny Flores, INGREDIENT SPECIALIST [address] [facility] [address] [place] [address] 05/21/2025 2:00 PM EST Office Visit [facility] [address] [facility] [address] [place] [id number] Pedrito Bray MD [address] [facility] [address] [place] [address] 06/07/2025 1:30 PM EST Office Visit [facility] [address] [facility] [address] [place] [address] 06/07/2025 2:00 PM EST Office Visit [facility] [address] [facility] [address] [place] [address] Imelda Albarado APRN [address] [place] [address] 12/04/2025 1:45 PM EDT Office Visit [facility] Nephrology [address] [address] Edita Alford MD [address] [facility] [address], [place] [address] documented as of this encounter Visit Diagnoses Not on filedocumented in this encounter Additional Health Concerns Assessment Noted Time PHQ-9 Depression Total Score: 2 04/21/20 24 2:41 PM EST A fall risk assessment has been complete d for the patient 06/06/2024 2:03 PM EST PHQ-2 Depression Total Score: 2 04/21/20 24 2:41 PM EST documented as of this encounter Care Teams Cured [employer] P[employer] Supervisor Relationship Specialty Start Date End Date Etienne Evans MD PCP - General 12/08/10 Dallas Dominguez MD [address] [facility] [place] [address] Medical Oncologist Internal Medicine-Hematology and Oncology 07/09/21 documented as of this encounter
--- OUTSIDE RECORDS SUMMARY | 2024-12-10 13:08 | XMS_ITS | Data Portability ---
Author Organization [place] - [facility] Address [address] [place] [address] Care Team Providers Care Call Or Contact Centre Operator Name Role Phone ETIENNE EVANS Primary Care Provider [phone] ANDRESSA GREENBERG Repair Armature Winder MARKOS RODRIGUEZ OTHER Assessment Encounter Date Assessment Date Assessment LastModified by Organization Details LastModified Time 06/28/2023 06/28/2023 Patient Educatio n was printed, I have reviewed the Past Medical, Family, and Social Histories along with ROS and all orders in today's record, and have noted any changes. Medications, charts and records reviewed in full today. - LOWER EXTREMITY ANGIOGRAPHY: 01/2023 revealed normal abdominal aorta with ewwo-ua-uqocscbq luminal irregularities, normal solitary bilateral renal arteries, moderate diffuse peripheral vascular disease in the right leg with moderate calcification and three-vessel runoff to the foot. Moderate diffuse disease in the left leg with one focal area of moderate to severe stenosis in the distal left superficial femoral artery with two-vessel runoff to the foot. Medical management. LAST ECHO: 12/07/2021 EJECTION FRACTION 65-70%. LAST ISCHEMIC EVAL: 12/07/2021 NORMAL MYOVIEW STUDY. LAST HEART CATH: 08/28/2020 [facility]. LVEDP 8. SEVERE ONE-VESSEL CORONARY ARTERY DISEASE WITH 100% OSTIAL INSTENT OCCLUSION OF THE RCA. THIS IS AN OLD FINDING NO NEW STENTS. LAST LDL: 04/13/22-HIGH, TG-467, TOTAL CHOL-247. LAST CNI: 12/07/2021 STABLE 1-39% STENOSIS OF THE BILATERAL ICAS. MILD IRREGULARITY OF THE CARDIAC CYCLE IS NOTED. EKG today shows sinus rhythm with PACs and abnormal R-wave progression. - Plan: Continue current plan of care. Monitor for symptoms suggesting worsening PVD. Consider intervention on left distal SFA if symptoms worsen. -continue Plavix, and Coumadin -continue Protonix for GI protection -labs with Hematology-history of polycythemia and occasionally gets phlebotomy -no change in medications today Follow-up in 5-6 weeks -check labs -echocardiogram -consider cardiac rehab once he completes physical therapy - -Continue other current medications. -Continue aggressive risk factor modification. -Recommend LDL less than 70. -Encouraged regular exercise and activity. - This note was dictated using webtide software. If something is unclear, or does not make sense, please do not hesitate to contact our office at [phone] for clarification. Not available 06/28/2023 14:53:11 07/20/2023 07/20/2023 Patient Educatio n was printed, I have reviewed the Past Medical, Family, and Social Histories along with ROS and all orders in today's record, and have noted any changes. Medications, charts and records reviewed in full today. -vital signs stable, blood pressure and heart rate under good control - LOWER EXTREMITY ANGIOGRAPHY: 01/2023 revealed normal abdominal aorta with jfcs-tw-pxcggrbq luminal irregularities, normal solitary bilateral renal arteries, moderate diffuse peripheral vascular disease in the right leg with moderate calcification and three-vessel runoff to the foot. Moderate diffuse disease in the left leg with one focal area of moderate to severe stenosis in the distal left superficial femoral artery with two-vessel runoff to the foot. Medical management. LAST ECHO: June 2023 showed an ejection fraction of 60-65% with normal valves LAST ISCHEMIC EVAL: 12/07/2021 NORMAL MYOVIEW STUDY. LAST HEART CATH: 08/28/2020 [facility]. LVEDP 8. SEVERE ONE-VESSEL CORONARY ARTERY DISEASE WITH 100% OSTIAL INSTENT OCCLUSION OF THE RCA. THIS IS AN OLD FINDING NO NEW STENTS. LAST LDL: 04/13/22-HIGH, TG-467, TOTAL CHOL-247. LAST CNI: 12/07/2021 STABLE 1-39% STENOSIS OF THE BILATERAL ICAS. MILD IRREGULARITY OF THE CARDIAC CYCLE IS NOTED. EKG today shows sinus rhythm with PACs and abnormal R-wave progression., intermittent atrial pacing He has symptoms of dyspnea as well as chest pain. He is very pale today. He does not feel well. His labs from [facility] from yesterday were reviewed. His hemoglobin is 9.1 with hematocrit of 29. His platelets were 122. His creatinine was 1.12. His shortness of breath and chest pain are disproportionate to the degree of his anemia. This is not likely the cause. Would benefit from angiographic evaluation. -typical angina -worsening angina -new onset angina less than 2 months -known coronary disease -pending lipid profile -history of atrial fibrillation -Not on maximal medical therapy -class 4 angina Risks and benefits of left heart catheterization were discussed in full today. These include, but are not limited to, injury to blood vessels, fistula, pseudoaneurysm, stroke, distal embolization, myocardial infarction, infection and . Patient states understanding of risks and has agreed to proceed with angiographic evaluation. - Plan: -continue Plavix, and Coumadin -continue Protonix for GI protection -labs with Hematology-history of polycythemia and occasionally gets phlebotomy -no change in medications today -patient declined admission to the hospital -will proceed with left heart catheterization -hold Coumadin for cardiac catheterization Follow-up in 2-3 weeks - -Continue other current medications. -Continue aggressive risk factor modification. -Recommend LDL less than 70. -Encouraged regular exercise and activity. - This note was dictated using webtide software. If something is unclear, or does not make sense, please do not hesitate to contact our office at [phone] for clarification. Not available 07/21/2023 11:30:51 08/02/2023 08/02/2023 Patient Educatio n was printed, I have reviewed the Past Medical, Family, and Social Histories along with ROS and all orders in today's record, and have noted any changes. Medications, charts and records reviewed in full today. -vital signs stable, blood pressure and heart rate under good control -here to follow-up after cardiac catheterization -INR today is 2.0 -still has shortness of breath and fatigue likely secondary to anemia and iron deficiency -consider pulmonary evaluation if he continues to have shortness of breath LOWER EXTREMITY ANGIOGRAPHY: 01/2023 revealed normal abdominal aorta with fhyu-ut-qphgtydo luminal irregularities, normal solitary bilateral renal arteries, moderate diffuse peripheral vascular disease in the right leg with moderate calcification and three-vessel runoff to the foot. Moderate diffuse disease in the left leg with one focal area of moderate to severe stenosis in the distal left superficial femoral artery with two-vessel runoff to the foot. Medical management. LAST ECHO: June 2023 showed an ejection fraction of 60-65% with normal valves LAST ISCHEMIC EVAL: 12/07/2021 NORMAL MYOVIEW STUDY. LAST HEART CATH: July 2023 [facility]. SEVERE ONE-VESSEL CORONARY ARTERY DISEASE WITH 100% OSTIAL INSTENT OCCLUSION OF THE RCA. THIS IS AN OLD FINDING NO NEW STENTS. LAST LDL: 04/13/22-HIGH, TG-467, TOTAL CHOL-247. LAST CNI: 12/07/2021 STABLE 1-39% STENOSIS OF THE BILATERAL ICAS. MILD IRREGULARITY OF THE CARDIAC CYCLE IS NOTED. Plan: -continue Plavix, and Coumadin -continue Protonix for GI protection -labs with Hematology-history of polycythemia and occasionally gets phlebotomy -no change in medications today -continue hematology follow-up -no change in medications -continue INR checks with family doctor -follow-up 6 months - -Continue other current medications. -Continue aggressive risk factor modification. -Recommend LDL less than 70. -Encouraged regular exercise and activity. - This note was dictated using webtide software. If something is unclear, or does not make sense, please do not hesitate to contact our office at [phone] for clarification. Not available 08/03/2023 07:42:27 01/31/2024 01/31/2024 Patient Educatio n was printed, I have reviewed the Past Medical, Family, and Social Histories along with ROS and all orders in today's record, and have noted any changes. Medications, charts and records reviewed in full today. -vital signs stable, blood pressure and heart rate under good control (has been normal at home) -he is now off of Coumadin and on Eliquis now -still has shortness of breath and fatigue likely secondary to anemia and iron deficiency, he follows with hematology for myeloproliferative disorder -consider pulmonary evaluation if he continues to have shortness of breath LOWER EXTREMITY ANGIOGRAPHY: 01/2023 revealed normal abdominal aorta with kbeh-xw-mtfxkyhl luminal irregularities, normal solitary bilateral renal arteries, moderate diffuse peripheral vascular disease in the right leg with moderate calcification and three-vessel runoff to the foot. Moderate diffuse disease in the left leg with one focal area of moderate to severe stenosis in the distal left superficial femoral artery with two-vessel runoff to the foot. Medical management. LAST ECHO: June 2023 showed an ejection fraction of 60-65% with normal valves LAST ISCHEMIC EVAL: 12/07/2021 NORMAL MYOVIEW STUDY. LAST HEART CATH: July 2023 [facility]. SEVERE ONE-VESSEL CORONARY ARTERY DISEASE WITH 100% OSTIAL INSTENT OCCLUSION OF THE RCA. THIS IS AN OLD FINDING NO NEW STENTS. LAST LDL: 04/13/22-HIGH, TG-467, TOTAL CHOL-247. LAST CNI: 12/07/2021 STABLE 1-39% STENOSIS OF THE BILATERAL ICAS. MILD IRREGULARITY OF THE CARDIAC CYCLE IS NOTED. -EKG today shows intermittent atrial pacing with a rate of 71 with poor R-wave progression old inferior IN Plan: -continue Plavix, and Eliquis -no aspirin since he is on dual antithrombotic therapy -continue Protonix for GI protection -labs with Hematology-history of polycythemia/myelopr oliferative disorder -no change in medications today -continue hematology follow-up -monitor for bleeding on dual antithrombotic therapy -Continue other current medications. -Continue aggressive risk factor modification. -Recommend LDL less than 70. -Encouraged regular exercise and activity. -overall doing well, no change in medications Follow-up in 6 months - This note was dictated using webtide software. If something is unclear, or does not make sense, please do not hesitate to contact our office at [phone] for clarification. Not available 02/01/2024 08:59:59 07/11/2024 07/11/2024 doing very well. No issues. No chest pain pressure or tightness. Shortness of breath. EKG shows normal sinus with sinus arrhythmia with poor R-wave progression and low voltage. Chronic pulmonary pattern. No change from baseline. He is on Farxiga now. He takes Eliquis 5 mg twice daily and Plavix. He is done well. He feels well. We will see him back in 6 months. Meds and chart reviewed in full today EKG today shows sinus arrhythmia with poor R-wave progression and low voltage with a chronic pulmonary pattern with no ST or T-wave changes LOWER EXTREMITY ANGIOGRAPHY: 01/2023 revealed normal abdominal aorta with sutv-gv-qoreyqfj luminal irregularities, normal solitary bilateral renal arteries, moderate diffuse peripheral vascular disease in the right leg with moderate calcification and three-vessel runoff to the foot. Moderate diffuse disease in the left leg with one focal area of moderate to severe stenosis in the distal left superficial femoral artery with two-vessel runoff to the foot. Medical management. LAST ECHO: June 2023 showed an ejection fraction of 60-65% with normal valves LAST ISCHEMIC EVAL: 12/07/2021 NORMAL MYOVIEW STUDY. LAST HEART CATH: July 2023 [facility]. SEVERE ONE-VESSEL CORONARY ARTERY DISEASE WITH 100% OSTIAL INSTENT OCCLUSION OF THE RCA. THIS IS AN OLD FINDING NO NEW STENTS. LAST LDL: 04/13/22-HIGH, TG-467, TOTAL CHOL-247. LAST CNI: 12/07/2021 STABLE 1-39% STENOSIS OF THE BILATERAL ICAS. MILD IRREGULARITY OF THE CARDIAC CYCLE IS NOTED. Plan: -continue Plavix, and Eliquis -no aspirin since he is on dual antithrombotic therapy -continue Protonix for GI protection -labs with Hematology-history of polycythemia/myelopr oliferative disorder -no change in medications today -continue hematology follow-up -monitor for bleeding on dual antithrombotic therapy -Continue other current medications. -Continue aggressive risk factor modification. -Recommend LDL less than 70. -Encouraged regular exercise and activity. -overall doing well, no change in medications Follow-up in 6 months [email or web address] Not available 07/15/2024 12:21:58 Plan of Treatment Reminders Order Date Submit Date Provider Last Modified By Organization Details Last Modified Time Details Appointments OV EST 30 2024 11:00A M Andressa Greenberg MD Not available Not available Not available Lab PT/INR 2023 024 [email or web address] [facility], [address] [place] [address] [address], [place], [address], 08/03/2023 07:29:40 Referral None recorded. Procedures None recorded. Surgeries left heart catheteri zation (SURG) 2023 024 [email or web address] [id number] [facility] [address] [place] [address] Brenda Omer, [place], [address], 07/20/2023 15:02:43 [email or web address] [address] [place] [address] Dr Pimentel, [place], [address], 07/12/2024 15:51:29 electroca rdiogram [email or web address] [place] [address], [address] [place] [address] Dr Pimentel, [place], [address], 02/01/2024 08:59:37 electroca rdiogram 2023 024 [email or web address] [facility], [address] [place] [address] Dr Pimentel, [place], [address], 07/20/2023 14:33:14 electroca rdiogram [email or web address], [address] [place] [address] Dr Pimentel, [place], [address], 06/28/2023 13:56:16 US, echocardi ogram, transthor acic, complete, w/ color flow 2023 024 [email or web address] [facility]), [address] [place] [address] Brenda Omer, [place], [address], 07/12/2023 07:25:55 Medication Orders None recorded. Patient TargetsNo targets recorded. Patient InstructionsNo instructions recorded. Reason for Referral None Reported. Results Created Date Observation Date Name Description Value Unit Range Abnormal Flag Note LastModifiedBy Organization Detail LastModifiedTime 07/15/19 24 07/15/2023 CBC W/AUT O DIFFE RENTI AL note See Note Order ing Provi sven: [place] Sakina Shea ng CV/CVN CV TSC SYSTEM OPERATOR Not Available [address] Brenda Omer, [place], [address], 07/15/2023 10:09:11 07/15/19 24 07/15/2023 CBC W/AUT O DIFFE RENTI AL white blood cell 10.7 10e3/ uL 4.5-13 .0 normal Not Available [address] Brenda Omer, [place], [address], 07/15/2023 10:09:11 07/15/19 24 07/15/2023 CBC W/AUT O DIFFE RENTI AL red blood cell 3.55 10e6/ uL 4.10-5 .70 low Not Available [address] Brenda Omer, [place], [address], 07/15/2023 10:09:11 07/15/19 24 07/15/2023 CBC W/AUT O DIFFE RENTI AL hemoglobin 9.7 g/dL 12.0-1 6.9 low Not Available [address] Brenda Omer, [place], [address], 07/15/2023 10:09:11 07/15/19 24 07/15/2023 CBC W/AUT O DIFFE RENTI AL hematocrit 31.5 % 36.0-4 9.0 low Not Available [address] Brenda Omer, [place], [address], 07/15/2023 10:09:11 07/15/19 24 07/15/2023 CBC W/AUT O DIFFE RENTI AL mean cell volume 89 fL 78.0-9 8.0 normal Not Available [address] [place]enda Omer, [place], [address], 07/15/2023 10:09:11 07/15/19 24 07/15/2023 CBC W/AUT O DIFFE RENTI AL mean cell HGB 27.3 pg 25.0-3 5.0 normal Not Available [address] Brenda Omer, [place], [address], 07/15/2023 10:09:11 07/15/19 24 07/15/2023 CBC W/AUT O DIFFE RENTI AL mean cell HGB concentratio n 30.8 g/dL 31.0-3 6.0 low Not Available [address] Brenda Omer, [place], [address], 07/15/2023 10:09:11 07/15/19 24 07/15/2023 CBC W/AUT O DIFFE RENTI AL red cell distribution width 21.7 % 11.0-1 5.0 high Not Available [address] , [place], [address], 07/15/2023 10:09:11 07/15/19 24 07/15/2023 CBC W/AUT O DIFFE RENTI AL platelet count 121 10e3/ uL 150-40 0 low Not Available [address] , [place], [address], 07/15/2023 10:09:11 07/15/19 24 07/15/2023 CBC W/AUT O DIFFE RENTI AL immature granulocyte # 1.05 x1000 /uL 0-0.05 high Not Available [address] Brenda Omer, [place], [address], 07/15/2023 10:09:11 07/15/19 24 07/15/2023 CBC W/AUT O DIFFE RENTI AL neutrophil # 6.99 x1000 /uL 1.50-8 .00 normal Not Available [address] , [place], [address], 07/15/2023 10:09:11 07/15/19 24 07/15/2023 CBC W/AUT O DIFFE RENTI AL lymphocyte # 1.16 x1000 /uL 1.20-5 .20 low Not Available [address] , [place], [address], 07/15/2023 10:09:11 07/15/19 24 07/15/2023 CBC W/AUT O DIFFE RENTI AL monocyte # 1.16 x1000 /uL 0.30-0 .90 high Not Available [address] Brenda Omer, [place], [address], 07/15/2023 10:09:11 07/15/19 24 07/15/2023 CBC W/AUT O DIFFE RENTI AL eosinophil # 0.16 x1000 /uL 0.00-0 .50 normal Not Available [address] , [place], [address], 07/15/2023 10:09:11 07/15/19 24 07/15/2023 CBC W/AUT O DIFFE RENTI AL basophil # 0.21 x1000 /uL 0.00-0 .30 normal Not Available [address] Brenda Omer, [place], [address], 07/15/2023 10:09:11 07/15/19 24 07/15/2023 CBC W/AUT O DIFFE RENTI AL NRBC automated 12.5 /100_ WBC Not Available [address] , [place], [address], 07/15/2023 10:09:11 07/15/19 24 07/15/2023 CBC W/AUT O DIFFE RENTI AL segmented neutrophils 71 % 45-75 normal Not Available [address] Brenda Omre, [place], [address], 07/15/2023 10:09:11 07/15/19 24 07/15/2023 CBC W/AUT O DIFFE RENTI AL band neutrophil 3 % 0-10 normal Not Available [address] , [place], [address], 07/15/2023 10:09:11 07/15/19 24 07/15/2023 CBC W/AUT O DIFFE RENTI AL lymphocyte 12 % 10-50 normal Not Available [address] Brenda Omer, [place], [address], 07/15/2023 10:09:11 07/15/19 24 07/15/2023 CBC W/AUT O DIFFE RENTI AL atypical lymph 1 % 0-5 normal Not Available [address] , [place], [address], 07/15/2023 10:09:11 07/15/19 24 07/15/2023 CBC W/AUT O DIFFE RENTI AL monocyte 4 % 0-15 normal Not Available [address] Brenda Omer, [place], [address], 07/15/2023 10:09:11 07/15/19 24 07/15/2023 CBC W/AUT O DIFFE RENTI AL eosinophil 2 % 0-5 normal Not Available [address] Brenda Omer, [place], [address], 07/15/2023 10:09:11 07/15/19 24 07/15/2023 CBC W/AUT O DIFFE RENTI AL basophil 0 % 0-5 normal Not Available [address] Brenda Omer, [place], [address], 07/15/2023 10:09:11 07/15/19 24 07/15/2023 CBC W/AUT O DIFFE RENTI AL myelocyte 7 % 0-0 high Not Available [address] Brenda Omer, [place], [address], 07/15/2023 10:09:11 07/15/19 24 07/15/2023 CBC W/AUT O DIFFE RENTI AL nucleated red blood cell 9 /100_ WBC 0-0 high Not Available [address] , [place], [address], 07/15/2023 10:09:11 07/15/19 24 07/15/2023 CBC W/AUT O DIFFE RENTI AL morphology comment normal abnormal SLIGH T ANISO OVALO CYTES Not Available [address] , [place], [address], 07/15/2023 10:09:11 07/15/19 24 07/15/2023 CBC W/AUT O DIFFE RENTI AL platelet morphology DECREA SED IN NUMBER abnormal Not Available [address] , [place], [address], 07/15/2023 10:09:11 07/15/19 24 07/15/2023 CBC W/AUT O DIFFE RENTI AL performing lab see note ML - [facility] [address] [facility] [id number] - ML [facility] Not Available [address] , [place], [address], 07/15/2023 10:09:11 07/15/19 24 07/15/2023 COMP METAB OLIC PANEL note SEE NOTE Order ing Provi sven: Markos rangel CV/CVN CV TSC SYSTEM OPERATOR Not Available [address] , [place], [address], 07/15/2023 11:48:42 07/15/19 24 07/15/2023 COMP METAB OLIC PANEL sodium 140 mmol/ L 136-14 5 normal Not Available [address] , [place], [address], 07/15/2023 11:48:42 07/15/19 24 07/15/2023 COMP METAB OLIC PANEL potassium 4.0 mmol/ L 3.5-5. 1 normal Not Available [address] Brenda Omer, [place], [address], 07/15/2023 11:48:42 07/15/19 24 07/15/2023 COMP METAB OLIC PANEL chloride 101 mmol/ L 98-107 normal Not Available [address] Brenda Omer, [place], [address], 07/15/2023 11:48:42 07/15/19 24 07/15/2023 COMP METAB OLIC PANEL carbon dioxide 25 mmol/ L 24-33 normal Not Available [address] Brenda Omer, [place], [address], 07/15/2023 11:48:42 07/15/19 24 07/15/2023 COMP METAB OLIC PANEL anion gap 18.0 mmol/ L 10-20 normal Not Available [address] Brenda Omer, [place], [address], 07/15/2023 11:48:42 07/15/19 24 07/15/2023 COMP METAB OLIC PANEL glucose 82 mg/dL 70-99 normal Not Available [address] Brenda Omer, [place], [address], 07/15/2023 11:48:42 07/15/19 24 07/15/2023 COMP METAB OLIC PANEL blood urea nitrogen 11 mg/dL 7-18 normal Not Available [address] Brenda Omer, [place], [address], 07/15/2023 11:48:42 07/15/19 24 07/15/2023 COMP METAB OLIC PANEL creatinine 1.12 mg/dL 0.70-1 .30 normal Not Available [address] Bren[place] Omer, [place], [address], 07/15/2023 11:48:42 07/15/19 24 07/15/2023 COMP METAB OLIC PANEL GFR (estimated) 71 mL/mi n >60 normal [IM RUTH NT]: The 2020 CKD-E PI equat ion is now the recom anali d stand vu. This versi on does not inclu de race, as do the 2008 and 2011 CKD-E PI creat inine and creat inine -cyst atin C equat ions. Pleas e note that the eGFR now repor maximino is gener ated by the new 2020 CKD-E PI equat ion, which decre ases the eGFR for black s by up to 10% and incre ases the eGFR for non-b lacks by up to 10% in xuan rison to the old equat ion. To xuan re a legac y eGFR to a curre nt value , a 2008 CKD-E PI calcu lator is easil y searc hable on the inter net. Calcu lated GFR: This calcu lated GFR is advoc ated by the Natio nal Kidne y Found ation to be used as an indic ator of Chron ic Kidne y Disea se (CKD) . 5 Stage s of Chron ic Kidne y Disea se. Stage 1 90 mL/mi n or more Healt hy kidne ys or Kidne y damag e with phyllis l or high GFR detai ls Stage 2 60 to 89 mL/mi n Kidne y damag e and mild decre ase in GFR detai ls Stage 3 30 to 59 mL/mi n Moder ate decre ase in GFR detai ls Stage 4 15 to 29 mL/mi n Sever e decre ase in GFR detai ls Stage 5 Less than 15 mL/mi n On dialy sis or Kidne y failu re Patie nt's clini jacques statu s must be consi dered for the care of your patie nt. Not Available [address] [place], [place], [address], 07/15/2023 11:48:42 07/15/19 24 07/15/2023 COMP METAB OLIC PANEL BUN/creatini ne ratio 9 12-20 low Not Available [address] [place], [address], 07/15/2023 11:48:42 07/15/19 24 07/15/2023 COMP METAB OLIC PANEL total protein 7.5 g/dL 6.4-8. 2 normal Not Available [address] , [place], [address], 07/15/2023 11:48:42 07/15/19 24 07/15/2023 COMP METAB OLIC PANEL albumin 3.8 g/dL 3.4-5. 0 normal Not Available [address] , [place], [address], 07/15/2023 11:48:42 07/15/19 24 07/15/2023 COMP METAB OLIC PANEL globulin 3.7 g/dL 1.5-4. 0 normal Not Available [address] , [place], [address], 07/15/2023 11:48:42 07/15/19 24 07/15/2023 COMP METAB OLIC PANEL albumin/glob ulin ratio 1.0 0.5-2. 0 normal Not Available [address] Brenda Omer, [place], [address], 07/15/2023 11:48:42 07/15/19 24 07/15/2023 COMP METAB OLIC PANEL calcium 8.6 mg/dL 8.5-10 .1 normal Not Available [address] , [place], [address], 07/15/2023 11:48:42 07/15/19 24 07/15/2023 COMP METAB OLIC PANEL osmolality serum calculated 276 mOsm/ kg 272-28 8 normal Not Available [address] [place], [address], 07/15/2023 11:48:42 07/15/19 24 07/15/2023 COMP METAB OLIC PANEL bilirubin total 0.8 mg/dL 0.2-1. 0 normal Use of this assay is not recom anali d for patie nts under going treat ment with Eltro mbopa g due to the poten tial for false ly eleva maximino resul ts. Not Available [address] , [place], [address], 07/15/2023 11:48:42 07/15/19 24 07/15/2023 COMP METAB OLIC PANEL SGOT/AST 24 U/L 15-37 normal Not Available [address] , [place], [address], 07/15/2023 11:48:42 07/15/19 24 07/15/2023 COMP METAB OLIC PANEL SGPT/ALT 25 U/L 16-63 normal Not Available [address] , [place], [address], 07/15/2023 11:48:42 07/15/19 24 07/15/2023 COMP METAB OLIC PANEL alkaline phosphatase total 109 U/L 46-116 normal Not Available [address] , [place], [address], 07/15/2023 11:48:42 07/15/19 24 07/15/2023 COMP METAB OLIC PANEL performing lab SEE NOTE - [facility] [facility] R [address] [facility] [id number] Not Available [address] [place], [address], 07/15/2023 11:48:42 07/15/19 24 07/15/2023 LIPID PANEL note SEE NOTE Order ing Provi sven: Markos rangel CV/CVN CV TSC SYSTEM OPERATOR Not Available [address] [place], [address], 07/15/2023 11:48:43 07/15/19 24 07/15/2023 LIPID PANEL triglyceride s 249 mg/dL < 150 high Natio nal Connie stero l Educa tion Progr am (NCEP ) Guide lines : Phyllis l < 150 mg/dL Borde rline 150 - 199 mg/dL High 200 - 499 mg/dL Very High >or= 500 mg/dL Not Available [address] [place], [address], 07/15/2023 11:48:43 07/15/19 24 07/15/2023 LIPID PANEL cholesterol 201 mg/dL < 200 high Natio nal Connie stero l Educa tion Progr am (NCEP ) Guide lines : Maira able < 200 mg/dL Borde rline Risk 200 - 239 mg/dL High Risk >or= 240 mg/dL Not Available [address] [place], [address], 07/15/2023 11:48:43 07/15/19 24 07/15/2023 LIPID PANEL HDL cholesterol 32 mg/dL > 60 low Natio nal Connie stero l Educa tion Progr am Adult Treat ment Panel III (NCEP -ATP III) Guide lines : < 40 mg/dl : Low HDL-C holes terol >or= 60 mg/dl : High HDL-C holes terol Not Available [address] [place], [address], 07/15/2023 11:48:43 07/15/19 24 07/15/2023 LIPID PANEL LDL cholesterol 119 mg/dL < 100 high Natio nal Connie stero l Educa tion Progr am (NCEP ) Guide lines : Optim al < 100 mg/dL Near/ Above Optim al 100 - 129 mg/dL Borde rline High 130 - 159 mg/dL High 160 - 189 mg/dL Very High >or= 190 mg/dL Not Available [address] [place], [address], 07/15/2023 11:48:43 07/15/19 24 07/15/2023 LIPID PANEL performing lab SEE NOTE - [facility] [address] [facility] [id number] Not Available [address] , [place], [address], 07/15/2023 11:48:43 08/02/19 24 08/02/2023 PT/IN R Prothrombin 2.0 Not Available [address], [place], [address], 08/02/2023 14:14:24 06/28/19 elect rocar diogr am No observ ation record ed. HORACIO [address] [place], [place], [address], 06/28/2023 13:38:30 06/28/19 24 06/28/2023 elect rocar diogr am No observ ation record ed. [email or web address] Not Available 2023 14:51:31 07/04/19 24 07/04/2023 elect rocar diogr am No observ ation record ed. [email or web address] Not Available 2023 16:06:37 07/20/19 24 07/20/2023 elect rocar diogr am No observ ation record ed. HORACIO [address] [place], [place], [address], 07/20/2023 14:33:14 07/20/19 24 07/20/2023 elect rocar diogr am No observ ation record ed. [email or web address] [address], [place], [address], 07/21/2023 11:25:20 07/22/19 24 07/22/2023 - ECHO w/spe c/col or flow [facility] Med[facility] l Name: CARIN BUTT GENE [address] [email or web address] Phys: Dionicio YE, [place] [address] : 1955 Age: 68 Sex: M Acct: [id number] Loc: ELI PHONE #: Exam Date: 2023 Status : DEP CLI FAX #: [phone] Rad# [id number] Unit# [id number] Admit Date: 2023 EXAMS: CPT CODE: [id number] ECHO W/SPEC /COLOR FLOW [id number] Reason for study: Dyspne a Left ventri cular diasto le: 5.7 Left ventri cular systol e: 4.3 Septal wall thickn ess: 1.0 Boat Hop ior wall thickn ess: 1.6 Right ventri cular diasto le: 0.9 Left Atrium : 4.0 Aortic root: 3.8 TR veloci ty: Less than 2.0 m/s Impres fady: 1. Mild left ventri cular chambe r dilata tion with normal left ventri cular systol ic functi on. Estima maximino ejecti on fracti on is 65-70% . There is mild to modera te concen tric hypert rophy of the left ventri nicki. There is Dopple r eviden ce for impair ed relaxa tion of the left ventri nicki 2. No segmen sun wall motion abnorm alitie s 3. Normal left atrial and right atrial size 4. Normal right ventri cular size and functi on 5. Normal mitral valve, with no mitral insuff icienc y 6. Normal aortic valve with no aortic insuff icienc y 7. No perica rdial effusi on 8. Mild aortic root dilata tion measur ing 3.8 cm 9. Normal tricus pid valve with tricus pid regurg itant jet veloci ty less than 2.0 m/s implyi ng normal right ventri cular systol ic pressu re Electr onical ly Signed by ANDRESSA GREENBERG MD on 2023 at 1640 Report ed and signed by: ANDRESSA GREENBERG MD PAGE 1 Signed Report (MAC NUED) [facility] Ce Name: LITTLE TON,LA RRY GENE [address] [email or web address] Phys: Dionicio YE, [place] [address] : 1955 Age: 68 Sex: M Acct: [id number] Loc: ELI PHONE #: [phone] Exam Date: 2023 Status : DEP CLI FAX #: [phone] Rad# [id number] Unit# [id number] Admit Date: 2023 EXAMS: CPT CODE: [id number] 300 ECHO W/SPEC /COLOR FLOW [id number] CC: Markos jerome APRN; Andressa Greenberg MD; Etienne Evans MD Dictat ed Date/T marques: 2023 (1639) Techno logist : PAULET TA W ALEENA Transc ribed Date/T marques: 2023 (1639) Transc riptio nist: DR.LOH HANSA Wood onic Signat ure Date/T marques: 2023 (1639) Printe d Date/T marques: 2023 (1642) BATCH NO: N/A PAGE 2 Signed Report CC'ed Logic: Orderi ng Provid er: DIONICIO CRISOSTOMO Attend ing Provid er: MARK BURROWS Referr ing Provid er: MARK BURROWS Consul ting Provid er: ROSA SORIA [email or web address] [address] , [place], [address], 08/03/2023 07:39:01 08/02/19 24 08/02/2023 elect rocar diogr am No observ ation record ed. [email or web address] Not Available 2023 07:38:58 01/31/20 elect rocar diogr am No observ ation record ed. HORACIO Barnard [address], [place], [address], 01/31/2024 13:57:12 01/31/20 24 01/31/2024 elect rocar diogr am No observ ation record ed. [email or web address] Not Available 2023 08:57:04 04/03/20 24 04/03/2024 elect rocar diogr am No observ ation record ed. [email or web address] Not Available 2023 11:25:31 07/11/19 25 07/11/2024 elect rocar diogr am No observ ation record ed. HORACIO Mv [address], [place], [address], 07/11/2024 14:26:03 07/11/19 25 07/11/2024 elect rocar diogr am No observ ation record ed. [email or web address] Not Available 2024 11:28:45 Result Notes None recorded. Problems Name Problem SNOMED Code Status Onset Date Resolution Date Notes Provider Name and Address Organization Details Recorded Time Atypical chest pain 900578901 Active Aurelia Augusto n [place] 4 07:40:56 Chest pain 24666330 Active Aurelia Williamso n null[place] & [place] 4 07:40:56 Pseudoaneur ysm 672427850 Active Aurelia Williamso n [place] & [place] 4 07:40:56 History of cardiac catheteriza tion 1970961590881 0 Active Aurelia Williamso n [place] 4 07:40:56 Peripheral arterial disease 116561510 Active Aurelia Williamso n null, [place] [facility] & [place] 4 07:40:56 Atrial fibrillatio n 61179684 Active 2021 MADELIN LOYD NP, S [facility] [employer] [address], [place], [address], [place] 2 11:45:05 Coronary arterioscle rosis 45991090 Active 2021 MADELIN LOYD NP, S [address] [employer] [facility],[address], [place], [address], [place] & [place] 2 11:45:13 Essential hypertensio n 27708053 Active 2021 MADELIN LOYD NP, [facility] [employer] [facility],[address], [place], [address], [place] - [facility] - [facility] & [place] 2 11:45:38 Hyperlipide ziyad 46134329 Active 2021 MADELIN LOYD NP, [facility] [employer] [facility],[address], [place], [address], [place] & [place] 2 11:45:45 Intermitten t claudicatio n 12437540 Active 2021 Markos Rodriguez NP [facility] [employer] [facility],[address], [place], [address], [place] - [facility] - [facility] & [place] 2 08:30:26 Atheroscler osis of arteries of the extremities 94651977 Active 2021 Markos Rodriguez NP [facility] [employer] [facility],[address], [place], [address], [place] [facility] - [facility] & [place] 2 12:34:25 Hyperglycem ia 41624359 Active 2021 Markos Rodriguez NP [facility] [employer] [facility],[address], [place], [address], [place] & [place] 2 10:45:14 Tobacco dependence syndrome 81586178 Active 2022 Markos Rodriguez NP [facility] [employer] [facility],[address], [place], [address], [place] & [place] 3 10:06:01 Carotid artery stenosis 46183114 Active 2022 Markos Rodriguez NP [facility] [employer] [facility],[address], [place], [address], [place] & [place] 3 10:06:01 Peripheral arterial occlusive disease 896178029 Active 2022 Markos Rodriguez NP [address] [place] [address],[address], [place], [address], [place] 3 10:17:20 Aortic valve regurgitati on 80941025 Active 2022 Markos Rodriguez NP [address] [place] [address],[address], [place], [address], [place] 3 15:09:13 Dyspnea 327148300 Active 2023 Markos Rodriguez NP [address] [place] [address],[address], [place], [address], [place] 4 13:55:55 Angina pectoris 055633018 Active 2023 Markos Rodriguez NP [address] [place] [address],[address], [place], [address], [place] 4 14:32:49 Problem Notes None recorded. Procedures Surgical History Date Name Laterality Status Provider Name and Address Organization Details Recorded Time 024 LEFT HEART CATHETERIZATION (SURG) completed Markos Rodriguez NP [address] [place] [address],[address], [place], [address], [place] 08/03/2023 07:38:59 023 Other completed Diane Alba [place] 12/29/2022 08:59:19 023 Appendectomy completed Alise Long [place] 04/14/2023 15:04:45 022 angiography of bilateral lower extremity arteries completed Not Available [facility] 05/24/19 13:40:12 018 angiography of bilateral lower extremity arteries completed Not Available [facility] 05/24/19 13:40:12 016 cardiac catheterization completed Not Available [facility] 05/24/2022 13:40:12 015 cardiac catheterization completed Not Available [facility] 05/24/2022 13:40:12 006 cardiac catheterization completed Not Available [facility] 05/24/2022 13:40:12 005 ENT Surgery completed Diane CHAUDHARI - [facility] & [place] 12/29/2022 08:59:19 005 Other completed Diane CHAUDHARI - LPNT [facility] & [place] 12/29/2022 08:59:19 003 cardiac catheterization completed Not Available [facility] 05/24/2022 13:40:12 003 cardiac catheterization completed Not Available [facility] 05/24/2022 13:40:12 003 amputation of left lesser toe completed Not Available [facility] 05/24/2022 13:40:12 amputation of toe [facility] [place] 06/30/2022 08:21:31 amputation completed Alise CHAUDHARI - LP NT [facility] & [place] 04/14/2023 15:08:16 Imaging Results None recorded. Procedure Notes None recorded. Medical Equipment None Reported. Allergies Allergen ID Allergen Name Allergen Category Reaction Reaction Severity Criticality Documentation Date Start Date Code Code System Note Provider Name and Address Organization Details Recorded Time 935309 Dilaudid medicatio n Not available Not available Not available 04/14/2023 51183 3 RxNorm Alise verma [facility] & [place] 15:05:01 Medications Name Sig Start Date Stop Date Status Note LastModified by Organization Details LastModified Time hydrocortis one 5 mg tablet TAKE 3 TABLET (5 MG) BY ORAL ROUTE IN THE AM then 2 ( 5 MG ) TABLETS AT LUNCH active Not Available Not Available No t Available amoxicillin 500 mg capsule 12/29 completed Not Available Not Available Not Available cilostazol 100 mg tablet 06/28 completed Not Available Not Available Not Available anastrozole 1 mg tablet 1 tablet every day by oral route. 12/28 completed Not Available Not Available Not Available hydroxyurea 500 mg capsule 01/30 completed Not Available Not Available Not Available ketoconazol e 2 % shampoo active Not Available Not Available Not Available clindamycin HCl 300 mg capsule TAKE ONE (1) CAPSULE BY MOUTH THREE (3) TIMES DAILY FOR 7 DAYS. 01/30 completed Not Available Not Available Not Available hydrocodone 5 mg-acetamin ophen 325 mg tablet 12/29 completed Not Available Not Available Not Available warfarin 7.5 mg tablet TAKE 1 TABLET EVERY DAY 08/22 completed Not Available Not Available Not Available testosteron e cypionate 100 mg/mL intramuscul ar oil Inject 0.5 mL every 4 weeks by intramusc ular route. 12/29 completed Not Available Not Available Not Available fluorouraci l 5 % topical cream 02/01 completed Not Available Not Available Not Available atenolol 25 mg tablet TAKE 1 TABLET EVERY DAY 2024 active Not Available Not Available Not Avai lable clindamycin HCl 150 mg capsule 04/13 completed Not Available Not Available Not Available penicillin V potassium 500 mg tablet 12/29 completed Not Available Not Available Not Available metronidazo le 500 mg tablet 06/30 completed Not Available Not Available Not Available clopidogrel 75 mg tablet TAKE 1 TABLET EVERY DAY active Not Available Not Available No t Available ciprofloxac in 500 mg tablet 04/13 completed Not Available Not Available Not Available sulfamethox azole 800 mg-trimetho prim 160 mg tablet TAKE ONE (1) TABLET BY MOUTH TWICE DAILY active Not Available Not Available No t Available acetaminoph en 500 mg tablet Take 2 tablets every 8 hours by oral route. 01/30 completed Not Available Not Available Not Available simvastatin 40 mg tablet 12/29 completed Not Available Not Available Not Available oxycodone-a cetaminophe n 5 mg-325 mg tablet 04/14 completed Not Available Not Available Not Available BD Luer-Marc Syringe 3 mL 23 gauge x 1 05/17 active Not Available Not Available Not Available tamsulosin 0.4 mg capsule TAKE ONE (1) CAPSULE (0.4 MG) ORALLY DAILY active Not Available Not Available No t Available gabapentin 800 mg tablet 2 tabs in the AM, 1 tab at lunch and 2 tabs in the PM active Not Available Not Available No t Available dicyclomine 20 mg tablet 06/30 completed Not Available Not Available Not Available Kenalog 10 mg/mL suspension for injection Take 2 mg by injection route. 02/01 completed Not Available Not Available Not Available baclofen 10 mg tablet 04/13 completed Not Available Not Available Not Available doxycycline monohydrate 100 mg capsule Take 1 capsule twice a day by oral route for 10 days. 07/19 completed Not Available Not Available Not Available hydrocodone 7.5 mg-acetamin ophen 325 mg tablet TAKE 1 TABLET BY MOUTH EVERY 8 HOURS NEEDED FOR PAIN FOR SEVERE PAIN ASSOCIATE D WITH SURGERY 12/29 completed Not Available Not Available Not Available cephalexin 500 mg capsule 04/14 completed Not Available Not Available Not Available pantoprazol e 40 mg tablet,curt yed release Take 1 tablet twice a day by oral route. active Not Available Not Available No t Available oseltamivir 75 mg capsule 06/28 completed Not Available Not Available Not Available levothyroxi ne 125 mcg tablet TAKE ONE (1) TABLET BY MOUTH DAILY active Not Available Not Available No t Available diphenhydra mine 25 mg tablet Take 2 tablets every day by oral route at bedtime. 01/30 completed Not Available Not Available Not Available warfarin 5 mg tablet May change weekly, depending on Inr Results 07/19 completed Not Available Not Available Not Available levothyroxi ne 150 mcg tablet Take 1 tablet every day by oral route. 12/29 completed Not Available Not Available Not Available gabapentin 300 mg capsule TAKE TWO (2) CAPSULES BY MOUTH TWO (2) TIMES DAILY. active Not Available Not Available No t Available hydroxyzine HCl 25 mg tablet Take 2 tablets every day by oral route at bedtime for 90 days. 07/19 completed Not Available Not Available Not Available mupirocin 2 % topical ointment 02/15 completed Not Available Not Available Not Available Vitamin-B Complex tablet active Not Available Not Available Not Available testosteron e cypionate 200 mg/mL intramuscul ar oil 1 inj weekly active Not Available Not Available No t Available oxycodone-a cetaminophe n 7.5 mg-325 mg tablet Take 1 tablet every 4-6 hours by oral route as needed. 07/19 completed Not Available Not Available Not Available albuterol sulfate HFA 90 mcg/actuati on aerosol inhaler 01/30 completed Not Available Not Available Not Available ketoconazol e 2 % topical cream active Not Available Not Available Not Available clobetasol 0.05 % scalp solution 02/15 completed Not Available Not Available Not Available amoxicillin 875 mg-potassiu m clavulanate 125 mg tablet TAKE ONE (1) TABLET BY MOUTH EVERY 12 HOURS FOR 10 DOSES. active Not Available Not Available No t Available amoxicillin 500 mg-potassiu m clavulanate 125 mg tablet TAKE ONE (1) TABLET BY MOUTH TWO (2) TIMES DAILY FOR 7 DAYS. 01/30 completed Not Available Not Available Not Available oxycodone 5 mg tablet TAKE ONE (1) TO TWO (2) TABLETS BY MOUTH EVERY FOUR (4) HOURS NEEDED FOR CHRONIC PAIN. active Not Available Not Available No t Available modafinil 100 mg tablet Take 2 tablets every day by oral route. 02/15 completed Not Available Not Available Not Available hydroxyzine pamoate 25 mg capsule 04/13 completed Not Available Not Available Not Available enoxaparin 40 mg/0.4 mL subcutaneou s syringe as directed by treating physician 04/14 completed Not Available Not Available Not Available cyclobenzap rine 5 mg tablet 04/14 completed Not Available Not Available Not Available Tylenol PM Extra Strength 25 mg-500 mg tablet 06/28 completed Not Available Not Available Not Available bupivacaine (PF) 0.25 % (2.5 mg/mL) injection solution Take 2 mg by injection route. 02/01 completed Not Available Not Available Not Available Spiriva with HandiHaler 18 mcg and inhalation capsules Inhale 1 capsule every day by inhalatio n route for 30 days. 01/30 completed Not Available Not Available Not Available duloxetine 60 mg capsule,del ayed release Take 1 capsule twice a day by oral route as directed. active Not Available Not Available No t Available jerome mota 07/19 completed Not Available Not Available Not Available Symbicort 160 mcg-4.5 mcg/actuati on HFA aerosol inhaler Inhale 2 puffs twice a day by inhalatio n route for 30 days. 01/30 completed Not Available Not Available Not Available Jakafi 5 mg tablet active Not Available Not Available Not Available Jakafi 10 mg tablet active Not Available Not Available No t Available Vascepa 1 gram capsule 12/29 completed Not Available Not Available Not Available Eliquis 5 mg tablet TAKE 1 TABLET TWICE DAILY 2024 active Not Available Not Available Not Avai lable Farxiga 10 mg tablet active Not Available Not Available No t Available dabigatran etexilate 110 mg capsule Take 1 capsule twice a day by oral route for 90 days. active Not Available Not Available No t Available Fish Oil 1,000 mg (120 mg-180 mg) capsule Take by oral route. 01/30 completed Not Available Not Available Not Available turmeric active Not Available Not Avai lable Not Available Trelegy Ellipta 200 mcg-62.5 mcg-25 mcg powder for inhalation active Not Available Not Available N ot Available Vitals Date Recorded Body height Body mass index (BMI) Body weight Oxygen saturation Oxygen saturation in Arterial blood by Pulse oximetry Heart rate Systolic And Diastolic Systolic And Diastolic Provider Name and Address Organization Details Last Updated DateTime 4 187.96 cm 32.4 kg/m2 512400. 28 g 96 % 96 % 69 /min 110/80 mm[Hg] 126/78 mm[Hg] Aurelia jim [place] - [place] [facility] & [place] 4 13:44:51 Date Recorded Body height Body mass index (BMI) Body weight Oxygen saturation Oxygen saturation in Arterial blood by Pulse oximetry Heart rate Systolic And Diastolic Provider Name and Address Organization Details Last Updated DateTime 5 187.96 cm 30.5 kg/m2 993622. 11 g 97 % 97 % 62 /min 120/68 mm[Hg] Saritha Patrick [place] - [facility] [facility] & [place] 5 10:29:32 Date Recorded Body height Provider Name an d Address Organization Details Last Updated DateTime 07/20/2023 187.96 cm Aurelia Carpio [place] - [facility] & [place] 07/20/2023 13:55:10 Date Recorded Body height Body mass index (BMI) Body weight Oxygen saturation Oxygen saturation in Arterial blood by Pulse oximetry Heart rate Systolic And Diastolic Systolic And Diastolic Provider Name and Address Organization Details Last Updated DateTime 4 187.96 cm 32.7 kg/m2 417468. 05 g 95 % 95 % 80 /min 134/76 mm[Hg] 132/70 mm[Hg] Aurelia Kochanna jim FARA [facility] & [place] 14:05:04 Date Recorded Body height Provider Name an d Address Organization Details Last Updated DateTime 01/31/2024 187.96 cm El Roberson [facility] & [place] 01/31/2024 13:41:47 Social History Question Answer Notes LastModified by Organizat ion Details LastModified Time Tobacco Smoking Status Former Smoker FARA [facility] & [place] 12/29/2022 08:59:12 Do You Have An Advance Directive? No [email or web address] Information not available 06/28/2023 Are You Blind Or Do You Have Difficulty Seeing? No [email or web address] Information not available 06/28/2023 When Did You Quit Smoking? 16+yearssinc elastcigaret te [email or web address] Information not available 06/28/2023 What Was The Date Of Your Most Recent Tobacco Screening? 12/28/2022 Information not available 12/29/2022 Are You Passively Exposed To Smoke? Yes [email or web address] Information not available 06/28/2023 How Much Tobacco Do You Smoke? 1 PPD Information not available 12/29/2022 How Many Years Have You Smoked Tobacco? 20 Information not available 12/29/2022 Sex: Male Functional Status Question Answer Note LastModified by Organizat ion Details LastModified Time Do you use any illicit or recreational drugs? No [email or web address] Information not available 06/30/2022 What is your level of alcohol consumption? Occasional Information not available 07/29/2022 Do you or have you ever used smokeless tobacco? Never used smokeless tobacco Information not available 07/29/2022 What is your exercise level? None Information not available 12/29/2022 Mental Status Question Answer Note LastModified by Organization D etails LastModified Time Do you feel stressed (tense, restless, nervous, or anxious, or unable to sleep at night)? [id number] [email or web address] Information not available 06/28/2023 Family History Relationship Description Onset Age of this Age Resolved Age Notes LastModified by Organization Details LastModified Time Mother Mother [email or web address] [email or web address] Not available 2023 13:17:33 Mother Disorder of endocrine system pt. added direct ly (07/25) [email or web address] Not available 07/25/2022 13:47:23 Mother Heart disease pt. added direct ly (07/25) [email or web address] Not available 07/25/2022 13:47:39 Mother Gastroesopha geal reflux disease pt. added direct ly (07/25) [email or web address] Not available 07/25/2022 13:49:48 Father Father marco [email or web address] Not available 2023 13:17:33 Father Heart disease pt. added direct ly (07/25) [email or web address] Not available 07/25/2022 13:47:39 Father Hearing loss pt. added direct ly (07/25) [email or web address] Not available 07/25/2022 13:48:11 Father Gastroesopha geal reflux disease pt. added direct ly (07/25) [email or web address] Not available 07/25/2022 13:49:48 Brother Heart disease pt. added direct ly (07/25) [email or web address] Not available 07/25/2022 13:48:00 Brother Gastroesopha geal reflux disease pt. added direct ly (07/25) [email or web address] Not available 07/25/2022 13:49:48 Daughter Heart disease pt. added direct ly (07/25) [email or web address] Not available 07/25/2022 13:48:00 Daughter Gastroesopha geal reflux disease pt. added direct ly (07/25) [email or web address] Not available 07/25/2022 13:49:48 Sister Gastroesopha geal reflux disease pt. added direct ly (07/25) [email or web address] Not available 07/25/2022 13:49:48 Son Gastroesopha geal reflux disease pt. added direct ly (07/25) [email or web address] Not available 07/25/2022 13:49:48 Maternal Grandmother Gastroesopha geal reflux disease pt. added direct ly (07/25) API-13 Not available 07/25/2022 13:49:48 Maternal Grandfather Gastroesopha geal reflux disease pt. added direct ly (07/25) API-13 Not available 07/25/2022 13:49:48 Paternal Grandmother Gastroesopha geal reflux disease pt. added direct ly (07/25) API-13 Not available 07/25/2022 13:49:48 Medical History Condition Response Coronary Artery Disease Y Other Y Atrial Fibrillation Y Thyroid Disease Y Congenital Heart Disease N COPD N Depression N Peripheral Arterial Disease N Pacemaker Y TIA N Genitourinary Disease N Gastrointestinal Disease N Deep Vein Thrombosis N Obstructive Sleep Apnea Y Vision or Eye Problems Y Blood Clot N Cancer Y Stroke N Carotid Disease Y Shortness of Breath Y Aortic Aneurysm N High Cholesterol Y Neurologic Disorder N Liver Disease N Valvular Abnormalities N Arrhythmia Y Kidney Disease N Thyroid Problems Y Anemia N Diabetes N Cardiomyopathy N Poor Exercise Tolerance Y Myocardial Infarction N Congestive Heart Failure (CHF) N Valvular Heart Disease N Hyperlipidemia Y Asthma N Atrial Flutter N Peripheral Vascular Disease Y Reflux/GERD Y Sleep Apnea N Sleep Disorder Y GERD/Reflux Y Warfarin Management Y Heart Disease Y Hypertension Y Hematologic Disease N Immunizations Vaccine Type Date Status Note Provider Nam e and Address Organization Details Recorded Time COVID-19, mRNA, LNP-S, PF, 100 mcg/0.5mL dose or 50 mcg/0.25mL dose 1 completed Not Available [facility] 02/08/2023 15:29:39 COVID-19, mRNA, LNP-S, PF, 100 mcg/0.5mL dose or 50 mcg/0.25mL dose 1 completed Not Available [facility] 02/08/2023 15:29:39 pneumococcal polysaccharide PPV23 8 completed Not Available [facility] 02/08/2023 15:29:39 Td (adult), 2 Lf tetanus toxoid, preservative free, adsorbed 7 completed Not Available [facility] 02/08/2023 15:29:39 Past Encounters Encounter ID Performer Location Encounter Start Date Encounter Closed Date Diagnosis/Indication Diagnosis SNOMED-CT Code Diagnosis ICD10 Code Diagnosis Note [id number] MADELIN LOYD NP, S [address] [place] [address] 6 02/05/2022 11:04:46 02/05/2022 11:23:31 Atrial fibrillation 04696118 I48.91 INR today: 2.1.Previo us INR: 2.8 In December of 2021.Curre nt dose of warfarin 7.5 mg once daily.Goal INR is 2.5.Range for INR is 2 to 3..Continu e current warfarin dose.Patie nt denies needing refills.No side effects of therapy. Coronary arteriosclerosis 77409642 I25.10 Essential hypertension 59377027 I10 Hyperlipidemia 51037704 E78.5 Carotid ar boaz stenosis 01795489 I65.29 Long-term current use of anticoagulant 121544389 Z79.01 Tobacco de pendence syndrome 79921380 F17.200 [id number] Andressa Greenberg MD [address] [place] [address] 6 03/08/2022 11:07:43 03/08/2022 11:46:24 Intermittent claudication 55567779 I73.9 Atrial fibrillation 4943 6004 I48.91 Coronary arteriosclerosis 31738647 I25.10 Essential hypertension 93793616 I10 Hyperlipidemia 14788695 E78.5 Carotid ar boaz stenosis 43156102 I65.29 Long-term current use of anticoagulant 520867194 Z79.01 Tobacco de pendence syndrome 68205331 F17.200 [id number] Markos Rodriguez NP [address] [place] [address] 6 04/13/2022 13:59:46 04/13/2022 14:38:10 Intermittent claudication 34941584 I73.9 Atrial fibrillation 4943 6004 I48.91 Coronary arteriosclerosis 55304790 I25.10 Essential hypertension 37053771 I10 Hyperlipidemia 42774002 E78.5 Carotid ar boaz stenosis 34735273 I65.29 Long-term current use of anticoagulant 685945426 Z79.01 Tobacco de pendence syndrome 24118419 F17.200 Atheroscle rosis of arteries of the extremities 02510543 I70.209 [id number] Makros Rodriguez NP [address] [place] [address] 6 04/27/2022 09:24:31 04/27/2022 09:25:08 Atrial fibrillation 18746610 I48.91 Coronary arteriosclerosis 90291367 I25.10 Essential hypertension 61764297 I10 Hyperlipidemia 12288970 E78.5 Carotid ar boaz stenosis 23145236 I65.29 Long-term current use of anticoagulant 892230351 Z79.01 Tobacco de pendence syndrome 83595169 F17.200 Atheroscle rosis of arteries of the extremities 71102901 I70.209 Hyperglycemia 63012477 R 73.9 [id number] Andressa Greenberg MD [address] [place] [address] 6 05/25/2022 14:39:28 05/25/2022 15:02:10 Long-term current use of anticoagulant 068646106 Z79.01 Atrial fibrillation 4943 6004 I48.91 Coronary arteriosclerosis 19992989 I25.10 Essential hypertension 30727736 I10 Hyperlipidemia 91176125 E78.5 Carotid ar boaz stenosis 26949710 I65.29 Tobacco de pendence syndrome 59071363 F17.200 Atheroscle rosis of arteries of the extremities 14703741 I70.209 Hyperglycemia 93339564 R 73.9 will still need 2 hour glucose test and hemoglobin A1c at follow-up if this has not been done [id number] Markos Rodriguez NP [address] [place] [address] 6 06/30/2022 08:00:49 06/30/2022 08:19:19 Atrial fibrillation 61370379 I48.91 [id number] Andressa Greenberg MD [address] [place] [phone] 6 07/14/2022 08:44:37 07/14/2022 08:54:47 Atrial fibrillation 41526714 I48.91 [id number] Andressa Greenberg MD [address] [place] [address] 6 07/29/2022 13:33:02 07/29/2022 14:07:05 Long-term current use of anticoagulant 593261389 Z79.01 Atrial fibrillation 4943 6004 I48.91 Coronary arteriosclerosis 88600918 I25.10 Essential hypertension 85776187 I10 Hyperlipidemia 23145410 E78.5 Carotid ar boaz stenosis 64390592 I65.29 Tobacco de pendence syndrome 22899194 F17.200 Atheroscle rosis of arteries of the extremities 98409242 I70.209 Hyperglycemia 89411261 R 73.9 will still need 2 hour glucose test and hemoglobin A1c at follow-up if this has not been done [id number] Andressa Greenberg MD [address] [place] [address] 08/26/2022 13:32:07 08/26/2022 14:40:22 Atrial fibrillation 36434128 I48.91 Long-term current use of anticoagulant 387254710 Z79.01 Coronary arteriosclerosis 13011554 I25.10 Essential hypertension 27786677 I10 Hyperlipidemia 32467199 E78.5 Carotid ar boaz stenosis 65774644 I65.29 Tobacco de pendence syndrome 30719929 F17.200 Atheroscle rosis of arteries of the extremities 22665875 I70.209 Hyperglycemia 62469953 R 73.9 will still need 2 hour glucose test and hemoglobin A1c at follow-up if this has not been done [id number] Andressa Greenberg MD [address] [address] 09/15/2022 08:34:36 09/15/2022 09:02:47 Atrial fibrillation 10324560 I48.91 Atheroscle rosis of arteries of the extremities 35804021 I70.209 Coronary arteriosclerosis 28612289 I25.10 Essential hypertension 35118808 I10 Hyperlipidemia 46204639 E78.5 [id number] CHAU GILL NP [facility] [address] [place] [address] 12/29/2022 08:34:01 12/29/2022 09:41:25 Osteoarthritis of right hip joint 6908881596 54086 M16.11 Lumbar radiculitis 29445 48440 0225216 M54.16 Trochanter ic bursitis of right hip 5813325408 41265 M70.61 [id number] MADELIN LOYD NP, S [address] [place] [id number] 02/01/2023 08:58:40 02/01/2023 09:59:54 Atrial fibrillation 87606015 I48.91 Atheroscle rosis of arteries of the extremities 23978561 I70.209 Coronary arteriosclerosis 48864169 I25.10 Essential hypertension 62705164 I10 Hyperlipidemia 56980202 E78.5 Preoperati ve cardiovascular examination 507336282 Z01.810 Peripheral arterial occlusive disease 526467511 I73.9 [id number] MADELIN LOYD NP, S [address] [place], [place] [address] 6 02/15/2023 13:06:18 02/15/2023 13:42:05 Atrial fibrillation 07235225 I48.91 Atheroscle rosis of arteries of the extremities 78571829 I70.209 Coronary arteriosclerosis 29650229 I25.10 Essential hypertension 34015908 I10 Hyperlipidemia 57231696 E78.5 Preoperati ve cardiovascular examination 634604189 Z01.810 Peripheral arterial occlusive disease 070928908 I73.9 [id number] Markos Rodriguez NP [address] [place], [place] [address] 6 04/14/2023 14:54:21 04/14/2023 15:21:02 Atrial fibrillation 36919305 I48.91 Atheroscle rosis of arteries of the extremities 61942513 I70.209 Coronary arteriosclerosis 75089647 I25.10 Essential hypertension 88446225 I10 Hyperlipidemia 92239933 E78.5 Peripheral arterial occlusive disease 825893924 I73.9 [id number] Andressa Greenberg MD [address] [place] [address] 06/28/2023 13:29:28 06/28/2023 13:56:59 Atrial fibrillation 69145763 I48.91 Atheroscle rosis of arteries of the extremities 36162937 I70.209 Coronary arteriosclerosis 51228091 I25.10 Essential hypertension 22007642 I10 Hyperlipidemia 59053184 E78.5 Peripheral arterial occlusive disease 566354280 I73.9 Dyspnea 173434799 R06.00 [id number] Andressa Greenberg MD [address] [place], [place] [address] 07/20/2023 13:37:05 07/20/2023 14:35:27 Dyspnea 029159041 R06.00 Atrial fibrillation 4943 6004 I48.91 Atheroscle rosis of arteries of the extremities 04590313 I70.209 Coronary arteriosclerosis 02718399 I25.10 Essential hypertension 79067181 I10 Hyperlipidemia 16812536 E78.5 Peripheral arterial occlusive disease 893215185 I73.9 Angina pectoris 95953872 0 I20.9 Long-term current use of anticoagulant 389503285 Z79.01 [id number] Andressa Greenberg MD [address] [place], [place] [address] 08/02/2023 13:54:04 08/02/2023 14:25:43 Dyspnea 274113149 R06.00 Atrial fibrillation 4943 6004 I48.91 Atheroscle rosis of arteries of the extremities 60639372 I70.209 Coronary arteriosclerosis 40337126 I25.10 Essential hypertension 12003730 I10 Hyperlipidemia 05772351 E78.5 Peripheral arterial occlusive disease 518817968 I73.9 Long-term current use of anticoagulant 359398440 Z79.01 [id number] Markos Rodriguez NP [address] [place] [address] 01/31/2024 13:17:16 01/31/2024 14:00:13 Coronary arteriosclerosis 54307463 I25.10 Dyspnea 369051369 R06.00 Atrial fibrillation 4943 6004 I48.91 Atheroscle rosis of arteries of the extremities 18697865 I70.209 Essential hypertension 37972868 I10 Hyperlipidemia 01368350 E78.5 Peripheral arterial occlusive disease 154834300 I73.9 Long-term current use of anticoagulant 394061064 Z79.01 [id number] Andressa Greenberg MD [address] [place], [place] [address] 07/11/2024 10:09:33 07/11/2024 10:49:16 Coronary arteriosclerosis 71045707 I25.10 [facility] 291959466 R06.00 Atrial fibrillation 4943 6004 I48.91 Atheroscle rosis of arteries of the extremities 50628178 I70.209 Essential hypertension 70152763 I10 Hyperlipidemia 15261214 E78.5 Peripheral arterial occlusive disease 084655722 I73.9 Long-term current use of anticoagulant 415495459 Z79.01 Health Concerns Section Related Observation LastModified by Organization Detai ls LastModified Time None Recorded Concern Status LastModified by Organization Details LastModified Time None Recorded Advance Directives Directive N: Payers Insurance Date Sequence Insurance Name Policy Number Policy Ingram Covered Member ID Ingram Member ID Guarantor Name 07/19/2024 1 [employer] (MEDICARE REPLACEMENT/ ADVANTAGE - PPO) Luis Simmons [id number] Luis Simmons 07/21/2023 [employer] (MEDICARE REPLACEMENT/ ADVANTAGE - PPO) Luis Simmons [id number] Luis Simmons 07/21/2023 1 [place] Luis Simmons [id number] Luis Simmons 07/21/2023 2 [employer] (MEDICARE SUPPLEMENT) Luis Simmons [id number] Luis Simmons
--- OUTSIDE RECORDS SUMMARY | 2024-12-10 13:08 | XMS_ITS | Encounter Summary ---
Author Organization [facility] Address [address] [place] [address] Care Team Providers Care Tower Attendant Name Role Phone Eitenne Evans MD Primary Care Provider [phone] Octavio Smith RN Unavailable [phone] Jamaal Chow MD Unavailable [phone] Jamil Krause FRUIT AND VEGETABLE CLASSER Unavailable Isabelle Vines NP Unavailable [phone] Wilber Delaney MD Unavailable [phone] Encounter Details Date Type Department Care Team (Late st Contact Info) Description 12/31/2015 Lab Results [facility] Physicians - Heart & Vascular, [facility] [address] [facility] [place] [address] [place] [address] Laura Sunshine NCMA Social History Tobacco Use Types Packs/Day Years [...] on file documented as of this encounter Visit Diagnoses Not on filedocumented in this encounter Care Teams Tower Attendant Relationship Specialty Start Date End Date Etienne Evans MD PCP - General Family Medicine 12/29/15 Octavio Smith, RN [address] [place] [address] Registered Nurse 07/13/20 Jamaal Chow MD [address] [place] [address]. Room [address] [place] [address] Internal Medicine 08/30/20 Jamil Krause NP [address] [place] [address] [address] [place] [address] Nurse Practitioner Cardiology 02/26/21 Isabelle Vines NP [address] [place] [address] [address] [place] [address] Nurse Practitioner Cardiology 09/07/22 Wilber Delaney MD [address] [place] [address]. [place] [address] Oncologist Hematology and Oncology 09/20/23 documented as of this encounter
--- OUTSIDE RECORDS SUMMARY | 2024-12-10 13:08 | XMS_ITS | Clinical Summary ---
Author Organization [facility] Address [address] [facility], [address] [place] [address] Care Team Providers Care Senior Landscape Architect Name Role Phone Etienne Evans MD Primary Care Provider [phone] Allergies No known active allergies Medications pantoprazole (PROTONIX) 40 MG tablet Take 40 mg by mouth daily 08/03/2014 Active atorvastatin (LIPITOR) 40 MG tablet Take 40 mg by mouth daily Active aspirin 81 MG tablet Take 81 mg by mouth daily Active [place]ucl[place]-3 Fatty Acids (FISH OIL) 1000 MG CAPS Take 1,000 mg by mouth daily Active escitalopram (LEXAPRO) 20 MG tablet Take 20 mg by mouth daily Active gabapentin (NEURONTIN) 800 MG tablet Take 800 mg by mouth 3 times daily Active sotalol (BETAPACE) 120 MG tablet Take 120 mg by mouth 2 times daily Active levothyroxine (LEVOTHROID) 125 MCG tablet Take 1 tablet by mouth Daily 90 tablet 3 02/04/2016 Active Active Problems Problem Noted Date Diagnosed Date Vitamin D deficiency 10/14/2015 Vitamin B12 deficiency 10/14/2015 Pituitary tumor Hypogonadotropic hypogonadism Secondary hypothyroidism Hyperlipidemia CAD (coronary artery disease) Thyroid nodule Resolved Problems Problem Noted Date Diagnosed Date Resolved Date ACTH deficiency 10/14/2015 Family History Medical History Relation Name Comments Heart Disease Father High Blood Pressure Father High Cholesterol Father Cancer Mother Heart Disease Mother Kidney Disease Mother Relation Name Status Comments Father Alive Mother Social History Tobacco Use Types Packs/Day Years Used Date Smoking Tobacco: Former Smokeless Tobacco: Never Alcohol Use Standard Drinks/Week Comments No 0 (1 standard drink = 0.6 oz pur e alcohol) Sex and Gender Information Value Date Recorded Sex Assigned at Not on file Legal Sex Male 8:22 PM EST Gender Identity Not on file Sexual Orientation Not on file Last Filed Vital Signs Vital Sign Reading Time Taken Comments Blood Pressure 115/50 04/01/2015 1:38 PM EST Pulse 71 10/14/2015 9:38 AM EDT Temperature - - Respiratory Rate - - Oxygen Saturation 97% 10/14/2015 9:38 AM EDT Inhaled Oxygen Concentration - - Weight 118.8 kg (262 lb) 10/14/2015 9:38 AM EDT Height 185.4 cm (6' 1 ) 10/22/2014 10:22 AM EDT Body Mass Index 34.57 10/22/2014 10:22 AM EDT Plan of Treatment Not on file Insurance MEDICARE Care Teams Senior Landscape Architect Relationship Specialty Start Date End Date Etienne Evans MD PCP - General Family Medicine 10/22/14
--- OUTSIDE RECORDS SUMMARY | 2024-12-10 13:08 | XMS_ITS | Data Portability ---
Author Organization [facility], [place] Address [address] [place] [address] Care Team Providers Care Hob Mill Operator Name Role Phone ROSA YANG Primary Care Provider [phone] ANDRESSA GREENBERG Principal Systems Architect JR THOMAS Hand Hose Cutter HERBERT JOHNSON [employer] Assessment Encounter Date Assessment Date Assessment LastModified by Organization Details LastModified Time 05/19/2023 05/19/2023 Assessment 1. VINI *HST (05/17/2023) moderate VINI with AHI:15.6, snoring, sleep-related hypoxia with a walker of 81%, and maximum heart rate 103 BPM 2. Dyspnea 3. Current Smoker 1 ppd x 55 years 4. History of 7 cardiac stents, pacemaker Plan 1.Begin Symbicort 160 mcg 2 puffs twice daily-instructed to rinse mouth after each use 2. Continue Albuterol HFA prn; discussed indications for use 3. Order CPAP 12 cm H20, machine and equipment * Current machine >10 years old 4. Smoking Cessation 5. RTO in 3 months for compliance check, sooner if needed *Smoking cessation, 3 minutes; I counselled the patient regarding the importance of stopping smoking and the detrimental health effects of continued smoking, especially in someone with underlying lung disease; I encouraged the patient to set a quit date and to rid the home of all cigarettes and smoking paraphernalia; the patient was educated regarding the use of Nicotine Replacement Therapy to fight cravings. I also discussed the role of pharmacologic therapy and available options. Not available 05/19/2023 16:22:32 06/14/2023 06/14/2023 Assessment 1. VINI *HST (05/17/2023) moderate VINI with AHI:15.6, snoring, sleep-related hypoxia with a walker of 81%, and maximum heart rate 103 BPM 2. Dyspnea *PFT (04/14/2023): severe obstruction, no restriction, +midflow obstruction, +NATALY 3. Former Smoker 1 ppd x 55 years 4. History of 7 cardiac stents, pacemaker Plan 1.Begin Symbicort 160 mcg 2 puffs twice daily-instructed to rinse mouth after each use (RX sent to [facility]) 2. Continue Albuterol HFA prn; discussed indications for use 3. Continue CPAP 14 cm H20, machine and equipment 4. Discuss LDCT Chest at next OV 5. RTO in 3 months for compliance check, sooner if needed Not available 06/14/2023 11:54:24 08/10/2023 08/10/2023 Assessment 1. VINI *HST (05/17/2023) moderate VINI with AHI:15.6, snoring, sleep-related hypoxia with a walker of 81%, and maximum heart rate 103 BPM 2. Dyspnea *PFT (04/14/2023): severe obstruction, no restriction, +midflow obstruction, +NATALY 3. Former Smoker 1 ppd x 55 years 4. History of 7 cardiac stents, pacemaker Plan 1. Stop Symbicort and Spiriva; RX Trelegy 200 mcg 1 puff daily; Rinse mouth after each use; I personally demonstrated use of the inhaled device during todays visit 2. Continue Albuterol HFA prn; discussed indications for use (RX Renewed) 3. Continue CPAP 14 cm H20, machine and equipment 4. Patient discontinued smoking >20 years ago; No eligible for LDCT Screening 5. RTO in 3 months or sooner if needed Portions of this note may be dictated using voice recognition software and or use of a medical manager. Variances in spelling and vocabulary are possible and unintentional. Not all errors are caught/corrected . Please notify the author if any discrepancies are noted or if the meaning of any statement is not clear. This is a summary discussion with the patient and in no way is intended to be a verbatum summation of everything discussed. We apologize for any inconvenience. Not available 08/10/2023 14:56:39 12/08/2023 12/08/2023 Assessment 1. VINI *HST (05/17/2023) moderate VINI with AHI:15.6, snoring, sleep-related hypoxia with a walker of 81%, and maximum heart rate 103 BPM 2. Dyspnea *PFT (04/14/2023): severe obstruction, no restriction, +midflow obstruction, +NATALY *PFT (12/08/2023): moderate obstruction, no restriction, +NATALY response 3. Former Smoker 1 ppd x 55 years 4. History of 7 cardiac stents, pacemaker Plan 1. Continue Trelegy 200 mcg 1 puff daily; Rinse mouth after each use *Failed Symbicort and Spiriva 2. Continue Albuterol HFA prn; discussed indications for use 3. Continue CPAP 14 cm H20, machine and equipment 4. Patient discontinued smoking >20 years ago; Not eligible for LDCT Screening 5. RTO in 6 months or sooner if needed Portions of this note may be dictated using voice recognition software and or use of a medical manager. Variances in spelling and vocabulary are possible and unintentional. Not all errors are caught/corrected . Please notify the author if any discrepancies are noted or if the meaning of any statement is not clear. This is a summary discussion with the patient and in no way is intended to be a verbatum summation of everything discussed. We apologize for any inconvenience. Not available 12/10/2023 20:28:36 Plan of Treatment Reminders Order Date Submit Date Provider Last Modified By Organization Details Last Modified Time Details Appointments None recorded. Lab None recorded. Referral None recorded. Procedures None recorded. Surgeries None recorded. Imaging None recorded. Medication Orders albuterol sulfate HFA 90 mcg/actuati on aerosol inhaler 2023 024 [facility] Not available 14:38:17 albuterol sulfate HFA 90 mcg/actuati on aerosol inhaler 2023 024 [facility], [address], [place], [address], 13:57:49 Trelegy Ellipta 200 mcg-62.5 mcg-25 mcg powder for inhalation 2023 [facility], [address], [place], [address], 13:57:49 Symbicort 160 mcg-4.5 mcg/actuati on HFA aerosol inhaler 2023 024 [facility] [id number], [address] [place] [address] , [place], [address], 14:03:49 Patient TargetsNo targets recorded. Patient Instructions Encounter Date Encounter Id Patient Instructions Last Modified By Organization Details Last Modified Time 05/19/2023 [id number] smoking cessatio n counseling, greater than 3 minutes up to 10 minutes* [email or web address] Not available 05/30/2023 12:10:01 Reason for Referral None Reported. Results Created Date Observation Date Name Description Value Unit Range Abnormal Flag Note LastModifiedBy Organization Detail LastModifiedTime 04/21/2004/21/2023 PFT, compl ete No observ ation record ed. [email or web address] Not Available 04/21 10:13:35 05/19/19 24 05/19/2023 home sleep study No observ ation record ed. [email or web address] Not Available 2023 16:14:40 05/23/19 24 home sleep testi ng (PROC ) No observ ation record ed. [email or web address] Not Available 2023 11:44:27 05/23/19 24 05/17/2023 home sleep testi ng (PROC ) No observ ation record ed. [email or web address] Not Available 2023 11:44:40 06/14/19 24 06/13/2023 CPAP compl iance * No observ ation record ed. [email or web address] Not Available 2023 13:46:32 06/22/19 24 06/13/2023 CPAP compl iance * No observ ation record ed. [email or web address] [facility] [address], [place], [address], 06/23/2023 09:12:39 06/28/19 24 06/24/2023 compl ete PFT w/ post [facility] maris metry * No observ ation record ed. [email or web address] Not Available 2023 11:12:03 08/12/19 24 07/11/2023 home sleep testi ng (PROC ) No observ ation record ed. [email or web address] Not Available 08/11 15:41:34 12/14/19 24 12/04/2023 CPAP compl iance * No observ ation record ed. [email or web address] Not Available 2023 12:24:25 12/14/19 24 12/14/2023 compl ete PFT w/ post [facility] maris metry * No observ ation record ed. [email or web address] Not Available 2023 12:24:35 Result Notes None recorded. Problems Name Problem SNOMED Code Status Onset Date Resolution Date Notes Provider Name and Address Organization Details Recorded Time Dyspnea 611498266 Active 2022 Mary Vergara NP [address], [place], [address], [place] - [facility] 14:42:15 Chronic obstructive pulmonary disease 48184461 Active 2022 Mary Vergara NP [address], [place], [address], [place] - [facility] 3 14:50:32 Obstructive sleep apnea syndrome 83701946 Active 2022 Mary Vergara NP [address], [place], [address], [place] - [facility] 3 16:02:22 Heavy tobacco smoker 3870291618074 03 Active 2022 Mary Vergara NP [address], [place], [address], [place] - [facility] 3 16:02:45 Former heavy tobacco smoker 8997160881274 00 Active 2023 Mary Vergara NP [address], [place], [address], [place] - [facility] 4 11:54:54 Problem Notes None recorded. Procedures Surgical History Date Name Laterality Status Provider Name and Address Organization Details Recorded Time operation on pituitary gland completed marianna [place] - [facility] 08/10/2023 13:47:53 cardiac catheterization completed mariannahannah [place] - [facility] 08/10/2023 13:48:08 cardiac pacemaker procedure completed [facility] - [facility] 08/10/2023 13:48:15 Appendectomy completed mariannahannah [place] - [facility] 08/10/2023 13:48:20 procedure on upper arm completed mariannahannah [place]es [place] - [facility] 08/10/2023 13:48:37 cardiac ablation using fluoroscopy guidance completed marianna sophia [place] - [facility] 08/10/2023 13:49:02 Imaging Results None recorded. Procedure Notes None recorded. Medical Equipment None Reported. Allergies Allergen ID Allergen Name Allergen Category Reaction Reaction Severity Criticality Documentation Date Start Date Code Code System Note Provider Name and Address Organization Details Recorded Time 37902 Dilaudid medicatio n Not available Not available Not available 04/14/2023 79876 3 RxNorm Anju verma, [place] - [facility] 13:58:51 Medications Name Sig Start Date Stop Date Status Note LastModified by Organization Details LastModified Time hydrocortis one 5 mg tablet active Not Available Not Available Not Available amoxicillin 500 mg capsule 04/14 completed Not Available Not Available Not Available cilostazol 100 mg tablet active Not Available Not Available Not Available hydroxyurea 500 mg capsule active Not Available Not Available Not Available ketoconazol e 2 % shampoo active Not Available Not Available Not Available clindamycin HCl 300 mg capsule TAKE ONE (1) CAPSULE BY MOUTH THREE (3) TIMES DAILY FOR 7 DAYS. 12/07 completed Not Available Not Available Not Available hydrocodone 5 mg-acetamin ophen 325 mg tablet 04/14 completed Not Available Not Available Not Available warfarin 7.5 mg tablet 12/07 completed Not Available Not Available Not Available atenolol 25 mg tablet active Not Available Not Available No t Available penicillin V potassium 500 mg tablet 04/14 completed Not Available Not Available Not Available clopidogrel 75 mg tablet active Not Available Not Available Not Available sulfamethox azole 800 mg-trimetho prim 160 mg tablet 04/14 completed Not Available Not Available Not Available oxycodone-a cetaminophe n 5 mg-325 mg tablet 04/14 completed Not Available Not Available Not Available BD Luer-Marc Syringe 3 mL 23 gauge x 1 05/17 active Not Available Not Available Not Available gabapentin 800 mg tablet active Not Available Not Available Not Available doxycycline monohydrate 100 mg capsule 06/14 completed Not Available Not Available Not Available hydrocodone 7.5 mg-acetamin ophen 325 mg tablet 04/14 completed Not Available Not Available Not Available cephalexin 500 mg capsule 04/14 completed Not Available Not Available Not Available pantoprazol e 40 mg tablet,curt yed release active Not Available Not Available Not Available oseltamivir 75 mg capsule 08/09 completed Not Available Not Available Not Available levothyroxi ne 125 mcg tablet active Not Available Not Available Not Available warfarin 5 mg tablet 08/09 completed Not Available Not Available Not Available levothyroxi ne 150 mcg tablet 04/14 completed Not Available Not Available Not Available hydroxyzine HCl 25 mg tablet 06/14 completed Not Available Not Available Not Available mupirocin 2 % topical ointment 04/14 completed Not Available Not Available Not Available testosteron e cypionate 200 mg/mL intramuscul ar oil active Not Available Not Available Not Available oxycodone-a cetaminophe n 7.5 mg-325 mg tablet 06/14 completed Not Available Not Available Not Available albuterol sulfate HFA 90 mcg/actuati on aerosol inhaler Inhale 2 puffs every 4 hours by inhalatio n route as needed for 90 days. active Not Available Not Available No t Available ketoconazol e 2 % topical cream active Not Available Not Available Not Available amoxicillin 500 mg-potassiu m clavulanate 125 mg tablet TAKE ONE (1) TABLET BY MOUTH TWO (2) TIMES DAILY FOR 7 DAYS. 12/07 completed Not Available Not Available Not Available modafinil 100 mg tablet 04/14 completed Not Available Not Available Not Available enoxaparin 40 mg/0.4 mL subcutaneou s syringe 04/14 completed Not Available Not Available Not Available cyclobenzap rine 5 mg tablet active Not Available Not Available Not Available Spiriva with HandiHaler 18 mcg and inhalation capsules Inhale 1 capsule by inhalatio n route for 30 days. 12/07 completed Not Available Not Available Not Available duloxetine 60 mg capsule,del ayed release active Not Available Not Available Not Available Symbicort 160 mcg-4.5 mcg/actuati on HFA aerosol inhaler Inhale 2 puffs twice a day by inhalatio n route for 30 days. 12/07 completed Not Available Not Available Not Available Eliquis 5 mg tablet active Not Available Not Available No t Available Trelegy Ellipta 200 mcg-62.5 mcg-25 mcg powder for inhalation INHALE 1 PUFF EVERY DAY 2023 active Not Available Not Available Not Avai lable Vitals Date Recorded Body height Respiratory rate Body mass index (BMI) Body weight Heart rate Systolic And Diastolic Provider Name and Address Organization Details Last Updated DateTime 4 187.96 cm 19 /min 32.7 kg/m2 441767. 05 g 66 /min 118/88 mm[Hg] timi erazo [facility] 4 11:09:04 Date Recorded Body height Body mass index (BMI) Body weight Oxygen saturation Oxygen saturation in Arterial blood by Pulse oximetry Heart rate Respiratory rate Body temperature Systolic And Diastolic Provider Name and Address Organization Details Last Updated DateTime 4 187.96 cm 32.1 kg/m2 509290. 09 g 96 % 96 % 63 /min 20 /min 98.2 [degF] 132/68 mm[Hg] greyson mcfadden [facility] 4 11:03:19 Date Recorded Body height Body mass index (BMI) Body weight Oxygen saturation Oxygen saturation in Arterial blood by Pulse oximetry Heart rate Respiratory rate Body temperature Systolic And Diastolic Provider Name and Address Organization Details Last Updated DateTime 4 187.96 cm 32.7 kg/m2 879016. 05 g 98 % 98 % 60 /min 18 /min 97.5 [degF] 130/82 mm[Hg] marianna [place] [facility] 4 13:45:21 Date Recorded Body height Body mass index (BMI) Body weight Oxygen saturation Oxygen saturation in Arterial blood by Pulse oximetry Heart rate Respiratory rate Body temperature Systolic And Diastolic Provider Name and Address Organization Details Last Updated DateTime 4 187.96 cm 31.1 kg/m2 957074. 35 g 99 % 99 % 72 /min 18 /min 97.1 [degF] 102/60 mm[Hg] greyson mcfadden [facility] 4 14:02:17 Social History Question Answer Notes LastModified by Organizat ion Details LastModified Time Tobacco Smoking Status Former Smoker timi verma [facility] 04/14/2023 14:21:43 Do You Have An Advance Directive? No Information not available 04/14/2023 Is Your Home Air Conditioned? Yes Information not available 04/14/2023 When Did You Quit Smoking? 11-15yearssincelast cigarette Age 53 [email or web address] Information not available 04/14/2023 Where Do You Live? SingleLevelHouse [email or web address] Information not available 08/10/2023 Do You Have A Medical Power Of Offal Icer Poultry? No [email or web address] Information not available 04/14/2023 What Was The Date Of Your Most Recent Tobacco Screening? 12/08/2023 [email or web address] Information not available 12/08/2023 What Is Your Current Pack Years? 30ormorepackyears [email or web address] Information no t available 04/14/2023 Do You Have Any Pets? Yes Dog X1 [email or web address] Information not available 08/10/2023 What Is Your Relationship Status? [email or web address] Information not available 04/14/2023 At What Age Did You Start Smoking Tobacco? 9 [email or web address] Information not available 04/14/2023 Are There Any Smokers In Your House? Yes [email or web address] Information not available 08/10/2023 How Much Tobacco Do You Smoke? No [email or web address] Information not available 08/10/2023 Has Tobacco Cessation Counseling Been Provided? No [email or web address] Information not available 04/14/2023 How Many Years Have You Smoked Tobacco? 42 [email or web address] Information not available 04/14/2023 Have You Recently Traveled Abroad? No [email or web address] Information not available 04/14/2023 Are You Currently In School? No [email or web address] Information not available 04/14/2023 Sex: Unknown Functional Status Question Answer Note LastModified by Organization D etails LastModified Time Do you or have you ever used any other forms of tobacco or nicotine? No [email or web address] Information not available 04/14/2023 Are you currently employed? No [email or web address] Information not available 04/14/2023 Mental Status None recorded. Family History Relationship Description Onset Age of this Age Resolved Age Notes LastModified by Organization Details LastModified Time Father Heart disease [email or web address] Not available 08/09 13:46:45 Father Carcinoma of prostate [email or web address] Not available 08/09 13:46:52 Mother Heart disease [email or web address] Not available 08/09 13:46:45 Mother Malignant tumor of kidney [email or web address] Not available 08/09 13:46:59 Mother Glaucoma [email or web address] Not availab le 08/10/2023 13:47:05 Mother Hypertensive disorder Not available 08/09 13:47:10 Medical History No medical history recorded. Past Encounters Encounter ID Performer Location Encounter Start Date Encounter Closed Date Diagnosis/Indication Diagnosis SNOMED-CT Code Diagnosis ICD10 Code Diagnosis Note [id number] Mary Vergara NP [place] [facility] [address] [facility] [address] [place] [address] 04/14/2023 13:41:17 04/14/2023 14:55:50 Dyspnea 494020650 R06.00 Chronic ob structive pulmonary disease 87339621 J44.9 Heavy tobacco smoker 540 2416142 01181 Z72.0 Obstructiv e sleep apnea syndrome 04340368 G47.33 [id number] Mary Vergara NP [place] [facility] [address] [place] [address] 05/19/2023 11:00:49 05/19/2023 11:23:45 Dyspnea 734392598 R06.00 Chronic ob structive pulmonary disease 91972456 J44.9 Heavy tobacco smoker 962 5400310 31218 Z72.0 Obstructiv e sleep apnea syndrome 43013902 G47.33 [id number] Mary Vergara NP [address] [place] [address] 06/02/2023 08:58:15 06/02/2023 09:37:48 [id number] Mary Vergara NP [address] [place] [address] 06/14/2023 10:48:09 06/14/2023 11:26:03 Dyspnea 904147004 R06.00 Chronic ob structive pulmonary disease 51903924 J44.9 Obstructiv e sleep apnea syndrome 05428953 G47.33 Former hea vy tobacco smoker 0994271418 08300 Z87.891 [id number] Mary Vergara NP [address] [address] 08/10/2023 13:34:17 08/10/2023 14:03:45 Dyspnea 866553729 R06.00 Chronic ob structive pulmonary disease 63248836 J44.9 Obstructiv e sleep apnea syndrome 80417114 G47.33 Former hea vy tobacco smoker 2827932787 19989 Z87.891 [id number] Matt Moya DO [address] [address] 12/08/2023 13:44:12 12/12/2023 12:24:48 Obstructive sleep apnea syndrome 66809564 G47.33 Dyspnea 938326380 R06.00 Chronic ob structive pulmonary disease 83868311 J44.9 Former hea vy tobacco smoker 6795243134 91347 Z87.891 Health Concerns Section Related Observation LastModified by Organization Detai ls LastModified Time None Recorded Concern Status LastModified by Organization Details LastModified Time None Recorded Advance Directives Directive N: Payers Insurance Date Sequence Insurance Name Policy Number Policy Ingram Covered Member ID Ingram Member ID Guarantor Name 06/04/2024 1 [employer] (MEDICARE REPLACEMENT/ ADVANTAGE - PPO) Luis Simmons [id number] Luis Simmons
== END 2024-12-06 23:59 | disposition home or self-care (01) ==
LOC: LAB.DROPOF 12-10 12:58
PROVIDERS: PCP Family Medicine; Visit Provider Family Medicine
DX: E34.9 Endocrine disorder, unspecified (principal); I10 Essential (primary) hypertension; R53.83 Other fatigue; Z12.5 Encounter for screening for malignant neoplasm of prostate
CPT/HCPCS: 80053; 84403